=== PATIENT | female | born 1935 | race Caucasian/White ===

== ENCOUNTER 2019-03-21 01:30 | Emergency (ER) | payer MEDICARE ==
[2019-03-21 01:36] VITALS: BP 193/92; PULSE 72; RESP 20; TEMP 98
[2019-03-21] MEDS ORDERED: LIDOCAINE 2% INJ 20 MG/ML (20 ML MDV) SQ STA (01:47)
[2019-03-21] MEDS ORDERED: AZITHROMYCIN 500 MG TAB PO STA (02:54)
--- NOTE | 2019-03-21 02:54 | ED ---
Animal Bite HPI - General Chief Complaint: Animal Bite Stated Complaint: Cat scratch Time Seen by Provider: 03/21/19 01:38 Source: patient Mode of arrival: ambulatory Limitations: no limitations - History of Present Illness Initial Comments: 83-year-old female patient presents to the emergency department today for evaluation of a bleeding wound to the left pinky finger. Patient states that her cat scratched her approximately 3 hours ago and she has been unable to get the bleeding to stop. Patient states she is taking Eliquis twice a day. Patient states she held pressure, applied ice, and elevated it without relief. States that she did wash the wound. She denies any other injuries. Patient denies any headache, neck pain, back pain, chest pain, shortness of breath, dizziness, weakness, abdominal pain, nausea, vomiting, or difficulties with bowel movements or urination. - Related Data Home Medications Medication Instructions Recorded Confirmed Allopurinol [Zyloprim] 300 mg PO DAILY 07/04/17 07/04/17 Artificial Tears-Hypromellose 1 drops BOTH EYES DAILY PRN 07/04/17 07/04/17 [Artificial Tear Drops] Ferrous Sulfate [Iron (65 MG 325 mg PO DAILY 07/04/17 07/04/17 Elemental)] Multivit/Folic Acid/Vit K1 1 tab PO DAILY 07/04/17 07/04/17 [One-A-Day Women's 50 Plus Tab] Potassium Chloride [Klor-Con 20] 20 meq PO DAILY 07/04/17 07/04/17 amLODIPine [Norvasc] 5 mg PO DAILY 07/04/17 07/04/17 Previous Rx's Medication Instructions Recorded Apixaban [Eliquis] 5 mg PO BID tab 07/06/17 Nitroglycerin Sl Tabs [Nitrostat] 0.4 mg SUBLINGUAL Q5M PRN tab 07/06/17 Potassium Chloride ER [K-Dur 20] 20 meq PO DAILY tab.er.prt 07/06/17 Verapamil Sr [Isoptin Sr] 120 mg PO DAILY tablet.er 07/06/17 Azithromycin [Zithromax Z-pack] 0 mg PO DIRECTED #6 tab 03/21/19 Allergies Allergy/AdvReac Type Severity Reaction Status Date / Time No Known Allergies Allergy Verified 03/21/19 01:36 Review of Systems ROS Statement: Those systems with pertinent positive or pertinent negative responses have been documented in the HPI. ROS Other: All systems not noted in ROS Statement are negative. Past Medical History Past Medical History: Hypertension Additional Past Medical History / Comment(s): Hepatitis C History of Any Multi-Drug Resistant Organisms: None Reported Past Surgical History: Tonsillectomy Past Anesthesia/Blood Transfusion Reactions: No Reported Reaction Additional Past Anesthesia/Blood Transfusion Reaction / Comment(s): Blood transfusion 5-6 years ago (no reactions) Past Psychological History: No Psychological Hx Reported Smoking Status: Former smoker Past Alcohol Use History: None Reported Past Drug Use History: None Reported - Past Family History Father Family Medical History: Cancer Additional Family Medical History / Comment(s): prostate CA Mother Family Medical History: Diabetes Mellitus, Myocardial Infarction ([place]) Brother(s) Family Medical History: Cancer Additional Family Medical History / Comment(s): esophageal CA Sister(s) Family Medical History: Cancer Additional Family Medical History / Comment(s): ovarian CA General Exam Limitations: no limitations General appearance: alert, in no apparent distress, other (This is a well- developed, well-nourished elderly female patient in no acute distress. Vital signs upon presentation are temperature 98.0F, pulse 72, respirations 20, blood pressure 193/92, pulse ox 94% on room air.) Respiratory exam: Present: normal lung sounds bilaterally. Absent: respiratory distress, wheezes, rales, rhonchi, stridor Cardiovascular Exam: Present: regular rate, normal rhythm, normal heart sounds. Absent: systolic murmur, diastolic murmur, rubs, gallop, clicks Extremities exam: Present: full ROM, normal capillary refill, other (1 cm laceration noted to the pad of the left fifth finger.). Absent: normal inspection, tenderness, pedal edema, joint swelling, calf tenderness Neurological exam: Present: alert, oriented X3, CN II-XII intact Psychiatric exam: Present: normal affect, normal mood Skin exam: Present: warm, dry, intact, normal color. Absent: rash Course Vital Signs 03/21/19 01:33 Temperature 98.0 F Pulse Rate 72 Respiratory 20 Rate Blood Pressure 193/92 O2 Sat by Pulse 94 L Oximetry Procedures - Laceration Laceration #1 Indication: laceration Site: hand (Left fifth finger) Size (cm): 1 Description: linear Depth: simple, single layer Anesthetic Used: lidocaine 1% Anesthesia Technique: local infiltration Amount (mls): 1 Type of Sutures: nylon Size of Sutures: 5-0 Number of Sutures: 2 Technique: simple, interrupted Patient Tolerated Procedure: well, no complications Medical Decision Making - Medical Decision Making 83-year-old female patient presents to the emergency department today for evaluation of laceration to the left finger. Physical examination did reveal bleeding wound measuring approximately 1 cm in the pad of the left fifth finger. Laceration was repaired. Bleeding was stopped utilizing direct pressure. Patient tolerated procedures well. She was started on azithromycin for prevention of infection. She is instructed to follow-up with her primary care physician for recheck in 1-2 days. She is instructed to have sutures removed in 7 days. Return parameters discussed in detail. She verbalizes understanding and agrees with this plan. Disposition Clinical Impression: Cat scratch Disposition: HOME SELF-CARE Condition: Good Instructions (If sedation given, give patient instructions): Care For Your S titches (ED), Laceration (ED) Additional Instructions: Keep wound clean and dry. Cleanse twice daily with warm water and antibacterial soap. Complete antibiotic prescription in full. Follow-up with your primary care physician for recheck in 1-2 days. Return in 7 days to have the stitches removed. Return for any other new, worsening, or concerning symptoms. Prescriptions: Azithromycin [Zithromax Z-pack] 0 mg PO DIRECTED #6 tab Is patient prescribed a controlled substance at d/c from ED?: No Referrals: Patti Razo MD [Primary Care Provider] - 1-2 days Time of Disposition: 02:54
== END 2019-03-21 03:08 | disposition home or self-care (01) ==
LOC: EC 01:30
DX: S61.217A Laceration without foreign body of left little finger without damage to nail, initial encounter (principal); I10 Essential (primary) hypertension; Z79.899 Other long term (current) drug therapy; Z87.891 Personal history of nicotine dependence; W55.03XA Scratched by cat, initial encounter
CPT/HCPCS: 99283; 12001; J2001

== ENCOUNTER 2019-09-30 15:30 | Emergency (ER) | payer MEDICARE ==
[2019-09-30 15:37] VITALS: TEMP 97.7
--- NOTE | 2019-09-30 16:19 | ED ---
General Adult HPI - General Chief complaint: Eye Problems Stated complaint: vision problems Time Seen by Provider: 09/30/19 16:02 Source: patient, family, RN notes reviewed, old records reviewed Mode of arrival: wheelchair Limitations: no limitations - History of Present Illness Initial comments: 84-year-old female history of hypertension and DVT presenting for evaluation of decreased sensation in the left eye. Patient's symptoms began yesterday morning when she woke this pain greater than 24 hours since the onset of her symptoms. She denies pain. She denies headache. She denies focal numbness or weakness. No history of TIA or CVA. 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 She is currently on Eliquis, with history of DVT. Most recent DVT was diagnosed approximately 6 months ago. Denies chest pain or dyspnea, denies abdominal pain nausea vomiting. - Related Data Home Medications Medication Instructions Recorded Confirmed Ferrous Sulfate [Iron (65 MG 325 mg PO BID 07/04/17 09/30/19 Elemental)] amLODIPine [Norvasc] 5 mg PO DAILY 07/04/17 09/30/19 Atenolol 25 mg PO DAILY 09/30/19 09/30/19 Ergocalciferol [Vitamin D2] 50,000 unit PO LAKHANI 09/30/19 09/30/19 Nitroglycerin Sl Tabs [Nitrostat] 0.4 mg SUBLINGUAL Q5M PRN 09/30/19 09/30/19 Verapamil HCl [Verapamil ER] 240 mg PO DAILY 09/30/19 09/30/19 Previous Rx's Medication Instructions Recorded Apixaban [Eliquis] 5 mg PO BID tab 07/06/17 Potassium Chloride ER [K-Dur 20] 20 meq PO DAILY tab.er.prt 07/06/17 Allergies Allergy/AdvReac Type Severity Reaction Status Date / Time No Known Allergies Allergy Verified 09/30/19 16:27 Review of Systems ROS Statement: Those systems with pertinent positive or pertinent negative responses have been documented in the HPI. ROS Other: All systems not noted in ROS Statement are negative. Past Medical History Past Medical History: Hypertension Additional Past Medical History / Comment(s): Hepatitis C History of Any Multi-Drug Resistant Organisms: None Reported Past Surgical History: Section, Tonsillectomy Past Anesthesia/Blood Transfusion Reactions: No Reported Reaction Additional Past Anesthesia/Blood Transfusion Reaction / Comment(s): Blood transfusion 5-6 years ago (no reactions) Past Psychological History: No Psychological Hx Reported Smoking Status: Former smoker Past Alcohol Use History: None Reported Past Drug Use History: None Reported - Past Family History Father Family Medical History: Cancer Additional Family Medical History / Comment(s): prostate CA Mother Family Medical History: Diabetes Mellitus, Myocardial Infarction ([place]) Brother(s) Family Medical History: Cancer Additional Family Medical History / Comment(s): esophageal CA Sister(s) Family Medical History: Cancer Additional Family Medical History / Comment(s): ovarian CA General Exam Limitations: no limitations General appearance: alert, in no apparent distress Head exam: Present: atraumatic, normocephalic Eye exam: Present: PERRL, EOMI. Absent: periorbital swelling, periorbital tenderness Pupils: Present: normal accommodation ENT exam: Present: normal exam Neck exam: Present: normal inspection Respiratory exam: Present: normal lung sounds bilaterally. Absent: respiratory distress, wheezes Cardiovascular Exam: Present: regular rate, normal rhythm GI/Abdominal exam: Present: soft. Absent: distended, tenderness Extremities exam: Present: normal inspection, normal capillary refill Neurological exam: Present: alert, oriented X3, CN II-XII intact. Absent: motor sensory deficit Psychiatric exam: Present: normal affect, normal mood Skin exam: Present: warm, dry, intact. Absent: cyanosis, diaphoretic Course Vital Signs 09/30/19 09/30/19 09/30/19 15:35 15:37 16:37 Temperature 97.7 F Pulse Rate 87 78 Respiratory 16 20 18 Rate Blood Pressure 164/78 142/82 O2 Sat by Pulse 96 95 Oximetry 09/30/19 17:00 Temperature Pulse Rate 77 Respiratory 18 Rate Blood Pressure 148/80 O2 Sat by Pulse 95 Oximetry EKG Findings - EKG Comments: EKG Findings:: EKG: Normal sinus rhythm, rate of 76, DE interval 176, QRS durati on 84, QTC [address] segment elevation. Medical Decision Making - Medical Decision Making Visual acuity, 20/800 in the left eye, 20/100 in the right eye. Eye pressure: Left eye 14, right eye 15. 84-year-old female with painless vision loss. Evaluated in the emergency department, normal laboratory testing, normal head CT no intracranial hemorrhage or mass effect. I exam performed by myself was unable to visualize the retina. Ophthalmology was contacted who is able to evaluate the patient after she was dilated. Recommend close outpatient follow-up. they se a very dense cataract in the left eye. Patient evaluated by ophthalmology, Dr. Vang, has follow-up within 24 hours - Lab Data Result diagrams: 09/30/19 16:30 09/30/19 16:30 Lab Results 09/30/19 09/30/19 09/30/19 Range/Units 16:30 16:30 16:30 WBC 7.3 (3.8-10.6) k/uL RBC 4.70 (3.80-5.40) m/uL Hgb 14.2 (11.4-16.0) gm/dL Hct 44.9 (34.0-46.0) % MCV 95.6 (80.0-100.0) fL MCH 30.1 (25.0-35.0) pg MCHC 31.5 (31.0-37.0) g/dL RDW 13.7 (11.5-15.5) % Plt Count 182 (150-450) k/uL Neutrophils % 68 % Lymphocytes % 19 % Monocytes % 9 % Eosinophils % 2 % Basophils % 0 % Neutrophils # 4.9 (1.3-7.7) k/uL Lymphocytes # 1.4 (1.0-4.8) k/uL Monocytes # 0.7 (0-1.0) k/uL Eosinophils # 0.1 (0-0.7) k/uL Basophils # 0.0 (0-0.2) k/uL PT 9.7 (9.0-12.0) sec INR 0.9 (<1.2) APTT 26.1 (22.0-30.0) sec Sodium 141 (137-145) mmol/L Potassium 4.3 (3.5-5.1) mmol/L Chloride 105 (98-107) mmol/L Carbon Dioxide 24 (22-30) mmol/L Anion Gap 12 mmol/L BUN 21 H (7-17) mg/dL Creatinine 0.65 (0.52-1.04) mg/dL Est GFR (CKD-EPI)AfAm >90 (>60 ml/min/1.73 sqM) Est GFR (CKD-EPI)NonAf 82 (>60 ml/min/1.73 sqM) Glucose 100 H (74-99) mg/dL Calcium 9.2 (8.4-10.2) mg/dL Total Bilirubin 0.3 (0.2-1.3) mg/dL AST 43 H (14-36) U/L ALT 27 (4-34) U/L Alkaline Phosphatase 113 (38-126) U/L Total Protein 7.6 (6.3-8.2) g/dL Albumin 4.4 (3.5-5.0) g/dL Disposition Clinical Impression: Cataract, Vision loss of left eye Disposition: HOME SELF-CARE Condition: Fair Instructions (If sedation given, give patient instructions): Cataracts (ED) Is patient prescribed a controlled substance at d/c from ED?: No Referrals: Patti Razo MD [Primary Care Provider] - 1-2 days Brit Vang MD [STAFF PHYSICIAN] - 1-2 days Time of Disposition: 19:47
[2019-09-30 16:42] LABS: Basophils % (A) 0 %; Eosinophils # (A) 0.1 k/uL (0-0.7); Eosinophils % (A) 2 %; HCT 44.9 % (34.0-46.0); HGB 14.2 gm/dL (11.4-16.0); Lymphocytes # (A) 1.4 k/uL (1.0-4.8); Lymphocytes % (A) 19 %; MCH 30.1 pg (25.0-35.0); MCHC 31.5 g/dL (31.0-37.0); MCV 95.6 fL (80.0-100.0); Mean Platelet Volume 8.7; Monocytes # (A) 0.7 k/uL (0-1.0); Monocytes % (A) 9 %; Neutrophils # (A) 4.9 k/uL (1.3-7.7); Neutrophils % (A) 68 %; Platelet Count 182 k/uL (150-450); RDW 13.7 % (11.5-15.5); WBC 7.3 k/uL (3.8-10.6)
--- NOTE | 2019-09-30 16:51 | CT ---
EXAMINATION TYPE: CT brain wo con DATE OF EXAM: 09/30/2019 HISTORY: changes in vision CT DLP: 1094.4 mGycm. Automated Exposure Control for Dose Reduction was Utilized. TECHNIQUE: CT scan of the head is performed without contrast. COMPARISON: None. FINDINGS: There is no acute intracranial hemorrhage or midline shift identified. There is diffuse v entricular and sulcal prominence consistent with diffuse age-related cerebral atrophy. There is low- attenuation in the periventricular white matter consistent with chronic small vessel ischemic change. Vascular calcification distal internal carotid arteries bilaterally is present. Scleral calcificatio n bilateral globes. Paranasal sinuses are grossly clear. IMPRESSION: No acute intracranial hemorrhage or midline shift. There is mild to moderate diffuse ag e-related cerebral atrophy and chronic small vessel ischemic change noted.
[2019-09-30 16:56] LABS: ALT 27 U/L (4-34); AST 43 U/L (14-36); African American GFR (CKD) >90 (>60 ml/min/1.73 sqM); Albumin 4.4 g/dL (3.5-5.0); Alkaline Phosphatase 113 U/L (38-126); Anion Gap 12 mmol/L; Blood Urea Nitrogen 21 mg/dL (7-17); Calcium 9.2 mg/dL (8.4-10.2); Carbon Dioxide 24 mmol/L (22-30); Chloride 105 mmol/L (98-107); Glucose 100 mg/dL (74-99); Non-African American GFR(CKD) 82 (>60 ml/min/1.73 sqM); Potassium 4.3 mmol/L (3.5-5.1); Sodium 141 mmol/L (137-145); Total Bilirubin 0.3 mg/dL (0.2-1.3); Total Protein 7.6 g/dL (6.3-8.2)
[2019-09-30 17:08] LABS: INR 0.9 (<1.2); Partial Thromboplastin Time 26.1 sec (22.0-30.0); Prothrombin Time 9.7 sec (9.0-12.0)
[2019-09-30] MEDS ORDERED: TROPICAMIDE 1% OPHTH DROPS 2 ML BTL BOTH EYES SCH (17:15)
[2019-09-30] MEDS ORDERED: amLODIPine 5 MG TAB PO STA (17:17)
[2019-09-30 20:02] VITALS: BP 153/88; PULSE 79; RESP 20
--- NOTE | 2019-09-30 20:09 | CONS ---
CONSULTATION CHIEF COMPLAINT: The patient is 84 years old, complaining of decreased vision in both eyes. She states that this happened quickly in the last few days. The patient did not see an tilting head band sawyer or an group activities aide for the last 15 years. The patient denies any history of trauma, headaches, temporal pain or stroke. Eye examination: Vision: Right eye is 20/100, left eye is 20/400. Extraocular motility full. Pupils equal and reactive. Eye pressure were 18 mmHg both eyes. Angle could not be evaluated in the emergency room. Dilated examination showed the normal disk in the right eye. Normal retina in the right eye with macular degeneration and a 2+ nuclear sclerosis. Left eye shows 4+ nuclear sclerosis with a very hazy retinal view. Unable to evaluate anything in the retina. Could be vitreous hemorrhage. Could be severely dense cataract. I will re-evaluate tomorrow in the office through a retina specialist. She would need to B scan to evaluate behind the retina. We will arrange everything for tomorrow. We will call her son to arrange for the B-scan in the office and to follow up. Thank you for the consultation. ASSESSMENT: 1. Bilateral cataract, very dense in the left eye. 2. Possible vitreous hemorrhage, left eye, unable to evaluate the retina. MMODL / IJN: [id number] /
== END 2019-09-30 20:04 | disposition home or self-care (01) ==
LOC: EC 15:30
DX: H26.9 Unspecified cataract (principal); I10 Essential (primary) hypertension; B19.20 Unspecified viral hepatitis C without hepatic coma; Z79.01 Long term (current) use of anticoagulants; Z79.899 Other long term (current) drug therapy; Z86.718 Personal history of other venous thrombosis and embolism; Z87.891 Personal history of nicotine dependence
CPT/HCPCS: 36415; 70450; 80053; 85025; 85610; 85730; 93005; 99285

== ENCOUNTER 2020-02-10 10:21 | Observation (INO) | payer MEDICARE ==
[2020-02-10] MEDS ORDERED: SODIUM CHLORIDE 0.9% 500 ML 500 ML IV STA (10:30)
[2020-02-10 10:51] LABS: Basophils % (A) 0 %; Eosinophils # (A) 0.2 k/uL (0-0.7); Eosinophils % (A) 2 %; HCT 44.4 % (34.0-46.0); HGB 14.8 gm/dL (11.4-16.0); Lymphocytes # (A) 1.4 k/uL (1.0-4.8); Lymphocytes % (A) 18 %; MCH 31.3 pg (25.0-35.0); MCHC 33.2 g/dL (31.0-37.0); Mean Platelet Volume 9.1; Monocytes # (A) 0.6 k/uL (0-1.0); Monocytes % (A) 8 %; Neutrophils # (A) 5.4 k/uL (1.3-7.7); Neutrophils % (A) 70 %; Platelet Count 194 k/uL (150-450); RBC 4.72 m/uL (3.80-5.40); RDW 13.3 % (11.5-15.5); WBC 7.8 k/uL (3.8-10.6)
[2020-02-10 10:59] LABS: ALT 30 U/L (4-34); AST 52 U/L (14-36); African American GFR (CKD) >90 (>60 ml/min/1.73 sqM); Albumin 4.3 g/dL (3.5-5.0); Alkaline Phosphatase 98 U/L (38-126); Anion Gap 9 mmol/L; Blood Urea Nitrogen 16 mg/dL (7-17); Calcium 9.1 mg/dL (8.4-10.2); Carbon Dioxide 24 mmol/L (22-30); Chloride 106 mmol/L (98-107); Glucose 202 mg/dL (74-99); Non-African American GFR(CKD) 83 (>60 ml/min/1.73 sqM); Potassium 3.9 mmol/L (3.5-5.1); Sodium 139 mmol/L (137-145); Total Bilirubin 0.8 mg/dL (0.2-1.3); Total Protein 7.5 g/dL (6.3-8.2)
[2020-02-10 11:02] LABS: Prothrombin Time 10.4 sec (9.0-12.0)
--- NOTE | 2020-02-10 11:31 | ED ---
GI Bleed HPI - General Chief complaint: GI Bleed Stated complaint: bleeding Time Seen by Provider: 02/10/20 10:30 Source: patient, family Mode of arrival: wheelchair Limitations: no limitations - History of Present Illness Initial comments: 84-year-old female presented for chief complaint of bright red blood per rectum. Patient states that she had a lot of blood coming from the rectum earlier today she states that it is not necessarily was stool. Patient states that she did have additional episodes patient denies any severe abdominal pain since she has some mild lower abdominal cramping. Patient denies any fevers she has a upper respiratory symptoms or vomiting. Patient denies nausea. Patient denied lightheadedness or presyncope. Patient states that she is on eliquis. She states she is unsure why she thought she states she believes is due to blood pressure. On chart review reveals the patient does have history of atrial fibrillation. Patient denies additional episodes, patient appears nontoxic on arrival, no distress but initial HR elevated. - Related Data Home Medications Medication Instructions Recorded Confirmed Ferrous Sulfate [Iron (65 MG 325 mg PO BID 07/04/17 09/30/19 Elemental)] amLODIPine [Norvasc] 5 mg PO DAILY 07/04/17 09/30/19 Atenolol 25 mg PO DAILY 09/30/19 09/30/19 Ergocalciferol [Vitamin D2] 50,000 unit PO LAKHANI 09/30/19 09/30/19 Nitroglycerin Sl Tabs [Nitrostat] 0.4 mg SUBLINGUAL Q5M PRN 09/30/19 09/30/19 Verapamil HCl [Verapamil ER] 240 mg PO DAILY 09/30/19 09/30/19 Previous Rx's Medication Instructions Recorded Apixaban [Eliquis] 5 mg PO BID tab 07/06/17 Potassium Chloride ER [K-Dur 20] 20 meq PO DAILY tab.er.prt 07/06/17 Allergies Allergy/AdvReac Type Severity Reaction Status Date / Time No Known Allergies Allergy Verified 02/10/20 10:26 Review of Systems ROS Statement: Those systems with pertinent positive or pertinent negative responses have been documented in the HPI. ROS Other: All systems not noted in ROS Statement are negative. Past Medical History Past Medical History: Coronary Artery Disease (CAD), Hypertension Additional Past Medical History / Comment(s): Hepatitis C, anemia History of Any Multi-Drug Resistant Organisms: None Reported Past Surgical History: Section, Tonsillectomy Past Anesthesia/Blood Transfusion Reactions: No Reported Reaction Additional Past Anesthesia/Blood Transfusion Reaction / Comment(s): Blood transfusion 5-6 years ago (no reactions) Past Psychological History: No Psychological Hx Reported Smoking Status: Former smoker Past Alcohol Use History: None Reported Past Drug Use History: None Reported - Past Family History Father Family Medical History: Cancer Additional Family Medical History / Comment(s): prostate CA Mother Family Medical History: Diabetes Mellitus, Myocardial Infarction ([place]) Brother(s) Family Medical History: Cancer Additional Family Medical History / Comment(s): esophageal CA Sister(s) Family Medical History: Cancer Additional Family Medical History / Comment(s): ovarian CA General Exam - General Exam Comments Initial Comments: General: The patient is awake and alert, in no distres Eye: +3 mm pupils are equal, round and reactive to light, extra-ocular movements are intact. No nystagmus. There is normal conjunctiva bilaterally. No signs of icterus. Cardiovascular: There is a regular rate and rhythm. No murmur, rub or gallop is appreciated. Respiratory: Lungs are clear to auscultation, respirations are non-labored, breath sounds are equal. No wheezes, stridor, rales, or rhonchi. Gastrointestinal: Soft, non-distended, non-tender abdomen without masses or organomegaly noted. There is no rebound or guarding present. Rectal: there is some bright red blood/dark stool on exam. Patient has an external hemorrhoid that appears irritated, slightly red. Patient has mild tenderness to palpation of the hemorrhoid. Patient hemorrhoid is not bleeding. Musculoskeletal: Normal ROM, no tenderness. Strength 5/5. Sensation intact. R adial pulses equal bilaterally 2+. Neurological: A&O x 3. CN II-XII intact grossly, There are no obvious motor or sensory deficits. Coordination appears grossly intact. Speech is normal. Skin: Skin is warm and dry and no rashes or lesions are noted. Psychiatric: Cooperative, appropriate mood & affect, normal judgment. Limitations: no limitations Course Vital Signs 02/10/20 02/10/20 10:22 11:19 Temperature 98.2 F Pulse Rate 122 H 52 L Respiratory 20 Rate Blood Pressure 121/72 O2 Sat by Pulse 95 Oximetry Medical Decision Making - Medical Decision Making Abdomen soft nontender. Patient repeat HR i performed in room 52. Patient does not appear pale. Normal capillary color of lids. Patient Hgb stable BP stable. No active bleeding currently. Patient is on eliquis. given age, complaints and medicaion history will keep patient for observation. Repeat CBC ordered. Patient is agreeable to care plan and admission. / Beth spoke wtih Dr. Razo who is agreeable to admission and care plan. Ventricular rate 91 bpm, AK interval undiscernible as patient is in atrial fibrillation QRS 82 ms, QT/QTC 398/489. Patient has no ST elevation or depression. - Lab Data Result diagrams: 02/10/20 10:36 02/10/20 10:36 Lab Results 02/10/20 02/10/20 02/10/20 Range/Units 10:20 10:36 10:36 WBC 7.8 (3.8-10.6) k/uL RBC 4.72 (3.80-5.40) m/uL Hgb 14.8 (11.4-16.0) gm/dL Hct 44.4 (34.0-46.0) % MCV 94.0 D (80.0-100.0) fL MCH 31.3 (25.0-35.0) pg MCHC 33.2 (31.0-37.0) g/dL RDW 13.3 (11.5-15.5) % Plt Count 194 (150-450) k/uL Neutrophils % 70 % Lymphocytes % 18 % Monocytes % 8 % Eosinophils % 2 % Basophils % 0 % Neutrophils # 5.4 (1.3-7.7) k/uL Lymphocytes # 1.4 (1.0-4.8) k/uL Monocytes # 0.6 (0-1.0) k/uL Eosinophils # 0.2 (0-0.7) k/uL Basophils # 0.0 (0-0.2) k/uL PT 10.4 (9.0-12.0) sec INR 1.0 (<1.2) APTT 27.0 (22.0-30.0) sec Sodium (137-145) mmol/L Potassium (3.5-5.1) mmol/L Chloride (98-107) mmol/L Carbon Dioxide (22-30) mmol/L Anion Gap mmol/L BUN (7-17) mg/dL Creatinine (0.52-1.04) mg/dL Est GFR (CKD-EPI)AfAm (>60 ml/min/1.73 sqM) Est GFR (CKD-EPI)NonAf (>60 ml/min/1.73 sqM) Glucose (74-99) mg/dL Calcium (8.4-10.2) mg/dL Total Bilirubin (0.2-1.3) mg/dL AST (14-36) U/L ALT (4-34) U/L Alkaline Phosphatase (38-126) U/L Troponin I (0.000-0.034) ng/mL Total Protein (6.3-8.2) g/dL Albumin (3.5-5.0) g/dL Blood Type O Positive Blood Type Recheck O Pos Bld Type Recheck Status No Antibody Screen NEGATIVE Spec Expiration Date 02/13/2020 - 233502/10/20 02/10/20 Range/Units 10:36 10:36 WBC (3.8-10.6) k/uL RBC (3.80-5.40) m/uL Hgb (11.4-16.0) gm/dL Hct (34.0-46.0) % MCV (80.0-100.0) fL MCH (25.0-35.0) pg MCHC (31.0-37.0) g/dL RDW (11.5-15.5) % Plt Count (150-450) k/uL Neutrophils % % Lymphocytes % % Monocytes % % Eosinophils % % Basophils % % Neutrophils # (1.3-7.7) k/uL Lymphocytes # (1.0-4.8) k/uL Monocytes # (0-1.0) k/uL Eosinophils # (0-0.7) k/uL Basophils # (0-0.2) k/uL PT (9.0-12.0) sec INR (<1.2) APTT (22.0-30.0) sec Sodium 139 (137-145) mmol/L Potassium 3.9 (3.5-5.1) mmol/L Chloride 106 (98-107) mmol/L Carbon Dioxide 24 (22-30) mmol/L Anion Gap 9 mmol/L BUN 16 (7-17) mg/dL Creatinine 0.62 (0.52-1.04) mg/dL Est GFR (CKD-EPI)AfAm >90 (>60 ml/min/1.73 sqM) Est GFR (CKD-EPI)NonAf 83 (>60 ml/min/1.73 sqM) Glucose 202 H (74-99) mg/dL Calcium 9.1 (8.4-10.2) mg/dL Total Bilirubin 0.8 (0.2-1.3) mg/dL AST 52 H (14-36) U/L ALT 30 (4-34) U/L Alkaline Phosphatase 98 (38-126) U/L Troponin I <0.012 (0.000-0.034) ng/mL Total Protein 7.5 (6.3-8.2) g/dL Albumin 4.3 (3.5-5.0) g/dL Blood Type Blood Type Recheck Bld Type Recheck Status Antibody Screen Spec Expiration Date Disposition Clinical Impression: Blood per rectum, History of atrial fibrillation Disposition: ADMITTED IP TO THIS HOSP Condition: Stable Is patient prescribed a controlled substance at d/c from ED?: No Referrals: Patti Razo MD [Primary Care Provider] - 1-2 days Time of Disposition: 11:50 Decision to Admit Reason: Admit from EC Decision Date: 02/10/20 Decision Time: 11:50
[2020-02-10] MEDS ORDERED: NALOXONE 0.4 MG/ML 1 ML VIAL IV PRN (11:51)
--- NOTE | 2020-02-10 12:30 | P.HPIM ---
History of Present Illness H&P Date: 02/10/20 Chief Complaint: Rectal bleeding Dia Wood is an 84-year-old female who presented to [facility] emergency room with a chief complaint of rectal bleeding, patient stated that she went to the bathroom and had a bowel movement, she noticed blood with her stools, later on she noticed some more blood on her bed, and she decided to come to emergency room, she was evaluated by Dr. Kruger, hemoglobin was stable at 14.8, patient was started on IV Protonix and was admitted to medical floor gastroenterology consultation was requested. Patient has a known history of atrial fibrillation, she was maintained on Eliquis which was held in the emergency room. Patient had history of severe anemia in the past, about 8 years ago, she was found to have a hemoglobin of 6 she had red blood cells transfusion, she was admitted to the hospital at that time and underwent EGD and colonoscopy, no source of bleeding was found at that time. Today I saw Mrs. Wood and examined her in the emergency room, she is alert and oriented 3 in no apparent distress, she denies any pain or discomfort at this time, she is complaining of anxiety, she states that she has multiple family history of cancer, otherwise she denies any complaints there is no fever or chills no headache or dizziness no chest pain no shortness of breath no cough no nausea or vomiting no abdominal pain no diarrhea no burning with urination no frequency or urgency and no hematuria, no acute change in her vision speech or gait, no weakness or numbness in any of her extremities. Past Medical History Past Medical History: Coronary Artery Disease (CAD), Hypertension Additional Past Medical History / Comment(s): Hepatitis C, anemia History of Any Multi-Drug Resistant Organisms: None Reported Past Surgical History: Section, Tonsillectomy Past Anesthesia/Blood Transfusion Reactions: No Reported Reaction Additional Past Anesthesia/Blood Transfusion Reaction / Comment(s): Blood transfusion 5-6 years ago (no reactions) Past Psychological History: No Psychological Hx Reported Smoking Status: Former smoker Past Alcohol Use History: None Reported Past Drug Use History: None Reported - Past Family History Father Family Medical History: Cancer Additional Family Medical History / Comment(s): prostate CA Mother Family Medical History: Diabetes Mellitus, Myocardial Infarction ([place]) Brother(s) Family Medical History: Cancer Additional Family Medical History / Comment(s): esophageal CA Sister(s) Family Medical History: Cancer Additional Family Medical History / Comment(s): ovarian CA Medications and Allergies Home Medications Medication Instructions Recorded Confirmed Type Ferrous Sulfate [Iron (65 MG 325 mg PO BID 07/04/17 09/30/19 History Elemental)] amLODIPine [Norvasc] 5 mg PO DAILY 07/04/17 09/30/19 History Apixaban [Eliquis] 5 mg PO BID tab 07/06/17 09/30/19 Rx Potassium Chloride ER [K-Dur 20] 20 meq PO DAILY tab.er.prt 07/06/17 09/30/19 Rx Atenolol 25 mg PO DAILY 09/30/19 09/30/19 History Ergocalciferol [Vitamin D2] 50,000 unit PO LAKHANI 09/30/19 09/30/19 History Nitroglycerin Sl Tabs [Nitrostat] 0.4 mg SUBLINGUAL Q5M PRN 09/30/19 09/30/19 History Verapamil HCl [Verapamil ER] 240 mg PO DAILY 09/30/19 09/30/19 History Allergies Allergy/AdvReac Type Severity Reaction Status Date / Time No Known Allergies Allergy Verified 02/10/20 12:08 Physical Exam Vitals: Vital Signs Temp Pulse Resp BP Pulse Ox 02/10/20 11:19 52 L 02/10/20 10:22 98.2 F 122 H 20 121/72 95 Intake and Output 02/09/20 02/10/20 02/10/20 22:59 06:59 14:59 Other: Weight 68.039 kg In general patient is alert and oriented 3 in no apparent distress HEENT head normocephalic and atraumatic Neck is supple no JVD no goiter no lymphadenopathy Chest exam reveals a few scattered crackles bilaterally no wheezing Cardiac exam reveals irregular heart rate no gallops no murmurs Abdomen is soft nontender no organomegaly with normal bowel sounds Extremity exam reveals no edema no cyanosis or clubbing Neurological examination reveals no gross focal deficit Results CBC & Chem 7: 02/10/20 10:36 02/10/20 10:36 Labs: Abnormal Lab Results - Last 24 Hours (Table) 02/10/20 Range/Units 10:36 Glucose 202 H (74-99) mg/dL AST 52 H (14-36) U/L Assessment and Plan Plan: 1. Rectal bleeding, will monitor hemoglobin closely, gastroenterology consultation was requested, patient was started on IV Protonix 2. Atrial fibrillation, at this time will hold Eliquis, heart rate is well- controlled. 3. Underlying history of hypertension well-controlled on medications. 4. Underlying history of gout 5. Underlying history of vitamin D deficiency At this time patient will be admitted to medical floor Awaiting GI consultation Will follow closely
[2020-02-10] MEDS ORDERED: NITROGLYCERIN SL TABS 0.4 MG TAB SUBLINGUAL PRN (13:37)
[2020-02-10] MEDS ORDERED: ALPRAZolam 0.25 MG TAB PO PRN (13:44)
[2020-02-10] MEDS: PANTOPRAZOLE 40 MG/10 ML VIAL IVP SCH (14:05)
[2020-02-10] MEDS: SODIUM CHLORIDE 0.9% 1,000 ML IV SCH (14:09)
[2020-02-10 16:58] LABS: HCT 41.3 % (34.0-46.0); HGB 12.9 gm/dL (11.4-16.0); MCH 29.4 pg (25.0-35.0); MCHC 31.1 g/dL (31.0-37.0); MCV 94.4 fL (80.0-100.0); Mean Platelet Volume 8.7; Platelet Count 161 k/uL (150-450); RBC 4.37 m/uL (3.80-5.40); RDW 13.5 % (11.5-15.5); WBC 7.4 k/uL (3.8-10.6)
[2020-02-10 17:05] LABS: Magnesium 1.9 mg/dL (1.6-2.3); Potassium 3.9 mmol/L (3.5-5.1)
[2020-02-10] MEDS: FERROUS SULFATE 325 MG TAB PO SCH (22:14)
[2020-02-11] MEDS ORDERED: VERAPAMIL SR 240 MG TABLET.ER PO SCH (09:00)
[2020-02-11] MEDS: FERROUS SULFATE 325 MG TAB PO SCH ×2 (09:21→20:23)
[2020-02-11] MEDS: PANTOPRAZOLE 40 MG/10 ML VIAL IVP SCH (09:21)
[2020-02-11] MEDS: ALLOPURINOL 300 MG TAB PO SCH (09:21)
[2020-02-11] MEDS: POTASSIUM CHLORIDE ER 20 MEQ TAB.ER PO SCH (09:21)
[2020-02-11] MEDS: amLODIPine 5 MG TAB PO SCH (09:21)
[2020-02-11] MEDS: SODIUM CHLORIDE 0.9% 1,000 ML IV SCH (09:23)
[2020-02-11] MEDS ORDERED: BISACODYL 5 MG TABLET.DR PO STA (11:45)
[2020-02-11 12:25] LABS: HCT 43.2 % (34.0-46.0); HGB 14.1 gm/dL (11.4-16.0); MCH 30.8 pg (25.0-35.0); MCHC 32.5 g/dL (31.0-37.0); MCV 94.7 fL (80.0-100.0); Mean Platelet Volume 8.5; Platelet Count 204 k/uL (150-450); RBC 4.57 m/uL (3.80-5.40); RDW 13.4 % (11.5-15.5); WBC 9.6 k/uL (3.8-10.6)
--- NOTE | 2020-02-11 15:01 | CONS ---
CONSULTATION This is an 84-year-old lady with a history of chronic atrial fibrillation, who came into the hospital with a jason red blood per rectum and also while she was here being evaluated by GI and workup was in progress, she had a question of some ventricular ectopy and I was asked to see her in this regard. I tried my best to review all the rhythm strips, but there is no evidence to suggest any bradyarrhythmia of significance or and leave a wide QRS tachycardia. There was a lot of artifact and this could be a mistaken situation. Patient at the time of my evaluation is resting comfortably. Her jason red blood has also improved. She has no chest pain or shortness of breath. I am however going to recommend that we obtain echocardiogram to assess LV function. Discontinue the verapamil and place on metoprolol tartrate 50 mg b.i.d. Patient has chronic atrial fib rate is controlled. I will obtain echocardiogram. Switch her from verapamil to metoprolol. Continue telemetry. PAST MEDICAL HISTORY: 1. Chronic atrial fibrillation. 2. History of hypertension. 3. Hyperlipidemia. 4. No clear-cut evidence to suggest any CAD. There is a question of hepatitis C and also some tonsillectomy in the past. 5. The patient is not a smoker. MEDICATIONS: Medications at home include Eliquis 5 mg b.i.d., potassium 20 mg daily, verapamil 240 mg SR, nitroglycerin p.r.n., atenolol 25 mg daily, amlodipine 5 mg daily and vitamin supplements. PHYSICAL EXAMINATION: On examination, blood pressure is 140/80, pulse rate is about 80 per minute regular HEENT unremarkable. Fundus was not examined by me. Neck is supple. There is no JVD. There is no carotid bruit heart exam reveals S1, S2 with a short systolic murmur. Lungs reveal diminished air entry. Abdomen is soft, nontender. Lower extremities reveal diminished pulses. Central nervous system is normal EKG revealed atrial fib with moderate ventricular rate nonspecific ST changes. IMPRESSION: 1. Chronic atrial fibrillation. 2. GI bleed jason red blood per rectum. 3. No evidence to suggest any significant ventricular ectopy on echocardiogram correction 0 7 surgery and ventricular ectopy on her rhythm strip review. RECOMMENDATION: I am recommending obtain echocardiogram. Switch her from verapamil to beta moy. Increase activity and continue telemetry if she has any further ectopy. Will come back and re-evaluate her. We will also assess LV function by echo. Thank you very much for the consult/ MMODL / IJN: [id number] /
[2020-02-11] MEDS ORDERED: PEG 3350-NA SULF,BICARB,CL/KCL 4,000 ML BOTTLE PO ONE (17:00)
--- NOTE | 2020-02-11 17:24 | P.PN ---
Subjective Progress Note Date: 02/11/20 Dia Wood is an 84-year-old female who presented to [facility] emergency room with a chief complaint of rectal bleeding, patient stated that she went to the bathroom and had a bowel movement, she noticed blood with her stools, later on she noticed some more blood on her bed, and she d ecided to come to emergency room, she was evaluated by Dr. Kruger, hemoglobin was stable at 14.8, patient was started on IV Protonix and was admitted to medical floor gastroenterology consultation was requested. Patient has a known history of atrial fibrillation, she was maintained on Eliquis which was held in the emergency room. Patient had history of severe anemia in the past, about 8 years ago, she was found to have a hemoglobin of 6 she had red blood cells transfusion, she was admitted to the hospital at that time and underwent EGD and colonoscopy, no source of bleeding was found at that time. Today I saw Mrs. Wood and examined her in the emergency room, she is alert and oriented 3 in no apparent distress, she denies any pain or discomfort at this time, she is complaining of anxiety, she states that she has multiple family history of cancer, otherwise she denies any complaints there is no fever or chills no headache or dizziness no chest pain no shortness of breath no cough no nausea or vomiting no abdominal pain no diarrhea no burning with urination no frequency or urgency and no hematuria, no acute change in her vision speech or gait, no weakness or numbness in any of her extremities. On patient was seen and examined on the medical floor, there is no f ever or chills no headache or dizziness no chest pain no shortness of breath no cough no nausea or vomiting no abdominal pain no diarrhea no burning with urination no frequency or urgency and no hematuria, in by gastroenterology and plan is to proceed with colonoscopy tomorrow Objective - Vital Signs Vital signs: Vital Signs Temp 96.3 F L 02/11/20 08:00 Pulse 91 02/11/20 12:00 Resp 16 02/11/20 12:00 BP 118/67 02/11/20 12:00 Pulse Ox 95 02/11/20 12:00 Intake & Output 02/10/20 02/11/20 02/11/20 18:59 06:59 18:59 Intake Total 180 820 Balance 180 820 Weight 68.039 kg 65 kg Intake: Intake, IV Titration 180 Amount Sodium Chloride 0.9% 1, 180 000 ml @ 60 mls/hr IV . [id number] [facility] Rx#:[id number] Oral 820 Other: Voiding Method Toilet Toilet Toilet # Voids 1 2 # Bowel Movements 1 - Exam In general patient is alert and oriented 3 in no apparent distress HEENT head normocephalic and atraumatic Neck is supple no JVD no goiter no lymphadenopathy Chest exam reveals a few scattered crackles bilaterally no wheezing Cardiac exam reveals irregular heart rate no gallops no murmurs Abdomen is soft nontender no organomegaly with normal bowel sounds Extremity exam reveals no edema no cyanosis or clubbing Neurological examination reveals no gross focal deficit - Labs CBC & Chem 7: 02/11/20 11:58 02/10/20 16:42 Assessment and Plan Plan: 1. Rectal bleeding, will monitor hemoglobin closely, gastroenterology con sultation was requested, patient was started on IV Protonix 2. Atrial fibrillation, at this time will hold Eliquis, heart rate is well- controlled. 3. Underlying history of hypertension well-controlled on medications. 4. Underlying history of gout 5. Underlying history of vitamin D deficiency At this time patient will be admitted to medical floor Awaiting GI consultation Will follow closely
[2020-02-11] MEDS: METOPROLOL TARTRATE 50 MG TAB PO SCH (20:23)
[2020-02-12] MEDS: SODIUM CHLORIDE 0.9% 1,000 ML IV SCH (03:29)
[2020-02-12 04:25] VITALS: TEMP 98.2
--- NOTE | 2020-02-12 06:52 | P.CONS ---
History of Present Illness - Reason for Consult Consult date: 02/11/20 Blood per rectum Requesting physician: Patti Razo - Chief Complaint Blood per rectum - History of Present Illness A 4-year-old female with a medical history significant for hepatitis C, hypertension, coronary artery disease and atrial fibrillation on anticoagulation therapy with Eliquis who presented to the hospital with complaints of bright red blood per rectum. She reports having a bowel movement with straining and subsequently noted to have painless bright red blood per rectum. No similar complaints in the past. She reports a remote history of colonoscopy in the past. Patient's hemoglobin found to be stable at 14.8 on presentation and currently stable on repeat blood draw to 14.1. Other laboratory evaluation significant for WBC 9.6, platelet count 204,000, INR 1.0, alkaline phosphatase 98, total bilirubin 0.8, AST 52 and ALT 30. She does have a past history of anemia as stated had normal hemoglobin on presentation. No abdominal pain reported in association with her symptoms. She has had no further bleeding since presentation. Anticoagulation therapy is currently on hold. Review of Systems REVIEW OF SYSTEMS: CONSTITUTIONAL: Denies any fevers, chills, weight change or fatigue. CARDIOVASCULAR: Denies any chest pain, palpitations high or low blood pressures RESPIRATORY: Denies any shortness of breath, hemoptysis or cough. GENITOURINARY: No dysuria or hematuria. MUSCULOSKELETAL: No weakness reported. SKIN: Denies any new rashes or lesions, jaundice or pallor. PSYCHIATRIC: Denies any depression or anxiety. NEUROLOGY: Denies headache, denies any new focal deficits. EARS/NOSE/THROAT: No recent hearing change, congestion, nasal discharge or sore throat. EYES: No pain in eyes, discharge or change in vision. GASTROINTESTINAL: As per HPI. Past Medical History Past Medical History: Coronary Artery Disease (CAD), Hypertension Additional Past Medical History / Comment(s): Hepatitis C, anemia History of Any Multi-Drug Resistant Organisms: None Reported Past Surgical History: Section, Tonsillectomy Past Anesthesia/Blood Transfusion Reactions: No Reported Reaction Additional Past Anesthesia/Blood Transfusion Reaction / Comm: Blood transfusion 5-6 years ago (no reactions) Past Psychological History: No Psychological Hx Reported Smoking Status: Former smoker Past Alcohol Use History: None Reported Past Drug Use History: None Reported - Past Family History Father Family Medical History: Cancer Additional Family Medical History / Comment(s): prostate CA Mother Family Medical History: Diabetes Mellitus, Myocardial Infarction ([place]) Brother(s) Family Medical History: Cancer Additional Family Medical History / Comment(s): esophageal CA Sister(s) Family Medical History: Cancer Additional Family Medical History / Comment(s): ovarian CA Medications and Allergies Home Medications Medication Instructions Recorded Confirmed Type Ferrous Sulfate [Iron (65 MG 325 mg PO BID 07/04/17 02/10/20 History Elemental)] amLODIPine [Norvasc] 5 mg PO DAILY 07/04/17 02/10/20 History Apixaban [Eliquis] 5 mg PO BID tab 07/06/17 02/10/20 Rx Potassium Chloride ER [K-Dur 20] 20 meq PO DAILY tab.er.prt 07/06/17 02/10/20 Rx Atenolol 25 mg PO DAILY 09/30/19 02/10/20 History Ergocalciferol [Vitamin D2] 50,000 unit PO LAKHANI 09/30/19 02/10/20 History Nitroglycerin Sl Tabs [Nitrostat] 0.4 mg SUBLINGUAL Q5M PRN 09/30/19 02/10/20 History Verapamil HCl [Verapamil ER] 240 mg PO DAILY 09/30/19 02/10/20 History Allopurinol [Zyloprim] 300 mg PO DAILY 02/10/20 02/10/20 History Allergies Allergy/AdvReac Type Severity Reaction Status Date / Time No Known Allergies Allergy Verified 02/10/20 12:08 Physical Exam Vitals: Vital Signs Temp Pulse Resp BP Pulse Ox 02/11/20 12:00 91 16 118/67 95 02/11/20 08:00 96.3 F L 100 16 143/91 95 02/11/20 04:00 98.2 F 68 18 139/66 92 L 02/11/20 00:00 97.7 F 75 16 190/86 92 L 02/10/20 20:00 97.4 F L 63 18 150/75 96 02/10/20 16:11 97.8 F 59 L 16 134/65 95 Intake and Output 02/11/20 02/11/20 02/11/20 06:59 14:59 22:59 Intake Total 820 Balance 820 Intake: Oral 820 Other: Voiding Method Toilet Toilet # Voids 1 2 # Bowel Movements 1 Weight 65 kg On physical examination, patient appears comfortable in no apparent distress. HEAD: Normocephalic, atraumatic. EYES: No scleral icterus. No conjunctival injection. MOUTH: No lesions, tongue midline. NECK: Trachea midline, no gross abnormalities. CHEST: Decreased air entry in all lung omrrison. HEART: S1-S2 appreciated. ABDOMEN: Soft, obese, nontender to palpation. Bowel sounds are positive. No organomegaly. No guarding or rigidity. EXTREMITIES: No pedal edema. SKIN: No rashes, no jaundice. NEUROLOGIC: Alert and oriented. No focal deficits. Results CBC & Chem 7: 02/11/20 11:58 02/10/20 16:42 Assessment and Plan (1) Blood per rectum Narrative/Plan: 84-year-old female who presented to the hospital with complaints of painless bright red blood per rectum. Patient is on anticoagulation therapy with Eliquis at home which is currently on hold. Hemoglobin has remained stable at 14.1 from 14.8 on presentation. No further GI bleeding reported. No associated abdominal pain with the episode. Remote history of colonoscopy. Unclear etiology, may be related to hemorrhoidal bleeding, AVM, diverticular bleed, or other etiology. Current Visit: Yes Status: Acute Code(s): K62.5 - HEMORRHAGE OF ANUS AND RECTUM SNOMED Code(s): 22762414 Plan: Supportive care Clear liquid diet Nothing by mouth after midnight Continue to monitor hemoglobin and hematocrit and transfuse as needed Continue to monitor for signs or symptoms of GI bleeding No plaques ordered GoLYTELY bowel prep ordered Plan for colonoscopy tomorrow for further evaluation Thank you for allowing us to participate in the care of the patient we will continue to follow
[2020-02-12] MEDS: POTASSIUM CHLORIDE ER 20 MEQ TAB.ER PO SCH (08:29)
[2020-02-12] MEDS: PANTOPRAZOLE 40 MG/10 ML VIAL IVP SCH (08:29)
[2020-02-12] MEDS: amLODIPine 5 MG TAB PO SCH (08:29)
[2020-02-12] MEDS: METOPROLOL TARTRATE 50 MG TAB PO SCH (08:29)
[2020-02-12] MEDS: ALLOPURINOL 300 MG TAB PO SCH (08:29)
[2020-02-12] MEDS ORDERED: MAGNESIUM CITRATE 296 ML BOTTLE PO ONE (08:30)
[2020-02-12 08:39] VITALS: RESP 16
[2020-02-12 10:42] LABS: Basophils % (A) 0 %; Eosinophils # (A) 0.2 k/uL (0-0.7); Eosinophils % (A) 2 %; HCT 48.1 % (34.0-46.0); HGB 15.1 gm/dL (11.4-16.0); Lymphocytes # (A) 1.8 k/uL (1.0-4.8); Lymphocytes % (A) 17 %; MCH 29.4 pg (25.0-35.0); MCHC 31.3 g/dL (31.0-37.0); Mean Platelet Volume 8.4; Monocytes # (A) 0.9 k/uL (0-1.0); Monocytes % (A) 9 %; Neutrophils # (A) 7.5 k/uL (1.3-7.7); Neutrophils % (A) 70 %; Platelet Count 221 k/uL (150-450); RBC 5.12 m/uL (3.80-5.40); RDW 13.5 % (11.5-15.5); WBC 10.8 k/uL (3.8-10.6)
[2020-02-12 10:52] LABS: ALT 33 U/L (4-34); AST 54 U/L (14-36); African American GFR (CKD) >90 (>60 ml/min/1.73 sqM); Albumin 4.5 g/dL (3.5-5.0); Alkaline Phosphatase 95 U/L (38-126); Anion Gap 12 mmol/L; Blood Urea Nitrogen 10 mg/dL (7-17); Calcium 9.4 mg/dL (8.4-10.2); Carbon Dioxide 21 mmol/L (22-30); Chloride 107 mmol/L (98-107); Glucose 104 mg/dL (74-99); Non-African American GFR(CKD) 84 (>60 ml/min/1.73 sqM); Potassium 3.6 mmol/L (3.5-5.1); Sodium 140 mmol/L (137-145); Total Bilirubin 0.9 mg/dL (0.2-1.3); Total Protein 7.6 g/dL (6.3-8.2)
--- NOTE | 2020-02-12 12:17 | PN ---
PROGRESS NOTE Dia Wood is a lady with paroxysmal atrial fibrillation. I reviewed the rhythm strip. She is having episodes of atrial fibrillation and normal sinus rhythm. Her anticoagulation has been held and there was jason red blood per rectum. She is going for a colonoscopy today. Cardiac-sanchez stable. LV function previous echo was normal, well preserved, S1-S2 heard normally. Her rhythm is sinus. Heart sounds are regular. There is a short systolic murmur. Lungs revealed decent air entry. Abdomen is soft. Lower extremities reveal diminished pulses. Central nervous system, no focal deficits. Plan is to continue current medical regimen, increase Lopressor and hold anticoagulation until we have the colonoscopy information. MMODL / IJN: [id number] /
--- NOTE | 2020-02-12 12:23 | P.PN ---
Subjective Progress Note Date: 02/12/20 Dia Wood is an 84-year-old female who presented to [facility] emergency room with a chief complaint of rectal bleeding, patient stated that she went to the bathroom and had a bowel movement, she noticed blood with her stools, later on she noticed some more blood on her bed, and she d ecided to come to emergency room, she was evaluated by Dr. Kruger, hemoglobin was stable at 14.8, patient was started on IV Protonix and was admitted to medical floor gastroenterology consultation was requested. Patient has a known history of atrial fibrillation, she was maintained on Eliquis which was held in the emergency room. Patient had history of severe anemia in the past, about 8 years ago, she was found to have a hemoglobin of 6 she had red blood cells transfusion, she was admitted to the hospital at that time and underwent EGD and colonoscopy, no source of bleeding was found at that time. Today I saw Mrs. Wood and examined her in the emergency room, she is alert and oriented 3 in no apparent distress, she denies any pain or discomfort at this time, she is complaining of anxiety, she states that she has multiple family history of cancer, otherwise she denies any complaints there is no fever or chills no headache or dizziness no chest pain no shortness of breath no cough no nausea or vomiting no abdominal pain no diarrhea no burning with urination no frequency or urgency and no hematuria, no acute change in her vision speech or gait, no weakness or numbness in any of her extremities. On patient was seen and examined on the medical floor, there is no f ever or chills no headache or dizziness no chest pain no shortness of breath no cough no nausea or vomiting no abdominal pain no diarrhea no burning with urination no frequency or urgency and no hematuria, in by gastroenterology and plan is to proceed with colonoscopy tomorrow. On 02/12/2020 patient was seen and examined on the medical floor she is alert and oriented 3 in no apparent distress there is no fever or chills no headache or dizziness no chest pain no shortness of breath no cough no nausea or vomiting no abdominal pain no diarrhea no burning with urination no frequency or urgency no hematuria, is scheduled for colonoscopy today, progress will depend on colonoscopy results Objective - Vital Signs Vital signs: Vital Signs Temp 98.2 F 02/12/20 04:00 Pulse 106 H 02/12/20 08:00 Resp 16 02/12/20 11:46 BP 153/93 02/12/20 08:00 Pulse Ox 93 L 02/12/20 08:00 Intake & Output 02/11/20 02/12/20 02/12/20 18:59 06:59 18:59 Intake Total 2240 240 Balance 2240 240 Weight 64.6 kg Intake: Intake, IV Titration 480 240 Amount Sodium Chloride 0.9% 1, 480 240 000 ml @ 60 mls/hr IV . [id number] [facility] Rx#:[id number] Oral 1760 Other: Voiding Method Toilet Toilet Toilet # Voids 2 2 # Bowel Movements 1 - Exam In general patient is alert and oriented 3 in no apparent distress HEENT head normocephalic and atraumatic Neck is supple no JVD no goiter no lymphadenopathy Chest exam reveals a few scattered crackles bilaterally no wheezing Cardiac exam reveals irregular heart rate no gallops no murmurs Abdomen is soft nontender no organomegaly with normal bowel sounds Extremity exam reveals no edema no cyanosis or clubbing Neurological examination reveals no gross focal deficit - Labs CBC & Chem 7: 02/12/20 10:18 02/12/20 10:18 Labs: Abnormal Lab Results - Last 24 Hours (Table) 02/12/20 02/12/20 Range/Units 10:18 10:18 WBC 10.8 H (3.8-10.6) k/uL Hct 48.1 H (34.0-46.0) % Carbon Dioxide 21 L (22-30) mmol/L Glucose 104 H (74-99) mg/dL AST 54 H (14-36) U/L Assessment and Plan Plan: 1. Rectal bleeding, will monitor hemoglobin closely, gastroenterology consultation was requested, patient was started on IV Protonix 2. Atrial fibrillation, at this time will hold Eliquis, heart rate is well- controlled. 3. Underlying history of hypertension well-controlled on medications. 4. Underlying history of gout 5. Underlying history of vitamin D deficiency At this time patient will be admitted to medical floor Awaiting GI consultation Will follow closely
--- NOTE | 2020-02-12 13:34 | ECHOF ---
Referral Reason:lv function MEASUREMENTS -------- HEIGHT: 157.5 cm WEIGHT: 64.9 kg BP: IVSd: 1.3 cm (0.6 - 1.1) LVIDd: 3.6 cm (3.9 - 5.3) LVPWd: 1.1 cm (0.6 - 1.1) IVSs: 1.6 cm LVIDs: 2.7 cm LVPWs: 1.5 cm LA Diam: 5.2 cm (2.7 - 3.8) LAESV Index (A-L): 37.30 ml/m Ao Diam: 3.0 cm (2.0 - 3.7) AV Cusp: 1.6 cm (1.5 - 2.6) LA Diam: 4.2 cm (2.7 - 3.8) MV EXCURSION: 14.230 mm (> 18.000) MV EF SLOPE: 77 mm/s (70 - 150) EPSS: 1.5 cm MV E Andrew: 0.85 m/s MV DecT: 171 ms MV A Andrew: 0.05 m/s MV E/A Ratio: 17.22 RAP: 5.00 mmHg RVSP: 27.77 mmHg FINDINGS -------- Atrial fibrillation. This was a technically adequate study. The left ventricular size is normal. There is mild concentric left ventricular hypertrophy. Overa ll left ventricular systolic function is low-normal with, an EF between 50 - 55 %. The right ventricle is normal in size. LA is moderately dilated 34-39 ml/m2 The right atrial size is normal. There is mild aortic valve sclerosis. There is no evidence of aortic regurgitation. Moderate mitral annular calcification present. Mild mitral regurgitation is present. Mild tricuspid regurgitation present. Right ventricular systolic pressure is normal at < 35 mmHg. There is no pulmonic regurgitation present. The aortic root size is normal. There is no pericardial effusion. CONCLUSIONS -------- 1. There is mild concentric left ventricular hypertrophy. 2. Overall left ventricular systolic function is low-normal with, an EF between 50 - 55 %. 3. LA is moderately dilated 34-39 ml/m2 4. There is mild aortic valve sclerosis. 5. Moderate mitral annular calcification present. 6. Mild mitral regurgitation is present. 7. Mild tricuspid regurgitation present. 8. There is no pericardial effusion. MATCHING MACHINE OPERATOR: Rea Noriega RDCS
[2020-02-12] MEDS ORDERED: IV FLUID CONTINUATION 800 ML IV ONE (13:59)
[2020-02-12] MEDS ORDERED: PROPOFOL 10 MG/ML 20 ML VIAL IV ONE (14:02)
--- NOTE | 2020-02-12 14:29 | P.PCN ---
Date of Procedure: 02/12/20 Description of Procedure: BRIEF HISTORY: 84-year-old female with a medical history significant for hepatitis C, hypertension, coronary artery disease and atrial fibrillation on anticoagulation therapy with Eliquis who presented to the hospital with complaints of bright red blood per rectum. She reports having a bowel movement with straining and subsequently noted to have painless bright red blood per rectum. No similar complaints in the past. She reports a remote history of colonoscopy in the past. Patient's hemoglobin found to be stable at 14.8 on presentation and currently stable on repeat blood draw to 14.1 and 15.1 today. She does have a past history of anemia as stated had normal hemoglobin on presentation. No abdominal pain reported in association with her symptoms. She has had no further bleeding since presentation. Anticoagulation therapy is currently on hold. PROCEDURE PERFORMED: Colonoscopy aborted/incomplete. PREOPERATIVE DIAGNOSIS: Rectal hemorrhage, bright red blood per rectum. ESTIMATED BLOOD LOSS: Minimal. IV sedation per Anesthesia. PROCEDURE: After informed consent was obtained, the patient, was brought into the endoscopy unit. IV sedation was administered by Anesthesia under continuous monitoring. Digital rectal examination was normal. Initially the Olympus CF-190 flexible video colonoscope was then inserted in the rectum, gradually advanced into the sigmoid colon where a large amount of solid stool was seen completely proh ibiting visualization of the mucosa. Scattered sigmoid diverticula were noted. However due to poor prep the procedure had to be aborted. The scope was withdrawn into the rectum where retroflexion was significant for inflamed moderate-sized internal hemorrhoids. The patient tolerated the procedure well. IMPRESSION: Failed/aborted colonoscopy due to poor prep with large amount of solid stool in the visualized colon. Sigmoid diverticulosis. Inflamed moderate-sized internal hemorrhoids. RECOMMENDATIONS: Findings of this examination were discussed with the patient. Okay to resume diet. Okay to resume anticoagulation tomorrow. Hemoglobin has remained stable and patient can be discharged to follow up in the next 1-2 weeks to be scheduled for outpatient colonoscopy for complete evaluation, patient will likely need a 2 day prep at that time.
[2020-02-12] MEDS ORDERED: METOPROLOL TARTRATE 50 MG TAB PO SCH (16:00)
[2020-02-12 17:40] VITALS: BP 135/111; PULSE 125
--- NOTE | 2020-02-15 09:26 | P.DS ---
Providers Date of admission: 02/10/20 11:51 Expected date of discharge: 02/12/20 Attending physician: Patti Razo Consults: 02/10/20 13:46 Consult Physician Routine Consulting Provider: Filiberto Pop Consult Reason/Comments: Bradycardia, runs of 3 and 4, patient known to them. Do you want consulting provider notified?: Yes 02/12/20 13:59 Consult Physician Routine Consulting Provider: Martin Degroot Consult Reason/Comments: rectal bleeding Do you want consulting provider notified?: Already Contacted Primary care physician: [facility] Course: Diagnosis on discharge: 1. Rectal bleeding, will monitor hemoglobin closely, gastroenterology consultation was requested, patient was started on IV Protonix, patient was seen by gastroenterology and underwent colonoscopy, bowel prep was not ideal, and patient will need repeat colonoscopy in the near future as outpatient, no pathology was found. 2. Atrial fibrillation, at this time will hold Eliquis, heart rate is well- controlled. 3. Underlying history of hypertension well-controlled on medications. 4. Underlying history of gout 5. Underlying history of vitamin D deficiency Hospital course: Dia Wood is an 84-year-old female who presented to [facility] emergency room with a chief complaint of rectal bleeding, patient stated that she went to the bathroom and had a bowel movement, she noticed blood with her stools, later on she noticed some more blood on her bed, and she decided to come to emergency room, she was evaluated by Dr. Kruger, hemoglobin was stable at 14.8, patient was started on IV Protonix and was admitted to medical floor gastroenterology consultation was requested. Patient has a known history of atrial fibrillation, she was maintained on Eliquis which was held in the emergency room. Patient had history of severe anemia in the past, about 8 years ago, she was found to have a hemoglobin of 6 she had red blood cells transfusion, she was admitted to the hospital at that time and underwent EGD and colonoscopy, no source of bleeding was found at that time. Today I saw Mrs. Wood and examined her in the emergency room, she is alert and oriented 3 in no apparent distress, she denies any pain or discomfort at this time, she is complaining of anxiety, she states that she has multiple family history of cancer, otherwise she denies any complaints there is no fever or chills no headache or dizziness no chest pain no shortness of breath no cough no nausea or vomiting no abdominal pain no diarrhea no burning with urination no frequency or urgency and no hematuria, no acute change in her vision speech or gait, no weakness or numbness in any of her extremities. On patient was seen and examined on the medical floor, there is no fever or chills no headache or dizziness no chest pain no shortness of breath no cough no nausea or vomiting no abdominal pain no diarrhea no burning with urination no frequency or urgency and no hematuria, in by gastroenterology and plan is to proceed with colonoscopy tomorrow. On 02/12/2020 patient was seen and examined on the medical floor she is alert and oriented 3 in no apparent distress there is no fever or chills no headache or dizziness no chest pain no shortness of breath no cough no nausea or vomiting no abdominal pain no diarrhea no burning with urination no frequency or urgency no hematuria, is scheduled for colonoscopy today, progress will depend on colonoscopy results Patient Condition at Discharge: Stable Plan - Discharge Summary Discharge Rx Participant: No New Discharge Prescriptions: New Metoprolol Tartrate [Lopressor] 50 mg PO TID tab Continue amLODIPine [Norvasc] 5 mg PO DAILY Ferrous Sulfate [Iron (65 MG Elemental)] 325 mg PO BID Apixaban [Eliquis] 5 mg PO BID tab Potassium Chloride ER [K-Dur 20] 20 meq PO DAILY tab.er.prt Ergocalciferol [Vitamin D2 (DRISDOL)] 50,000 unit PO LAKHANI Nitroglycerin Sl Tabs [Nitrostat] 0.4 mg SUBLINGUAL Q5M PRN PRN Reason: Chest Pain Verapamil HCl [Verapamil ER] 240 mg PO DAILY Allopurinol [Zyloprim] 300 mg PO DAILY Discontinued Atenolol 25 mg PO DAILY Discharge Medication List Ferrous Sulfate [Iron (65 MG Elemental)] 325 mg PO BID 07/04/17 [History] amLODIPine [Norvasc] 5 mg PO DAILY 07/04/17 [History] Apixaban [Eliquis] 5 mg PO BID tab 07/06/17 [Rx] Potassium Chloride ER [K-Dur 20] 20 meq PO DAILY tab.er.prt 07/06/17 [Rx] Ergocalciferol [Vitamin D2 (DRISDOL)] 50,000 unit PO LAKHANI 09/30/19 [History] Nitroglycerin Sl Tabs [Nitrostat] 0.4 mg SUBLINGUAL Q5M PRN 09/30/19 [History] Verapamil HCl [Verapamil ER] 240 mg PO DAILY 09/30/19 [History] Allopurinol [Zyloprim] 300 mg PO DAILY 02/10/20 [History] Metoprolol Tartrate [Lopressor] 50 mg PO TID tab 02/12/20 [Rx] Follow up Appointment(s)/Referral(s): Patti Razo MD [Primary Care Provider] - 1-2 days Martin Degroot MD [STAFF PHYSICIAN] - 2 Weeks (1-2 weeks) Discharge Disposition: HOME SELF-CARE
[2020-02-17] MEDS ORDERED: ERGOCALCIFEROL 50,000 UNIT CAP PO SCH (09:00)
== END 2020-02-12 17:58 | disposition home or self-care (01) ==
LOC: EC 10:21 → 5NMEDONC 11:51 → 3SCARD 16:06
PROVIDERS: ADMIT Internal Medicine; ATTEND Internal Medicine
DX: K62.5 Hemorrhage of anus and rectum (principal); E78.5 Hyperlipidemia, unspecified; I10 Essential (primary) hypertension; I25.10 Atherosclerotic heart disease of native coronary artery without angina pectoris; I48.0 Paroxysmal atrial fibrillation; I48.20 Chronic atrial fibrillation, unspecified; K57.30 Diverticulosis of large intestine without perforation or abscess without bleeding; K64.8 Other hemorrhoids; Z79.01 Long term (current) use of anticoagulants; Z79.899 Other long term (current) drug therapy; Z80.0 Family history of malignant neoplasm of digestive organs; Z80.41 Family history of malignant neoplasm of ovary; Z82.49 Family history of ischemic heart disease and other diseases of the circulatory system; Z83.3 Family history of diabetes mellitus; Z87.891 Personal history of nicotine dependence; Z03.818 Encounter for observation for suspected exposure to other biological agents ruled out; E55.9 Vitamin D deficiency, unspecified; M10.9 Gout, unspecified; Z86.19 Personal history of other infectious and parasitic diseases
CPT/HCPCS: 96376 ×2; 96374; 99285; 36415; 93005; 93306; 97161; 97165; 86900; 86901; 80053 ×2; 83735; 84132; 84484; 85025 ×2; 85027 ×2; 85610; 85730; 86850; 45378; G0378 ×4; U0003; C9113 ×3

== ENCOUNTER 2020-10-01 15:30 | Inpatient (IN) | payer MEDICARE ==
[2020-10-01] MEDS ORDERED: SODIUM CHLORIDE 0.9% 500 ML 500 ML IV STA (16:19)
[2020-10-01] MEDS ORDERED: ONDANSETRON 4 MG/2 ML VIAL IVP STA (16:19)
[2020-10-01] MEDS ORDERED: MORPHINE SULFATE 2 MG/ML SYRINGE IVP STA (16:19)
--- NOTE | 2020-10-01 16:32 | ED ---
Abdominal Pain HPI - General Chief Complaint: Abdominal Pain Stated Complaint: abd pain Time Seen by Provider: 10/01/20 15:35 Source: patient Mode of arrival: ambulatory Limitations: no limitations - History of Present Illness Initial Comments: Patient is an 85 year old female past history of hepatitis C, hypertension and self-reported A. fib who presents to the emergency department with reported abdominal pain. Patient states for the past 2 days she has had dark colored urine with lower abdominal pain. Denies dysuria or hematuria. Reports increa sed frequency of voiding. Patient did have a bowel movement today which she states was normal in color and consistency. No black, tarry or sticky stools. Did not take any medications for her symptoms. Patient's son accompanies her. Noted that the patient has had changes in the coloration of her skin. They spoke with her primary care physician who recommended that she come into the emergency room for evaluation. She denies any chest pain or shortness of breath. No fevers or chills. Previous abdominal surgery includes . Patient is on a blood thinner. States she's been taking as directed. No other alleviating, precipitating or modifying factors - Related Data Home Medications Medication Instructions Recorded Confirmed Ferrous Sulfate [Iron (65 MG 325 mg PO BID 07/04/17 10/01/20 Elemental)] amLODIPine [Norvasc] 5 mg PO DAILY 07/04/17 10/01/20 Nitroglycerin Sl Tabs [Nitrostat] 0.4 mg SUBLINGUAL Q5M PRN 09/30/19 10/01/20 Verapamil HCl [Verapamil ER] 240 mg PO DAILY 09/30/19 10/01/20 Allopurinol [Zyloprim] 300 mg PO DAILY 02/10/20 10/01/20 atenoloL [Atenolol] 25 mg PO DAILY 10/01/20 10/01/20 Previous Rx's Medication Instructions Recorded Apixaban [Eliquis] 5 mg PO BID tab 07/06/17 Potassium Chloride ER [K-Dur 20] 20 meq PO DAILY tab.er.prt 07/06/17 Metoprolol Tartrate [Lopressor] 50 mg PO TID tab 02/12/20 Allergies Allergy/AdvReac Type Severity Reaction Status Date / Time No Known Allergies Allergy Verified 10/01/20 16:43 Review of Systems ROS Statement: Those systems with pertinent positive or pertinent negative responses have been documented in the HPI. ROS Other: All systems not noted in ROS Statement are negative. Past Medical History Past Medical History: Coronary Artery Disease (CAD), Hypertension Additional Past Medical History / Comment(s): Hepatitis C, anemia History of Any Multi-Drug Resistant Organisms: None Reported Past Surgical History: Section, Tonsillectomy Past Anesthesia/Blood Transfusion Reactions: No Reported Reaction Additional Past Anesthesia/Blood Transfusion Reaction / Comment(s): Blood transfusion 5-6 years ago (no reactions) Past Psychological History: No Psychological Hx Reported Smoking Status: Former smoker Past Alcohol Use History: None Reported Past Drug Use History: None Reported - Past Family History Father Family Medical History: Cancer Additional Family Medical History / Comment(s): prostate CA Mother Family Medical History: Diabetes Mellitus, Myocardial Infarction ([place]) Brother(s) Family Medical History: Cancer Additional Family Medical History / Comment(s): esophageal CA Sister(s) Family Medical History: Cancer Additional Family Medical History / Comment(s): ovarian CA General Exam Limitations: no limitations General appearance: alert, in no apparent distress Head exam: Present: atraumatic, normocephalic, normal inspection Eye exam: Present: normal appearance, PERRL, EOMI. Absent: scleral icterus, conjunctival injection, periorbital swelling ENT exam: Present: normal exam, mucous membranes moist Neck exam: Present: normal inspection. Absent: tenderness, meningismus, lymphadenopathy Respiratory exam: Present: normal lung sounds bilaterally. Absent: respiratory distress, wheezes, rales, rhonchi, stridor Cardiovascular Exam: Present: tachycardia, irregular rhythm, normal heart so unds. Absent: systolic murmur, diastolic murmur, rubs, gallop, clicks GI/Abdominal exam: Present: soft, normal bowel sounds. Absent: distended, tenderness (generalized), guarding, rebound, rigid Extremities exam: Present: normal inspection, full ROM, normal capillary refill. Absent: tenderness, pedal edema, joint swelling, calf tenderness Back exam: Present: normal inspection Neurological exam: Present: alert, oriented X3, CN II-XII intact Psychiatric exam: Present: normal affect, normal mood Skin exam: Present: warm, dry, intact, normal color. Absent: rash Course Vital Signs 10/01/20 10/01/20 10/01/20 15:36 17:00 18:00 Temperature 98.4 F Pulse Rate 105 H 111 H 116 H Respiratory 19 22 22 Rate Blood Pressure 143/83 167/68 158/83 O2 Sat by Pulse 95 94 L 95 Oximetry 10/01/20 19:00 Temperature 98.6 F Pulse Rate 113 H Respiratory 22 Rate Blood Pressure 165/86 O2 Sat by Pulse 95 Oximetry Medical Decision Making - Medical Decision Making Upon arrival patient is placed into room 1. A thorough history and physical exam is performed. IV is established and patient was given 4 mg of morphine for pain control and 4 mg of Zofran for nausea. Laboratory studies are conducted. Do demonstrate elevated bilirubin of 7.7. Transaminitis with an AST of 106 and a ALT of 61. Alk phos of 227. CT of the patient's abdomen and pelvis demonstrates cholelithiasis. Dilated common bile duct. These results are discussed the patient. Did recommend admission for which the patient did agree to. Spoke with Dr. Razo who agreed to admit the patient. He requested I put Dr. Oro on consult. I did order a gallbladder ultrasound which demonstrates mildly dilated gallbladder with gallstone. Large common bile duct probably related to chronic bladder dysfunction. Patient is placed on a clear liquid diet. She I will also be counseled. Patient remained in stable condition awaiting a bed on the floor - Lab Data Result diagrams: 10/05/20 07:03 10/05/20 07:03 Lab Results 10/01/20 10/01/20 10/01/20 Range/Units 16:39 16:39 16:39 WBC 9.6 (3.8-10.6) k/uL RBC 4.41 (3.80-5.40) m/uL Hgb 13.6 (11.4-16.0) gm/dL Hct 42.2 (34.0-46.0) % MCV 95.8 (80.0-100.0) fL MCH 30.8 (25.0-35.0) pg MCHC 32.1 (31.0-37.0) g/dL RDW 14.6 (11.5-15.5) % Plt Count 211 (150-450) k/uL MPV 9.1 Neutrophils % 83 % Lymphocytes % 6 % Monocytes % 10 % Eosinophils % 0 % Basophils % 0 % Neutrophils # 8.0 H (1.3-7.7) k/uL Lymphocytes # 0.6 L (1.0-4.8) k/uL Monocytes # 0.9 (0-1.0) k/uL Eosinophils # 0.0 (0-0.7) k/uL Basophils # 0.0 (0-0.2) k/uL PT 10.7 (9.0-12.0) sec INR 1.0 (<1.2) APTT 29.6 (22.0-30.0) sec Sodium 134 L (137-145) mmol/L Potassium 4.2 (3.5-5.1) mmol/L Chloride 97 L (98-107) mmol/L Carbon Dioxide 23 (22-30) mmol/L Anion Gap 14 mmol/L BUN 28 H (7-17) mg/dL Creatinine 0.83 (0.52-1.04) mg/dL Est GFR (CKD-EPI)AfAm 75 (>60 ml/min/1.73 sqM) Est GFR (CKD-EPI)NonAf 65 (>60 ml/min/1.73 sqM) Glucose 152 H (74-99) mg/dL Plasma Lactic Acid Lamonte (0.7-2.0) mmol/L Calcium 9.3 (8.4-10.2) mg/dL Total Bilirubin 7.7 H (0.2-1.3) mg/dL Conjugated Bilirubin 4.4 H (0.0-0.3) mg/dL Unconjugated Bilirubin 1.3 H (0.0-1.1) mg/dL Delta Bilirubin 2.0 H (0.0-0.2) mg/dL AST 106 H (14-36) U/L ALT 61 H (4-34) U/L Alkaline Phosphatase 227 H (38-126) U/L Lactate Dehydrogenase 520 (313-618) U/L Creatine Kinase 35 (30-135) U/L Total Protein 7.5 (6.3-8.2) g/dL Albumin 4.1 (3.5-5.0) g/dL Lipase 267 (23-300) U/L 10/01/20 Range/Units 16:39 WBC (3.8-10.6) k/uL RBC (3.80-5.40) m/uL Hgb (11.4-16.0) gm/dL Hct (34.0-46.0) % MCV (80.0-100.0) fL MCH (25.0-35.0) pg MCHC (31.0-37.0) g/dL RDW (11.5-15.5) % Plt Count (150-450) k/uL MPV Neutrophils % % Lymphocytes % % Monocytes % % Eosinophils % % Basophils % % Neutrophils # (1.3-7.7) k/uL Lymphocytes # (1.0-4.8) k/uL Monocytes # (0-1.0) k/uL Eosinophils # (0-0.7) k/uL Basophils # (0-0.2) k/uL PT (9.0-12.0) sec INR (<1.2) APTT (22.0-30.0) sec Sodium (137-145) mmol/L Potassium (3.5-5.1) mmol/L Chloride (98-107) mmol/L Carbon Dioxide (22-30) mmol/L Anion Gap mmol/L BUN (7-17) mg/dL Creatinine (0.52-1.04) mg/dL Est GFR (CKD-EPI)AfAm (>60 ml/min/1.73 sqM) Est GFR (CKD-EPI)NonAf (>60 ml/min/1.73 sqM) Glucose (74-99) mg/dL Plasma Lactic Acid Lamonte 0.9 (0.7-2.0) mmol/L Calcium (8.4-10.2) mg/dL Total Bilirubin (0.2-1.3) mg/dL Conjugated Bilirubin (0.0-0.3) mg/dL Unconjugated Bilirubin (0.0-1.1) mg/dL Delta Bilirubin (0.0-0.2) mg/dL AST (14-36) U/L ALT (4-34) U/L Alkaline Phosphatase (38-126) U/L Lactate Dehydrogenase (313-618) U/L Creatine Kinase (30-135) U/L Total Protein (6.3-8.2) g/dL Albumin (3.5-5.0) g/dL Lipase (23-300) U/L - EKG Data EKG Comments: EKG demonstrates A. fib with a rapid ventricular response of 114. QRS 82. QTC of 47. No acute ST segment elevations or depressions Disposition Clinical Impression: Atrial fibrillation with rapid ventricular response, Abdominal pain, Jaundice, Elevated bilirubin, Cholelithiasis, Choledocholithiasis Disposition: ADMITTED IP TO THIS HOSP Condition: Serious Is patient prescribed a controlled substance at d/c from ED?: No Decision to Admit Reason: Admit from EC Decision Date: 10/01/20 Decision Time: 18:42
[2020-10-01 16:54] LABS: Basophils % (A) 0 %; Eosinophils % (A) 0 %; HCT 42.2 % (34.0-46.0); HGB 13.6 gm/dL (11.4-16.0); Lymphocytes # (A) 0.6 k/uL (1.0-4.8); Lymphocytes % (A) 6 %; MCH 30.8 pg (25.0-35.0); MCHC 32.1 g/dL (31.0-37.0); MCV 95.8 fL (80.0-100.0); Mean Platelet Volume 9.1; Monocytes # (A) 0.9 k/uL (0-1.0); Monocytes % (A) 10 %; Neutrophils % (A) 83 %; Platelet Count 211 k/uL (150-450); RBC 4.41 m/uL (3.80-5.40); RDW 14.6 % (11.5-15.5); WBC 9.6 k/uL (3.8-10.6)
[2020-10-01 17:03] LABS: Albumin 4.1 g/dL (3.5-5.0); Bilirubin, Conjugated 4.4 mg/dL (0.0-0.3); Bilirubin,Unconjugated 1.3 mg/dL (0.0-1.1); Calcium 9.3 mg/dL (8.4-10.2); Partial Thromboplastin Time 29.6 sec (22.0-30.0); Potassium 4.2 mmol/L (3.5-5.1); Prothrombin Time 10.7 sec (9.0-12.0); Total Bilirubin 7.7 mg/dL (0.2-1.3); Total Protein 7.5 g/dL (6.3-8.2)
--- NOTE | 2020-10-01 18:20 | CT ---
EXAMINATION TYPE: CT abdomen pelvis w con DATE OF EXAM: 10/01/2020 COMPARISON: None HISTORY: Abdominal pain, painful urination CT DLP: 739.5 mGycm Automated exposure control for dose reduction was used. CONTRAST: Performed with IV Contrast, patient injected with 100 mL of Isovue 300. Images obtained from the diaphragm to the floor the pelvis with IV contrast. There is no evidence of pleural effusion. There is large hiatal hernia and intrathoracic stomach. Spl een is intact. There is no pancreatic mass. Lung bases are clear of consolidation. There is no perica rdial effusion. Liver shows no focal defect. There is dilated common bile duct. Common bile duct measures 12 mm. Gall bladder is large and measures 4.2 cm with calcified gallstone. There is no focal liver defect. Heart is slightly enlarged. There is no adrenal mass. Kidneys show satisfactory contrast opacification. There is no hydronephrosi s. Delayed images show normal renal excretion. There is no retroperitoneal adenopathy. Ureters are no t dilated. Bladder distends smoothly. There is no inguinal hernia. There are numerous diverticula in the sigmoid colon. There is no diverticulitis. Lumbar vertebra have normal alignment. Posterior elements are intact. Bony pelvis is intact. Hip join ts are intact. Disc spaces are normal for age. Abdominal aorta is atheromatous. Appendix is not defin itely seen. There is no sign of thickened appendix. IMPRESSION: Atherosclerotic vascular disease. Large hiatal hernia. Cholelithiasis. Dilated common bile duct suggestive of chronic gallbladder dysfunction. No dilation s een of the intrahepatic bile ducts.
[2020-10-01] MEDS ORDERED: NALOXONE 0.4 MG/ML 1 ML VIAL IV PRN (18:42)
[2020-10-01] MEDS ORDERED: MORPHINE SULFATE 4 MG/ML SYRINGE IV PRN (18:42)
--- NOTE | 2020-10-01 19:24 | US ---
EXAMINATION TYPE: US gallbladder DATE OF EXAM: 10/01/2020 COMPARISON: CT, US CLINICAL HISTORY: elevated liver enzymes, dilated cbd. Elevated liver enzymes, dilated CBD. Abdominal pain x 2 days. Hx gallstone. EXAM MEASUREMENTS: Liver Length: 19.8 cm Gallbladder Wall: 0.29 cm CBD: 1.06 cm Right Kidney: 9.2 x 5.2 x 4.0 cm Limited due to gas. Pancreas: Limited visibility Liver: Appears enlarged. Appears to have an increased echogenicity. Hypoechoic, indistinct area seen adjacent to the gallbladder measuring 3.7 x 1.6 x 2.0 cm. Gallbladder: Appears distended measuring 10.7 cm in length and 4.5 cm in width. Internal echoes seen throughout the gallbladder. Hyperechoic focus seen with posterior shadowing within the gallbladder m easuring 1.3 x 2.0 x 2.3 cm. Evidence for sonographic Baker's sign: Patient feels tenderness in RUQ. CBD: Appears dilated. Right Kidney: No hydronephrosis or masses seen IMPRESSION: Mildly dilated gallbladder with gallstone. Large common bile duct probably related to chronic gallbla dder dysfunction. Mild fatty infiltration of the liver.
[2020-10-01 19:28] LABS: Appearance,Urine Clear (Clear); Bilirubin,Urine 2+ (Negative); Blood,Urine Negative (Negative); Color,Urine Dark Yellow; Glucose,Urine (UA) Negative (Negative); Ketones,Urine Negative (Negative); Leukocyte Esterase,Urine Trace (Negative); Mucus,Urine Rare /hpf; Nitrite,Urine Negative (Negative); Protein,Urine Trace (Negative); RBC,Urine 1 /hpf (0-5); Squamous Epithelial Cell,Urine <1 /hpf (0-4); WBC,Urine 3 /hpf (0-5)
[2020-10-01 19:30] LABS: Specific Gravity,Urine >1.050 (1.001-1.035)
[2020-10-01] MEDS: SODIUM CHLORIDE 0.9% 1,000 ML IV SCH (19:37)
[2020-10-01] MEDS ORDERED: NITROGLYCERIN SL TABS 0.4 MG TAB SUBLINGUAL PRN (19:50)
[2020-10-01] MEDS: FERROUS SULFATE 325 MG TAB PO SCH (20:13)
[2020-10-01] MEDS ORDERED: APIXABAN 5 MG TAB PO SCH (21:00)
[2020-10-01] MEDS ORDERED: METOPROLOL TARTRATE 50 MG TAB PO SCH (22:00)
[2020-10-02] MEDS: VERAPAMIL SR 240 MG TABLET.ER PO SCH (07:59)
[2020-10-02] MEDS: atenoloL 25 MG TAB PO SCH (07:59)
[2020-10-02] MEDS: FERROUS SULFATE 325 MG TAB PO SCH ×2 (08:00→20:07)
[2020-10-02] MEDS: SODIUM CHLORIDE 0.9% 1,000 ML IV SCH ×2 (08:00→20:07)
[2020-10-02] MEDS: allopurinoL 300 MG TAB PO SCH (08:00)
[2020-10-02] MEDS: amLODIPine 5 MG TAB PO SCH (08:00)
[2020-10-02] MEDS: POTASSIUM CHLORIDE ER 20 MEQ TAB.ER PO SCH (08:00)
[2020-10-02 11:03] LABS: Basophils # (A) 0.01 X 10*3/uL (0.00-0.10); Basophils % (A) 0.1 %; Eosinophils # (A) 0.01 X 10*3/uL (0.04-0.35); Eosinophils % (A) 0.1 %; HCT 38.1 % (37.2-46.3); HGB 12.1 g/dL (12.0-15.0); Lymphocytes # (A) 0.41 X 10*3/uL (0.90-5.00); Lymphocytes % (A) 4.7 %; MCH 31.5 pg (27.0-32.0); MCHC 31.8 g/dL (32.0-37.0); MCV 99.2 fL (80.0-97.0); Mean Platelet Volume 12.4 fL (9.5-12.2); Monocytes # (A) 1.11 X 10*3/uL (0.20-1.00); Monocytes % (A) 12.8 %; Neutrophils # (A) 7.07 X 10*3/uL (1.80-7.70); Platelet Count 190 X 10*3/uL (140-440); RBC 3.84 X 10*6/uL (4.10-5.20); RDW 13.9 % (11.5-14.5); WBC 8.64 X 10*3/uL (4.50-10.00)
[2020-10-02 12:22] LABS: African American GFR (CKD) 91.6 (60.0-200.0); Albumin 3.4 g/dL (3.80-4.90); Albumin/Globulin Ratio 1.55 (1.60-3.17); Anion Gap 8.8 mmol/L (4.00-12.00); BUN/Creat Ratio 31.43 Ratio (12.00-20.00); Calcium 8.6 mg/dL (8.7-10.3); Carbon Dioxide 24.2 mmol/L (21.6-31.8); Globulin 2.2 g/dL (1.6-3.3); Potassium 4.1 mmol/L (3.5-5.5); Total Bilirubin 7.6 mg/dL (0.3-1.2); Total Protein 5.6 g/dL (6.2-8.2)
--- NOTE | 2020-10-02 13:31 | P.GSCN ---
History of Present Illness Consult date: 10/02/20 History of present illness: CHIEF COMPLAINT: Abdominal pain HISTORY OF PRESENT ILLNESS: This is a 85-year-old female with a known history of hepatitis C, hypertension, atrial fibrillation anticoagulated with Eliquis. Her last dose of the Eliquis was yesterday morning. She presents to the emergency room with complaints of diffuse abdominal pain. She does report that the pain started yesterday. She is noted that her urine is darker in color as well. She denies any change in her stools. She does have pain after eating. Patient is jaundiced with elevated bilirubin and elevated LFTs. She had computed tomography scan of the abdomen and pelvis that shows cholelithiasis. Dilated common bile duct suggestive of chronic gallbladder dysfunction. No dilation see n of the intrahepatic bile ducts. Abdominal ultrasound shows mildly dilated gallbladder with gallstone. Large common bile duct probably related to chronic gallbladder dysfunction. Mild fatty infiltration of the liver. Patient denies any fever, chills or sweats. Denies any change in bowel habits or stool color. PAST MEDICAL HISTORY: See list. PAST SURGICAL HISTORY: See list. MEDICATIONS: See list. ALLERGIES: See list. SOCIAL HISTORY: No illicit drug use. REVIEW OF SYSTEMS: CONSTITUTIONAL: Denies fever or chills. HEENT: Denies blurred vision, vision changes, or eye pain. Denies hemoptysis CARDIOVASCULAR: Denies chest pain or pressure. RESPIRATORY: No shortness of breath. GASTROINTESTINAL: See HPI for pertinent findings HEMATOLOGIC: Denies bleeding disorders. GENITOURINARY: Denies any blood in urine or increased urinary frequency. SKIN: Denies pruitis. Denies rash. PHYSICAL EXAM: VITAL SIGNS: Reviewed GENERAL: Jaundiced. Well-developed in no acute distress. HEENT: sclera icterus present. Extraocular movements grossly intact. Moist buccal mucosa. Head is atraumatic, normocephalic. No nasal drainage. ABDOMEN: Soft. Nondistended. Epigastric and right upper quadrant tenderness with palpation NEUROLOGIC: Alert and oriented. Cranial nerves II through XII grossly intact. LABORATORY DATA: WBC 8.64 hemoglobin 12.1 platelets 190 sodium 137 potassium 4.1 BUN 22 creatinine 0.7 Lactic 0.9 total bilirubin 7.7 AST 106 ALT 61 alk phos 227 Lipase 267 UA negative Covid not detected IMAGING: Abdominal ultrasound shows mildly dilated gallbladder with gallstone. Large common bile duct probably related to chronic gallbladder dysfunction. Mild fatty infiltration of the liver. computed tomography scan of the abdomen and pelvis that shows cholelithiasis. Dilated common bile duct suggestive of chronic gallbladder dysfunction. No dilation seen of the intrahepatic bile ducts. ASSESSMENT: 1. Right upper quadrant and epigastric abdominal pain. Abdominal ultrasound shows a mildly dilated gallbladder with gallstone and large common bile duct probably related to chronic gallbladder dysfunction 2. Mildly elevated LFTs 3. Hyperbilirubinemia PLAN: -Patient will be tentatively scheduled for laparoscopic cholecystectomy tomorrow, 10/03/[address] Hess -Keep patient nothing by mouth after midnight -Agree with GI consult -Follow-up on LFTs and bilirubin level in a.m. -Continue to hold Eliquis Thank you for this consultation Physician [facility] note has been reviewed by physician. Signing provider agrees with the documented findings, assessment, and plan of care. Past Medical History Past Medical History: Coronary Artery Disease (CAD), Hypertension Additional Past Medical History / Comment(s): Hepatitis C, anemia History of Any Multi-Drug Resistant Organisms: None Reported Past Surgical History: Section, Tonsillectomy Past Anesthesia/Blood Transfusion Reactions: No Reported Reaction Additional Past Anesthesia/Blood Transfusion Reaction / Comm: Blood transfusion 5-6 years ago (no reactions) Past Psychological History: No Psychological Hx Reported Smoking Status: Former smoker Past Alcohol Use History: None Reported Past Drug Use History: None Reported - Past Family History Father Family Medical History: Cancer Additional Family Medical History / Comment(s): prostate CA Mother Family Medical History: Diabetes Mellitus, Myocardial Infarction ([place]) Brother(s) Family Medical History: Cancer Additional Family Medical History / Comment(s): esophageal CA Sister(s) Family Medical History: Cancer Additional Family Medical History / Comment(s): ovarian CA Medications and Allergies Home Medications Medication Instructions Recorded Confirmed Type Ferrous Sulfate [Iron (65 MG 325 mg PO BID 07/04/17 10/01/20 History Elemental)] amLODIPine [Norvasc] 5 mg PO DAILY 07/04/17 10/01/20 History Apixaban [Eliquis] 5 mg PO BID tab 07/06/17 10/01/20 Rx Potassium Chloride ER [K-Dur 20] 20 meq PO DAILY tab.er.prt 07/06/17 10/01/20 Rx Nitroglycerin Sl Tabs [Nitrostat] 0.4 mg SUBLINGUAL Q5M PRN 09/30/19 10/01/20 History Verapamil HCl [Verapamil ER] 240 mg PO DAILY 09/30/19 10/01/20 History Allopurinol [Zyloprim] 300 mg PO DAILY 02/10/20 10/01/20 History Metoprolol Tartrate [Lopressor] 50 mg PO TID tab 02/12/20 10/01/20 Rx atenoloL [Atenolol] 25 mg PO DAILY 10/01/20 10/01/20 History Allergies Allergy/AdvReac Type Severity Reaction Status Date / Time No Known Allergies Allergy Verified 10/01/20 16:43 Surgical - Exam Vital Signs Temp Pulse Resp BP Pulse Ox 98.4 F 105 H 19 143/83 95 10/01/20 15:36 10/01/20 15:36 10/01/20 15:36 10/01/20 15:36 10/01/20 15:36 Results - Labs 10/02/20 06:42 10/02/20 06:42 Abnormal Lab Results - Last 24 Hours (Table) 10/01/20 10/01/20 10/01/20 Range/Units 16:39 16:39 19:18 RBC (4.10-5.20) X 10*6/uL MCV (80.0-97.0) fL MCHC (32.0-37.0) g/dL MPV (9.5-12.2) fL Neutrophils # 8.0 H (1.3-7.7) k/uL Lymphocytes # 0.6 L (1.0-4.8) k/uL Monocytes # (0.20-1.00) X 10*3/uL Eosinophils # (0.04-0.35) X 10*3/uL Sodium 134 L (137-145) mmol/L Chloride 97 L (98-107) mmol/L BUN 28 H (7-17) mg/dL BUN/Creatinine Ratio (12.00-20.00) Ratio Glucose 152 H (74-99) mg/dL Calcium (8.7-10.3) mg/dL Total Bilirubin 7.7 H (0.2-1.3) mg/dL Conjugated Bilirubin 4.4 H (0.0-0.3) mg/dL Unconjugated Bilirubin 1.3 H (0.0-1.1) mg/dL Delta Bilirubin 2.0 H (0.0-0.2) mg/dL AST 106 H (14-36) U/L ALT 61 H (4-34) U/L Alkaline Phosphatase 227 H (38-126) U/L Total Protein (6.2-8.2) g/dL Albumin (3.80-4.90) g/dL Albumin/Globulin Ratio (1.60-3.17) g/dL Ur Specific [place] >1.050 H (1.001-1.035) Urine Protein Trace H (Negative) Urine Bilirubin 2+ H (Negative) Ur Leukocyte Esterase Trace H (Negative) Urine Mucus Rare H (None) /hpf 10/02/20 10/02/20 Range/Units 06:42 06:42 RBC 3.84 L (4.10-5.20) X 10*6/uL MCV 99.2 H (80.0-97.0) fL MCHC 31.8 L (32.0-37.0) g/dL MPV 12.4 H (9.5-12.2) fL Neutrophils # (1.3-7.7) k/uL Lymphocytes # 0.41 L (1.0-4.8) k/uL Monocytes # 1.11 H (0.20-1.00) X 10*3/uL Eosinophils # 0.01 L (0.04-0.35) X 10*3/uL Sodium (137-145) mmol/L Chloride (98-107) mmol/L BUN (7-17) mg/dL BUN/Creatinine Ratio 31.43 H (12.00-20.00) Ratio Glucose 111 H (74-99) mg/dL Calcium 8.6 L (8.7-10.3) mg/dL Total Bilirubin 7.6 H (0.2-1.3) mg/dL Conjugated Bilirubin (0.0-0.3) mg/dL Unconjugated Bilirubin (0.0-1.1) mg/dL Delta Bilirubin (0.0-0.2) mg/dL AST 83 H (14-36) U/L ALT 49 H (4-34) U/L Alkaline Phosphatase 199 H (38-126) U/L Total Protein 5.6 L (6.2-8.2) g/dL Albumin 3.40 L (3.80-4.90) g/dL Albumin/Globulin Ratio 1.55 L (1.60-3.17) g/dL Ur Specific [place] (1.001-1.035) Urine Protein (Negative) Urine Bilirubin (Negative) Ur Leukocyte Esterase (Negative) Urine Mucus (None) /hpf Diabetes panel 10/01/20 10/02/20 Range/Units 16:39 06:42 Sodium 134 L 137 (137-145) mmol/L Potassium 4.2 4.1 (3.5-5.1) mmol/L Chloride 97 L 104 (98-107) mmol/L Carbon Dioxide 23 24.2 (22-30) mmol/L BUN 28 H 22.0 (7-17) mg/dL Creatinine 0.83 0.7 (0.52-1.04) mg/dL Glucose 152 H 111 H (74-99) mg/dL Calcium 9.3 8.6 L (8.4-10.2) mg/dL AST 106 H 83 H (14-36) U/L ALT 61 H 49 H (4-34) U/L Alkaline Phosphatase 227 H 199 H (38-126) U/L Total Protein 7.5 5.6 L (6.3-8.2) g/dL Albumin 4.1 3.40 L (3.5-5.0) g/dL Calcium panel 10/01/20 10/02/20 Range/Units 16:39 06:42 Calcium 9.3 8.6 L (8.4-10.2) mg/dL Albumin 4.1 3.40 L (3.5-5.0) g/dL Pituitary panel 10/01/20 10/02/20 Range/Units 16:39 06:42 Sodium 134 L 137 (137-145) mmol/L Potassium 4.2 4.1 (3.5-5.1) mmol/L Chloride 97 L 104 (98-107) mmol/L Carbon Dioxide 23 24.2 (22-30) mmol/L BUN 28 H 22.0 (7-17) mg/dL Creatinine 0.83 0.7 (0.52-1.04) mg/dL Glucose 152 H 111 H (74-99) mg/dL Calcium 9.3 8.6 L (8.4-10.2) mg/dL Adrenal panel 10/01/20 10/02/20 Range/Units 16:39 06:42 Sodium 134 L 137 (137-145) mmol/L Potassium 4.2 4.1 (3.5-5.1) mmol/L Chloride 97 L 104 (98-107) mmol/L Carbon Dioxide 23 24.2 (22-30) mmol/L BUN 28 H 22.0 (7-17) mg/dL Creatinine 0.83 0.7 (0.52-1.04) mg/dL Glucose 152 H 111 H (74-99) mg/dL Calcium 9.3 8.6 L (8.4-10.2) mg/dL Total Bilirubin 7.7 H 7.6 H (0.2-1.3) mg/dL AST 106 H 83 H (14-36) U/L ALT 61 H 49 H (4-34) U/L Alkaline Phosphatase 227 H 199 H (38-126) U/L Total Protein 7.5 5.6 L (6.3-8.2) g/dL Albumin 4.1 3.40 L (3.5-5.0) g/dL
--- NOTE | 2020-10-02 17:23 | CONS ---
CONSULTATION DATE OF SERVICE: 10/02/2020 REQUESTING PHYSICIAN: Dr. Razo. REASON FOR CONSULTATION: Elevated LFTs and jaundice. HISTORY OF PRESENT ILLNESS: The patient is an 85-year-old pleasant white female with history of chronic hepatitis C infection, hypertension, atrial fibrillation, on Eliquis, whose last dose was last night. Came to the emergency room complaining of diffuse abdominal pain associated with some nausea but no emesis. She came to the emergency room and she had labs done that showed elevated LFTs with bilirubin of 7.8. AST and ALT are mildly elevated at 60 and 105 respectively. She subsequently did have a CT of the abdomen and pelvis done that showed evidence of cholelithiasis and dilated common bile duct measuring 1.3 cm in diameter, as well as mild fatty infiltration of the liver. We are hence consulted for possible ERCP. The patient is feeling better today. She still has some tenderness. She still has some abdominal discomfort. PAST MEDICAL HISTORY: Significant for chronic hepatitis C infection that was not treated in the past, history of coronary artery disease, hypertension, hyperlipidemia. PAST SURGICAL HISTORY: , tonsillectomy. MEDICATIONS: Medications at home include iron sulfate, Norvasc, Eliquis, K-Dur, Nitrostat, Verapamil, Zyloprim, Lopressor, atenolol. SOCIAL HISTORY: Former smoker. No alcohol use. FAMILY HISTORY: Father with prostate cancer. Mother had coronary artery disease and diabetes mellitus. Brother had esophageal cancer. ALLERGIES: None. REVIEW OF SYSTEMS: CARDIOPULMONARY: She denies any chest pain, shortness of breath. : No dysuria or hematuria. MUSCULOSKELETAL: Unremarkable. SKIN: Unremarkable. ENDOCRINE: Unremarkable. PSYCHIATRIC: Unremarkable. NEUROLOGY: Unremarkable. ENT/VISION: Unremarkable. CONSTITUTIONAL: No recent weight loss. No fever, chills, night sweats. HEMATOLOGY: Unremarkable. PHYSICAL EXAMINATION: She appears comfortable. VITAL SIGNS: Stable. Blood pressure 133/86, pulse rate 82 per minute and afebrile. HEENT: Examination unremarkable. Conjunctivae are pink. Sclerae anicteric. Oral cavity, no lesions. NECK: No JVD or lymph node enlargement. CHEST: Clear to auscultation. HEART: Regular rate and rhythm. ABDOMEN: Soft. There was mild diffuse tenderness throughout the abdomen, more in the epigastric and right upper quadrant area. EXTREMITIES: No pedal edema. SKIN: No rashes. NEUROLOGIC: Alert and oriented x3. No focal deficits. LABS: WBC 9.6, hemoglobin 13, platelets normal. Basic metabolic panel is within normal limits. BUN 28, creatinine 0.8. T bilirubin 7.7, AST 106, ALT 61, alkaline phosphatase 227. Today T bilirubin is 7.6, lipase is 267 and coronavirus PCR is negative. CT of the abdomen and pelvis showed evidence of gallstones and dilated common bile duct measuring 1.3 cm in diameter and enlarged gallbladder. IMPRESSION: 1. The patient presented to the hospital with acute onset of abdominal pain associated with some nausea but no emesis and noted to have jaundice with mild elevation of serum transaminases. She did have a CT of the abdomen that showed gallstones as well as dilated common bile duct. Possibility of common bile duct stone needs to be considered. 2. History of chronic hepatitis C infection, not treated in the past. 3. History of hypertension. 4. Atrial fibrillation on Eliquis, last dose was last night. RECOMMENDATIONS: 1. Hold Eliquis. 2. Clear liquid diet. 3. Repeat labs in the morning. 4. We will proceed with an ERCP tomorrow. I discussed with the patient risks, benefits and complications and she is agreeable to it. Thank you for this consultation. MMODL / IJN: [id number] /
--- NOTE | 2020-10-02 18:26 | P.HPIM ---
History of Present Illness H&P Date: 10/02/20 Dia Wood, is an 85-year-old female who presented to [facility] emergency room with a chief complaint of abdominal pain patient states that her pain started 2 days prior to admission patient also noted changes in the color of her urine in the color of her skin she had some nausea but no vomiting she had normal bowel movements. Patient was evaluated in the emergency room vital examination on presentation revealed a temperature of 98.4 pulse 105 respiration 19 and blood pressure 143/83 pulse ox 95% on room air her white blood count was 9.6 hemoglobin 13.6 platelet count 211 BUN was 28 creatinine 0.83 total bilirubin 7.7 AST 106 a LT 61 alkaline phosphatase 227 lipase was 267 , computed tomography scan of the abdomen and pelvis was done in the emergency room and revealed evidence of cholelithiasis and dilated common bile duct, liver ultrasound was done and revealed evidence of mildly dilated gallbladder with gallstone, large common bile duct and mild fatty infiltration of the liver. patient was admitted to medical floor gastroenterology consultation and surgical consultation were requested. Her past medical history is significant for history of hypertension, history of anemia, history of gout, hepatitis C, history of hyperlipidemia, history of paroxysmal atrial fibrillation, history of vitamin D deficiency. On review of systems there is no fever or chills no headache or dizziness no chest pain no shortness of breath no cough no palpitation she has some nausea but no vomiting she has abdominal pain mostly in the right upper quadrant no diarrhea no blood in the stools no burning with urination no frequency or urgency and no hematuria Past Medical History Past Medical History: Coronary Artery Disease (CAD), Hypertension Additional Past Medical History / Comment(s): Hepatitis C, anemia History of Any Multi-Drug Resistant Organisms: None Reported Past Surgical History: Section, Tonsillectomy Past Anesthesia/Blood Transfusion Reactions: No Reported Reaction Additional Past Anesthesia/Blood Transfusion Reaction / Comment(s): Blood transfusion 5-6 years ago (no reactions) Past Psychological History: No Psychological Hx Reported Smoking Status: Former smoker Past Alcohol Use History: None Reported Past Drug Use History: None Reported - Past Family History Father Family Medical History: Cancer Additional Family Medical History / Comment(s): prostate CA Mother Family Medical History: Diabetes Mellitus, Myocardial Infarction ([place]) Brother(s) Family Medical History: Cancer Additional Family Medical History / Comment(s): esophageal CA Sister(s) Family Medical History: Cancer Additional Family Medical History / Comment(s): ovarian CA Medications and Allergies Home Medications Medication Instructions Recorded Confirmed Type Ferrous Sulfate [Iron (65 MG 325 mg PO BID 07/04/17 10/01/20 History Elemental)] amLODIPine [Norvasc] 5 mg PO DAILY 07/04/17 10/01/20 History Apixaban [Eliquis] 5 mg PO BID tab 07/06/17 10/01/20 Rx Potassium Chloride ER [K-Dur 20] 20 meq PO DAILY tab.er.prt 07/06/17 10/01/20 Rx Nitroglycerin Sl Tabs [Nitrostat] 0.4 mg SUBLINGUAL Q5M PRN 09/30/19 10/01/20 History Verapamil HCl [Verapamil ER] 240 mg PO DAILY 09/30/19 10/01/20 History Allopurinol [Zyloprim] 300 mg PO DAILY 02/10/20 10/01/20 History Metoprolol Tartrate [Lopressor] 50 mg PO TID tab 02/12/20 10/01/20 Rx atenoloL [Atenolol] 25 mg PO DAILY 10/01/20 10/01/20 History Allergies Allergy/AdvReac Type Severity Reaction Status Date / Time No Known Allergies Allergy Verified 10/01/20 16:43 Physical Exam Vitals: Vital Signs Temp Pulse Pulse Resp BP BP Pulse Ox 10/02/20 02:50 98.6 F 85 17 136/73 92 L 10/01/20 19:55 98.2 F 64 16 145/79 98 10/01/20 19:00 98.6 F 113 H 22 165/86 95 10/01/20 18:00 116 H 22 158/83 95 10/01/20 17:00 111 H 22 167/68 94 L 10/01/20 15:36 98.4 F 105 H 19 143/83 95 Intake and Output 10/01/20 10/02/20 10/02/20 22:59 06:59 14:59 Other: Voiding Method Toilet # Voids 1 Weight 65.771 kg In general patient is alert and oriented 3 in no apparent distress HEENT head normocephalic and atraumatic patient has clear jaundice Neck is supple no JVD no goiter no lymphadenopathy no carotid bruit Chest exam is clear to auscultation no crackles no wheezing Cardiac exam reveals irregular heart beat S1 and S2 no gallops no murmurs Abdomen is soft with tenderness in the epigastric and right upper quadrant area no organomegaly no palpable masses was normal bowel sounds Extremity exam reveals no edema no cyanosis or clubbing Neurological examination reveals no gross focal deficit Results CBC & Chem 7: 10/02/20 06:42 10/02/20 06:42 Labs: Abnormal Lab Results - Last 24 Hours (Table) 10/01/20 10/01/20 10/01/20 Range/Units 16:39 16:39 19:18 Neutrophils # 8.0 H (1.3-7.7) k/uL Lymphocytes # 0.6 L (1.0-4.8) k/uL Sodium 134 L (137-145) mmol/L Chloride 97 L (98-107) mmol/L BUN 28 H (7-17) mg/dL Glucose 152 H (74-99) mg/dL Total Bilirubin 7.7 H (0.2-1.3) mg/dL Conjugated Bilirubin 4.4 H (0.0-0.3) mg/dL Unconjugated Bilirubin 1.3 H (0.0-1.1) mg/dL Delta Bilirubin 2.0 H (0.0-0.2) mg/dL AST 106 H (14-36) U/L ALT 61 H (4-34) U/L Alkaline Phosphatase 227 H (38-126) U/L Ur Specific [place] >1.050 H (1.001-1.035) Urine Protein Trace H (Negative) Urine Bilirubin 2+ H (Negative) Ur Leukocyte Esterase Trace H (Negative) Urine Mucus Rare H (None) /hpf Thrombosis Risk Factor Assmnt - Choose All That Apply Each Risk Factor Represents 3 Points: Age 75 years or older Thrombosis Risk Factor Assessment Total Risk Factor Score: 3 Thrombosis Risk Factor Assessment Level: Moderate Risk Assessment and Plan Plan: Acute cholelithiasis Jaundice with dilated common bile duct rule out choledocholithiasis Evidence of dehydration with pre renal azotemia Underlying history of hypertension Underlying history of hyperlipidemia Underlying history of gout Underlying history of paroxysmal atrial fibrillation Underlying history of anemia At this time patient is admitted to medical floor she was started on IV fluid she is kept nothing by mouth gastroenterology consultation and surgical consultation requested Will recheck labs and follow in a.m. Home medications reviewed and reordered Will hold Eliquis at this time in anticipation of ERCP and surgery
[2020-10-03 05:51] LABS: Basophils % (A) 0 %; Eosinophils # (A) 0.1 k/uL (0-0.7); Eosinophils % (A) 1 %; HCT 38.2 % (34.0-46.0); HGB 11.9 gm/dL (11.4-16.0); Hypochromasia Slight; Lymphocytes # (A) 0.5 k/uL (1.0-4.8); Lymphocytes % (A) 8 %; MCH 31.4 pg (25.0-35.0); MCHC 31.2 g/dL (31.0-37.0); MCV 100.7 fL (80.0-100.0); Macrocytosis Slight; Mean Platelet Volume 8.6; Monocytes # (A) 0.6 k/uL (0-1.0); Monocytes % (A) 10 %; Neutrophils # (A) 4.9 k/uL (1.3-7.7); Neutrophils % (A) 80 %; Platelet Count 193 k/uL (150-450); RBC 3.79 m/uL (3.80-5.40); RDW 14.2 % (11.5-15.5); WBC 6.1 k/uL (3.8-10.6)
[2020-10-03 06:00] LABS: ALT 49 U/L (4-34); AST 88 U/L (14-36); African American GFR (CKD) >90 (>60 ml/min/1.73 sqM); Albumin 2.9 g/dL (3.5-5.0); Alkaline Phosphatase 179 U/L (38-126); Anion Gap 8 mmol/L; Blood Urea Nitrogen 20 mg/dL (7-17); Calcium 8.4 mg/dL (8.4-10.2); Carbon Dioxide 24 mmol/L (22-30); Chloride 106 mmol/L (98-107); Globulin 2.9 g/dL; Glucose 86 mg/dL (74-99); Non-African American GFR(CKD) 82 (>60 ml/min/1.73 sqM); Potassium 4.6 mmol/L (3.5-5.1); Sodium 138 mmol/L (137-145); Total Bilirubin 8.1 mg/dL (0.2-1.3); Total Protein 5.8 g/dL (6.3-8.2)
[2020-10-03] MEDS: allopurinoL 300 MG TAB PO SCH (07:38)
[2020-10-03] MEDS: FERROUS SULFATE 325 MG TAB PO SCH (07:39)
[2020-10-03] MEDS: atenoloL 25 MG TAB PO SCH ×2 (10:14→20:34)
--- NOTE | 2020-10-03 10:18 | P.PN ---
Subjective Progress Note Date: 10/03/20 Dia Wood, is an 85-year-old female who presented to [facility] emergency room with a chief complaint of abdominal pain patient states that her pain started 2 days prior to admission patient also noted changes in the color of her urine in the color of her skin she had some nausea but no vomiting she had normal bowel movements. Patient was evaluated in the emergency room vital examination on presentation revealed a temperature of 98.4 pulse 105 respiration 19 and blood pressure 143/83 pulse ox 95% on room air her white blood count was 9.6 hemoglobin 13.6 platelet count 211 BUN was 28 creatinine 0.83 total bilirubin 7.7 AST 106 a LT 61 alkaline phosphatase 227 lipase was 267 , computed tomography scan of the abdomen and pelvis was done in the emergency room and revealed evidence of cholelithiasis and dilated common bile duct, liver ultrasound was done and revealed evidence of mildly dilated gallbladder with gallstone, large common bile duct and mild fatty infiltration of the liver. patient was admitted to medical floor gastroenterology consultation and surgical consultation were requested. Her past medical history is significant for history of hypertension, history of anemia, history of gout, hepatitis C, history of hyperlipidemia, history of paroxysmal atrial fibrillation, history of vitamin D deficiency. On review of systems there is no fever or chills no headache or dizziness no chest pain no shortness of breath no cough no palpitation she has some nausea but no vomiting she has abdominal pain mostly in the right upper quadrant no diarrhea no blood in the stools no burning with urination no frequency or urgency and no hematuria On 10/03/2020 patient's alert and oriented 3 resting comfortably in bed. Discussed case with surgical PA. Plans for ERCP today with possible lap osiris tomorrow. AST 88, ALT 49 in AP 179. Surgical and GI services are following. Patient reports improvement with symptoms. Patient remains on Levaquin. Patient denies chest pain or shortness breath. Patient denies nausea vomiting or diarrhea at this time. Patient denies any urinary burning or frequency Objective - Vital Signs Vital signs: Vital Signs Temp 98.4 F 10/03/20 07:42 Pulse 71 10/03/20 07:42 Resp 16 10/03/20 07:42 BP 127/69 10/03/20 07:42 Pulse Ox 93 L 10/03/20 07:42 Intake & Output 10/02/20 10/03/20 10/03/20 18:59 06:59 18:59 Intake Total 0 Balance 0 Intake: Oral 0 Other: Voiding Method Toilet Toilet # Voids 1 1 - Exam In general patient is alert and oriented 3 in no apparent distress HEENT head normocephalic and atraumatic patient has clear jaundice Neck is supple no JVD no goiter no lymphadenopathy no carotid bruit Chest exam is clear to auscultation no crackles no wheezing Cardiac exam reveals irregular heart beat S1 and S2 no gallops no murmurs Abdomen is soft with tenderness in the epigastric and right upper quadrant area no organomegaly no palpable masses was normal bowel sounds Extremity exam reveals no edema no cyanosis or clubbing Neurological examination reveals no gross focal deficit - Labs CBC & Chem 7: 10/03/20 05:28 10/03/20 05:28 Labs: Abnormal Lab Results - Last 24 Hours (Table) 10/02/20 10/02/20 10/03/20 Range/Units 06:42 06:42 05:28 RBC 3.84 L 3.79 L (4.10-5.20) X 10*6/uL MCV 99.2 H 100.7 H (80.0-97.0) fL MCHC 31.8 L (32.0-37.0) g/dL MPV 12.4 H (9.5-12.2) fL Lymphocytes # 0.41 L 0.5 L (0.90-5.00) X 10*3/uL Monocytes # 1.11 H (0.20-1.00) X 10*3/uL Eosinophils # 0.01 L (0.04-0.35) X 10*3/uL BUN (7-17) mg/dL BUN/Creatinine Ratio 31.43 H (12.00-20.00) Ratio Glucose 111 H (70-110) mg/dL Calcium 8.6 L (8.7-10.3) mg/dL Total Bilirubin 7.6 H (0.3-1.2) mg/dL AST 83 H (13-35) U/L ALT 49 H (8-44) U/L Alkaline Phosphatase 199 H (41-126) U/L Total Protein 5.6 L (6.2-8.2) g/dL Albumin 3.40 L (3.80-4.90) g/dL Albumin/Globulin Ratio 1.55 L (1.60-3.17) g/dL 10/03/20 Range/Units 05:28 RBC (4.10-5.20) X 10*6/uL MCV (80.0-97.0) fL MCHC (32.0-37.0) g/dL MPV (9.5-12.2) fL Lymphocytes # (0.90-5.00) X 10*3/uL Monocytes # (0.20-1.00) X 10*3/uL Eosinophils # (0.04-0.35) X 10*3/uL BUN 20 H (7-17) mg/dL BUN/Creatinine Ratio (12.00-20.00) Ratio Glucose (70-110) mg/dL Calcium (8.7-10.3) mg/dL Total Bilirubin 8.1 H (0.3-1.2) mg/dL AST 88 H (13-35) U/L ALT 49 H (8-44) U/L Alkaline Phosphatase 179 H (41-126) U/L Total Protein 5.8 L (6.2-8.2) g/dL Albumin 2.9 L (3.80-4.90) g/dL Albumin/Globulin Ratio (1.60-3.17) g/dL Assessment and Plan Plan: Acute cholelithiasis Jaundice with dilated common bile duct rule out choledocholithiasis Evidence of dehydration with pre renal azotemia Underlying history of hypertension Underlying history of hyperlipidemia Underlying history of gout Underlying history of paroxysmal atrial fibrillation Underlying history of anemia Plans for ERCP today 10/03/2020 Possible lap osiris tomorrow 10/04/2020
[2020-10-03] MEDS: SODIUM CHLORIDE 0.9% 1,000 ML IV SCH ×2 (11:21→22:32)
[2020-10-03] MEDS ORDERED: INDOMETHACIN 50MG SUPPOSITORY RECTAL ONE (12:00)
[2020-10-03] MEDS ORDERED: LEVOFLOXACIN 500MG-D5W PMX 500 MG in DEXTROSE/WATER 1 100ML.BAG IVPB SCH (12:00)
[2020-10-03] MEDS ORDERED: LACTATED RINGERS 1,000 ML IV ONE (13:47)
[2020-10-03] MEDS: ONDANSETRON 4 MG/2 ML VIAL IVP PRN (13:53)
[2020-10-03] MEDS ORDERED: fentaNYL (PF) 50 MCG/ML 2 ML AMP ONE (15:02)
[2020-10-03] MEDS ORDERED: PHENYLEPHRINE-0.9% NACL SYG 1,000 MCG/10 ML SYRINGE ONE (15:02)
[2020-10-03] MEDS ORDERED: PROPOFOL 10 MG/ML 20 ML VIAL IV ONE ×2 (15:02)
[2020-10-03] MEDS ORDERED: LIDOCAINE 1% INJ 10MG/ML (20 ML MDV) ONE (15:02)
[2020-10-03] MEDS ORDERED: IOPAMIDOL-300 50ML BTL INJ ONE (15:33)
--- NOTE | 2020-10-03 15:51 | P.PN ---
Subjective Progress Note Date: 10/03/20 CHIEF COMPLAINT: Abdominal pain HISTORY OF PRESENT ILLNESS: Patient is still complaining of right upper quadrant epigastric abdominal pain. She does report the pain is controlled. She is still jaundiced her total bilirubin is up at 8.1. She is scheduled for ERCP today. Laparoscopic cholecystectomy was canceled for today in order to proceed with ERCP. Patient is afebrile. WBC 6.1 Hgb 11.9 total bilirubin is 8.1 AST is 88 ALT 49 alk phos 179 PHYSICAL EXAM: VITAL SIGNS: Reviewed. GENERAL: Well-developed in no acute distress. HEENT: No sclera icterus. Extraocular movements grossly intact. Moist buccal mucosa. Head is atraumatic, normocephalic. ABDOMEN: Soft. Nondistended. Nontender. NEUROLOGIC: Alert and oriented. Cranial nerves II through XII grossly intact. ASSESSMENT: 1. Right upper quadrant and epigastric abdominal pain. Abdominal ultrasound shows a mildly dilated gallbladder with gallstone and large common bile duct probably related to chronic gallbladder dysfunction 2. Mildly elevated LFTs 3. Hyperbilirubinemia PLAN: -Follow up on ERCP results -Continue to hold Eliquis -anticipate laparoscopic cholecystectomy on 10/05/[address] Hess [employer] note has been reviewed by physician. Signing provider agrees with the documented findings, assessment, and plan of care. Objective - Vital Signs Vital signs: Vital Signs Temp 98.4 F 10/03/20 07:42 Pulse 71 10/03/20 08:00 Resp 16 10/03/20 08:00 BP 127/69 10/03/20 07:42 Pulse Ox 93 L 10/03/20 07:42 Intake & Output 10/02/20 10/03/20 10/03/20 18:59 06:59 18:59 Intake Total 0 Balance 0 Intake: Oral 0 Other: Voiding Method Toilet Toilet Toilet # Voids 1 1 1 - Labs CBC & Chem 7: 10/03/20 05:28 10/03/20 05:28 Labs: Abnormal Lab Results - Last 24 Hours (Table) 10/03/20 10/03/20 Range/Units 05:28 05:28 RBC 3.79 L (3.80-5.40) m/uL MCV 100.7 H (80.0-100.0) fL Lymphocytes # 0.5 L (1.0-4.8) k/uL BUN 20 H (7-17) mg/dL Total Bilirubin 8.1 H (0.2-1.3) mg/dL AST 88 H (14-36) U/L ALT 49 H (4-34) U/L Alkaline Phosphatase 179 H (38-126) U/L Total Protein 5.8 L (6.3-8.2) g/dL Albumin 2.9 L (3.5-5.0) g/dL
[2020-10-03] MEDS: amLODIPine 5 MG TAB PO SCH (15:53)
[2020-10-03] MEDS: POTASSIUM CHLORIDE ER 20 MEQ TAB.ER PO SCH (15:53)
[2020-10-03] MEDS: LACTATED RINGERS 1,000 ML IV SCH (15:53)
[2020-10-03] MEDS: VERAPAMIL SR 240 MG TABLET.ER PO SCH (15:53)
--- NOTE | 2020-10-03 16:17 | P.PCN ---
Date of Procedure: 10/03/20 Description of Procedure: Brief history: Patient is a 85-year-old female with a medical history significant for chronic hepatitis C, hypertension, atrial fibrillation on Eliquis therapy who presented to the hospital due to complaints of abdominal pain and nausea with no emesis. Patient found to have significantly elevated liver enzymes prominently in a cholestatic pattern with total bilirubin of 7.8 and mildly elevated AST and ALT of 16 105 respectively. Previously in 07/2020 liver enzymes have been normal. She had computed tomography scan of the abdomen which showed evidence of cholelithiasis and a dilated common bile duct at 1.3 cm in diameter as well as mild fatty infiltration of the liver. ERCP was ordered for further evaluation. Procedure performed: ERCP failed/aborted with biopsies Preoperative diagnoses: Elevated total bilirubin, elevated liver enzymes, cholelithiasis, suspected choledocholithiasis, dilated common bile duct IV sedation per anesthesia Estimated blood loss: Minimal. Procedure: After informed consent was obtained from the patient and after the risks benefits and complications including bleeding perforation and pancreatitis explained in detail the patient was brought into the endoscopy unit. The patient was placed in prone position and IV conscious sedation was administered by anesthesia under continuous monitoring. The Olympus side-viewing duodenoscope was then inserted into the mouth and esophagus intubated without any difficulty. The scope was gradually advanced into the stomach and duodenum. The major papilla was identified with some technical difficulty as the ampulla was noted to be within a fold in the duodenum. Ampulla also appeared prominent. Multiple attempts were made to try and cannulate the papilla however these were unsuccessful. Biopsies of the prominent ampulla were taken. In addition the patient was noted to have a hiatal hernia and some prominent folds in the stomach which were also biopsied. The patient tolerated the procedure well. Impression: Failed/aborted ERCP Biopsies of a prominent ampulla and folds in the stomach Hiatal hernia Moderate Gastritis Recommendations: The findings of this examination were discussed with the patient. Okay for liquid diet for now with patient nothing by mouth after midnight for possible cholecystectomy with possible liver biopsies depending on the appearance of the liver. Continue to trend liver enzymes, await pathology from biopsies, and pending clinical course and laboratory evaluation patient may require evaluation by the advanced endoscopy service at a tertiary center either as a transfer or after discharge.
--- NOTE | 2020-10-03 16:30 | FL ---
Fluoroscopy HISTORY: Elevated liver enzymes 9 seconds fluoroscopy time supplied to the referring clinician. 1 intraoperative C-arm images docume nt the procedure. See dictated report from gastroenterology.
[2020-10-04 07:59] LABS: ALT 42 U/L (4-34); AST 75 U/L (14-36); African American GFR (CKD) >90 (>60 ml/min/1.73 sqM); Albumin 2.7 g/dL (3.5-5.0); Albumin/Globulin Ratio 0.9; Alkaline Phosphatase 164 U/L (38-126); Anion Gap 7 mmol/L; Blood Urea Nitrogen 20 mg/dL (7-17); Calcium 8.4 mg/dL (8.4-10.2); Carbon Dioxide 26 mmol/L (22-30); Chloride 105 mmol/L (98-107); Globulin 2.9 g/dL; Glucose 80 mg/dL (74-99); Non-African American GFR(CKD) 85 (>60 ml/min/1.73 sqM); Potassium 4.3 mmol/L (3.5-5.1); Sodium 138 mmol/L (137-145); Total Bilirubin 8.1 mg/dL (0.2-1.3); Total Protein 5.6 g/dL (6.3-8.2)
[2020-10-04] MEDS: POTASSIUM CHLORIDE ER 20 MEQ TAB.ER PO SCH (10:19)
[2020-10-04] MEDS: atenoloL 25 MG TAB PO SCH ×2 (10:19→22:13)
[2020-10-04] MEDS: VERAPAMIL SR 240 MG TABLET.ER PO SCH (10:20)
[2020-10-04] MEDS: allopurinoL 300 MG TAB PO SCH (10:20)
--- NOTE | 2020-10-04 11:24 | P.PN ---
Progress Note - Text Progress Note Date: 10/04/20 The patient is resting comfortably in bed. She has quadrant quadrant pain. She was unsuccessful with ERCP yesterday. On exam vital signs are stable. Abdomen soft. There is mild right upper quadrant tenderness. The patient was scheduled for laparoscopic cholecystectomy in the a.m.
[2020-10-04 12:11] LABS: Basophils # (A) 0.02 X 10*3/uL (0.00-0.10); Basophils % (A) 0.3 %; Eosinophils # (A) 0.09 X 10*3/uL (0.04-0.35); Eosinophils % (A) 1.2 %; HCT 36.5 % (37.2-46.3); HGB 11.4 g/dL (12.0-15.0); Lymphocytes % (A) 8.3 %; MCH 31.1 pg (27.0-32.0); MCHC 31.2 g/dL (32.0-37.0); MCV 99.5 fL (80.0-97.0); Mean Platelet Volume 12.6 fL (9.5-12.2); Monocytes # (A) 0.97 X 10*3/uL (0.20-1.00); Monocytes % (A) 13.4 %; Neutrophils # (A) 5.55 X 10*3/uL (1.80-7.70); Neutrophils % (A) 76.4 %; Platelet Count 217 X 10*3/uL (140-440); RBC 3.67 X 10*6/uL (4.10-5.20); RDW 13.8 % (11.5-14.5); WBC 7.26 X 10*3/uL (4.50-10.00)
--- NOTE | 2020-10-04 13:43 | P.PN ---
Subjective Progress Note Date: 10/04/20 Dia Wood, is an 85-year-old female who presented to [facility] emergency room with a chief complaint of abdominal pain patient states that her pain started 2 days prior to admission patient also noted changes in the color of her urine in the color of her skin she had some nausea but no vomiting she had normal bowel movements. Patient was evaluated in the emergency room vital examination on presentation revealed a temperature of 98.4 pulse 105 respiration 19 and blood pressure 143/83 pulse ox 95% on room air her white blood count was 9.6 hemoglobin 13.6 platelet count 211 BUN was 28 creatinine 0.83 total bilirubin 7.7 AST 106 a LT 61 alkaline phosphatase 227 lipase was 267 , computed tomography scan of the abdomen and pelvis was done in the emergency room and revealed evidence of cholelithiasis and dilated common bile duct, liver ultrasound was done and revealed evidence of mildly dilated gallbladder with gallstone, large common bile duct and mild fatty infiltration of the liver. patient was admitted to medical floor gastroenterology consultation and surgical consultation were requested. Her past medical history is significant for history of hypertension, history of anemia, history of gout, hepatitis C, history of hyperlipidemia, history of paroxysmal atrial fibrillation, history of vitamin D deficiency. On review of systems there is no fever or chills no headache or dizziness no chest pain no shortness of breath no cough no palpitation she has some nausea but no vomiting she has abdominal pain mostly in the right upper quadrant no diarrhea no blood in the stools no burning with urination no frequency or urgency and no hematuria On 10/03/2020 patient's alert and oriented 3 resting comfortably in bed. Discussed case with surgical PA. Plans for ERCP today with possible lap osiris tomorrow. AST 88, ALT 49 in AP 179. Surgical and GI services are following. Patient reports improvement with symptoms. Patient remains on Levaquin. Patient denies chest pain or shortness breath. Patient denies nausea vomiting or diarrhea at this time. Patient denies any urinary burning or frequency On 10/04/2020 patient was seen and examined on the medical floor she is alert and oriented 3 in no apparent distress last night she had episodes of tachycardia medication were adjusted Norvasc was discontinued and atenolol was increased to 25 mg twice daily. Patient is complaining of right upper quadrant abdominal pain otherwise she denies any complaints there is no fever or chills no headache or dizziness no chest pain no shortness of breath no cough no nausea or vomiting no diarrhea no blood in the stools no burning with urination no frequency or urgency and no hematuria. Input from gastroenterology and surgery was review patient is scheduled for cholecystectomy in a.m. tomorrow. Objective - Vital Signs Vital signs: Vital Signs Temp 97.5 F L 10/04/20 02:00 Pulse 105 H 10/04/20 02:00 Resp 18 10/04/20 02:00 BP 138/88 10/04/20 02:00 Pulse Ox 96 10/04/20 02:00 Intake & Output 10/03/20 10/03/20 10/04/20 06:59 18:59 06:59 Intake Total 0 800 Balance 0 800 Intake: IV 800 Oral 0 Other: Voiding Method Toilet Toilet Toilet # Voids 1 1 3 - Exam In general patient is alert and oriented 3 in no apparent distress HEENT head normocephalic and atraumatic patient has clear jaundice Neck is supple no JVD no goiter no lymphadenopathy no carotid bruit Chest exam is clear to auscultation no crackles no wheezing Cardiac exam reveals irregular heart beat S1 and S2 no gallops no murmurs Abdomen is soft with tenderness in the epigastric and right upper quadrant area no organomegaly no palpable masses was normal bowel sounds Extremity exam reveals no edema no cyanosis or clubbing Neurological examination reveals no gross focal deficit - Labs CBC & Chem 7: 10/04/20 06:44 10/04/20 06:44 Labs: Abnormal Lab Results - Last 24 Hours (Table) 10/03/20 Range/Units 20:55 TSH 0.138 L (0.465-4.680) mIU/L Assessment and Plan Plan: Acute cholelithiasis Jaundice with dilated common bile duct rule out choledocholithiasis Evidence of dehydration with pre renal azotemia Underlying history of hypertension Underlying history of hyperlipidemia Underlying history of gout Underlying history of paroxysmal atrial fibrillation Underlying history of anemia Plans for ERCP today 10/03/2020 Possible lap osiris tomorrow 10/04/2020
[2020-10-04] MEDS: LACTATED RINGERS 1,000 ML IV SCH (16:50)
[2020-10-04] MEDS: SODIUM CHLORIDE 0.9% 1,000 ML IV SCH (16:50)
[2020-10-05] MEDS: SODIUM CHLORIDE 0.9% 1,000 ML IV SCH ×2 (06:13→19:28)
[2020-10-05] MEDS: atenoloL 25 MG TAB PO SCH ×2 (07:05→20:34)
[2020-10-05] MEDS: VERAPAMIL SR 240 MG TABLET.ER PO SCH (08:00)
[2020-10-05] MEDS ORDERED: GLYCOPYRROLATE 0.2 MG/ML 2 ML VIAL ONE (09:30)
[2020-10-05] MEDS ORDERED: LIDOCAINE 1% INJ 10MG/ML (20 ML MDV) ONE (09:30)
[2020-10-05] MEDS ORDERED: ROCURONIUM 10 MG/ML (5 ML VIAL) IV ONE (09:30)
[2020-10-05] MEDS ORDERED: fentaNYL (PF) 50 MCG/ML 2 ML AMP ONE (09:30)
[2020-10-05] MEDS ORDERED: SUCCINYLCHOLINE CHLORIDE 100 MG/5 ML SYR IV ONE (09:30)
[2020-10-05] MEDS ORDERED: NEOSTIGMINE 1 MG/ML 10 ML VIAL ONE (09:30)
[2020-10-05] MEDS ORDERED: PROPOFOL 10 MG/ML 20 ML VIAL IV ONE (09:30)
[2020-10-05] MEDS ORDERED: IV FLUID CONTINUATION 1,000 ML IV ONE (09:33)
[2020-10-05] MEDS ORDERED: BUPIVACAIN-EPI 0.5%-1:200,000 30 ML VIAL SQ ONE ×2 (09:49→09:52)
[2020-10-05] MEDS ORDERED: LACTATED RINGERS 1,000 ML IV ONE ×3 (09:54→11:47)
--- NOTE | 2020-10-05 10:53 | P.OP ---
Date of Procedure: 10/05/20 Preoperative Diagnosis: Cholecystitis Postoperative Diagnosis: Cholecystitis Procedure(s) Performed: Laparoscopic cholecystectomy Anesthesia: MARIBETH Surgeon: Daniel Hess Estimated Blood Loss (ml): 50 Pathology: other (gallbladder) Condition: stable Disposition: PACU Description of Procedure: The patient was placed on the operating table. The patient received a general endotracheal tube anesthesia. The patients abdomen was prepped and draped in the usual sterile fashion. Through an infraumbilical stab incision, the fascia of the anterior abdominal wall was grasped with a pair of Kochers and then the Veress needle was placed in the peritoneal cavity. Position of the Veress needle was confirmed with positive drop test. The abdomen was then insufflated. After adequate insufflation, the 10 mm trocar was placed in the peritoneal cavity. Following this the laparoscope was placed in the peritoneal cavity. The patient was placed in the head-up, right side up position and then a 5 mm trocar was placed in the right lateral and right subcostal position under direct visualization. A 8 mm trocar was placed in the epigastric position. The gallbladder was grasped in the fundus and infundibulum. Traction on the gallbladder was placed in the lateral and the cephalad positions. The triangle of Calot was visualized.. The cystic duct was bluntly dissected until the union of the cystic duct and common bile duct was seen. A critical view of safety was achieved. The cystic duct was then divided and sealed with the Harmonic scissors. A PDS Endoloop was then placed throughout the cystic duct stump. The cystic artery divided and sealed with the Harmonic scissors. The gallbladder was then removed from the liver bed using Harmonic scissors. The gallbladder was then extracted through the epigastric port site. Operative field was checked for any bleeding spots and Harmonic scissors was used to coagulate the liver bed. The abdomen was irrigated. The trocars were removed. The skin was closed using interrupted 3-0 Vicryl suture. Dermabond dressing were applied. The patient tolerated the procedure well.
--- NOTE | 2020-10-05 10:55 | P.PN ---
Subjective Progress Note Date: 10/04/20 Principal diagnosis: Elevated liver enzymes The patient is seen lying in bed today with no acute complaints. She is tolerating a diet. Abdominal pain is improved. Objective - Vital Signs Vital signs: Vital Signs Temp 97.3 F L 10/04/20 08:00 Pulse 99 10/04/20 08:00 Resp 18 10/04/20 08:00 BP 116/77 10/04/20 08:00 Pulse Ox 94 L 10/04/20 08:00 Intake & Output 10/03/20 10/04/20 10/04/20 18:59 06:59 18:59 Intake Total 800 Balance 800 Intake: IV 800 Other: Voiding Method Toilet Toilet # Voids 1 3 - Exam On physical examination, patient appears comfortable in no apparent distress. HEAD: Normocephalic, atraumatic. EYES: Scleral icterus. No conjunctival injection. MOUTH: No lesions, tongue midline. NECK: Trachea midline, no gross abnormalities. ABDOMEN: Soft, thin and mildly tender to palpation. Bowel sounds are positive. No organomegaly. No guarding or rigidity. EXTREMITIES: No pedal edema. SKIN: No rashes, jaundice. NEUROLOGIC: Alert and oriented to person and place. - Labs CBC & Chem 7: 10/04/20 06:44 10/04/20 06:44 Labs: Abnormal Lab Results - Last 24 Hours (Table) 10/03/20 10/04/20 Range/Units 20:55 06:44 BUN 20 H (7-17) mg/dL Total Bilirubin 8.1 H (0.2-1.3) mg/dL AST 75 H (14-36) U/L ALT 42 H (4-34) U/L Alkaline Phosphatase 164 H (38-126) U/L Total Protein 5.6 L (6.3-8.2) g/dL Albumin 2.7 L (3.5-5.0) g/dL TSH 0.138 L (0.465-4.680) mIU/L Assessment and Plan (1) Elevated bilirubin Narrative/Plan: 85-year-old female with multiple medical comorbidities including a history of chronic hepatitis C who presented with abdominal pain and jaundice. Liver enzymes elevated both a cholestatic and hepatocellular pattern with bilirubin staying in the 70 range. Unclear if symptoms or secondary to underlying c holelithiasis and possible cholecystitis with suspicion for possible choledocholithiasis given dilated CBD and elevated bilirubin on presentation. ERCP was attempted and unsuccessful as the papilla was unable to be cannulated, there were findings of gastritis with some nodularity in the stomach which was biopsied as well as a prominent ampulla which was also biopsied. Patient is scheduled for cholecystectomy with the surgical service with possible liver biopsy depending on findings during the procedure. Current Visit: Yes Status: Acute Code(s): R17 - UNSPECIFIED JAUNDICE SNOMED Code(s): 86859797 (2) Abdominal pain Current Visit: Yes Status: Acute Code(s): R10.9 - UNSPECIFIED ABDOMINAL PAIN SNOMED Code(s): 81147275 (3) Cholelithiasis Current Visit: Yes Status: Acute Code(s): K80.20 - CALCULUS OF GALLBLADDER W/O CHOLECYSTITIS W/O OBSTRUCTION SNOMED Code(s): 678916080 (4) Jaundice Current Visit: Yes Status: Acute Code(s): R17 - UNSPECIFIED JAUNDICE SNOMED Code(s): 40051923 Plan: Supportive care Patient initiated on regular diet by surgical service and nothing by mouth after midnight Surgical service following Plan is for cholecystectomy tomorrow with possible liver biopsy ERCP unsuccessful, if no evidence of cirrhosis due to explain elevation of liver enzymes or improvement of liver enzymes patient will need referral to tertiary center for ERCP with advanced endoscopy service Continue antibiotic therapy Await pathology from biopsies from ERCP Thank you for allowing us to dissipate in the care of the patient we will continue to follow
[2020-10-05] MEDS ORDERED: ONDANSETRON 4 MG/2 ML VIAL IVP ONE (11:35)
[2020-10-05 11:46] LABS: Basophils # (A) 0.01 X 10*3/uL (0.00-0.10); Basophils % (A) 0.1 %; Eosinophils # (A) 0.08 X 10*3/uL (0.04-0.35); HCT 31.8 % (37.2-46.3); HGB 9.8 g/dL (12.0-15.0); Lymphocytes # (A) 0.85 X 10*3/uL (0.90-5.00); Lymphocytes % (A) 11.1 %; MCH 31.1 pg (27.0-32.0); MCHC 30.8 g/dL (32.0-37.0); Mean Platelet Volume 12.3 fL (9.5-12.2); Monocytes # (A) 0.98 X 10*3/uL (0.20-1.00); Monocytes % (A) 12.8 %; Neutrophils # (A) 5.66 X 10*3/uL (1.80-7.70); Neutrophils % (A) 74.3 %; Platelet Count 224 X 10*3/uL (140-440); RBC 3.15 X 10*6/uL (4.10-5.20); RDW 14.3 % (11.5-14.5); WBC 7.63 X 10*3/uL (4.50-10.00)
[2020-10-05 12:40] LABS: African American GFR (CKD) 91.6 (60.0-200.0); Albumin 2.9 g/dL (3.80-4.90); Albumin/Globulin Ratio 1.38 (1.60-3.17); Anion Gap 5.2 mmol/L (4.00-12.00); BUN/Creat Ratio 54.29 Ratio (12.00-20.00); Calcium 8.2 mg/dL (8.7-10.3); Carbon Dioxide 24.8 mmol/L (21.6-31.8); Globulin 2.1 g/dL (1.6-3.3); Potassium 4.2 mmol/L (3.5-5.5)
--- NOTE | 2020-10-05 13:59 | P.PN ---
Subjective Progress Note Date: 10/05/20 Principal diagnosis: Elevated liver enzymes The patient is seen lying in bed today with no acute complaints. She is status post laparoscopic cholecystectomy. Objective - Vital Signs Vital signs: Vital Signs Temp 97.9 F 10/05/20 02:00 Pulse 69 10/05/20 02:00 Resp 17 10/05/20 02:00 BP 99/62 10/05/20 02:00 Pulse Ox 94 L 10/05/20 02:00 Intake & Output 10/04/20 10/05/20 10/05/20 18:59 06:59 18:59 Intake Total 900 Output Total 50 Balance 850 Intake: IV 900 Output: Estimated Blood Loss 50 Other: Voiding Method Toilet # Voids 4 2 - Exam On physical examination, patient appears comfortable in no apparent distress. HEAD: Normocephalic, atraumatic. EYES: Scleral icterus. No conjunctival injection. MOUTH: No lesions, tongue midline. NECK: Trachea midline, no gross abnormalities. ABDOMEN: Soft, thin and mildly tender to palpation appropriately after cholecystectomy. Bowel sounds are positive. No organomegaly. No guarding or rigidity. EXTREMITIES: No pedal edema. SKIN: No rashes, jaundice. NEUROLOGIC: Alert and oriented to person and place. - Labs CBC & Chem 7: 10/05/20 07:03 10/05/20 07:03 Labs: Abnormal Lab Results - Last 24 Hours (Table) 10/04/20 Range/Units 06:44 RBC 3.67 L (4.10-5.20) X 10*6/uL Hgb 11.4 L (12.0-15.0) g/dL Hct 36.5 L (37.2-46.3) % MCV 99.5 H (80.0-97.0) fL MCHC 31.2 L (32.0-37.0) g/dL MPV 12.6 H (9.5-12.2) fL Lymphocytes # 0.60 L (0.90-5.00) X 10*3/uL Microbiology - Last 24 Hours (Table) 10/03/20 20:55 Blood Culture - Preliminary Blood No Growth after 24 hours Assessment and Plan (1) Elevated bilirubin Narrative/Plan: 85-year-old female with multiple medical comorbidities including a history of chronic hepatitis C who presented with abdominal pain and jaundice. Liver enzymes elevated both a cholestatic and hepatocellular pattern with bilirubin staying in the 70 range. Unclear if symptoms or secondary to underlying cholelithiasis and possible cholecystitis with suspicion for possible choledocholithiasis given dilated CBD and elevated bilirubin on presentation. ERCP was attempted and unsuccessful as the papilla was unable to be cannulated, there were findings of gastritis with some nodularity in the stomach which was biopsied as well as a prominent ampulla which was also biopsied. Patient is scheduled for cholecystectomy with the surgical service with possible liver biopsy depending on findings during the procedure. Current Visit: Yes Status: Acute Code(s): R17 - UNSPECIFIED JAUNDICE SNOMED Code(s): 04042667 (2) Abdominal pain Current Visit: Yes Status: Acute Code(s): R10.9 - UNSPECIFIED ABDOMINAL PAIN SNOMED Code(s): 12184980 (3) Cholelithiasis Current Visit: Yes Status: Acute Code(s): K80.20 - CALCULUS OF GALLBLADDER W/O CHOLECYSTITIS W/O OBSTRUCTION SNOMED Code(s): 382482805 (4) Jaundice Current Visit: Yes Status: Acute Code(s): R17 - UNSPECIFIED JAUNDICE SNOMED Code(s): 77228056 Plan: Supportive care Diet as per surgical recommendations Surgical service following ERCP unsuccessful, if no evidence of cirrhosis due to explain elevation of liver enzymes or improvement of liver enzymes patient will need referral to tertiary center for ERCP with advanced endoscopy service Continue antibiotic therapy Await pathology from biopsies from ERCP Thank you for allowing us to dissipate in the care of the patient we will continue to follow
--- NOTE | 2020-10-05 15:24 | P.PN ---
Subjective Progress Note Date: 10/05/20 Dia Wood, is an 85-year-old female who presented to [facility] emergency room with a chief complaint of abdominal pain patient states that her pain started 2 days prior to admission patient also noted changes in the color of her urine in the color of her skin she had some nausea but no vomiting she had normal bowel movements. Patient was evaluated in the emergency room vital examination on presentation revealed a temperature of 98.4 pulse 105 respiration 19 and blood pressure 143/83 pulse ox 95% on room air her white blood count was 9.6 hemoglobin 13.6 platelet count 211 BUN was 28 creatinine 0.83 total bilirubin 7.7 AST 106 a LT 61 alkaline phosphatase 227 lipase was 267 , computed tomography scan of the abdomen and pelvis was done in the emergency room and revealed evidence of cholelithiasis and dilated common bile duct, liver ultrasound was done and revealed evidence of mildly dilated gallbladder with gallstone, large common bile duct and mild fatty infiltration of the liver. patient was admitted to medical floor gastroenterology consultation and surgical consultation were requested. Her past medical history is significant for history of hypertension, history of anemia, history of gout, hepatitis C, history of hyperlipidemia, history of paroxysmal atrial fibrillation, history of vitamin D deficiency. On review of systems there is no fever or chills no headache or dizziness no chest pain no shortness of breath no cough no palpitation she has some nausea but no vomiting she has abdominal pain mostly in the right upper quadrant no diarrhea no blood in the stools no burning with urination no frequency or urgency and no hematuria On 10/03/2020 patient's alert and oriented 3 resting comfortably in bed. Discussed case with surgical PA. Plans for ERCP today with possible lap osiris tomorrow. AST 88, ALT 49 in AP 179. Surgical and GI services are following. Patient reports improvement with symptoms. Patient remains on Levaquin. Patient denies chest pain or shortness breath. Patient denies nausea vomiting or diarrhea at this time. Patient denies any urinary burning or frequency On 10/04/2020 patient was seen and examined on the medical floor she is alert and oriented 3 in no apparent distress last night she had episodes of tachycardia medication were adjusted Norvasc was discontinued and atenolol was increased to 25 mg twice daily. Patient is complaining of right upper quadrant abdominal pain otherwise she denies any complaints there is no fever or chills no headache or dizziness no chest pain no shortness of breath no cough no nausea or vomiting no diarrhea no blood in the stools no burning with urination no frequency or urgency and no hematuria. Input from gastroenterology and surgery was review patient is scheduled for cholecystectomy in a.m. tomorrow. On 10/05/2020 patient was seen and examined on the medical floor she is alert and oriented 3 in no distress she just returned from surgery, there is no fever or chills no headache or dizziness no chest pain no shortness of breath no cough no nausea or vomiting no abdominal pain no diarrhea no blood in the stools no burning with urination no frequency or urgency no hematuria Objective - Vital Signs Vital signs: Vital Signs Temp 97.9 F 10/05/20 02:00 Pulse 69 10/05/20 11:52 Resp 15 10/05/20 13:21 BP 110/54 10/05/20 11:52 Pulse Ox 93 L 10/05/20 11:52 Intake & Output 10/04/20 10/05/20 10/05/20 18:59 06:59 18:59 Intake Total 1225 Output Total 150 Balance 1075 Weight 65.771 kg Intake: IV 1225 Output: Drainage 100 Right Abdomen 100 Estimated Blood Loss 50 Other: Voiding Method Toilet # Voids 4 2 - Exam In general patient is alert and oriented 3 in no apparent distress HEENT head normocephalic and atraumatic patient has clear jaundice Neck is supple no JVD no goiter no lymphadenopathy no carotid bruit Chest exam is clear to auscultation no crackles no wheezing Cardiac exam reveals irregular heart beat S1 and S2 no gallops no murmurs Abdomen is soft with tenderness in the epigastric and right upper quadrant area no organomegaly no palpable masses was normal bowel sounds Extremity exam reveals no edema no cyanosis or clubbing Neurological examination reveals no gross focal deficit - Labs CBC & Chem 7: 10/05/20 07:03 10/05/20 07:03 Labs: Abnormal Lab Results - Last 24 Hours (Table) 10/05/20 10/05/20 Range/Units 07:03 07:03 RBC 3.15 L (4.10-5.20) X 10*6/uL Hgb 9.8 L (12.0-15.0) g/dL Hct 31.8 L (37.2-46.3) % MCV 101.0 H (80.0-97.0) fL MCHC 30.8 L (32.0-37.0) g/dL MPV 12.3 H (9.5-12.2) fL Immature Gran # 0.05 H (0.00-0.04) X 10*3/uL Lymphocytes # 0.85 L (0.90-5.00) X 10*3/uL BUN 38.0 H (9.0-27.0) mg/dL BUN/Creatinine Ratio 54.29 H (12.00-20.00) Ratio Calcium 8.2 L (8.7-10.3) mg/dL Total Bilirubin 5.0 H (0.3-1.2) mg/dL AST 59 H (13-35) U/L Alkaline Phosphatase 168 H (41-126) U/L Total Protein 5.0 L (6.2-8.2) g/dL Albumin 2.90 L (3.80-4.90) g/dL Albumin/Globulin Ratio 1.38 L (1.60-3.17) g/dL Microbiology - Last 24 Hours (Table) 10/03/20 20:55 Blood Culture - Preliminary Blood No Growth after 24 hours Assessment and Plan Plan: Acute cholelithiasis, status post laparoscopic cholecystectomy today Jaundice with dilated common bile duct rule out choledocholithiasis Evidence of dehydration with pre renal azotemia Underlying history of hypertension Underlying history of hyperlipidemia Underlying history of gout Underlying history of paroxysmal atrial fibrillation Underlying history of anemia Plans for ERCP today 10/03/2020 Possible lap osiris tomorrow 10/04/2020
[2020-10-05] MEDS: allopurinoL 300 MG TAB PO SCH (15:58)
[2020-10-05] MEDS: LACTATED RINGERS 1,000 ML IV SCH (15:58)
[2020-10-05] MEDS: POTASSIUM CHLORIDE ER 20 MEQ TAB.ER PO SCH (15:58)
[2020-10-05] MEDS: ONDANSETRON 4 MG/2 ML VIAL IVP PRN (17:30)
[2020-10-06] MEDS: SODIUM CHLORIDE 0.9% 1,000 ML IV SCH ×2 (06:13→22:22)
[2020-10-06] MEDS: atenoloL 25 MG TAB PO SCH ×2 (09:11→22:22)
[2020-10-06] MEDS: ENOXAPARIN 40 MG/0.4 ML SYRINGE SQ SCH (09:11)
[2020-10-06] MEDS: POTASSIUM CHLORIDE ER 20 MEQ TAB.ER PO SCH (09:11)
[2020-10-06] MEDS: VERAPAMIL SR 240 MG TABLET.ER PO SCH (09:11)
[2020-10-06] MEDS: allopurinoL 300 MG TAB PO SCH (09:11)
[2020-10-06 09:50] LABS: African American GFR (CKD) 96.3 (60.0-200.0); Albumin 2.6 g/dL (3.80-4.90); Albumin/Globulin Ratio 1.44 (1.60-3.17); Anion Gap 2.8 mmol/L (4.00-12.00); Calcium 7.7 mg/dL (8.7-10.3); Carbon Dioxide 26.2 mmol/L (21.6-31.8); Globulin 1.8 g/dL (1.6-3.3); Non-African American GFR(CKD) 83.1 (60.0-200.0); Potassium 4.7 mmol/L (3.5-5.5); Total Bilirubin 3.5 mg/dL (0.3-1.2); Total Protein 4.4 g/dL (6.2-8.2)
--- NOTE | 2020-10-06 10:11 | P.PN ---
Subjective Progress Note Date: 10/06/20 Principal diagnosis: Elevated LFTs The patient is seen and examined lying in bed. She is status post laparoscopic cholecystectomy yesterday. She states she has some surgical pain otherwise she is doing well. She had a regular diet this morning. No nausea or vomiting. LFTs trending down, Total bilirubin 3.5, alkaline phosphatase 132, AST 60, ALT 32. Objective - Vital Signs Vital signs: Vital Signs Temp 97.7 F 10/06/20 08:00 Pulse 123 H 10/06/20 08:00 Resp 20 10/06/20 08:00 BP 125/81 10/06/20 08:00 Pulse Ox 97 10/06/20 08:00 Intake & Output 10/05/20 10/06/20 10/06/20 18:59 06:59 18:59 Intake Total 1585 Output Total 720 320 Balance 865 -320 Weight 65.771 kg Intake: IV 1225 Oral 360 Output: Drainage 170 320 Right Abdomen 170 320 Urine 500 Estimated Blood Loss 50 Other: Voiding Method Toilet # Voids 2 # Bowel Movements 0 - Exam General appearance: The patient is alert, oriented, appears in no acute distress. HET: Head is normocephalic and atraumatic. Conjunctiva pink. Sclera anicteric. Neck: Supple without lymphadenopathy. Abdomen: Soft, obese, incisions clean dry and intact with a HERMAN drain with sanguinous fluid, surgical tenderness, nondistended with bowel sounds. No guarding or rigidity. Extremities: Normal skin color and turgor. No pedal edema Skin: No rashes, no jaundice Neurological: No focal deficits. Alert and oriented 3. - Labs CBC & Chem 7: 10/05/20 07:03 10/06/20 05:43 Labs: Abnormal Lab Results - Last 24 Hours (Table) 10/05/20 10/05/20 Range/Units 07:03 07:03 RBC 3.15 L (4.10-5.20) X 10*6/uL Hgb 9.8 L (12.0-15.0) g/dL Hct 31.8 L (37.2-46.3) % MCV 101.0 H (80.0-97.0) fL MCHC 30.8 L (32.0-37.0) g/dL MPV 12.3 H (9.5-12.2) fL Immature Gran # 0.05 H (0.00-0.04) X 10*3/uL Lymphocytes # 0.85 L (0.90-5.00) X 10*3/uL BUN 38.0 H (9.0-27.0) mg/dL BUN/Creatinine Ratio 54.29 H (12.00-20.00) Ratio Calcium 8.2 L (8.7-10.3) mg/dL Total Bilirubin 5.0 H (0.3-1.2) mg/dL AST 59 H (13-35) U/L Alkaline Phosphatase 168 H (41-126) U/L Total Protein 5.0 L (6.2-8.2) g/dL Albumin 2.90 L (3.80-4.90) g/dL Albumin/Globulin Ratio 1.38 L (1.60-3.17) g/dL Microbiology - Last 24 Hours (Table) 10/03/20 20:55 Blood Culture - Preliminary Blood No Growth after 48 hours Assessment and Plan (1) Elevated bilirubin Narrative/Plan: 85-year-old female with multiple medical comorbidities including a history of chronic hepatitis C who presented with abdominal pain and jaundice. Liver enzymes elevated both a cholestatic and hepatocellular pattern with bilirubin staying in the 70 range. Unclear if symptoms or secondary to underlying osiris lithiasis and possible cholecystitis with suspicion for possible choledocholithiasis given dilated CBD and elevated bilirubin on presentation. ERCP was attempted and unsuccessful as the papilla was unable to be cannulated, there were findings of gastritis with some nodularity in the stomach which was biopsied as well as a prominent ampulla which was also biopsied. Patient is scheduled for cholecystectomy with the surgical service with possible liver biopsy depending on findings during the procedure. Current Visit: Yes Status: Acute Code(s): R17 - UNSPECIFIED JAUNDICE SNOMED Code(s): 19923534 (2) Abdominal pain Current Visit: Yes Status: Acute Code(s): R10.9 - UNSPECIFIED ABDOMINAL PAIN SNOMED Code(s): 71742085 (3) Cholelithiasis Current Visit: Yes Status: Acute Code(s): K80.20 - CALCULUS OF GALLBLADDER W/O CHOLECYSTITIS W/O OBSTRUCTION SNOMED Code(s): 539745214 (4) Jaundice Current Visit: Yes Status: Acute Code(s): R17 - UNSPECIFIED JAUNDICE SNOMED Code(s): 04967614 Plan: Supportive care Diet as per surgical recommendations Surgical service following ERCP unsuccessful, if no evidence of cirrhosis due to explain elevation of liver enzymes or improvement of liver enzymes patient will need referral to tertiary center for ERCP with advanced endoscopy service Continue antibiotic therapy Await pathology from biopsies from ERCP Daily CMP Thank you for allowing us to participate in the care of the patient we will continue to follow Dr. Degroot I agree with the dictator's note, documented as a scribe by Annie Johnson.
--- NOTE | 2020-10-06 13:09 | P.PN ---
Subjective Progress Note Date: 10/06/20 CHIEF COMPLAINT: Abdominal pain HISTORY OF PRESENT ILLNESS: Patient is status post laparoscopic cholecystectomy for acute cholecystitis. She is postop day #1. She does report pain but it is controlled. She denies any nausea or vomiting. She is on a regular diet but has decreased appetite. Afebrile. Total bili down to 3.5 AST 60 ALT 32 alk phos 132 PHYSICAL EXAM: VITAL SIGNS: Reviewed. GENERAL: Well-developed in no acute distress. HEENT: No sclera icterus. Extraocular movements grossly intact. Moist buccal mucosa. Head is atraumatic, normocephalic. ABDOMEN: Soft. Nondistended. Incision sites clean dry and and intact. HERMAN drain serosanguineous fluid NEUROLOGIC: Alert and oriented. Cranial nerves II through XII grossly intact. ASSESSMENT: 1. Cholecystitis with gangrenous gallbladder status post laparoscopic cholecystectomy PLAN: -Continue to hold Eliquis -Continue antibiotics -Continue regular diet -Add Ultram as needed for pain -Add incentive spirometer -Encourage patient to ambulate -Repeat CMP in a.m. [employer] note has been reviewed by physician. Signing provider agrees with the documented findings, assessment, and plan of care. Objective - Vital Signs Vital signs: Vital Signs Temp 97.7 F 10/06/20 08:00 Pulse 123 H 10/06/20 08:00 Resp 20 10/06/20 08:00 BP 125/81 10/06/20 08:00 Pulse Ox 97 10/06/20 08:00 Intake & Output 10/05/20 10/06/20 10/06/20 18:59 06:59 18:59 Intake Total 1585 Output Total 720 320 160 Balance 865 -320 -160 Weight 65.771 kg Intake: IV 1225 Oral 360 Output: Drainage 170 320 160 Right Abdomen 170 320 160 Urine 500 Estimated Blood Loss 50 Other: Voiding Method Toilet Toilet # Voids 2 # Bowel Movements 0 - Labs CBC & Chem 7: 10/05/20 07:03 10/06/20 05:43 Labs: Abnormal Lab Results - Last 24 Hours (Table) 10/06/20 Range/Units 05:43 Chloride 111 H (96-109) mmol/L Anion Gap 2.80 L (4.00-12.00) mmol/L BUN 33.0 H (9.0-27.0) mg/dL BUN/Creatinine Ratio 55.00 H (12.00-20.00) Ratio Calcium 7.7 L (8.7-10.3) mg/dL Total Bilirubin 3.5 H (0.3-1.2) mg/dL AST 60 H (13-35) U/L Alkaline Phosphatase 132 H (41-126) U/L Total Protein 4.4 L (6.2-8.2) g/dL Albumin 2.60 L (3.80-4.90) g/dL Albumin/Globulin Ratio 1.44 L (1.60-3.17) g/dL Microbiology - Last 24 Hours (Table) 10/03/20 20:55 Blood Culture - Preliminary Blood No Growth after 48 hours
[2020-10-06] MEDS: traMADol 50 MG TAB PO PRN (18:04)
[2020-10-06] MEDS: LACTATED RINGERS 1,000 ML IV SCH (18:05)
--- NOTE | 2020-10-06 19:25 | P.PN ---
Subjective Progress Note Date: 10/06/20 Dia Wood, is an 85-year-old female who presented to [facility] emergency room with a chief complaint of abdominal pain patient states that her pain started 2 days prior to admission patient also noted changes in the color of her urine in the color of her skin she had some nausea but no vomiting she had normal bowel movements. Patient was evaluated in the emergency room vital examination on presentation revealed a temperature of 98.4 pulse 105 respiration 19 and blood pressure 143/83 pulse ox 95% on room air her white blood count was 9.6 hemoglobin 13.6 platelet count 211 BUN was 28 creatinine 0.83 total bilirubin 7.7 AST 106 a LT 61 alkaline phosphatase 227 lipase was 267 , computed tomography scan of the abdomen and pelvis was done in the emergency room and revealed evidence of cholelithiasis and dilated common bile duct, liver ultrasound was done and revealed evidence of mildly dilated gallbladder with gallstone, large common bile duct and mild fatty infiltration of the liver. patient was admitted to medical floor gastroenterology consultation and surgical consultation were requested. Her past medical history is significant for history of hypertension, history of anemia, history of gout, hepatitis C, history of hyperlipidemia, history of paroxysmal atrial fibrillation, history of vitamin D deficiency. On review of systems there is no fever or chills no headache or dizziness no chest pain no shortness of breath no cough no palpitation she has some nausea but no vomiting she has abdominal pain mostly in the right upper quadrant no diarrhea no blood in the stools no burning with urination no frequency or urgency and no hematuria On 10/03/2020 patient's alert and oriented 3 resting comfortably in bed. Discussed case with surgical PA. Plans for ERCP today with possible lap osiris tomorrow. AST 88, ALT 49 in AP 179. Surgical and GI services are following. Patient reports improvement with symptoms. Patient remains on Levaquin. Patient denies chest pain or shortness breath. Patient denies nausea vomiting or diarrhea at this time. Patient denies any urinary burning or frequency On 10/04/2020 patient was seen and examined on the medical floor she is alert and oriented 3 in no apparent distress last night she had episodes of tachycardia medication were adjusted Norvasc was discontinued and atenolol was increased to 25 mg twice daily. Patient is complaining of right upper quadrant abdominal pain otherwise she denies any complaints there is no fever or chills no headache or dizziness no chest pain no shortness of breath no cough no nausea or vomiting no diarrhea no blood in the stools no burning with urination no frequency or urgency and no hematuria. Input from gastroenterology and surgery was review patient is scheduled for cholecystectomy in a.m. tomorrow. On 10/05/2020 patient was seen and examined on the medical floor she is alert and oriented 3 in no distress she just returned from surgery, there is no fever or chills no headache or dizziness no chest pain no shortness of breath no cough no nausea or vomiting no abdominal pain no diarrhea no blood in the stools no burning with urination no frequency or urgency no hematuria On 10/06/2020 patient was seen and examined on the medical floor she is alert and oriented 3 in no distress there is no fever or chills no headache or dizziness no chest pain no shortness of breath no cough she still has some tenderness in the abdomen especially in the right upper quadrant there is no nausea or vomiting no diarrhea no blood in the stools and no urinary symptoms Objective - Vital Signs Vital signs: Vital Signs Temp 97.7 F 10/06/20 08:00 Pulse 123 H 10/06/20 08:00 Resp 20 10/06/20 08:00 BP 125/81 10/06/20 08:00 Pulse Ox 97 10/06/20 08:00 Intake & Output 10/05/20 10/06/20 10/06/20 18:59 06:59 18:59 Intake Total 1585 Output Total 720 320 160 Balance 865 -320 -160 Weight 65.771 kg Intake: IV 1225 Oral 360 Output: Drainage 170 320 160 Right Abdomen 170 320 160 Urine 500 Estimated Blood Loss 50 Other: Voiding Method Toilet Toilet # Voids 2 # Bowel Movements 0 - Exam In general patient is alert and oriented 3 in no apparent distress HEENT head normocephalic and atraumatic patient has clear jaundice Neck is supple no JVD no goiter no lymphadenopathy no carotid bruit Chest exam is clear to auscultation no crackles no wheezing Cardiac exam reveals irregular heart beat S1 and S2 no gallops no murmurs Abdomen is soft with tenderness in the epigastric and right upper quadrant area no organomegaly no palpable masses was normal bowel sounds Extremity exam reveals no edema no cyanosis or clubbing Neurological examination reveals no gross focal deficit - Labs CBC & Chem 7: 10/05/20 07:03 10/06/20 05:43 Labs: Abnormal Lab Results - Last 24 Hours (Table) 10/05/20 10/06/20 Range/Units 07:03 05:43 Chloride 111 H (96-109) mmol/L Anion Gap 2.80 L (4.00-12.00) mmol/L BUN 38.0 H 33.0 H (9.0-27.0) mg/dL BUN/Creatinine Ratio 54.29 H 55.00 H (12.00-20.00) Ratio Calcium 8.2 L 7.7 L (8.7-10.3) mg/dL Total Bilirubin 5.0 H 3.5 H (0.3-1.2) mg/dL AST 59 H 60 H (13-35) U/L Alkaline Phosphatase 168 H 132 H (41-126) U/L Total Protein 5.0 L 4.4 L (6.2-8.2) g/dL Albumin 2.90 L 2.60 L (3.80-4.90) g/dL Albumin/Globulin Ratio 1.38 L 1.44 L (1.60-3.17) g/dL Microbiology - Last 24 Hours (Table) 10/03/20 20:55 Blood Culture - Preliminary Blood No Growth after 48 hours Assessment and Plan Plan: Acute cholelithiasis, status post laparoscopic cholecystectomy yesterday Jaundice with dilated common bile duct rule out choledocholithiasis Evidence of dehydration with pre renal azotemia Underlying history of hypertension Underlying history of hyperlipidemia Underlying history of gout Underlying history of paroxysmal atrial fibrillation Underlying history of anemia Patient is improving will monitor labs closely to assess if patient still needs ERCP
[2020-10-07] MEDS: ENOXAPARIN 40 MG/0.4 ML SYRINGE SQ SCH (08:47)
[2020-10-07] MEDS: SODIUM CHLORIDE 0.9% 1,000 ML IV SCH (08:48)
[2020-10-07] MEDS: VERAPAMIL SR 240 MG TABLET.ER PO SCH (08:48)
[2020-10-07] MEDS: allopurinoL 300 MG TAB PO SCH (08:48)
[2020-10-07] MEDS: atenoloL 25 MG TAB PO SCH ×2 (08:48→20:13)
[2020-10-07] MEDS: POTASSIUM CHLORIDE ER 20 MEQ TAB.ER PO SCH (08:48)
[2020-10-07] MEDS: traMADol 50 MG TAB PO PRN (08:49)
[2020-10-07 09:39] LABS: African American GFR (CKD) 77.9 (60.0-200.0); Albumin 2.6 g/dL (3.80-4.90); Albumin/Globulin Ratio 1.37 (1.60-3.17); Anion Gap 1.9 mmol/L (4.00-12.00); BUN/Creat Ratio 58.75 Ratio (12.00-20.00); Calcium 7.8 mg/dL (8.7-10.3); Carbon Dioxide 26.1 mmol/L (21.6-31.8); Globulin 1.9 g/dL (1.6-3.3); Non-African American GFR(CKD) 67.2 (60.0-200.0); Potassium 4.7 mmol/L (3.5-5.5); Total Bilirubin 2.8 mg/dL (0.3-1.2); Total Protein 4.5 g/dL (6.2-8.2)
--- NOTE | 2020-10-07 11:04 | P.PN ---
Subjective Progress Note Date: 10/07/20 Principal diagnosis: Elevated LFTs Patient is seen and examined sitting up in her bed. She is postop day #2 for laparoscopic cholecystectomy. She states she is having some dizziness this morning. She is tolerating her diet. Denies any nausea or vomiting. She states she has some surgical pain, however epigastric pain is better. She denies any bowel movement, but states she is passing flatus. Liver enzymes continued to trend down. Today bilirubin is 2.8, alkaline phosphatase 114, AST 82, ALT 39. Objective - Vital Signs Vital signs: Vital Signs Temp 97.6 F 10/07/20 07:29 Pulse 114 H 10/07/20 07:29 Resp 16 10/07/20 07:29 BP 109/65 10/07/20 07:29 Pulse Ox 94 L 10/07/20 07:29 Intake & Output 10/06/20 10/07/20 10/07/20 18:59 06:59 18:59 Intake Total 236 1200 Output Total 305 60 Balance -69 1140 Intake: Intake, IV Titration 900 Amount Sodium Chloride 0.9% 1, 900 000 ml @ 75 mls/hr IV . [id number] [facility] Rx#:[id number] Oral 236 300 Output: Drainage 305 60 Right Abdomen 305 60 Other: Voiding Method Toilet Bedpan # Voids 2 1 - Exam General appearance: The patient is alert, oriented, appears in no acute distress. HET: Head is normocephalic and atraumatic. Conjunctiva pink. Sclera anicteric. Neck: Supple without lymphadenopathy. Abdomen: Soft, obese, incisions clean dry and intact with a HERMAN drain with serosanguineous fluid, surgical tenderness, nondistended with bowel sounds. No guarding or rigidity. Extremities: Normal skin color and turgor. No pedal edema Skin: No rashes, no jaundice Neurological: No focal deficits. Alert and oriented 3. - Labs CBC & Chem 7: 10/05/20 07:03 10/07/20 05:37 Labs: Abnormal Lab Results - Last 24 Hours (Table) 10/07/20 Range/Units 05:37 Anion Gap 1.90 L (4.00-12.00) mmol/L BUN 47.0 H (9.0-27.0) mg/dL BUN/Creatinine Ratio 58.75 H (12.00-20.00) Ratio Calcium 7.8 L (8.7-10.3) mg/dL Total Bilirubin 2.8 H (0.3-1.2) mg/dL AST 82 H (13-35) U/L Total Protein 4.5 L (6.2-8.2) g/dL Albumin 2.60 L (3.80-4.90) g/dL Albumin/Globulin Ratio 1.37 L (1.60-3.17) g/dL Microbiology - Last 24 Hours (Table) 10/03/20 20:55 Blood Culture - Preliminary Blood No Growth after 72 hours Assessment and Plan (1) Elevated bilirubin Narrative/Plan: 85-year-old female with multiple medical comorbidities including a history of chronic hepatitis C who presented with abdominal pain and jaundice. Liver enzymes elevated both a cholestatic and hepatocellular pattern with bilirubin staying in the 70 range. Unclear if symptoms or secondary to underlying cholelithiasis and possible cholecystitis with suspicion for possible choledocholithiasis given dilated CBD and elevated bilirubin on presentation. ERCP was attempted and unsuccessful as the papilla was unable to be cannulated, there were findings of gastritis with some nodularity in the stomach which was biopsied as well as a prominent ampulla which was also biopsied. Patient is scheduled for cholecystectomy with the surgical service with possible liver biopsy depending on findings during the procedure. Current Visit: Yes Status: Acute Code(s): R17 - UNSPECIFIED JAUNDICE SNOMED Code(s): 39587124 (2) Abdominal pain Current Visit: Yes Status: Acute Code(s): R10.9 - UNSPECIFIED ABDOMINAL PAIN SNOMED Code(s): 63434761 (3) Cholelithiasis Current Visit: Yes Status: Acute Code(s): K80.20 - CALCULUS OF GALLBLADDER W/O CHOLECYSTITIS W/O OBSTRUCTION SNOMED Code(s): 059259332 (4) Jaundice Narrative/Plan: Improving Current Visit: Yes Status: Acute Code(s): R17 - UNSPECIFIED JAUNDICE SNOMED Code(s): 84606264 Plan: Supportive care Diet as per surgical recommendations Surgical service following ERCP unsuccessful, if no evidence of cirrhosis due to explain elevation of liver enzymes or improvement of liver enzymes patient will need referral to tertiary center for ERCP with advanced endoscopy service Continue antibiotic therapy Await pathology from biopsies from ERCP Daily CMP, repeat CBC Protonix 40 mg BID Thank you for allowing us to participate in the care of the patient we will continue to follow Dr. Degroot I agree with the dictator's note, documented as a scribe by Annie Johnson.
--- NOTE | 2020-10-07 13:24 | P.PN ---
Subjective Progress Note Date: 10/07/20 CHIEF COMPLAINT: Abdominal pain HISTORY OF PRESENT ILLNESS: Patient is status post laparoscopic cholecystectomy for acute cholecystitis. She is postop day #2. She reports improvement in her abdominal pain. She denies any nausea or vomiting. She is on a regular diet. She is passing gas but denies any bowel movement. She is complaining of overall dizziness and weakness. She is scheduled to work with PT today. HERMAN drain sanguinous fluid. Afebrile. Patient's blood work is improving. Total bili is down to 2.8 AST 82 ALT 39 and alk phos 114 PHYSICAL EXAM: VITAL SIGNS: Reviewed. GENERAL: Well-developed in no acute distress. HEENT: No sclera icterus. Extraocular movements grossly intact. Moist buccal mucosa. Head is atraumatic, normocephalic. ABDOMEN: Soft. Nondistended. Incision sites clean dry and and intact. HERMAN drain serosanguineous fluid NEUROLOGIC: Alert and oriented. Cranial nerves II through XII grossly intact. ASSESSMENT: 1. Cholecystitis with gangrenous gallbladder status post laparoscopic cholecystectomy PLAN: -Okay to resume Eliquis -Continue antibiotics -Continue regular diet -Continue pain medication as needed -Encouraged incentive spirometer -Encourage patient to ambulate -Patient can be discharged from surgical standpoint when cleared by medicine service. Physician Stone Rougher note has been reviewed by physician. Signing provider agrees with the documented findings, assessment, and plan of care. Objective - Vital Signs Vital signs: Vital Signs Temp 97.6 F 10/07/20 07:29 Pulse 114 H 10/07/20 07:29 Resp 16 10/07/20 07:29 BP 109/65 10/07/20 07:29 Pulse Ox 94 L 10/07/20 07:29 Intake & Output 10/06/20 10/07/20 10/07/20 18:59 06:59 18:59 Intake Total 236 1200 Output Total 305 60 30 Balance -69 1140 -30 Intake: Intake, IV Titration 900 Amount Sodium Chloride 0.9% 1, 900 000 ml @ 75 mls/hr IV . [id number] [facility] Rx#:[id number] Oral 236 300 Output: Drainage 305 60 30 Right Abdomen 305 60 30 Other: Voiding Method Toilet Bedpan Toilet # Voids 2 1 - Labs CBC & Chem 7: 10/05/20 07:03 10/07/20 05:37 Labs: Abnormal Lab Results - Last 24 Hours (Table) 10/07/20 Range/Units 05:37 Anion Gap 1.90 L (4.00-12.00) mmol/L BUN 47.0 H (9.0-27.0) mg/dL BUN/Creatinine Ratio 58.75 H (12.00-20.00) Ratio Calcium 7.8 L (8.7-10.3) mg/dL Total Bilirubin 2.8 H (0.3-1.2) mg/dL AST 82 H (13-35) U/L Total Protein 4.5 L (6.2-8.2) g/dL Albumin 2.60 L (3.80-4.90) g/dL Albumin/Globulin Ratio 1.37 L (1.60-3.17) g/dL Microbiology - Last 24 Hours (Table) 10/03/20 20:55 Blood Culture - Preliminary Blood No Growth after 72 hours
[2020-10-07] MEDS: ONDANSETRON 4 MG/2 ML VIAL IVP PRN (14:36)
[2020-10-07] MEDS: LACTATED RINGERS 1,000 ML IV SCH (14:58)
[2020-10-07] MEDS ORDERED: SODIUM CHLORIDE 0.9% 1,000 ML IV SCH (15:00)
[2020-10-07 15:26] LABS: African American GFR (CKD) >90 (>60 ml/min/1.73 sqM); Anion Gap 5 mmol/L; Blood Urea Nitrogen 45 mg/dL (7-17); Calcium 7.9 mg/dL (8.4-10.2); Carbon Dioxide 19 mmol/L (22-30); Chloride 110 mmol/L (98-107); Glucose 141 mg/dL (74-99); Non-African American GFR(CKD) 79 (>60 ml/min/1.73 sqM); Potassium 4.8 mmol/L (3.5-5.1); Sodium 134 mmol/L (137-145)
[2020-10-07 15:36] LABS: Basophils # (A) 0.1 k/uL (0-0.2); Basophils % (A) 0 %; Eosinophils # (A) 0.1 k/uL (0-0.7); Eosinophils % (A) 1 %; HCT 25.1 % (34.0-46.0); Hypochromasia Marked; Lymphocytes # (A) 1.2 k/uL (1.0-4.8); Lymphocytes % (A) 9 %; MCHC 30.6 g/dL (31.0-37.0); MCV 104.5 fL (80.0-100.0); Macrocytosis Moderate; Mean Platelet Volume 9.3; Monocytes # (A) 1.3 k/uL (0-1.0); Monocytes % (A) 10 %; Neutrophils # (A) 9.9 k/uL (1.3-7.7); Neutrophils % (A) 78 %; Platelet Count 265 k/uL (150-450); RBC 2.41 m/uL (3.80-5.40); RDW 15.4 % (11.5-15.5); WBC 12.7 k/uL (3.8-10.6)
[2020-10-07 15:38] LABS: HGB 7.7 gm/dL (11.4-16.0)
[2020-10-07 17:28] LABS: Glucose,Whole Blood 132 mg/dL (75-99)
[2020-10-07] MEDS ORDERED: LACTATED RINGERS 1,000 ML IV ONE (18:00)
[2020-10-07 18:51] LABS: Glucose,Whole Blood 139 mg/dL (75-99)
[2020-10-07] MEDS ORDERED: SODIUM CHLORIDE 0.9% 500 ML 500 ML IV ONE (19:23)
[2020-10-07 19:34] LABS: ABG Base Excess -9.4 mmol/L; ABG HCO3 18 mmol/L (21-25); ABG Oxygen Saturation 90.2 % (94-97); ABG PCO2 41 mmHg (35-45); ABG PH 7.25 (7.35-7.45); ABG PO2 64 mmHg (83-108); ABG TCO2 19 mmol/L (19-24); Allen Test Performed? Yes
--- NOTE | 2020-10-07 19:36 | P.PN ---
Subjective Progress Note Date: 10/07/20 Dia Wood, is an 85-year-old female who presented to [facility] emergency room with a chief complaint of abdominal pain patient states that her pain started 2 days prior to admission patient also noted changes in the color of her urine in the color of her skin she had some nausea but no vomiting she had normal bowel movements. Patient was evaluated in the emergency room vital examination on presentation revealed a temperature of 98.4 pulse 105 respiration 19 and blood pressure 143/83 pulse ox 95% on room air her white blood count was 9.6 hemoglobin 13.6 platelet count 211 BUN was 28 creatinine 0.83 total bilirubin 7.7 AST 106 a LT 61 alkaline phosphatase 227 lipase was 267 , computed tomography scan of the abdomen and pelvis was done in the emergency room and revealed evidence of cholelithiasis and dilated common bile duct, liver ultrasound was done and revealed evidence of mildly dilated gallbladder with gallstone, large common bile duct and mild fatty infiltration of the liver. patient was admitted to medical floor gastroenterology consultation and surgical consultation were requested. Her past medical history is significant for history of hypertension, history of anemia, history of gout, hepatitis C, history of hyperlipidemia, history of paroxysmal atrial fibrillation, history of vitamin D deficiency. On review of systems there is no fever or chills no headache or dizziness no chest pain no shortness of breath no cough no palpitation she has some nausea but no vomiting she has abdominal pain mostly in the right upper quadrant no diarrhea no blood in the stools no burning with urination no frequency or urgency and no hematuria On 10/03/2020 patient's alert and oriented 3 resting comfortably in bed. Discussed case with surgical PA. Plans for ERCP today with possible lap osiris tomorrow. AST 88, ALT 49 in AP 179. Surgical and GI services are following. Patient reports improvement with symptoms. Patient remains on Levaquin. Patient denies chest pain or shortness breath. Patient denies nausea vomiting or diarrhea at this time. Patient denies any urinary burning or frequency On 10/04/2020 patient was seen and examined on the medical floor she is alert and oriented 3 in no apparent distress last night she had episodes of tachycardia medication were adjusted Norvasc was discontinued and atenolol was increased to 25 mg twice daily. Patient is complaining of right upper quadrant abdominal pain otherwise she denies any complaints there is no fever or chills no headache or dizziness no chest pain no shortness of breath no cough no nausea or vomiting no diarrhea no blood in the stools no burning with urination no frequency or urgency and no hematuria. Input from gastroenterology and surgery was review patient is scheduled for cholecystectomy in a.m. tomorrow. On 10/05/2020 patient was seen and examined on the medical floor she is alert and oriented 3 in no distress she just returned from surgery, there is no fever or chills no headache or dizziness no chest pain no shortness of breath no cough no nausea or vomiting no abdominal pain no diarrhea no blood in the stools no burning with urination no frequency or urgency no hematuria On 10/06/2020 patient was seen and examined on the medical floor she is alert and oriented 3 in no distress there is no fever or chills no headache or dizziness no chest pain no shortness of breath no cough she still has some tenderness in the abdomen especially in the right upper quadrant there is no nausea or vomiting no diarrhea no blood in the stools and no urinary symptoms. On 10/07/2020 patient was seen and examined on the medical floor this morning she was doing well she was alert and oriented 3 in no apparent distress, her vital exams were stable however this afternoon patient condition worsened her blood pressure was lower her hemoglobin today dropped to 7.7 she was given IV fluids and 1 unit of red blood cell transfusion was ordered due to hypotension patient was transferred to intensive care unit liver enzymes are improving total bilirubin today is down to 2.8 Objective - Vital Signs Vital signs: Vital Signs Temp 97.5 F L 10/07/20 18:50 Pulse 60 10/07/20 19:00 Resp 23 10/07/20 19:00 BP 82/59 10/07/20 19:00 Pulse Ox 89 L 10/07/20 19:00 Intake & Output 10/07/20 10/07/20 10/08/20 06:59 18:59 06:59 Intake Total 1200 575 Output Total 60 180 Balance 1140 -180 575 Intake: Intake, IV Titration 900 575 Amount Sodium Chloride 0.9% 1, 900 75 000 ml @ 75 mls/hr IV . [id number] [facility] Rx#:[id number] Sodium Chloride 0.9% 500 500 ml 500 ml @ 999 mls/hr IV .Q31M [facility] Rx#:[id number] Oral 300 Output: Drainage 60 180 Right Abdomen 60 180 Other: Voiding Method Bedpan Toilet # Voids 1 # Emeses 1 - Exam In general patient is alert and oriented 3 in no apparent distress HEENT head normocephalic and atraumatic patient has clear jaundice Neck is supple no JVD no goiter no lymphadenopathy no carotid bruit Chest exam is clear to auscultation no crackles no wheezing Cardiac exam reveals irregular heart beat S1 and S2 no gallops no murmurs Abdomen is soft with tenderness in the epigastric and right upper quadrant area no organomegaly no palpable masses was normal bowel sounds Extremity exam reveals no edema no cyanosis or clubbing Neurological examination reveals no gross focal deficit - Labs CBC & Chem 7: 10/07/20 14:53 10/07/20 14:53 Labs: Abnormal Lab Results - Last 24 Hours (Table) 10/07/20 10/07/20 10/07/20 Range/Units 05:37 14:53 14:53 WBC 12.7 H (3.8-10.6) k/uL RBC 2.41 L (3.80-5.40) m/uL Hgb 7.7 L D (11.4-16.0) gm/dL Hct 25.1 L (34.0-46.0) % MCV 104.5 H (80.0-100.0) fL MCHC 30.6 L (31.0-37.0) g/dL Neutrophils # 9.9 H (1.3-7.7) k/uL Monocytes # 1.3 H (0-1.0) k/uL Sodium 134 L (137-145) mmol/L Chloride 110 H (98-107) mmol/L Carbon Dioxide 19 L (22-30) mmol/L Anion Gap 1.90 L (4.00-12.00) mmol/L BUN 47.0 H 45 H (9.0-27.0) mg/dL BUN/Creatinine Ratio 58.75 H (12.00-20.00) Ratio Glucose 141 H (74-99) mg/dL POC Glucose (mg/dL) (75-99) mg/dL Calcium 7.8 L 7.9 L (8.7-10.3) mg/dL Total Bilirubin 2.8 H (0.3-1.2) mg/dL AST 82 H (13-35) U/L Total Protein 4.5 L (6.2-8.2) g/dL Albumin 2.60 L (3.80-4.90) g/dL Albumin/Globulin Ratio 1.37 L (1.60-3.17) g/dL 10/07/20 10/07/20 Range/Units 17:26 18:49 WBC (3.8-10.6) k/uL RBC (3.80-5.40) m/uL Hgb (11.4-16.0) gm/dL Hct (34.0-46.0) % MCV (80.0-100.0) fL MCHC (31.0-37.0) g/dL Neutrophils # (1.3-7.7) k/uL Monocytes # (0-1.0) k/uL Sodium (137-145) mmol/L Chloride (98-107) mmol/L Carbon Dioxide (22-30) mmol/L Anion Gap (4.00-12.00) mmol/L BUN (9.0-27.0) mg/dL BUN/Creatinine Ratio (12.00-20.00) Ratio Glucose (74-99) mg/dL POC Glucose (mg/dL) 132 H 139 H (75-99) mg/dL Calcium (8.7-10.3) mg/dL Total Bilirubin (0.3-1.2) mg/dL AST (13-35) U/L Total Protein (6.2-8.2) g/dL Albumin (3.80-4.90) g/dL Albumin/Globulin Ratio (1.60-3.17) g/dL Microbiology - Last 24 Hours (Table) 10/03/20 20:55 Blood Culture - Preliminary Blood No Growth after 72 hours Assessment and Plan Plan: Acute cholelithiasis, status post laparoscopic cholecystectomy yesterday Jaundice with dilated common bile duct rule out choledocholithiasis Evidence of dehydration with pre renal azotemia Underlying history of hypertension Underlying history of hyperlipidemia Underlying history of gout Underlying history of paroxysmal atrial fibrillation Underlying history of anemia Patient is improving will monitor labs closely to assess if patient still needs ERCP
[2020-10-07] MEDS ORDERED: SODIUM BICARB 8.4% 50 ML SYR (1 MEQ/ML) IV STA (20:15)
[2020-10-07] MEDS: PANTOPRAZOLE 40 MG/10 ML VIAL IVP SCH (20:41)
[2020-10-08] MEDS ORDERED: FUROSEMIDE 10 MG/ML 4 ML VIAL IV STA (00:04)
[2020-10-08 01:38] LABS: Anisocytosis Slight; Basophils % (A) 0 %; Eosinophils # (A) 0.1 k/uL (0-0.7); Eosinophils % (A) 1 %; HCT 30.9 % (34.0-46.0); Hypochromasia Marked; Lymphocytes # (A) 0.8 k/uL (1.0-4.8); Lymphocytes % (A) 5 %; MCH 32.3 pg (25.0-35.0); MCHC 30.9 g/dL (31.0-37.0); MCV 104.4 fL (80.0-100.0); Macrocytosis Moderate; Mean Platelet Volume 8.8; Monocytes % (A) 6 %; Neutrophils # (A) 14.6 k/uL (1.3-7.7); Neutrophils % (A) 87 %; Platelet Count 256 k/uL (150-450); RBC 2.96 m/uL (3.80-5.40); RDW 16.4 % (11.5-15.5); WBC 16.8 k/uL (3.8-10.6)
[2020-10-08 01:45] LABS: HGB 9.6 gm/dL (11.4-16.0)
[2020-10-08 02:24] LABS: Calcium 7.9 mg/dL (8.4-10.2); Potassium 5.3 mmol/L (3.5-5.1)
[2020-10-08] MEDS: SODIUM CHLORIDE 0.9% 1,000 ML IV SCH ×2 (03:07→11:30)
[2020-10-08 04:01] LABS: Anisocytosis Slight; Basophils % (A) 0 %; Eosinophils # (A) 0.1 k/uL (0-0.7); Eosinophils % (A) 1 %; HCT 28.9 % (34.0-46.0); HGB 8.9 gm/dL (11.4-16.0); Hypochromasia Marked; Lymphocytes # (A) 0.9 k/uL (1.0-4.8); Lymphocytes % (A) 6 %; MCH 31.6 pg (25.0-35.0); MCHC 30.7 g/dL (31.0-37.0); MCV 102.8 fL (80.0-100.0); Macrocytosis Moderate; Mean Platelet Volume 8.8; Monocytes # (A) 0.9 k/uL (0-1.0); Monocytes % (A) 6 %; Neutrophils % (A) 86 %; Platelet Count 252 k/uL (150-450); RBC 2.81 m/uL (3.80-5.40); RDW 16.4 % (11.5-15.5); WBC 15.2 k/uL (3.8-10.6)
[2020-10-08] MEDS: PANTOPRAZOLE 40 MG/10 ML VIAL IVP SCH ×2 (08:33→20:04)
[2020-10-08 08:57] LABS: Total Bilirubin 3.3 mg/dL (0.2-1.3)
--- NOTE | 2020-10-08 09:13 | P.PN ---
Subjective Progress Note Date: 10/08/20 Principal diagnosis: Elevated LFTs Patient is seen and examined lying in bed in the ICU. She was transferred from the floor yesterday for hypotension, coffee-ground emesis, and a drop in her hemoglobin. She is status post 1 unit of PRBC with a hemoglobin today of 8.9. She's had no further emesis since yesterday evening. She does complain of difficulty walking due to back pain. She did state she had a bowel movement yesterday. Eyes any abdominal pain. HERMAN drain still intact and draining approximately 60 mL's of serosanguineous fluid. Objective - Vital Signs Vital signs: Vital Signs Temp 98.4 F 10/08/20 07:30 Pulse 93 10/08/20 09:00 Resp 19 10/08/20 09:00 BP 108/62 10/08/20 09:00 Pulse Ox 91 L 10/08/20 09:00 Intake & Output 10/07/20 10/08/20 10/08/20 18:59 06:59 18:59 Intake Total 1635 225 Output Total 180 975 200 Balance -180 660 25 Weight 74.6 kg Intake: IV 750 225 Sodium Chloride 0.9% 1, 750 225 000 ml @ 75 mls/hr IV . [id number] [facility] Rx#:[id number] Intake, IV Titration 575 Amount Sodium Chloride 0.9% 1, 75 000 ml @ 75 mls/hr IV . [id number] [facility] Rx#:[id number] Sodium Chloride 0.9% 500 500 ml 500 ml @ 999 mls/hr IV .Q31M [facility] Rx#:[id number] Blood Product 310 Rc As-1 Unit 310 [id number] Output: Drainage 180 100 Right Abdomen 180 100 Urine 875 200 Other: Voiding Method Toilet Indwelling Catheter # Emeses 1 - Exam General appearance: The patient is alert, oriented, appears in no acute distress. HET: Head is normocephalic and atraumatic. Conjunctiva pink. Sclera anicteric. Neck: Supple without lymphadenopathy. Abdomen: Soft, obese, incisions clean dry and intact with a HERMAN drain with serosanguineous fluid, surgical tenderness, nondistended with bowel sounds. No guarding or rigidity. Extremities: Normal skin color and turgor. No pedal edema Skin: No rashes, no jaundice. Right flank with ecchymosis that wraps around to her lower back. Neurological: No focal deficits. Alert and oriented 3. - Labs CBC & Chem 7: 10/08/20 03:40 10/08/20 01:19 Labs: Abnormal Lab Results - Last 24 Hours (Table) 10/07/20 10/07/20 10/07/20 Range/Units 05:37 14:53 14:53 WBC 12.7 H (3.8-10.6) k/uL RBC 2.41 L (3.80-5.40) m/uL Hgb 7.7 L D (11.4-16.0) gm/dL Hct 25.1 L (34.0-46.0) % MCV 104.5 H (80.0-100.0) fL MCHC 30.6 L (31.0-37.0) g/dL RDW (11.5-15.5) % Neutrophils # 9.9 H (1.3-7.7) k/uL Lymphocytes # (1.0-4.8) k/uL Monocytes # 1.3 H (0-1.0) k/uL ABG pH (7.35-7.45) ABG pO2 (83-108) mmHg ABG HCO3 (21-25) mmol/L ABG O2 Saturation (94-97) % Sodium 134 L (137-145) mmol/L Potassium (3.5-5.1) mmol/L Chloride 110 H (98-107) mmol/L Carbon Dioxide 19 L (22-30) mmol/L Anion Gap 1.90 L (4.00-12.00) mmol/L BUN 47.0 H 45 H (9.0-27.0) mg/dL BUN/Creatinine Ratio 58.75 H (12.00-20.00) Ratio Glucose 141 H (74-99) mg/dL POC Glucose (mg/dL) (75-99) mg/dL Calcium 7.8 L 7.9 L (8.7-10.3) mg/dL Total Bilirubin 2.8 H (0.3-1.2) mg/dL AST 82 H (13-35) U/L ALT (4-34) U/L Total Protein 4.5 L (6.2-8.2) g/dL Albumin 2.60 L (3.80-4.90) g/dL Albumin/Globulin Ratio 1.37 L (1.60-3.17) g/dL Crossmatch 10/07/20 10/07/20 10/07/20 Range/Units 17:26 18:49 18:54 WBC (3.8-10.6) k/uL RBC (3.80-5.40) m/uL Hgb (11.4-16.0) gm/dL Hct (34.0-46.0) % MCV (80.0-100.0) fL MCHC (31.0-37.0) g/dL RDW (11.5-15.5) % Neutrophils # (1.3-7.7) k/uL Lymphocytes # (1.0-4.8) k/uL Monocytes # (0-1.0) k/uL ABG pH (7.35-7.45) ABG pO2 (83-108) mmHg ABG HCO3 (21-25) mmol/L ABG O2 Saturation (94-97) % Sodium (137-145) mmol/L Potassium (3.5-5.1) mmol/L Chloride (98-107) mmol/L Carbon Dioxide (22-30) mmol/L Anion Gap (4.00-12.00) mmol/L BUN (9.0-27.0) mg/dL BUN/Creatinine Ratio (12.00-20.00) Ratio Glucose (74-99) mg/dL POC Glucose (mg/dL) 132 H 139 H (75-99) mg/dL Calcium (8.7-10.3) mg/dL Total Bilirubin (0.3-1.2) mg/dL AST (13-35) U/L ALT (4-34) U/L Total Protein (6.2-8.2) g/dL Albumin (3.80-4.90) g/dL Albumin/Globulin Ratio (1.60-3.17) g/dL Crossmatch See Detail 10/07/20 10/08/20 10/08/20 Range/Units 19:26 01:19 01:19 WBC 16.8 H (3.8-10.6) k/uL RBC 2.96 L (3.80-5.40) m/uL Hgb 9.6 L D (11.4-16.0) gm/dL Hct 30.9 L (34.0-46.0) % MCV 104.4 H (80.0-100.0) fL MCHC 30.9 L (31.0-37.0) g/dL RDW 16.4 H (11.5-15.5) % Neutrophils # 14.6 H (1.3-7.7) k/uL Lymphocytes # 0.8 L (1.0-4.8) k/uL Monocytes # (0-1.0) k/uL ABG pH 7.25 L (7.35-7.45) ABG pO2 64 L (83-108) mmHg ABG HCO3 18 L (21-25) mmol/L ABG O2 Saturation 90.2 L (94-97) % Sodium 136 L (137-145) mmol/L Potassium 5.3 H (3.5-5.1) mmol/L Chloride 110 H (98-107) mmol/L Carbon Dioxide 16 L (22-30) mmol/L Anion Gap (4.00-12.00) mmol/L BUN 51 H (9.0-27.0) mg/dL BUN/Creatinine Ratio (12.00-20.00) Ratio Glucose 150 H (74-99) mg/dL POC Glucose (mg/dL) (75-99) mg/dL Calcium 7.9 L (8.7-10.3) mg/dL Total Bilirubin (0.3-1.2) mg/dL AST (13-35) U/L ALT (4-34) U/L Total Protein (6.2-8.2) g/dL Albumin (3.80-4.90) g/dL Albumin/Globulin Ratio (1.60-3.17) g/dL Crossmatch 10/08/20 10/08/20 Range/Units 01:19 03:40 WBC 15.2 H (3.8-10.6) k/uL RBC 2.81 L (3.80-5.40) m/uL Hgb 8.9 L (11.4-16.0) gm/dL Hct 28.9 L (34.0-46.0) % MCV 102.8 H (80.0-100.0) fL MCHC 30.7 L (31.0-37.0) g/dL RDW 16.4 H (11.5-15.5) % Neutrophils # 13.0 H (1.3-7.7) k/uL Lymphocytes # 0.9 L (1.0-4.8) k/uL Monocytes # (0-1.0) k/uL ABG pH (7.35-7.45) ABG pO2 (83-108) mmHg ABG HCO3 (21-25) mmol/L ABG O2 Saturation (94-97) % Sodium (137-145) mmol/L Potassium (3.5-5.1) mmol/L Chloride (98-107) mmol/L Carbon Dioxide (22-30) mmol/L Anion Gap (4.00-12.00) mmol/L BUN (9.0-27.0) mg/dL BUN/Creatinine Ratio (12.00-20.00) Ratio Glucose (74-99) mg/dL POC Glucose (mg/dL) (75-99) mg/dL Calcium (8.7-10.3) mg/dL Total Bilirubin 3.3 H (0.3-1.2) mg/dL AST 266 H (13-35) U/L ALT 89 H (4-34) U/L Total Protein (6.2-8.2) g/dL Albumin (3.80-4.90) g/dL Albumin/Globulin Ratio (1.60-3.17) g/dL Crossmatch Microbiology - Last 24 Hours (Table) 10/03/20 20:55 Blood Culture - Preliminary Blood No Growth after 96 hours Assessment and Plan (1) Elevated bilirubin Narrative/Plan: 85-year-old female with multiple medical comorbidities including a history of chronic hepatitis C who presented with abdominal pain and jaundice. Liver enzymes elevated both a cholestatic and hepatocellular pattern with bilirubin staying in the 70 range. Unclear if symptoms or secondary to underlying cholelithiasis and possible cholecystitis with suspicion for possible choledocholithiasis given dilated CBD and elevated bilirubin on presentation. ERCP was attempted and unsuccessful as the papilla was unable to be cannulated, there were findings of gastritis with some nodularity in the stomach which was biopsied as well as a prominent ampulla which was also biopsied. Patient is scheduled for cholecystectomy with the surgical service with possible liver biopsy depending on findings during the procedure. Current Visit: Yes Status: Acute Code(s): R17 - UNSPECIFIED JAUNDICE SNOMED Code(s): 46459781 (2) Abdominal pain Current Visit: Yes Status: Acute Code(s): R10.9 - UNSPECIFIED ABDOMINAL PAIN SNOMED Code(s): 19396172 (3) Cholelithiasis Current Visit: Yes Status: Acute Code(s): K80.20 - CALCULUS OF GALLBLADDER W/O CHOLECYSTITIS W/O OBSTRUCTION SNOMED Code(s): 048119731 (4) Jaundice Narrative/Plan: Improving Current Visit: Yes Status: Acute Code(s): R17 - UNSPECIFIED JAUNDICE SNOMED Code(s): 13476635 (5) Coffee ground emesis Narrative/Plan: had 2 episodes of coffee-ground emesis yesterday. No further today. She did have a drop in her hemoglobin to 7.7, and received 1 unit of PRBC tra nsfusion. She denies any abdominal pain. She did have a small bowel movement yesterday. Discuss with surgical physician legal administrative assistant regarding possible need for upper endoscopy. Await their recommendations. Continue to monitor for signs of GI bleed. Current Visit: Yes Status: Acute Code(s): K92.0 - HEMATEMESIS SNOMED Code(s): 25021641 Plan: Supportive care Protonix 40 mg twice a day Diet per surgical recommendations Daily CBC, CMP Transfuse for hemoglobin less than 7 Continue to evaluate wait for further signs of GI bleed Patient discussed with surgical services, they will proceed with EGD Thank you for this consultation, we will sign off at this time Dr. Degroot I agree with the dictator's note, documented as a scribe by Annie Johnson.
[2020-10-08] MEDS: allopurinoL 300 MG TAB PO SCH (09:37)
[2020-10-08] MEDS: VERAPAMIL SR 240 MG TABLET.ER PO SCH (09:37)
[2020-10-08] MEDS: atenoloL 25 MG TAB PO SCH ×2 (09:37→22:14)
[2020-10-08] MEDS: POTASSIUM CHLORIDE ER 20 MEQ TAB.ER PO SCH (09:37)
[2020-10-08 10:54] VITALS: BMI 29.1
[2020-10-08] MEDS ORDERED: atenoloL 25 MG TAB PO STA (10:59)
[2020-10-08] MEDS ORDERED: VERAPAMIL SR 240 MG TABLET.ER PO STA (10:59)
--- NOTE | 2020-10-08 12:43 | P.CRDCN ---
History of Present Illness Consult date: 10/08/20 Consult reason: known to you History of present illness: This 85-year-old female with history of hypertension, hypercholesterolemia, anemia, and gout and also evidence of atrial fibrillation, who presented to the hospital with complaints of abdominal pain and jaundice. Patient was found to have evidence of cholelithiasis and obstructive jaundice. Patient underwent cholecystectomy. Apparently yesterday patient had coffee-ground emesis and her hemoglobin has dropped. Patient has received one unit of blood transfusion last night. We're asked to see the patient for management of atrial fibrillation. Patient is currently in atrial fibrillation with controlled ventricular response. Patient is on verapamil and also beta moy. Her echocardiogram last January showed normal LV function. Currently, patient is resting comfortably and doesn't appear to be in acute distress. She does appear pale. Her hemoglobin was about 13 g on admission. We'll plan to continue current medical therapy. We will hold off on anticoagulation until cleared by GI. Endoscopy study is scheduled for tomorrow. Review of Systems As per the chart Past Medical History Past Medical History: Coronary Artery Disease (CAD), Hypertension Additional Past Medical History / Comment(s): Hepatitis C, anemia, atrial fibrillation History of Any Multi-Drug Resistant Organisms: None Reported Past Surgical History: Section, Tonsillectomy Past Anesthesia/Blood Transfusion Reactions: No Reported Reaction Additional Past Anesthesia/Blood Transfusion Reaction / Comment(s): Blood transfusion 5-6 years ago (no reactions) Past Psychological History: No Psychological Hx Reported Smoking Status: Former smoker Past Alcohol Use History: None Reported Past Drug Use History: None Reported - Past Family History Father Family Medical History: Cancer Additional Family Medical History / Comment(s): prostate CA Mother Family Medical History: Diabetes Mellitus, Myocardial Infarction ([place]) Brother(s) Family Medical History: Cancer Additional Family Medical History / Comment(s): esophageal CA Sister(s) Family Medical History: Cancer Additional Family Medical History / Comment(s): ovarian CA Medications and Allergies Home Medications Medication Instructions Recorded Confirmed Type Ferrous Sulfate [Iron (65 MG 325 mg PO BID 07/04/17 10/01/20 History Elemental)] amLODIPine [Norvasc] 5 mg PO DAILY 07/04/17 10/01/20 History Apixaban [Eliquis] 5 mg PO BID tab 07/06/17 10/01/20 Rx Potassium Chloride ER [K-Dur 20] 20 meq PO DAILY tab.er.prt 07/06/17 10/01/20 Rx Nitroglycerin Sl Tabs [Nitrostat] 0.4 mg SUBLINGUAL Q5M PRN 09/30/19 10/01/20 History Verapamil HCl [Verapamil ER] 240 mg PO DAILY 09/30/19 10/01/20 History Allopurinol [Zyloprim] 300 mg PO DAILY 02/10/20 10/01/20 History Metoprolol Tartrate [Lopressor] 50 mg PO TID tab 02/12/20 10/01/20 Rx atenoloL [Atenolol] 25 mg PO DAILY 10/01/20 10/01/20 History Allergies Allergy/AdvReac Type Severity Reaction Status Date / Time No Known Allergies Allergy Verified 10/01/20 16:43 Physical Exam Vitals: Vital Signs Temp Pulse Pulse Resp BP BP BP 10/08/20 12:00 97.7 F 116 H 13 113/70 10/08/20 11:30 111 H 21 97/66 10/08/20 11:00 105 H 15 97/66 10/08/20 10:30 108 H 20 111/83 10/08/20 10:00 98 13 118/68 10/08/20 09:30 96 20 111/68 10/08/20 09:00 93 19 108/62 10/08/20 08:30 87 20 110/71 10/08/20 08:00 96 14 106/71 10/08/20 07:30 98.4 F 100 17 90/69 10/08/20 07:00 91 18 104/66 10/08/20 06:30 98 16 100/59 10/08/20 06:00 90 16 116/66 10/08/20 05:30 88 18 107/64 10/08/20 05:00 99 15 94/70 10/08/20 04:30 92 18 105/86 10/08/20 04:00 98.4 F 80 16 115/86 10/08/20 03:30 90 16 110/77 10/08/20 03:00 70 13 108/61 10/08/20 02:30 82 19 109/57 10/08/20 02:00 62 18 114/61 10/08/20 01:30 65 16 116/59 10/08/20 01:00 73 18 114/58 10/08/20 00:30 60 21 102/57 10/08/20 00:00 97.9 F 58 L 15 92/53 10/07/20 23:30 58 L 15 104/71 10/07/20 23:00 58 L 19 97/46 10/07/20 22:31 97.7 F 58 L 16 101/62 10/07/20 22:30 58 L 14 96/68 10/07/20 22:00 52 L 19 87/46 10/07/20 21:30 52 L 20 83/43 10/07/20 21:03 97.5 F L 58 L 18 88/45 10/07/20 21:00 58 L 18 84/48 10/07/20 20:33 58 L 16 81/45 10/07/20 20:30 55 L 18 96/63 10/07/20 20:23 97.6 F 63 16 96/63 10/07/20 20:00 97.7 F 58 L 25 H 92/39 10/07/20 19:30 58 L 23 85/51 10/07/20 19:00 60 23 82/59 10/07/20 18:50 97.5 F L 60 20 84/48 10/07/20 18:08 62 18 82/48 10/07/20 17:52 50 L 18 84/48 10/07/20 17:47 58 L 82/52 10/07/20 17:42 79/42 10/07/20 17:37 97.4 F L 63 20 84/32 10/07/20 16:50 61 18 92/55 10/07/20 15:55 65 18 95/50 10/07/20 15:51 60 20 84/55 10/07/20 15:21 81 18 90/53 10/07/20 15:07 62 18 93/59 10/07/20 15:00 63 20 87/57 10/07/20 14:46 64 18 88/56 10/07/20 14:37 68 20 85/56 10/07/20 14:30 71 18 97/63 10/07/20 14:00 97.5 F L 71 16 82/51 Pulse Ox 10/08/20 12:00 95 10/08/20 11:30 94 L 10/08/20 11:00 98 10/08/20 10:30 96 10/08/20 10:00 96 10/08/20 09:30 96 10/08/20 09:00 93 L 10/08/20 08:30 10/08/20 08:00 98 10/08/20 07:30 99 10/08/20 07:00 96 10/08/20 06:30 98 10/08/20 06:00 97 10/08/20 05:30 98 10/08/20 05:00 99 10/08/20 04:30 96 10/08/20 04:00 94 L 10/08/20 03:30 99 10/08/20 03:00 98 10/08/20 02:30 97 10/08/20 02:00 96 10/08/20 01:30 97 10/08/20 01:00 95 10/08/20 00:30 93 L 10/08/20 00:00 95 10/07/20 23:30 96 10/07/20 23:00 95 10/07/20 22:31 96 10/07/20 22:30 94 L 10/07/20 22:00 94 L 10/07/20 21:30 92 L 10/07/20 21:03 92 L 10/07/20 21:00 90 L 10/07/20 20:33 92 L 10/07/20 20:30 89 L 10/07/20 20:23 90 L 10/07/20 20:00 90 L 10/07/20 19:30 10/07/20 19:00 89 L 10/07/20 18:50 10/07/20 18:08 94 L 10/07/20 17:52 93 L 10/07/20 17:47 10/07/20 17:42 10/07/20 17:37 91 L 10/07/20 16:50 92 L 10/07/20 15:55 90 L 10/07/20 15:51 90 L 10/07/20 15:21 90 L 10/07/20 15:07 92 L 10/07/20 15:00 92 L 10/07/20 14:46 92 L 10/07/20 14:37 92 L 10/07/20 14:30 92 L 10/07/20 14:00 90 L Intake and Output 10/07/20 10/08/20 10/08/20 22:59 06:59 14:59 Intake Total 1035 600 450 Output Total 95 880 380 Balance 940 -280 70 Intake: IV 150 600 450 Sodium Chloride 0.9% 1, 150 600 450 000 ml @ 75 mls/hr IV . [id number] [facility] Rx#:[id number] Intake, IV Titration 575 Amount Sodium Chloride 0.9% 1, 75 000 ml @ 75 mls/hr IV . [id number] [facility] Rx#:[id number] Sodium Chloride 0.9% 500 500 ml 500 ml @ 999 mls/hr IV .Q31M [facility] Rx#:[id number] Blood Product 310 Rc As-1 Unit 310 [id number] Output: Drainage 100 20 Right Abdomen 100 20 Urine 95 780 360 Other: Voiding Method Indwelling Catheter Indwelling Catheter Indwelling Catheter Weight 74.6 kg 74.6 kg GENERAL EXAM: Patient is alert and oriented and doesn't appear to be in any acute distress HEENT: Normocephalic. Normal reaction of pupils, equal size, normal range of extraocular motion. No erythema or exudates in the throat. NECK: No masses, no nuchal rigidity. CHEST: No chest wall deformity. LUNGS: Equal air entry with no crackles or wheeze. HEART: S1 and S2 normal . Irregular heart sounds ABDOMEN: Postsurgical SKIN: No rashes CENTRAL NERVOUS SYSTEM: No focal deficits. EXTREMITIES: No cyanosis, clubbing or edema. Results 10/08/20 03:40 10/08/20 01:19 Cardiac Enzymes 10/08/20 Range/Units 01:19 AST 266 H (14-36) U/L CBC 10/07/20 10/08/20 10/08/20 Range/Units 14:53 01:19 03:40 WBC 12.7 H 16.8 H 15.2 H (3.8-10.6) k/uL RBC 2.41 L 2.96 L 2.81 L (3.80-5.40) m/uL Hgb 7.7 L D 9.6 L D 8.9 L (11.4-16.0) gm/dL Hct 25.1 L 30.9 L 28.9 L (34.0-46.0) % Plt Count 265 256 252 (150-450) k/uL Comprehensive Metabolic Panel 10/07/20 10/08/20 10/08/20 Range/Units 14:53 01:19 01:19 Sodium 134 L 136 L (137-145) mmol/L Potassium 4.8 5.3 H (3.5-5.1) mmol/L Chloride 110 H 110 H (98-107) mmol/L Carbon Dioxide 19 L 16 L (22-30) mmol/L BUN 45 H 51 H (7-17) mg/dL Creatinine 0.70 0.83 (0.52-1.04) mg/dL Glucose 141 H 150 H (74-99) mg/dL Calcium 7.9 L 7.9 L (8.4-10.2) mg/dL AST 266 H (14-36) U/L ALT 89 H (4-34) U/L Alkaline Phosphatase 99 (38-126) U/L Current Medications Generic Name Dose Route Start Last Admin Trade Name Freq PRN Reason Stop Dose Admin Allopurinol 300 mg 10/02/20 09:00 10/08/20 09:37 Allopurinol 300 Mg Tab PO Not Given DAILY JOANNE Atenolol 25 mg 10/03/20 21:00 10/08/20 09:37 Atenolol 25 Mg Tab PO Not Given BID JOANNE Sodium Chloride 1,000 mls @ 75 mls/hr 10/01/20 18:45 10/08/20 11:30 Saline 0.9% IV 75 mls/hr .[id number] JOANNE Administration Ceftriaxone Sodium 1 gm/ 50 mls @ 100 mls/hr 10/03/20 20:30 10/08/20 08:32 Sodium Chloride IVPB 100 mls/hr Q24HR JOANNE Administration Morphine Sulfate 4 mg 10/01/20 18:42 10/06/20 09:17 Morphine Sulfate 4 Mg/Ml Syringe IV 4 mg Q4HR PRN Administration Severe Pain Naloxone HCl 0.2 mg 10/01/20 18:42 Naloxone 0.4 Mg/Ml 1 Ml Vial IV Q2M PRN Opioid Reversal Nitroglycerin 0.4 mg 10/01/20 19:50 Nitroglycerin Sl Tabs 0.4 Mg Tab SUBLINGUAL Q5M PRN Chest Pain Ondansetron HCl 4 mg 10/01/20 18:42 10/07/20 14:36 Ondansetron 4 Mg/2 Ml Vial IVP 4 mg Q8HR PRN Administration Nausea And Vomiting Pantoprazole Sodium 40 mg 10/07/20 21:00 10/08/20 08:33 Pantoprazole 40 Mg/10 Ml Vial IVP 40 mg BID JOANNE Administration Potassium Chloride 20 meq 10/02/20 09:00 10/08/20 09:37 Potassium Chloride Er 20 Meq Tab.Er PO Not Given DAILY JOANNE Tramadol HCl 50 mg 10/06/20 13:07 10/07/20 08:49 Tramadol 50 Mg Tab PO 50 mg QID PRN Administration Pain Verapamil HCl 240 mg 10/02/20 09:00 10/08/20 09:37 Verapamil Sr 240 Mg Tablet.Er PO Not Given DAILY JOANNE Intake and Output 10/07/20 10/08/20 10/08/20 22:59 06:59 14:59 Intake Total 1035 600 450 Output Total 95 880 380 Balance 940 -280 70 Intake: IV 150 600 450 Sodium Chloride 0.9% 1, 150 600 450 000 ml @ 75 mls/hr IV . [id number] [facility] Rx#:[id number] Intake, IV Titration 575 Amount Sodium Chloride 0.9% 1, 75 000 ml @ 75 mls/hr IV . [id number] [facility] Rx#:[id number] Sodium Chloride 0.9% 500 500 ml 500 ml @ 999 mls/hr IV .Q31M [facility] Rx#:[id number] Blood Product 310 Rc As-1 Unit 310 [id number] Output: Drainage 100 20 Right Abdomen 100 20 Urine 95 780 360 Other: Voiding Method Indwelling Catheter Indwelling Catheter Indwelling Catheter Weight 74.6 kg 74.6 kg Patient Weight 10/09/20 06:59 Weight 74.6 kg 10/08/20 03:40 10/08/20 01:19 EKG Interpretations (text) Available EKG showed atrial fibrillation with moderately rapid and corresponds Assessment and Plan (1) GI bleeding Current Visit: Yes Status: Acute Code(s): K92.2 - GASTROINTESTINAL HEMORRHAGE, UNSPECIFIED SNOMED Code(s): 36920093 (2) Atrial fibrillation with rapid ventricular response Current Visit: Yes Status: Acute Code(s): I48.91 - UNSPECIFIED ATRIAL FIBRILLATION SNOMED Code(s): 354194134285356 (3) Choledocholithiasis Current Visit: Yes Status: Acute Code(s): K80.50 - CALCULUS OF BILE DUCT W/O CHOLANGITIS OR CHOLECYST W/O OBST SNOMED Code(s): 338235939 (4) Coffee ground emesis Current Visit: Yes Status: Acute Code(s): K92.0 - HEMATEMESIS SNOMED Code(s): 27953196 (5) Jaundice Current Visit: Yes Status: Acute Code(s): R17 - UNSPECIFIED JAUNDICE SNOMED Code(s): 37300543 (6) Acute anemia Current Visit: Yes Status: Acute Code(s): D64.9 - ANEMIA, UNSPECIFIED SNOMED Code(s): 845350425 Plan: Patient is a [place] fibrillation with rate is controlled with current medical therapy. We will continue the same. Patient had an echocardiogram in January of last year which showed normal LV function. Patient is not having any symptoms of angina or shortness of breath. Anticoagulation is being held because of GI bleeding. This will resume after cleared by the GI department. We'll continue to follow
--- NOTE | 2020-10-08 13:10 | P.PN ---
Subjective Progress Note Date: 10/08/20 CHIEF COMPLAINT: Abdominal pain HISTORY OF PRESENT ILLNESS: Patient is status post laparoscopic cholecystectomy for acute cholecystitis. She is postop day #3. Yesterday patient had 2 episodes of coffee-ground episode and became hypotensive. She required transfer to the ICU. She has received 1 unit of blood and also IV fluid boluses. Hemoglobin was down to 7.7 and is now 8.9. She's had no further episodes of emesis. She does have some blood draining from around her HERMAN site. Patient had 100 sanguinous fluid output through HERMAN drain. Patient denies any abdominal pain. Afebrile WBC 15.2 hemoglobin 8.9 platelets 252 Sodium 136 potassium 5.3 creatinine 0.83 total bilirubin 3.3 AST 266 ALT 89 PHYSICAL EXAM: VITAL SIGNS: Reviewed. GENERAL: Well-developed in no acute distress. HEENT: No sclera icterus. Extraocular movements grossly intact. Moist buccal mucosa. Head is atraumatic, normocephalic. ABDOMEN: Soft. Nondistended. Incision sites clean dry and and intact. HERMAN drain sanguineous fluid. Patient does have some bruising noted along her right flank. NEUROLOGIC: Alert and oriented. Cranial nerves II through XII grossly intact. ASSESSMENT: 1. Cholecystitis status post laparoscopic cholecystectomy 2. Symptomatic anemia requiring 1 unit of blood 3. Coffee-ground emesis. Patient's ERCP had shown gastritis PLAN: -Patient is scheduled for EGD tomorrow with Dr. Hess -Continue Protonix -Continue to monitor for any further signs of GI bleeding -Keep Eliquis on hold -Lovenox discontinued yesterday due to coffee-ground emesis -Continue antibiotics -Start clear liquid diet -Okay to take oral cardiac medications -Continue pain medication as needed -Encouraged incentive spirometer -Encourage patient to ambulate Physician Configuration Management Specialist note has been reviewed by physician. Signing provider agrees with the documented findings, assessment, and plan of care. Objective - Vital Signs Vital signs: Vital Signs Temp 97.7 F 10/08/20 12:00 Pulse 116 H 10/08/20 12:00 Resp 13 10/08/20 12:00 BP 113/70 10/08/20 12:00 Pulse Ox 95 10/08/20 12:00 Intake & Output 10/07/20 10/08/20 10/08/20 18:59 06:59 18:59 Intake Total 1635 450 Output Total 180 975 380 Balance -180 660 70 Weight 74.6 kg 74.6 kg Intake: IV 750 450 Sodium Chloride 0.9% 1, 750 450 000 ml @ 75 mls/hr IV . [id number] [facility] Rx#:[id number] Intake, IV Titration 575 Amount Sodium Chloride 0.9% 1, 75 000 ml @ 75 mls/hr IV . [id number] [facility] Rx#:[id number] Sodium Chloride 0.9% 500 500 ml 500 ml @ 999 mls/hr IV .Q31M [facility] Rx#:[id number] Blood Product 310 Rc As-1 Unit 310 [id number] Output: Drainage 180 100 20 Right Abdomen 180 100 20 Urine 875 360 Other: Voiding Method Toilet Indwelling Catheter Indwelling Catheter # Emeses 1 - Labs CBC & Chem 7: 10/08/20 03:40 10/08/20 01:19 Labs: Abnormal Lab Results - Last 24 Hours (Table) 10/07/20 10/07/20 10/07/20 Range/Units 14:53 14:53 17:26 WBC 12.7 H (3.8-10.6) k/uL RBC 2.41 L (3.80-5.40) m/uL Hgb 7.7 L D (11.4-16.0) gm/dL Hct 25.1 L (34.0-46.0) % MCV 104.5 H (80.0-100.0) fL MCHC 30.6 L (31.0-37.0) g/dL RDW (11.5-15.5) % Neutrophils # 9.9 H (1.3-7.7) k/uL Lymphocytes # (1.0-4.8) k/uL Monocytes # 1.3 H (0-1.0) k/uL ABG pH (7.35-7.45) ABG pO2 (83-108) mmHg ABG HCO3 (21-25) mmol/L ABG O2 Saturation (94-97) % Sodium 134 L (137-145) mmol/L Potassium (3.5-5.1) mmol/L Chloride 110 H (98-107) mmol/L Carbon Dioxide 19 L (22-30) mmol/L BUN 45 H (7-17) mg/dL Glucose 141 H (74-99) mg/dL POC Glucose (mg/dL) 132 H (75-99) mg/dL Calcium 7.9 L (8.4-10.2) mg/dL Total Bilirubin (0.2-1.3) mg/dL AST (14-36) U/L ALT (4-34) U/L Crossmatch 10/07/20 10/07/20 10/07/20 Range/Units 18:49 18:54 19:26 WBC (3.8-10.6) k/uL RBC (3.80-5.40) m/uL Hgb (11.4-16.0) gm/dL Hct (34.0-46.0) % MCV (80.0-100.0) fL MCHC (31.0-37.0) g/dL RDW (11.5-15.5) % Neutrophils # (1.3-7.7) k/uL Lymphocytes # (1.0-4.8) k/uL Monocytes # (0-1.0) k/uL ABG pH 7.25 L (7.35-7.45) ABG pO2 64 L (83-108) mmHg ABG HCO3 18 L (21-25) mmol/L ABG O2 Saturation 90.2 L (94-97) % Sodium (137-145) mmol/L Potassium (3.5-5.1) mmol/L Chloride (98-107) mmol/L Carbon Dioxide (22-30) mmol/L BUN (7-17) mg/dL Glucose (74-99) mg/dL POC Glucose (mg/dL) 139 H (75-99) mg/dL Calcium (8.4-10.2) mg/dL Total Bilirubin (0.2-1.3) mg/dL AST (14-36) U/L ALT (4-34) U/L Crossmatch See Detail 10/08/20 10/08/20 10/08/20 Range/Units 01:19 01:19 01:19 WBC 16.8 H (3.8-10.6) k/uL RBC 2.96 L (3.80-5.40) m/uL Hgb 9.6 L D (11.4-16.0) gm/dL Hct 30.9 L (34.0-46.0) % MCV 104.4 H (80.0-100.0) fL MCHC 30.9 L (31.0-37.0) g/dL RDW 16.4 H (11.5-15.5) % Neutrophils # 14.6 H (1.3-7.7) k/uL Lymphocytes # 0.8 L (1.0-4.8) k/uL Monocytes # (0-1.0) k/uL ABG pH (7.35-7.45) ABG pO2 (83-108) mmHg ABG HCO3 (21-25) mmol/L ABG O2 Saturation (94-97) % Sodium 136 L (137-145) mmol/L Potassium 5.3 H (3.5-5.1) mmol/L Chloride 110 H (98-107) mmol/L Carbon Dioxide 16 L (22-30) mmol/L BUN 51 H (7-17) mg/dL Glucose 150 H (74-99) mg/dL POC Glucose (mg/dL) (75-99) mg/dL Calcium 7.9 L (8.4-10.2) mg/dL Total Bilirubin 3.3 H (0.2-1.3) mg/dL AST 266 H (14-36) U/L ALT 89 H (4-34) U/L Crossmatch 10/08/20 Range/Units 03:40 WBC 15.2 H (3.8-10.6) k/uL RBC 2.81 L (3.80-5.40) m/uL Hgb 8.9 L (11.4-16.0) gm/dL Hct 28.9 L (34.0-46.0) % MCV 102.8 H (80.0-100.0) fL MCHC 30.7 L (31.0-37.0) g/dL RDW 16.4 H (11.5-15.5) % Neutrophils # 13.0 H (1.3-7.7) k/uL Lymphocytes # 0.9 L (1.0-4.8) k/uL Monocytes # (0-1.0) k/uL ABG pH (7.35-7.45) ABG pO2 (83-108) mmHg ABG HCO3 (21-25) mmol/L ABG O2 Saturation (94-97) % Sodium (137-145) mmol/L Potassium (3.5-5.1) mmol/L Chloride (98-107) mmol/L Carbon Dioxide (22-30) mmol/L BUN (7-17) mg/dL Glucose (74-99) mg/dL POC Glucose (mg/dL) (75-99) mg/dL Calcium (8.4-10.2) mg/dL Total Bilirubin (0.2-1.3) mg/dL AST (14-36) U/L ALT (4-34) U/L Crossmatch Microbiology - Last 24 Hours (Table) 10/03/20 20:55 Blood Culture - Preliminary Blood No Growth after 96 hours
--- NOTE | 2020-10-08 14:59 | P.PN ---
Subjective Progress Note Date: 10/08/20 Dia Wood, is an 85-year-old female who presented to [facility] emergency room with a chief complaint of abdominal pain patient states that her pain started 2 days prior to admission patient also noted changes in the color of her urine in the color of her skin she had some nausea but no vomiting she had normal bowel movements. Patient was evaluated in the emergency room vital examination on presentation revealed a temperature of 98.4 pulse 105 respiration 19 and blood pressure 143/83 pulse ox 95% on room air her white blood count was 9.6 hemoglobin 13.6 platelet count 211 BUN was 28 creatinine 0.83 total bilirubin 7.7 AST 106 a LT 61 alkaline phosphatase 227 lipase was 267 , computed tomography scan of the abdomen and pelvis was done in the emergency room and revealed evidence of cholelithiasis and dilated common bile duct, liver ultrasound was done and revealed evidence of mildly dilated gallbladder with gallstone, large common bile duct and mild fatty infiltration of the liver. patient was admitted to medical floor gastroenterology consultation and surgical consultation were requested. Her past medical history is significant for history of hypertension, history of anemia, history of gout, hepatitis C, history of hyperlipidemia, history of paroxysmal atrial fibrillation, history of vitamin D deficiency. On review of systems there is no fever or chills no headache or dizziness no chest pain no shortness of breath no cough no palpitation she has some nausea but no vomiting she has abdominal pain mostly in the right upper quadrant no diarrhea no blood in the stools no burning with urination no frequency or urgency and no hematuria On 10/03/2020 patient's alert and oriented 3 resting comfortably in bed. Discussed case with surgical PA. Plans for ERCP today with possible lap osiris tomorrow. AST 88, ALT 49 in AP 179. Surgical and GI services are following. Patient reports improvement with symptoms. Patient remains on Levaquin. Patient denies chest pain or shortness breath. Patient denies nausea vomiting or diarrhea at this time. Patient denies any urinary burning or frequency On 10/04/2020 patient was seen and examined on the medical floor she is alert and oriented 3 in no apparent distress last night she had episodes of tachycardia medication were adjusted Norvasc was discontinued and atenolol was increased to 25 mg twice daily. Patient is complaining of right upper quadrant abdominal pain otherwise she denies any complaints there is no fever or chills no headache or dizziness no chest pain no shortness of breath no cough no nausea or vomiting no diarrhea no blood in the stools no burning with urination no frequency or urgency and no hematuria. Input from gastroenterology and surgery was review patient is scheduled for cholecystectomy in a.m. tomorrow. On 10/05/2020 patient was seen and examined on the medical floor she is alert and oriented 3 in no distress she just returned from surgery, there is no fever or chills no headache or dizziness no chest pain no shortness of breath no cough no nausea or vomiting no abdominal pain no diarrhea no blood in the stools no burning with urination no frequency or urgency no hematuria On 10/06/2020 patient was seen and examined on the medical floor she is alert and oriented 3 in no distress there is no fever or chills no headache or dizziness no chest pain no shortness of breath no cough she still has some tenderness in the abdomen especially in the right upper quadrant there is no nausea or vomiting no diarrhea no blood in the stools and no urinary symptoms. On 10/07/2020 patient was seen and examined on the medical floor this morning she was doing well she was alert and oriented 3 in no apparent distress, her vital exams were stable however this afternoon patient condition worsened her blood pressure was lower her hemoglobin today dropped to 7.7 she was given IV fluids and 1 unit of red blood cell transfusion was ordered due to hypotension patient was transferred to intensive care unit liver enzymes are improving total bilirubin today is down to 2.8 on 10/08/2020 patient currently resting in the intensive care unit. Patient is alert and oriented 3. plans to undergo EGD tomorrow. Total bili 3.3 AST aLT 89 alkaline phosphatase 99. Surgical, GI, cardiology and critical care services are following.blood pressure has improved. patient currently resting comfortably in bed reports improvement with pain. patient denies chest pain or shortness breath. Patient denies nausea vomiting or diarrhea. Patient denies any urinary burning or frequency Objective - Vital Signs Vital signs: Vital Signs Temp 97.7 F 10/08/20 12:00 Pulse 76 10/08/20 13:00 Resp 14 10/08/20 13:00 BP 95/59 10/08/20 13:00 Pulse Ox 95 10/08/20 13:00 Intake & Output 10/07/20 10/08/20 10/08/20 18:59 06:59 18:59 Intake Total 1635 525 Output Total 180 975 410 Balance -180 660 115 Weight 74.6 kg 74.6 kg Intake: IV 750 525 Sodium Chloride 0.9% 1, 750 525 000 ml @ 75 mls/hr IV . [id number] [facility] Rx#:[id number] Intake, IV Titration 575 Amount Sodium Chloride 0.9% 1, 75 000 ml @ 75 mls/hr IV . [id number] [facility] Rx#:[id number] Sodium Chloride 0.9% 500 500 ml 500 ml @ 999 mls/hr IV .Q31M [facility] Rx#:[id number] Blood Product 310 Rc As-1 Unit 310 [id number] Output: Drainage 180 100 20 Right Abdomen 180 100 20 Urine 875 390 Other: Voiding Method Toilet Indwelling Catheter Indwelling Catheter # Emeses 1 - Exam In general patient is alert and oriented 3 in no apparent distress HEENT head normocephalic and atraumatic patient has clear jaundice Neck is supple no JVD no goiter no lymphadenopathy no carotid bruit Chest exam is clear to auscultation no crackles no wheezing Cardiac exam reveals irregular heart beat S1 and S2 no gallops no murmurs Abdomen is soft with tenderness in the epigastric and right upper quadrant area no organomegaly no palpable masses was normal bowel sounds Extremity exam reveals no edema no cyanosis or clubbing Neurological examination reveals no gross focal deficit - Labs CBC & Chem 7: 10/08/20 03:40 10/08/20 01:19 Labs: Abnormal Lab Results - Last 24 Hours (Table) 10/07/20 10/07/20 10/07/20 Range/Units 14:53 14:53 17:26 WBC 12.7 H (3.8-10.6) k/uL RBC 2.41 L (3.80-5.40) m/uL Hgb 7.7 L D (11.4-16.0) gm/dL Hct 25.1 L (34.0-46.0) % MCV 104.5 H (80.0-100.0) fL MCHC 30.6 L (31.0-37.0) g/dL RDW (11.5-15.5) % Neutrophils # 9.9 H (1.3-7.7) k/uL Lymphocytes # (1.0-4.8) k/uL Monocytes # 1.3 H (0-1.0) k/uL ABG pH (7.35-7.45) ABG pO2 (83-108) mmHg ABG HCO3 (21-25) mmol/L ABG O2 Saturation (94-97) % Sodium 134 L (137-145) mmol/L Potassium (3.5-5.1) mmol/L Chloride 110 H (98-107) mmol/L Carbon Dioxide 19 L (22-30) mmol/L BUN 45 H (7-17) mg/dL Glucose 141 H (74-99) mg/dL POC Glucose (mg/dL) 132 H (75-99) mg/dL Calcium 7.9 L (8.4-10.2) mg/dL Total Bilirubin (0.2-1.3) mg/dL AST (14-36) U/L ALT (4-34) U/L Crossmatch 10/07/20 10/07/20 10/07/20 Range/Units 18:49 18:54 19:26 WBC (3.8-10.6) k/uL RBC (3.80-5.40) m/uL Hgb (11.4-16.0) gm/dL Hct (34.0-46.0) % MCV (80.0-100.0) fL MCHC (31.0-37.0) g/dL RDW (11.5-15.5) % Neutrophils # (1.3-7.7) k/uL Lymphocytes # (1.0-4.8) k/uL Monocytes # (0-1.0) k/uL ABG pH 7.25 L (7.35-7.45) ABG pO2 64 L (83-108) mmHg ABG HCO3 18 L (21-25) mmol/L ABG O2 Saturation 90.2 L (94-97) % Sodium (137-145) mmol/L Potassium (3.5-5.1) mmol/L Chloride (98-107) mmol/L Carbon Dioxide (22-30) mmol/L BUN (7-17) mg/dL Glucose (74-99) mg/dL POC Glucose (mg/dL) 139 H (75-99) mg/dL Calcium (8.4-10.2) mg/dL Total Bilirubin (0.2-1.3) mg/dL AST (14-36) U/L ALT (4-34) U/L Crossmatch See Detail 10/08/20 10/08/20 10/08/20 Range/Units 01:19 01:19 01:19 WBC 16.8 H (3.8-10.6) k/uL RBC 2.96 L (3.80-5.40) m/uL Hgb 9.6 L D (11.4-16.0) gm/dL Hct 30.9 L (34.0-46.0) % MCV 104.4 H (80.0-100.0) fL MCHC 30.9 L (31.0-37.0) g/dL RDW 16.4 H (11.5-15.5) % Neutrophils # 14.6 H (1.3-7.7) k/uL Lymphocytes # 0.8 L (1.0-4.8) k/uL Monocytes # (0-1.0) k/uL ABG pH (7.35-7.45) ABG pO2 (83-108) mmHg ABG HCO3 (21-25) mmol/L ABG O2 Saturation (94-97) % Sodium 136 L (137-145) mmol/L Potassium 5.3 H (3.5-5.1) mmol/L Chloride 110 H (98-107) mmol/L Carbon Dioxide 16 L (22-30) mmol/L BUN 51 H (7-17) mg/dL Glucose 150 H (74-99) mg/dL POC Glucose (mg/dL) (75-99) mg/dL Calcium 7.9 L (8.4-10.2) mg/dL Total Bilirubin 3.3 H (0.2-1.3) mg/dL AST 266 H (14-36) U/L ALT 89 H (4-34) U/L Crossmatch 10/08/20 Range/Units 03:40 WBC 15.2 H (3.8-10.6) k/uL RBC 2.81 L (3.80-5.40) m/uL Hgb 8.9 L (11.4-16.0) gm/dL Hct 28.9 L (34.0-46.0) % MCV 102.8 H (80.0-100.0) fL MCHC 30.7 L (31.0-37.0) g/dL RDW 16.4 H (11.5-15.5) % Neutrophils # 13.0 H (1.3-7.7) k/uL Lymphocytes # 0.9 L (1.0-4.8) k/uL Monocytes # (0-1.0) k/uL ABG pH (7.35-7.45) ABG pO2 (83-108) mmHg ABG HCO3 (21-25) mmol/L ABG O2 Saturation (94-97) % Sodium (137-145) mmol/L Potassium (3.5-5.1) mmol/L Chloride (98-107) mmol/L Carbon Dioxide (22-30) mmol/L BUN (7-17) mg/dL Glucose (74-99) mg/dL POC Glucose (mg/dL) (75-99) mg/dL Calcium (8.4-10.2) mg/dL Total Bilirubin (0.2-1.3) mg/dL AST (14-36) U/L ALT (4-34) U/L Crossmatch Microbiology - Last 24 Hours (Table) 10/03/20 20:55 Blood Culture - Preliminary Blood No Growth after 96 hours Assessment and Plan Plan: Acute cholelithiasis, status post laparoscopic cholecystectomy Jaundice with dilated common bile duct rule out choledocholithiasis Evidence of dehydration with pre renal azotemia Underlying history of hypertension Underlying history of hyperlipidemia Underlying history of gout Underlying history of paroxysmal atrial fibrillation. cardiology services are following. Roland currently on hold Underlying history of anemia Patient is improving will monitor labs closely to assess if patient still needs ERCP patient remains in the intensive care unit Plans for EGD on 10/09/2020 patient remains on Rocephin IV antibiotics Surgical, GI, cardiology and critical care services are following Repeat labs ordered for a.m.
--- NOTE | 2020-10-08 15:05 | P.CNPUL ---
History of Present Illness Consult date: 10/08/20 Requesting physician: Patti Razo Reason for consult: other (Upper GI bleeding) Chief complaint: Abdominal pain and jaundice History of present illness: This is an 85-year-old female with history of multiple medical problems including hepatitis C, coronary artery disease, chronic atrial fibrillation, normally on eliquis, hypertension, hypercholesterolemia, patient presented to the hospital initially on 10/01/2020, and she was mostly complaining of abdominal pain, and jaundice. Patient has been noticing darker urine. She was also having intermittent postprandial abdominal pain. Her ultrasound of the abdomen showed dilated gallbladder with gallstone there was also evidence of large comm on bile duct, felt to be related to chronic gallbladder dysfunction. Patient was noted to have mildly elevated liver function tests, and hyperbilirubinemia. Patient was seen by gastroenterology, and she underwent ERCP, however this was unsuccessful, and it was aborted, biopsies were taken from prominent ampulla and falls in the stomach. On 10/05, patient underwent laparoscopic cholecystectomy by Dr. Hess. Her postoperative course has been uneventful. However on 10/07, patient developed coffee-ground emesis and a drop in her hemoglobin requiring at least 1 unit of packed RBCs given. Patient was hypotensive, transferred to the ICU, given fluids and given a unit of blood. Patient responded well to blood transfusion, in the meantime she was placed on Protonix, and today she seems to be doing much better compared to yesterday. Her anticoagulation medicine/eliquis remains on hold. The patient is scheduled to have EGD by surgery tomorrow, in the meantime she is on Protonix. Patient is also on antibiotics. Considering the patient's episode of upper GI bleeding and hypotension, patient was transferred to the ICU yesterday, and I discussed her condition with Dr. Hess prior to transfer. Today's hemoglobin is 8.9. WBC count is 15.2. Electrolytes are normal except for slightly elevated potassium of 5.3, and she has a bicarb of 16. Liver enzymes remain elevated with AST of 266 ALT of 89 and total bilirubin is 3.3. Coming down nicely from 7.7 on admission. Review of Systems Constitutional: Negative HEENT: Negative Pulmonary: Minimal shortness of breath, no cough no wheezing no fever no chills no hemoptysis and no chest pain. Cardiac: Shortness of breath. History of palpitations. GI: As noted in HPI. Genitourinary: Negative. [place] skeletal: Negative. Skin: Negative except for jaundice on presentation. Psychiatric: Negative. Neurologic: Negative. Endocrine: Negative. Hematologic: Negative. Except for her upper GI bleeding episode/coffee-ground emesis yesterday. Past Medical History Past Medical History: Coronary Artery Disease (CAD), Hypertension Additional Past Medical History / Comment(s): Hepatitis C, anemia, atrial fibrillation History of Any Multi-Drug Resistant Organisms: None Reported Past Surgical History: Section, Tonsillectomy Past Anesthesia/Blood Transfusion Reactions: No Reported Reaction Additional Past Anesthesia/Blood Transfusion Reaction / Comment(s): Blood transfusion 5-6 years ago (no reactions) Past Psychological History: No Psychological Hx Reported Smoking Status: Former smoker Past Alcohol Use History: None Reported Past Drug Use History: None Reported - Past Family History Father Family Medical History: Cancer Additional Family Medical History / Comment(s): prostate CA Mother Family Medical History: Diabetes Mellitus, Myocardial Infarction ([place]) Brother(s) Family Medical History: Cancer Additional Family Medical History / Comment(s): esophageal CA Sister(s) Family Medical History: Cancer Additional Family Medical History / Comment(s): ovarian CA Medications and Allergies Home Medications Medication Instructions Recorded Confirmed Type Ferrous Sulfate [Iron (65 MG 325 mg PO BID 07/04/17 10/01/20 History Elemental)] amLODIPine [Norvasc] 5 mg PO DAILY 07/04/17 10/01/20 History Apixaban [Eliquis] 5 mg PO BID tab 07/06/17 10/01/20 Rx Potassium Chloride ER [K-Dur 20] 20 meq PO DAILY tab.er.prt 07/06/17 10/01/20 Rx Nitroglycerin Sl Tabs [Nitrostat] 0.4 mg SUBLINGUAL Q5M PRN 09/30/19 10/01/20 History Verapamil HCl [Verapamil ER] 240 mg PO DAILY 09/30/19 10/01/20 History Allopurinol [Zyloprim] 300 mg PO DAILY 02/10/20 10/01/20 History Metoprolol Tartrate [Lopressor] 50 mg PO TID tab 02/12/20 10/01/20 Rx atenoloL [Atenolol] 25 mg PO DAILY 10/01/20 10/01/20 History Allergies Allergy/AdvReac Type Severity Reaction Status Date / Time No Known Allergies Allergy Verified 10/01/20 16:43 Physical Exam Vitals: Vital Signs Temp Pulse Pulse Resp BP BP BP 10/08/20 13:00 76 14 95/59 10/08/20 12:30 112 H 12 104/84 10/08/20 12:00 97.7 F 116 H 13 113/70 10/08/20 11:30 111 H 21 97/66 10/08/20 11:00 105 H 15 97/66 10/08/20 10:30 108 H 20 111/83 10/08/20 10:00 98 13 118/68 10/08/20 09:30 96 20 111/68 10/08/20 09:00 93 19 108/62 10/08/20 08:30 87 20 110/71 10/08/20 08:00 96 14 106/71 10/08/20 07:30 98.4 F 100 17 90/69 10/08/20 07:00 91 18 104/66 10/08/20 06:30 98 16 100/59 10/08/20 06:00 90 16 116/66 10/08/20 05:30 88 18 107/64 10/08/20 05:00 99 15 94/70 10/08/20 04:30 92 18 105/86 10/08/20 04:00 98.4 F 80 16 115/86 10/08/20 03:30 90 16 110/77 10/08/20 03:00 70 13 108/61 10/08/20 02:30 82 19 109/57 10/08/20 02:00 62 18 114/61 10/08/20 01:30 65 16 116/59 10/08/20 01:00 73 18 114/58 10/08/20 00:30 60 21 102/57 10/08/20 00:00 97.9 F 58 L 15 92/53 10/07/20 23:30 58 L 15 104/71 10/07/20 23:00 58 L 19 97/46 10/07/20 22:31 97.7 F 58 L 16 101/62 10/07/20 22:30 58 L 14 96/68 10/07/20 22:00 52 L 19 87/46 10/07/20 21:30 52 L 20 83/43 10/07/20 21:03 97.5 F L 58 L 18 88/45 10/07/20 21:00 58 L 18 84/48 10/07/20 20:33 58 L 16 81/45 10/07/20 20:30 55 L 18 96/63 10/07/20 20:23 97.6 F 63 16 96/63 10/07/20 20:00 97.7 F 58 L 25 H 92/39 10/07/20 19:30 58 L 23 85/51 10/07/20 19:00 60 23 82/59 10/07/20 18:50 97.5 F L 60 20 84/48 10/07/20 18:08 62 18 82/48 10/07/20 17:52 50 L 18 84/48 10/07/20 17:47 58 L 82/52 10/07/20 17:42 79/42 10/07/20 17:37 97.4 F L 63 20 84/32 10/07/20 16:50 61 18 92/55 10/07/20 15:55 65 18 95/50 10/07/20 15:51 60 20 84/55 10/07/20 15:21 81 18 90/53 10/07/20 15:07 62 18 93/59 10/07/20 15:00 63 20 87/57 10/07/20 14:46 64 18 88/56 Pulse Ox 10/08/20 13:00 95 10/08/20 12:30 95 10/08/20 12:00 95 10/08/20 11:30 94 L 10/08/20 11:00 98 10/08/20 10:30 96 10/08/20 10:00 96 10/08/20 09:30 96 10/08/20 09:00 93 L 10/08/20 08:30 10/08/20 08:00 98 10/08/20 07:30 99 10/08/20 07:00 96 10/08/20 06:30 98 10/08/20 06:00 97 10/08/20 05:30 98 10/08/20 05:00 99 10/08/20 04:30 96 10/08/20 04:00 94 L 10/08/20 03:30 99 10/08/20 03:00 98 10/08/20 02:30 97 10/08/20 02:00 96 10/08/20 01:30 97 10/08/20 01:00 95 10/08/20 00:30 93 L 10/08/20 00:00 95 10/07/20 23:30 96 10/07/20 23:00 95 10/07/20 22:31 96 10/07/20 22:30 94 L 10/07/20 22:00 94 L 10/07/20 21:30 92 L 10/07/20 21:03 92 L 10/07/20 21:00 90 L 10/07/20 20:33 92 L 10/07/20 20:30 89 L 10/07/20 20:23 90 L 10/07/20 20:00 90 L 10/07/20 19:30 10/07/20 19:00 89 L 10/07/20 18:50 10/07/20 18:08 94 L 10/07/20 17:52 93 L 10/07/20 17:47 10/07/20 17:42 10/07/20 17:37 91 L 10/07/20 16:50 92 L 10/07/20 15:55 90 L 10/07/20 15:51 90 L 10/07/20 15:21 90 L 10/07/20 15:07 92 L 10/07/20 15:00 92 L 10/07/20 14:46 92 L Intake and Output 10/07/20 10/08/20 10/08/20 22:59 06:59 14:59 Intake Total 1035 600 525 Output Total 95 880 410 Balance 940 -280 115 Intake: IV 150 600 525 Sodium Chloride 0.9% 1, 150 600 525 000 ml @ 75 mls/hr IV . [id number] [facility] Rx#:[id number] Intake, IV Titration 575 Amount Sodium Chloride 0.9% 1, 75 000 ml @ 75 mls/hr IV . [id number] [facility] Rx#:[id number] Sodium Chloride 0.9% 500 500 ml 500 ml @ 999 mls/hr IV .Q31M ONE Rx#:[id number] Blood Product 310 Rc As-1 Unit 310 [id number] Output: Drainage 100 20 Right Abdomen 100 20 Urine 95 780 390 Other: Voiding Method Indwelling Catheter Indwelling Catheter Indwelling Catheter Weight 74.6 kg 74.6 kg Physical Exam: Revealed a 85-year-old female, in no distress, on 5 L nasal cannula HEENT:[Neck is supple.] [No neck masses.] [No thyromegaly.] [No JVD.] Icteric sclerae. Chest: [Diminished breath sounds and minimal crackles at the bases. Rhonchi no wheezes. Symmetrical chest expansion. Cardiac Exam: Irregular irregular rhythm. [Normal S1 and S2, no S3 gallop, no murmur.] Abdomen: [Soft, nontender, no megaly, no rebound, no guarding, normal bowel sounds.] HERMAN drain noted with serosanguineous output, Extremities: [No clubbing, no edema, no cyanosis. good pulses bilaterally.] Neurological Exam: [No focal neurologic deficit.] Alert and oriented 3. Psychiatric: Normal mood, affect and normal mental status examination. Skin: No rashes, slightly jaundiced. Results - Laboratory Findings CBC and BMP: 10/08/20 03:40 10/08/20 01:19 ABG ABG pH 7.25 (7.35-7.45) L 10/07/20 19:26 ABG pCO2 41 mmHg (35-45) 10/07/20 19:26 ABG pO2 64 mmHg (83-108) L 10/07/20 19:26 ABG O2 Saturation 90.2 % (94-97) L 10/07/20 19:26 PT/INR, D-dimer PT 10.7 sec (9.0-12.0) 10/01/20 16:39 INR 1.0 (<1.2) 10/01/20 16:39 Abnormal lab findings: Abnormal Labs 10/01/20 10/01/20 10/01/20 16:39 16:39 19:18 WBC RBC Hgb Hct MCV MCHC RDW MPV Immature Gran # Neutrophils # 8.0 H Lymphocytes # 0.6 L Monocytes # Eosinophils # ABG pH ABG pO2 ABG HCO3 ABG O2 Saturation Sodium 134 L Potassium Chloride 97 L Carbon Dioxide Anion Gap BUN 28 H BUN/Creatinine Ratio Glucose 152 H POC Glucose (mg/dL) Calcium Total Bilirubin 7.7 H Conjugated Bilirubin 4.4 H Unconjugated Bilirubin 1.3 H Delta Bilirubin 2.0 H AST 106 H ALT 61 H Alkaline Phosphatase 227 H Total Protein Albumin Albumin/Globulin Ratio TSH Ur Specific [place] >1.050 H Urine Protein Trace H Urine Bilirubin 2+ H Ur Leukocyte Esterase Trace H Urine Mucus Rare H Crossmatch 10/02/20 10/02/20 10/03/20 06:42 06:42 05:28 WBC RBC 3.84 L 3.79 L Hgb Hct MCV 99.2 H 100.7 H MCHC 31.8 L RDW MPV 12.4 H Immature Gran # Neutrophils # Lymphocytes # 0.41 L 0.5 L Monocytes # 1.11 H Eosinophils # 0.01 L ABG pH ABG pO2 ABG HCO3 ABG O2 Saturation Sodium Potassium Chloride Carbon Dioxide Anion Gap BUN BUN/Creatinine Ratio 31.43 H Glucose 111 H POC Glucose (mg/dL) Calcium 8.6 L Total Bilirubin 7.6 H Conjugated Bilirubin Unconjugated Bilirubin Delta Bilirubin AST 83 H ALT 49 H Alkaline Phosphatase 199 H Total Protein 5.6 L Albumin 3.40 L Albumin/Globulin Ratio 1.55 L TSH Ur Specific [place] Urine Protein Urine Bilirubin Ur Leukocyte Esterase Urine Mucus Crossmatch 10/03/20 10/03/20 10/04/20 05:28 20:55 06:44 WBC RBC 3.67 L Hgb 11.4 L Hct 36.5 L MCV 99.5 H MCHC 31.2 L RDW MPV 12.6 H Immature Gran # Neutrophils # Lymphocytes # 0.60 L Monocytes # Eosinophils # ABG pH ABG pO2 ABG HCO3 ABG O2 Saturation Sodium Potassium Chloride Carbon Dioxide Anion Gap BUN 20 H BUN/Creatinine Ratio Glucose POC Glucose (mg/dL) Calcium Total Bilirubin 8.1 H Conjugated Bilirubin Unconjugated Bilirubin Delta Bilirubin AST 88 H ALT 49 H Alkaline Phosphatase 179 H Total Protein 5.8 L Albumin 2.9 L Albumin/Globulin Ratio TSH 0.138 L Ur Specific [place] Urine Protein Urine Bilirubin Ur Leukocyte Esterase Urine Mucus Crossmatch 10/04/20 10/05/20 10/05/20 06:44 07:03 07:03 WBC RBC 3.15 L Hgb 9.8 L Hct 31.8 L MCV 101.0 H MCHC 30.8 L RDW MPV 12.3 H Immature Gran # 0.05 H Neutrophils # Lymphocytes # 0.85 L Monocytes # Eosinophils # ABG pH ABG pO2 ABG HCO3 ABG O2 Saturation Sodium Potassium Chloride Carbon Dioxide Anion Gap BUN 20 H 38.0 H BUN/Creatinine Ratio 54.29 H Glucose POC Glucose (mg/dL) Calcium 8.2 L Total Bilirubin 8.1 H 5.0 H Conjugated Bilirubin Unconjugated Bilirubin Delta Bilirubin AST 75 H 59 H ALT 42 H Alkaline Phosphatase 164 H 168 H Total Protein 5.6 L 5.0 L Albumin 2.7 L 2.90 L Albumin/Globulin Ratio 1.38 L TSH Ur Specific [place] Urine Protein Urine Bilirubin Ur Leukocyte Esterase Urine Mucus Crossmatch 10/06/20 10/07/20 10/07/20 05:43 05:37 14:53 WBC 12.7 H RBC 2.41 L Hgb 7.7 L D Hct 25.1 L MCV 104.5 H MCHC 30.6 L RDW MPV Immature Gran # Neutrophils # 9.9 H Lymphocytes # Monocytes # 1.3 H Eosinophils # ABG pH ABG pO2 ABG HCO3 ABG O2 Saturation Sodium Potassium Chloride 111 H Carbon Dioxide Anion Gap 2.80 L 1.90 L BUN 33.0 H 47.0 H BUN/Creatinine Ratio 55.00 H 58.75 H Glucose POC Glucose (mg/dL) Calcium 7.7 L 7.8 L Total Bilirubin 3.5 H 2.8 H Conjugated Bilirubin Unconjugated Bilirubin Delta Bilirubin AST 60 H 82 H ALT Alkaline Phosphatase 132 H Total Protein 4.4 L 4.5 L Albumin 2.60 L 2.60 L Albumin/Globulin Ratio 1.44 L 1.37 L TSH Ur Specific [place] Urine Protein Urine Bilirubin Ur Leukocyte Esterase Urine Mucus Crossmatch 10/07/20 10/07/20 10/07/20 14:53 17:26 18:49 WBC RBC Hgb Hct MCV MCHC RDW MPV Immature Gran # Neutrophils # Lymphocytes # Monocytes # Eosinophils # ABG pH ABG pO2 ABG HCO3 ABG O2 Saturation Sodium 134 L Potassium Chloride 110 H Carbon Dioxide 19 L Anion Gap BUN 45 H BUN/Creatinine Ratio Glucose 141 H POC Glucose (mg/dL) 132 H 139 H Calcium 7.9 L Total Bilirubin Conjugated Bilirubin Unconjugated Bilirubin Delta Bilirubin AST ALT Alkaline Phosphatase Total Protein Albumin Albumin/Globulin Ratio TSH Ur Specific [place] Urine Protein Urine Bilirubin Ur Leukocyte Esterase Urine Mucus Crossmatch 10/07/20 10/07/20 10/08/20 18:54 19:26 01:19 WBC 16.8 H RBC 2.96 L Hgb 9.6 L D Hct 30.9 L MCV 104.4 H MCHC 30.9 L RDW 16.4 H MPV Immature Gran # Neutrophils # 14.6 H Lymphocytes # 0.8 L Monocytes # Eosinophils # ABG pH 7.25 L ABG pO2 64 L ABG HCO3 18 L ABG O2 Saturation 90.2 L Sodium Potassium Chloride Carbon Dioxide Anion Gap BUN BUN/Creatinine Ratio Glucose POC Glucose (mg/dL) Calcium Total Bilirubin Conjugated Bilirubin Unconjugated Bilirubin Delta Bilirubin AST ALT Alkaline Phosphatase Total Protein Albumin Albumin/Globulin Ratio TSH Ur Specific [place] Urine Protein Urine Bilirubin Ur Leukocyte Esterase Urine Mucus Crossmatch See Detail 10/08/20 10/08/20 10/08/20 01:19 01:19 03:40 WBC 15.2 H RBC 2.81 L Hgb 8.9 L Hct 28.9 L MCV 102.8 H MCHC 30.7 L RDW 16.4 H MPV Immature Gran # Neutrophils # 13.0 H Lymphocytes # 0.9 L Monocytes # Eosinophils # ABG pH ABG pO2 ABG HCO3 ABG O2 Saturation Sodium 136 L Potassium 5.3 H Chloride 110 H Carbon Dioxide 16 L Anion Gap BUN 51 H BUN/Creatinine Ratio Glucose 150 H POC Glucose (mg/dL) Calcium 7.9 L Total Bilirubin 3.3 H Conjugated Bilirubin Unconjugated Bilirubin Delta Bilirubin AST 266 H ALT 89 H Alkaline Phosphatase Total Protein Albumin Albumin/Globulin Ratio TSH Ur Specific [place] Urine Protein Urine Bilirubin Ur Leukocyte Esterase Urine Mucus Crossmatch - Diagnostic Findings Additional studies: CT of abdomen and pelvis showed cholelithiasis, and dilated common bile duct, no direct patient seen of the intrahepatic bile ducts Assessment and Plan Assessment: Impression: Acute upper GI bleeding/coffee-ground emesis differential diagnoses includes erosive gastritis, gastric ulcer, patient required 1 unit of packed RBCs since transfer to ICU. EGD is pending. Acute cholecystitis status post failed ERCP and status post laparoscopic cholecystectomy. Acute blood loss anemia requiring 1 unit of packed RBCs. Chronic atrial fibrillation, however considering GI bleeding, no anticoagulation therapy for now until cleared by GI and cardiology Choledocholithiasis. Obstructive jaundice. Shortness of breath and acute hypoxic respiratory failure most likely secondary to acute blood loss anemia, hypovolemic hypotension, chest x-ray is pending at the time of this dictation. Patient may have developed acute diastolic congestive heart failure since she received fluids and blood followed by diuretics this morning and her pulmonary status improved significantly post diuresis. Again chest x-ray is pending. Recommendation: Titrate FiO2 down, maintain O2 saturation above 90%. Patient was on 15 L yes terday, and now she is on 5 L nasal Continue present supportive care measures Continue to monitor serial hemoglobin and hematocrit. Continue to hold anticoagulation therapy. Ordered a chest x-ray to be done this morning. Continue antibiotics for her acute cholecystitis. Continue Protonix. Consider stressing the patient out of the ICU to a monitor bed on selective today. We'll continue to follow while in ICU Time with Patient: Greater than 30
--- NOTE | 2020-10-08 15:30 | XR ---
EXAMINATION TYPE: XR chest 1V portable DATE OF EXAM: 10/08/2020 CLINICAL HISTORY: Difficulty shortness of breath and CHF. TECHNIQUE: Single AP portable upright view of the chest is obtained. COMPARISON: Chest x-ray from July 04, 2017 FINDINGS: There is new cardiomegaly and atherosclerotic thoracic aorta. Retrocardiac opacity consist ent with moderate size hiatal hernia redemonstrated. New moderate-sized left pleural effusion small t o tiny right pleural effusion. Associated bibasilar opacities. New mild central vascular congestion. IMPRESSION: Suspect CHF exacerbation is cardiomegaly with new mild central vascular congestion and sm all to moderate left greater than right pleural effusions. Associated bibasilar compressive atelectas is suspected. Follow-up advised due to asymmetry of effusions.
--- NOTE | 2020-10-08 20:04 | ECHOF ---
Referral Reason:LV function MEASUREMENTS -------- HEIGHT: 160.0 cm WEIGHT: 74.4 kg BP: RVIDd: 2.3 cm (< 3.3) IVSd: 1.3 cm (0.6 - 1.1) LVIDd: 3.7 cm (3.9 - 5.3) LVPWd: 1.0 cm (0.6 - 1.1) IVSs: 1.6 cm LVIDs: 2.3 cm LVPWs: 1.7 cm LAESV Index (A-L): 44.58 ml/m Ao Diam: 2.7 cm (2.0 - 3.7) AV Cusp: 1.7 cm (1.5 - 2.6) LA Diam: 3.9 cm (2.7 - 3.8) RAP: 15.00 mmHg RVSP: 48.75 mmHg FINDINGS -------- Atrial fibrillation. This was a technically adequate study. The left ventricular size is normal. There is mild concentric left ventricular hypertrophy. Overa ll left ventricular systolic function is normal with, an EF between 55 - 60 %. Left ventricular zohaib limg pressure cannot be estimated due to Atrial fibrillation. The right ventricle is normal in size. LA is severely dilated >40 ml/m2 The right atrial size is normal. There is moderate aortic valve sclerosis. Moderate mitral annular calcification present. [id number] mitral regurgitation is present. The tricuspid valve appears structurally normal. Moderate tricuspid regurgitation present. There is mild to moderate pulmonary hypertension. The right ventricular systolic pressure, as measured by Doppler, is 48.75mmHg. Trace/mild (physiologic) pulmonic regurgitation. The aortic root size is normal. The inferior vena cava is mildly dilated. There is no pericardial effusion. CONCLUSIONS -------- 1. There is mild concentric left ventricular hypertrophy. 2. Overall left ventricular systolic function is normal with, an EF between 55 - 60 %. 3. LA is severely dilated >40 ml/m2 4. There is moderate aortic valve sclerosis. 5. Moderate mitral annular calcification present. 6. Eoal-[id number]-nukbwlxa mitral regurgitation is present. 7. Moderate tricuspid regurgitation present. 8. There is mild to moderate pulmonary hypertension. 9. Trace/mild (physiologic) pulmonic regurgitation. 10. The inferior vena cava is mildly dilated. 11. There is no pericardial effusion. PARENT TRAINER: Maya Stark RDCS
[2020-10-09 04:35] LABS: Anisocytosis Slight; Basophils % (A) 0 %; Eosinophils # (A) 0.2 k/uL (0-0.7); Eosinophils % (A) 1 %; HCT 25.7 % (34.0-46.0); HGB 8.4 gm/dL (11.4-16.0); Hypochromasia Slight; Lymphocytes # (A) 1.2 k/uL (1.0-4.8); Lymphocytes % (A) 10 %; MCH 32.4 pg (25.0-35.0); MCHC 32.6 g/dL (31.0-37.0); MCV 99.6 fL (80.0-100.0); Macrocytosis Slight; Mean Platelet Volume 8.5; Monocytes % (A) 8 %; Neutrophils # (A) 9.3 k/uL (1.3-7.7); Neutrophils % (A) 78 %; Platelet Count 288 k/uL (150-450); RBC 2.58 m/uL (3.80-5.40); RDW 17.2 % (11.5-15.5); WBC 11.9 k/uL (3.8-10.6)
[2020-10-09 04:43] LABS: ALT 64 U/L (4-34); AST 130 U/L (14-36); African American GFR (CKD) >90 (>60 ml/min/1.73 sqM); Albumin 2.4 g/dL (3.5-5.0); Alkaline Phosphatase 101 U/L (38-126); Anion Gap 5 mmol/L; Blood Urea Nitrogen 46 mg/dL (7-17); Carbon Dioxide 22 mmol/L (22-30); Chloride 109 mmol/L (98-107); Glucose 97 mg/dL (74-99); Non-African American GFR(CKD) 82 (>60 ml/min/1.73 sqM); Sodium 136 mmol/L (137-145); Total Bilirubin 2.3 mg/dL (0.2-1.3); Total Protein 4.9 g/dL (6.3-8.2)
[2020-10-09] MEDS: PANTOPRAZOLE 40 MG/10 ML VIAL IVP SCH ×2 (08:06→22:02)
[2020-10-09] MEDS: atenoloL 25 MG TAB PO SCH ×2 (08:07→22:14)
[2020-10-09] MEDS: allopurinoL 300 MG TAB PO SCH (08:07)
[2020-10-09] MEDS ORDERED: FUROSEMIDE 10 MG/ML 4 ML VIAL IV STA (09:09)
--- NOTE | 2020-10-09 09:19 | US ---
EXAMINATION TYPE: US chest DATE OF EXAM: 10/09/2020 COMPARISON: 10/08/2020 Clinical history: 85-year-old female Markings for thoracentesis by pulmonary staff. TECHNIQUE: Targeted ultrasound of the posterior lower bilateral hemithoraces FINDINGS: EXAM MEASUREMENTS: Right Pleural Effusion pocket size: 2 cm Right skin surface to fluid distance: 2.1 cm Left Pleural Effusion pocket size: 5.5 cm Left skin surface to fluid distance: 1.8 cm Lung tissue visualized at 2.7 cm. . Left side marked for possible thoracentesis outside the dept. Pulmonologists are able to review the images in the patient?s EMR. IMPRESSIONS: Small effusion seen on the right and [id number] effusion seen on the left. The left side is ma rked for possible paracentesis.
[2020-10-09] MEDS: SODIUM CHLORIDE 0.9% 1,000 ML IV SCH (10:16)
[2020-10-09] MEDS ORDERED: PROPOFOL 10 MG/ML 20 ML VIAL IV ONE (12:12)
[2020-10-09] MEDS ORDERED: IV FLUID CONTINUATION 1,000 ML IV ONE (12:13)
--- NOTE | 2020-10-09 12:26 | P.OP ---
Date of Procedure: 10/09/20 Preoperative Diagnosis: GI bleed Postoperative Diagnosis: Antral gastritis Hiatal hernia Mild esophagitis No evidence of upper GI bleed Procedure(s) Performed: EGD Anesthesia: MAC Surgeon: Daniel Hess Pathology: other (Antrum, esophagus) Condition: stable Disposition: PACU Description of Procedure: Patient's placed on the endoscopy table in the lateral position. She received IV sedation. The gastroscope placed oropharynx passed in the esophagus and stomach. Scope was placed through the pylorus. The first and second portion of the duodenum appeared normal. As no evidence of GI bleed. Scope was then brought back and the antrum this is minimally inflamed. Biopsies performed. There is no blood and stomach. The scope was unretroflexed and remainder of the stomach appeared normal. The GE junction was at 35 cm. Patient had a moderate size hiatal hernia. Her distal esophagus minimal inflamed. Biopsies performed. The proximal esophagus appeared normal. Scope was withdrawn for patient.
--- NOTE | 2020-10-09 12:32 | P.PN ---
Subjective Progress Note Date: 10/09/20 Principal diagnosis: Elevated LFTs Patient is seen and examined lying in bed in the ICU. She is without any acute changes through the night. She states she is just tired. She is scheduled for an upper endoscopy with surgical services today. She states she has not had any further vomiting, no further signs of GI bleed. Her hemoglobin was stable at 8.4. Objective - Vital Signs Vital signs: Vital Signs Temp 98.8 F 10/09/20 08:00 Pulse 102 H 10/09/20 08:30 Resp 16 10/09/20 08:30 BP 106/62 10/09/20 08:30 Pulse Ox 95 10/09/20 08:30 Intake & Output 10/08/20 10/09/20 10/09/20 18:59 06:59 18:59 Intake Total 780 110 10 Output Total 605 580 55 Balance 175 -470 -45 Weight 74.6 kg 75.2 kg Intake: IV 780 110 10 Sodium Chloride 0.9% 1, 780 110 10 000 ml @ 20 mls/hr IV . Q24H [facility] Rx#:[id number] Output: Drainage 100 80 Right Abdomen 100 80 Urine 505 500 55 Other: Voiding Method Indwelling Catheter Indwelling Catheter Indwelling Catheter - Exam General appearance: The patient is alert, oriented, appears in no acute distress. HET: Head is normocephalic and atraumatic. Conjunctiva pink. Sclera anicteric. Neck: Supple without lymphadenopathy. Abdomen: Soft, obese, incisions clean dry and intact with a HERMAN drain with serosanguineous fluid, surgical tenderness, nondistended with bowel sounds. No guarding or rigidity. Extremities: Normal skin color and turgor. No pedal edema Skin: No rashes, no jaundice. Right flank with ecchymosis that wraps around to her lower back. Neurological: No focal deficits. Alert and oriented 3. - Labs CBC & Chem 7: 10/09/20 03:34 10/09/20 03:34 Labs: Abnormal Lab Results - Last 24 Hours (Table) 10/09/20 10/09/20 Range/Units 03:34 03:34 WBC 11.9 H (3.8-10.6) k/uL RBC 2.58 L (3.80-5.40) m/uL Hgb 8.4 L (11.4-16.0) gm/dL Hct 25.7 L (34.0-46.0) % RDW 17.2 H (11.5-15.5) % Neutrophils # 9.3 H (1.3-7.7) k/uL Sodium 136 L (137-145) mmol/L Chloride 109 H (98-107) mmol/L BUN 46 H (7-17) mg/dL Calcium 8.0 L (8.4-10.2) mg/dL Total Bilirubin 2.3 H (0.2-1.3) mg/dL AST 130 H (14-36) U/L ALT 64 H (4-34) U/L Total Protein 4.9 L (6.3-8.2) g/dL Albumin 2.4 L (3.5-5.0) g/dL Microbiology - Last 24 Hours (Table) 10/03/20 20:55 Blood Culture - Preliminary Blood No Growth after 120 hours Assessment and Plan (1) Elevated bilirubin Narrative/Plan: 85-year-old female with multiple medical comorbidities including a history of chronic hepatitis C who presented with abdominal pain and jaundice. Liver enzymes elevated both a cholestatic and hepatocellular pattern with bilirubin staying in the 70 range. Unclear if symptoms or secondary to underlying cholelithiasis and possible cholecystitis with suspicion for possible choledocholithiasis given dilated CBD and elevated bilirubin on presentation. ERCP was attempted and unsuccessful as the papilla was unable to be cannulated, there were findings of gastritis with some nodularity in the stomach which was biopsied as well as a prominent ampulla which was also biopsied. Patient is scheduled for cholecystectomy with the surgical service with possible liver biopsy depending on findings during the procedure. Liver enzymes and bilirubin continue to trend down. Current Visit: Yes Status: Acute Code(s): R17 - UNSPECIFIED JAUNDICE SNOMED Code(s): 99359088 (2) Abdominal pain Current Visit: Yes Status: Acute Code(s): R10.9 - UNSPECIFIED ABDOMINAL PAIN SNOMED Code(s): 61538179 (3) Cholelithiasis Current Visit: Yes Status: Acute Code(s): K80.20 - CALCULUS OF GALLBLADDER W/O CHOLECYSTITIS W/O OBSTRUCTION SNOMED Code(s): 053831498 (4) Jaundice Narrative/Plan: Improving Current Visit: Yes Status: Acute Code(s): R17 - UNSPECIFIED JAUNDICE SNOMED Code(s): 70810281 (5) Coffee ground emesis Narrative/Plan: Patient had 2 episodes of coffee-ground emesis yesterday. No further today. She did have a drop in her hemoglobin to 7.7, and received 1 unit of PRBC transfusion. She denies any abdominal pain. She did have a small bowel movement yesterday. Discuss with surgical physician mail handler assistant regarding possible need for upper endoscopy. Await their recommendations. Continue to monitor for signs of GI bleed. Surgical services is following patient and plan for EGD Current Visit: Yes Status: Acute Code(s): K92.0 - HEMATEMESIS SNOMED Code(s): 76854456 Plan: Supportive care Protonix 40 mg twice a day Diet per surgical recommendations Daily CBC, CMP Transfuse for hemoglobin less than 7 Continue to evaluate wait for further signs of GI bleed Patient discussed with surgical services, they will proceed with EGD Discussed with patient importance of follow-up with gastroenterology Thank you for this consultation, we will sign off at this time Dr. Degroot I agree with the dictator's note, documented as a scribe by Annie Johnson.
--- NOTE | 2020-10-09 13:31 | P.PN ---
Subjective Progress Note Date: 10/09/20 Dia Wood, is an 85-year-old female who presented to [facility] emergency room with a chief complaint of abdominal pain patient states that her pain started 2 days prior to admission patient also noted changes in the color of her urine in the color of her skin she had some nausea but no vomiting she had normal bowel movements. Patient was evaluated in the emergency room vital examination on presentation revealed a temperature of 98.4 pulse 105 respiration 19 and blood pressure 143/83 pulse ox 95% on room air her white blood count was 9.6 hemoglobin 13.6 platelet count 211 BUN was 28 creatinine 0.83 total bilirubin 7.7 AST 106 a LT 61 alkaline phosphatase 227 lipase was 267 , computed tomography scan of the abdomen and pelvis was done in the emergency room and revealed evidence of cholelithiasis and dilated common bile duct, liver ultrasound was done and revealed evidence of mildly dilated gallbladder with gallstone, large common bile duct and mild fatty infiltration of the liver. patient was admitted to medical floor gastroenterology consultation and surgical consultation were requested. Her past medical history is significant for history of hypertension, history of anemia, history of gout, hepatitis C, history of hyperlipidemia, history of paroxysmal atrial fibrillation, history of vitamin D deficiency. On review of systems there is no fever or chills no headache or dizziness no chest pain no shortness of breath no cough no palpitation she has some nausea but no vomiting she has abdominal pain mostly in the right upper quadrant no diarrhea no blood in the stools no burning with urination no frequency or urgency and no hematuria On 10/03/2020 patient's alert and oriented 3 resting comfortably in bed. Discussed case with surgical PA. Plans for ERCP today with possible lap osiris tomorrow. AST 88, ALT 49 in AP 179. Surgical and GI services are following. Patient reports improvement with symptoms. Patient remains on Levaquin. Patient denies chest pain or shortness breath. Patient denies nausea vomiting or diarrhea at this time. Patient denies any urinary burning or frequency On 10/04/2020 patient was seen and examined on the medical floor she is alert and oriented 3 in no apparent distress last night she had episodes of tachycardia medication were adjusted Norvasc was discontinued and atenolol was increased to 25 mg twice daily. Patient is complaining of right upper quadrant abdominal pain otherwise she denies any complaints there is no fever or chills no headache or dizziness no chest pain no shortness of breath no cough no nausea or vomiting no diarrhea no blood in the stools no burning with urination no frequency or urgency and no hematuria. Input from gastroenterology and surgery was review patient is scheduled for cholecystectomy in a.m. tomorrow. On 10/05/2020 patient was seen and examined on the medical floor she is alert and oriented 3 in no distress she just returned from surgery, there is no fever or chills no headache or dizziness no chest pain no shortness of breath no cough no nausea or vomiting no abdominal pain no diarrhea no blood in the stools no burning with urination no frequency or urgency no hematuria On 10/06/2020 patient was seen and examined on the medical floor she is alert and oriented 3 in no distress there is no fever or chills no headache or dizziness no chest pain no shortness of breath no cough she still has some tenderness in the abdomen especially in the right upper quadrant there is no nausea or vomiting no diarrhea no blood in the stools and no urinary symptoms. On 10/07/2020 patient was seen and examined on the medical floor this morning she was doing well she was alert and oriented 3 in no apparent distress, her vital exams were stable however this afternoon patient condition worsened her blood pressure was lower her hemoglobin today dropped to 7.7 she was given IV fluids and 1 unit of red blood cell transfusion was ordered due to hypotension patient was transferred to intensive care unit liver enzymes are improving total bilirubin today is down to 2.8 on 10/08/2020 patient currently resting in the intensive care unit. Patient is alert and oriented 3. plans to undergo EGD tomorrow. Total bili 3.3 AST aLT 89 alkaline phosphatase 99. Surgical, GI, cardiology and critical care services are following.blood pressure has improved. patient currently resting comfortably in bed reports improvement with pain. patient denies chest pain or shortness breath. Patient denies nausea vomiting or diarrhea. Patient denies any urinary burning or frequency On 10/09/2020 patient was seen and examined in the ICU she is alert and oriented 3 in no apparent distress she underwent an EGD this morning by Dr. Hess, which revealed evidence of antral gastritis, hiatal hernia, mild esophagitis, and no evidence of gastrointestinal bleeding, patient is clinically stable she is alert and oriented 3 she is still complaining of pain in the epigastric and right upper quadrant area otherwise she denies any complaints there is no fever or chills no headache or dizziness no chest pain no shortness of breath no cough no nausea or vomiting no diarrhea no blood in the stools no burning with urination no frequency or urgency and no hematuria . Bilirubin, AST ALT and alkaline phosphatase are declining today Objective - Vital Signs Vital signs: Vital Signs Temp 98.8 F 10/09/20 08:00 Pulse 105 H 10/09/20 10:00 Resp 18 10/09/20 10:00 BP 117/66 10/09/20 10:00 Pulse Ox 98 10/09/20 10:00 Intake & Output 10/08/20 10/09/20 10/09/20 18:59 06:59 18:59 Intake Total 780 110 140 Output Total 605 580 205 Balance 175 -470 -65 Weight 74.6 kg 75.2 kg Intake: IV 780 110 90 Sodium Chloride 0.9% 1, 780 110 40 000 ml @ 20 mls/hr IV . Q24H [facility] Rx#:[id number] Intake, IV Titration 50 Amount cefTRIAXone 1 gm In 50 Sodium Chloride 0.9% 50 ml @ 100 mls/hr IVPB Q24HR [facility] Rx#:[id number] Output: Drainage 100 80 Right Abdomen 100 80 Urine 505 500 205 Other: Voiding Method Indwelling Catheter Indwelling Catheter Indwelling Catheter - Exam In general patient is alert and oriented 3 in no apparent distress HEENT head normocephalic and atraumatic patient has clear jaundice Neck is supple no JVD no goiter no lymphadenopathy no carotid bruit Chest exam is clear to auscultation no crackles no wheezing Cardiac exam reveals irregular heart beat S1 and S2 no gallops no murmurs Abdomen is soft with tenderness in the epigastric and right upper quadrant area no organomegaly no palpable masses was normal bowel sounds Extremity exam reveals no edema no cyanosis or clubbing Neurological examination reveals no gross focal deficit - Labs CBC & Chem 7: 10/09/20 03:34 10/09/20 03:34 Labs: Abnormal Lab Results - Last 24 Hours (Table) 10/09/20 10/09/20 Range/Units 03:34 03:34 WBC 11.9 H (3.8-10.6) k/uL RBC 2.58 L (3.80-5.40) m/uL Hgb 8.4 L (11.4-16.0) gm/dL Hct 25.7 L (34.0-46.0) % RDW 17.2 H (11.5-15.5) % Neutrophils # 9.3 H (1.3-7.7) k/uL Sodium 136 L (137-145) mmol/L Chloride 109 H (98-107) mmol/L BUN 46 H (7-17) mg/dL Calcium 8.0 L (8.4-10.2) mg/dL Total Bilirubin 2.3 H (0.2-1.3) mg/dL AST 130 H (14-36) U/L ALT 64 H (4-34) U/L Total Protein 4.9 L (6.3-8.2) g/dL Albumin 2.4 L (3.5-5.0) g/dL Microbiology - Last 24 Hours (Table) 10/03/20 20:55 Blood Culture - Preliminary Blood No Growth after 120 hours Assessment and Plan Plan: Acute cholelithiasis, status post laparoscopic cholecystectomy Jaundice with dilated common bile duct rule out choledocholithiasis Evidence of dehydration with pre renal azotemia Underlying history of hypertension Underlying history of hyperlipidemia Underlying history of gout Underlying history of paroxysmal atrial fibrillation. cardiology services are following. Eliquiesha currently on hold Underlying history of anemia Patient is improving will monitor labs closely to assess if patient still needs ERCP patient remains in the intensive care unit Plans for EGD on 10/09/2020 patient remains on Rocephin IV antibiotics Surgical, GI, cardiology and critical care services are following Repeat labs ordered for a.m.
--- NOTE | 2020-10-09 13:32 | P.PN ---
Subjective Progress Note Date: 10/09/20 This 85-year-old female was admitted with cholecystitis and underwent cholecystectomy. Patient had coffee-ground emesis. Her anticoagulation is held. Patient received one unit of blood transfusion. Her hemoglobin today is 8.4. Seemed to be relatively stable. Patient is going to have endoscopy study today. Patient needs to go back on anticoagulation, when cleared by GI/surgery. Denies any chest pain. Having some cough and expectoration. Doesn't appear to be in acute respiratory distress Objective - Vital Signs Vital signs: Vital Signs Temp 98.8 F 10/09/20 08:00 Pulse 105 H 10/09/20 10:00 Resp 18 10/09/20 10:00 BP 117/66 10/09/20 10:00 Pulse Ox 98 10/09/20 10:00 Intake & Output 10/08/20 10/09/20 10/09/20 18:59 06:59 18:59 Intake Total 780 110 140 Output Total 605 580 205 Balance 175 -470 -65 Weight 74.6 kg 75.2 kg Intake: IV 780 110 90 Sodium Chloride 0.9% 1, 780 110 40 000 ml @ 20 mls/hr IV . Q24H [facility] Rx#:[id number] Intake, IV Titration 50 Amount cefTRIAXone 1 gm In 50 Sodium Chloride 0.9% 50 ml @ 100 mls/hr IVPB Q24HR [facility] Rx#:[id number] Output: Drainage 100 80 Right Abdomen 100 80 Urine 505 500 205 Other: Voiding Method Indwelling Catheter Indwelling Catheter Indwelling Catheter - Exam GENERAL EXAM: Patient is alert and oriented and doesn't appear to be in any acute distress HEENT: Normocephalic. Normal reaction of pupils, equal size, normal range of extraocular motion. No erythema or exudates in the throat. NECK: No masses, no nuchal rigidity. CHEST: No chest wall deformity. LUNGS: Equal air entry with no crackles or wheeze. HEART: S1 and S2 normal. Irregular heart sounds ABDOMEN: No hepatosplenomegaly, normal bowel sounds, no guarding or rigidity. SKIN: No rashes CENTRAL NERVOUS SYSTEM: No focal deficits. EXTREMITIES: No cyanosis, clubbing or edema. - Labs CBC & Chem 7: 10/09/20 03:34 10/09/20 03:34 Labs: Abnormal Lab Results - Last 24 Hours (Table) 10/09/20 10/09/20 Range/Units 03:34 03:34 WBC 11.9 H (3.8-10.6) k/uL RBC 2.58 L (3.80-5.40) m/uL Hgb 8.4 L (11.4-16.0) gm/dL Hct 25.7 L (34.0-46.0) % RDW 17.2 H (11.5-15.5) % Neutrophils # 9.3 H (1.3-7.7) k/uL Sodium 136 L (137-145) mmol/L Chloride 109 H (98-107) mmol/L BUN 46 H (7-17) mg/dL Calcium 8.0 L (8.4-10.2) mg/dL Total Bilirubin 2.3 H (0.2-1.3) mg/dL AST 130 H (14-36) U/L ALT 64 H (4-34) U/L Total Protein 4.9 L (6.3-8.2) g/dL Albumin 2.4 L (3.5-5.0) g/dL Microbiology - Last 24 Hours (Table) 10/03/20 20:55 Blood Culture - Preliminary Blood No Growth after 120 hours Assessment and Plan (1) GI bleeding Current Visit: Yes Status: Acute Code(s): K92.2 - GASTROINTESTINAL HEMORRHAGE, UNSPECIFIED SNOMED Code(s): 11422777 (2) Atrial fibrillation with rapid ventricular response Current Visit: Yes Status: Acute Code(s): I48.91 - UNSPECIFIED ATRIAL FIBRILLATION SNOMED Code(s): 371450888370846 (3) Choledocholithiasis Current Visit: Yes Status: Acute Code(s): K80.50 - CALCULUS OF BILE DUCT W/O CHOLANGITIS OR CHOLECYST W/O OBST SNOMED Code(s): 021732405 (4) Coffee ground emesis Current Visit: Yes Status: Acute Code(s): K92.0 - HEMATEMESIS SNOMED Code(s): 13960622 (5) Jaundice Current Visit: Yes Status: Acute Code(s): R17 - UNSPECIFIED JAUNDICE SNOMED Code(s): 95369071 (6) Acute anemia Current Visit: Yes Status: Acute Code(s): D64.9 - ANEMIA, UNSPECIFIED SNOMED Code(s): 296981556 Plan: Continue with current management. Heart rate is fairly well controlled. We'll wait for the results of the endoscopy. If cleared, patient can go on anti- coagulation therapy
--- NOTE | 2020-10-09 14:35 | P.PN ---
Subjective Progress Note Date: 10/09/20 Principal diagnosis: Acute upper GI bleeding and acute cholecystitis. This is an 85-year-old female with history of multiple medical problems including hepatitis C, coronary artery disease, chronic atrial fibrillation, normally on eliquis, hypertension, hypercholesterolemia, patient presented to the hospital initially on 10/01/2020, and she was mostly complaining of abdominal pain, and jaundice. Patient has been noticing darker urine. She was also having intermittent postprandial abdominal pain. Her ultrasound of the abdomen showed dilated gallbladder with gallstone there was also evidence of large common bile duct, felt to be related to chronic gallbladder dysfunction. Patient was noted to have mildly elevated liver function tests, and hyperbilirubinemia. Patient was seen by gastroenterology, and she underwent ERCP, however this was unsuccessful, and it was aborted, biopsies were taken from prominent ampulla and falls in the stomach. On 10/05, patient underwent laparoscopic cholecystectomy by Dr. Hess. Her postoperative course has been uneventful. However on 10/07, patient developed coffee-ground emesis and a drop in her hemoglobin requiring at least 1 unit of packed RBCs given. Patient was hypotensive, transferred to the ICU, given fluids and given a unit of blood. Patient responded well to blood transfusion, in the meantime she was placed on Protonix, and today she seems to be doing much better compared to yesterday. Her anticoagulation medicine/eliquis remains on hold. The patient is scheduled to have EGD by surgery tomorrow, in the meantime she is on Protonix. Patient is also on antibiotics. Considering the patient's episode of upper GI bleeding and hypotension, patient was transferred to the ICU yesterday, and I discussed her condition with Dr. Hess prior to transfer. Today's hemoglobin is 8.9. WBC count is 15.2. Electrolytes are normal except for slightly elevated potassium of 5.3, and she has a bicarb of 16. Liver enzymes remain elevated with AST of 266 ALT of 89 and total bilirubin is 3.3. Coming down nicely from 7.7 on admission. Patient was reevaluated today on 10/09/2020, patient is still in the ICU today, feeling much better, not in any distress, she is on 3 L nasal cannula. Chest x- ray continues to show mild congestive heart failure with small left pleural effusion, hence I recommended more Lasix to be given today. IV fluid is at KVO. Patient underwent EGD today, and she was found to have mild gastritis and esophagitis, no evidence of active GI bleeding. Patient is hemodynamically stable. And she denies any abdominal pain at present, denies any shortness of breath. Again chest x-ray is concerning but I believe the patient clearly has some component of pulmonary edema, and bilateral pleural effusions, she will improve with diuretics will not require thoracentesis. WBC count is 11.9 hemog lobin is 8.4. Electrolytes are normal renal profile is normal. And liver enzymes are improving steadily. Objective - Vital Signs Vital signs: Vital Signs Temp 98.8 F 10/09/20 08:00 Pulse 105 H 10/09/20 10:00 Resp 18 10/09/20 10:00 BP 117/66 10/09/20 10:00 Pulse Ox 98 10/09/20 10:00 Intake & Output 10/08/20 10/09/20 10/09/20 18:59 06:59 18:59 Intake Total 780 110 140 Output Total 605 580 205 Balance 175 -470 -65 Weight 74.6 kg 75.2 kg Intake: IV 780 110 90 Sodium Chloride 0.9% 1, 780 110 40 000 ml @ 20 mls/hr IV . Q24H [facility] Rx#:[id number] Intake, IV Titration 50 Amount cefTRIAXone 1 gm In 50 Sodium Chloride 0.9% 50 ml @ 100 mls/hr IVPB Q24HR [facility] Rx#:[id number] Output: Drainage 100 80 Right Abdomen 100 80 Urine 505 500 205 Other: Voiding Method Indwelling Catheter Indwelling Catheter Indwelling Catheter - Exam Physical Exam: Revealed a 85-year-old female, in no distress, on 3 L nasal cannula HEENT:[Neck is supple.] [No neck masses.] [No thyromegaly.] [No JVD.] Icteric sclerae. Chest: [Diminished breath sounds and minimal crackles at the bases. Rhonchi no wheezes. Symmetrical chest expansion. Cardiac Exam: Irregular irregular rhythm. [Normal S1 and S2, no S3 gallop, no murmur.] Abdomen: [Soft, nontender, no megaly, no rebound, no guarding, normal bowel sounds.] HERMAN drain noted with serosanguineous output, Extremities: [No clubbing, no edema, no cyanosis. good pulses bilaterally.] Neurological Exam: [No focal neurologic deficit.] Alert and oriented 3. Psychiatric: Normal mood, affect and normal mental status examination. Skin: No rashes, slightly jaundiced. - Labs CBC & Chem 7: 10/09/20 03:34 10/09/20 03:34 Labs: Abnormal Lab Results - Last 24 Hours (Table) 10/09/20 10/09/20 Range/Units 03:34 03:34 WBC 11.9 H (3.8-10.6) k/uL RBC 2.58 L (3.80-5.40) m/uL Hgb 8.4 L (11.4-16.0) gm/dL Hct 25.7 L (34.0-46.0) % RDW 17.2 H (11.5-15.5) % Neutrophils # 9.3 H (1.3-7.7) k/uL Sodium 136 L (137-145) mmol/L Chloride 109 H (98-107) mmol/L BUN 46 H (7-17) mg/dL Calcium 8.0 L (8.4-10.2) mg/dL Total Bilirubin 2.3 H (0.2-1.3) mg/dL AST 130 H (14-36) U/L ALT 64 H (4-34) U/L Total Protein 4.9 L (6.3-8.2) g/dL Albumin 2.4 L (3.5-5.0) g/dL Microbiology - Last 24 Hours (Table) 10/03/20 20:55 Blood Culture - Preliminary Blood No Growth after 120 hours Assessment and Plan Assessment: Impression: Acute upper GI bleeding/coffee-ground emesis differential diagnoses includes erosive gastritis, gastric ulcer, patient required 1 unit of packed RBCs since transfer to ICU. EGD report was noted. Acute cholecystitis status post failed ERCP and status post laparoscopic cholecystectomy. Acute blood loss anemia requiring 1 unit of packed RBCs. Chronic atrial fibrillation, however considering GI bleeding, no anticoagulation therapy for now until cleared by GI and cardiology Choledocholithiasis. Obstructive jaundice. Shortness of breath and acute hypoxic respiratory failure most likely secondary to acute blood loss anemia, hypovolemic hypotension, chest x-ray is pending at the time of this dictation. Patient may have developed acute diastolic congestive heart failure since she received fluids and blood followed by diuretics this morning and her pulmonary status improved significantly post diuresis. Again chest x-ray is pending. Recommendation: More Lasix was ordered today. Ultrasound of the chest and chest x-ray were reviewed. Continue present supportive care measures Continue to monitor serial hemoglobin and hematocrit. Continue to hold anticoagulation therapy. Transfer patient to a monitor bed on selective or possibly a medical surgical with remote telemetry. Continue antibiotics for her acute cholecystitis. Continue Protonix. We'll follow Time with Patient: Less than 30
[2020-10-09] MEDS: VERAPAMIL SR 240 MG TABLET.ER PO SCH (18:57)
[2020-10-09] MEDS: traMADol 50 MG TAB PO PRN (22:02)
[2020-10-10] MEDS: SODIUM CHLORIDE 0.9% 1,000 ML IV SCH (00:37)
[2020-10-10 07:25] LABS: ALT 48 U/L (4-34); AST 75 U/L (14-36); African American GFR (CKD) >90 (>60 ml/min/1.73 sqM); Albumin 2.3 g/dL (3.5-5.0); Alkaline Phosphatase 97 U/L (38-126); Anion Gap 6 mmol/L; Blood Urea Nitrogen 31 mg/dL (7-17); Carbon Dioxide 26 mmol/L (22-30); Chloride 107 mmol/L (98-107); Glucose 93 mg/dL (74-99); Non-African American GFR(CKD) 88 (>60 ml/min/1.73 sqM); Potassium 3.9 mmol/L (3.5-5.1); Sodium 139 mmol/L (137-145); Total Bilirubin 1.9 mg/dL (0.2-1.3); Total Protein 4.8 g/dL (6.3-8.2)
[2020-10-10 07:39] LABS: Anisocytosis Slight; Basophils % (A) 0 %; Eosinophils # (A) 0.1 k/uL (0-0.7); Eosinophils % (A) 1 %; HCT 28.3 % (34.0-46.0); HGB 8.8 gm/dL (11.4-16.0); Hypochromasia Slight; Lymphocytes % (A) 10 %; MCH 31.3 pg (25.0-35.0); MCHC 31.1 g/dL (31.0-37.0); MCV 100.4 fL (80.0-100.0); Macrocytosis Slight; Mean Platelet Volume 8.2; Monocytes # (A) 0.9 k/uL (0-1.0); Monocytes % (A) 9 %; Neutrophils # (A) 7.8 k/uL (1.3-7.7); Neutrophils % (A) 79 %; Platelet Count 283 k/uL (150-450); RBC 2.82 m/uL (3.80-5.40); RDW 17.6 % (11.5-15.5); WBC 9.9 k/uL (3.8-10.6)
[2020-10-10] MEDS: PANTOPRAZOLE 40 MG/10 ML VIAL IVP SCH ×2 (09:27→20:23)
[2020-10-10] MEDS: atenoloL 25 MG TAB PO SCH ×2 (09:27→20:24)
[2020-10-10] MEDS: allopurinoL 300 MG TAB PO SCH (09:27)
[2020-10-10] MEDS: VERAPAMIL SR 240 MG TABLET.ER PO SCH (09:27)
[2020-10-10] MEDS: POTASSIUM CHLORIDE ER 10 MEQ TAB.ER.PRT PO SCH (09:50)
[2020-10-10] MEDS: FUROSEMIDE 20 MG TAB PO SCH (09:50)
--- NOTE | 2020-10-10 12:52 | P.PN ---
Subjective Progress Note Date: 10/10/20 CHIEF COMPLAINT: Abdominal pain HISTORY OF PRESENT ILLNESS: Patient seen and examined with Dr. Hess. Patient is status post laparoscopic cholecystectomy for acute cholecystitis. She is postop day #5. Patient was transferred out of the ICU yesterday. She's had no further episodes of coffee ground emesis. She is status post EGD which had shown antral gastritis, mild hiatal hernia and mild esophagitis and no evidence of upper GI bleed. Biopsies were taken. 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 Consult has been placed for oncology. Patient reports that her pain is controlled. She denies any nausea or vomiting. She is tolerating diet. LFTs and total bilirubin are trending downwards. WBC 9.9 hemoglobin 8.3 PHYSICAL EXAM: VITAL SIGNS: Reviewed. GENERAL: Well-developed in no acute distress. HEENT: No sclera icterus. Extraocular movements grossly intact. Moist buccal mucosa. Head is atraumatic, normocephalic. ABDOMEN: Soft. Nondistended. Incision sites clean dry and and intact. HERMAN drain sanguineous fluid. NEUROLOGIC: Alert and oriented. Cranial nerves II through XII grossly intact. ASSESSMENT: 1. Cholecystitis status post laparoscopic cholecystectomy 2. Symptomatic anemia requiring 1 unit of blood 3. Coffee-ground emesis possibly due to gastritis. Now resolved PLAN: -Patient Eliquis can be restarted -Consult oncology regarding pathology results adenocarcinoma of the gallbladder -Continue Protonix -Continue antibiotics -Continue regular diet -Continue pain medication as needed -Encouraged incentive spirometer -Encourage patient to ambulate Physician Aviation Operations Specialist note has been reviewed by physician. Signing provider agrees with the documented findings, assessment, and plan of care. Objective - Vital Signs Vital signs: Vital Signs Temp 97.6 F 10/10/20 08:20 Pulse 96 10/10/20 08:20 Resp 18 10/10/20 08:20 BP 101/66 10/10/20 08:20 Pulse Ox 94 L 10/10/20 08:20 Intake & Output 10/09/20 10/10/20 10/10/20 18:59 06:59 18:59 Intake Total 580 40 Output Total 2175 220 100 Balance -1595 -180 -100 Weight 70 kg Intake: IV 170 40 Sodium Chloride 0.9% 1, 120 40 000 ml @ 20 mls/hr IV . Q24H JOANNE Rx#:[id number] Intake, IV Titration 50 Amount cefTRIAXone 1 gm In 50 Sodium Chloride 0.9% 50 ml @ 100 mls/hr IVPB Q24HR JOANNE Rx#:[id number] Oral 360 Output: Drainage 120 0 100 Right Abdomen 120 0 100 Urine 2055 220 Other: Voiding Method Indwelling Catheter Bedpan # Voids 1 - Labs CBC & Chem 7: 10/10/20 06:17 10/10/20 06:17 Labs: Abnormal Lab Results - Last 24 Hours (Table) 10/10/20 10/10/20 Range/Units 06:17 06:17 RBC 2.82 L (3.80-5.40) m/uL Hgb 8.8 L (11.4-16.0) gm/dL Hct 28.3 L (34.0-46.0) % MCV 100.4 H (80.0-100.0) fL RDW 17.6 H (11.5-15.5) % Neutrophils # 7.8 H (1.3-7.7) k/uL BUN 31 H (7-17) mg/dL Calcium 8.0 L (8.4-10.2) mg/dL Total Bilirubin 1.9 H (0.2-1.3) mg/dL AST 75 H (14-36) U/L ALT 48 H (4-34) U/L Total Protein 4.8 L (6.3-8.2) g/dL Albumin 2.3 L (3.5-5.0) g/dL Microbiology - Last 24 Hours (Table) 10/03/20 20:55 Blood Culture - Final Blood No Growth after 144 hours
--- NOTE | 2020-10-10 12:58 | P.PN ---
Subjective This is a pleasant 85-year-old female who was admitted with cholecystitis and underwent cholecystectomy, postoperative day #5. She had some coffee-ground emesis thereafter prompting an EGD yesterday that was negative for upper GI bleeding. She has had no further evidence of coffee-ground emesis since that time. Blood pressure 101/66 heart rate 96 afebrile maintaining oxygen saturation on nasal cannula. Laboratory data reviewed, WBC 9.9, hemoglobin 8.8, plt 283, sodium 139, potassium 3.9, creatinine 0.52. Currently maintained on atenolol 25 mg twice a day, Lasix 20 mg daily and verapamil 240 mg daily. GENERAL: Well-appearing, well-nourished and in no acute distress. NECK: Supple without JVD or thyromegaly. LUNGS: Breath sounds clear to auscultation bilaterally. Respiration equal and unlabored. No wheezes, rales or rhonchi. HEART: Irregular rate and rhythm without murmurs, rubs or gallops. S1 and S2 heard. EXTREMITIES: Normal range of motion, no edema. No clubbing or cyanosis. Peripheral pulses intact. ASSESSMENT GI bleeding Acute cholelithiasis s/p cholecystectomy POD#5 Chronic persistent atrial fibrillation, eliquis currently on hold Hypertension Anemia PLAN Recommend resuming eliquis when appropriate per surgery. Nurse Practitioner note has been reviewed, I agree with a documented findings and plan of care. Patient was seen and examined. Objective - Vital Signs Vital signs: Vital Signs Temp 97.6 F 10/10/20 08:20 Pulse 96 10/10/20 08:20 Resp 18 10/10/20 08:20 BP 101/66 10/10/20 08:20 Pulse Ox 94 L 10/10/20 08:20 Intake & Output 10/09/20 10/10/20 10/10/20 18:59 06:59 18:59 Intake Total 580 40 Output Total 2175 220 100 Balance -1595 -180 -100 Weight 70 kg Intake: IV 170 40 Sodium Chloride 0.9% 1, 120 40 000 ml @ 20 mls/hr IV . Q24H JOANNE Rx#:[id number] Intake, IV Titration 50 Amount cefTRIAXone 1 gm In 50 Sodium Chloride 0.9% 50 ml @ 100 mls/hr IVPB Q24HR JOANNE Rx#:[id number] Oral 360 Output: Drainage 120 0 100 Right Abdomen 120 0 100 Urine 2055 220 Other: Voiding Method Indwelling Catheter Bedpan # Voids 1 - Labs CBC & Chem 7: 10/10/20 06:17 10/10/20 06:17 Labs: Abnormal Lab Results - Last 24 Hours (Table) 10/10/20 10/10/20 Range/Units 06:17 06:17 RBC 2.82 L (3.80-5.40) m/uL Hgb 8.8 L (11.4-16.0) gm/dL Hct 28.3 L (34.0-46.0) % MCV 100.4 H (80.0-100.0) fL RDW 17.6 H (11.5-15.5) % Neutrophils # 7.8 H (1.3-7.7) k/uL BUN 31 H (7-17) mg/dL Calcium 8.0 L (8.4-10.2) mg/dL Total Bilirubin 1.9 H (0.2-1.3) mg/dL AST 75 H (14-36) U/L ALT 48 H (4-34) U/L Total Protein 4.8 L (6.3-8.2) g/dL Albumin 2.3 L (3.5-5.0) g/dL Microbiology - Last 24 Hours (Table) 10/03/20 20:55 Blood Culture - Final Blood No Growth after 144 hours
--- NOTE | 2020-10-10 13:06 | XR ---
EXAMINATION TYPE: XR chest 1V portable DATE OF EXAM: 10/10/2020 CLINICAL HISTORY: Difficulty breathing an left pleural effusion progress study. TECHNIQUE: Single AP portable upright view of the chest is obtained. COMPARISON: Chest x-ray from 2 days earlier. Chest ultrasound one day earlier. FINDINGS: There is persistent cardiomegaly and atherosclerotic thoracic aorta. Retrocardiac opacity consistent with moderate size hiatal hernia is redemonstrated. Persistent moderate-sized left pleural effusion and small to tiny right pleural effusion. Associated bibasilar opacities. Upper lungs remai n clear without pneumothorax. Osseous structures remain intact. IMPRESSION: Persistent cardiomegaly with small to moderate left greater than right pleural effusions. Associated bibasilar compressive atelectasis redemonstrated. No significant change from most recent x-ray.
--- NOTE | 2020-10-10 13:32 | P.PN ---
Subjective Progress Note Date: 10/10/20 Principal diagnosis: Acute upper GI bleeding and acute cholecystitis This is an 85-year-old female with history of multiple medical problems including hepatitis C, coronary artery disease, chronic atrial fibrillation, normally on eliquis, hypertension, hypercholesterolemia, patient presented to the hospital initially on 10/01/2020, and she was mostly complaining of abdominal pain, and jaundice. Patient has been noticing darker urine. She was also having intermittent postprandial abdominal pain. Her ultrasound of the abdomen showed dilated gallbladder with gallstone there was also evidence of large common bile duct, felt to be related to chronic gallbladder dysfunction. Patient was noted to have mildly elevated liver function tests, and hyperbilirubinemia. Patient was seen by gastroenterology, and she underwent ERCP, however this was unsuccessful, and it was aborted, biopsies were taken from prominent ampulla and falls in the stomach. On 10/05, patient underwent l aparoscopic cholecystectomy by Dr. Hess. Her postoperative course has been uneventful. However on 10/07, patient developed coffee-ground emesis and a drop in her hemoglobin requiring at least 1 unit of packed RBCs given. Patient was hypotensive, transferred to the ICU, given fluids and given a unit of blood. Patient responded well to blood transfusion, in the meantime she was placed on Protonix, and today she seems to be doing much better compared to yesterday. Her anticoagulation medicine/eliquis remains on hold. The patient is scheduled to have EGD by surgery tomorrow, in the meantime she is on Protonix. Patient is also on antibiotics. Considering the patient's episode of upper GI bleeding and hypotension, patient was transferred to the ICU yesterday, and I discussed her condition with Dr. Hess prior to transfer. Today's hemoglobin is 8.9. WBC count is 15.2. Electrolytes are normal except for slightly elevated potassium of 5.3, and she has a bicarb of 16. Liver enzymes remain elevated with AST of 266 ALT of 89 and total bilirubin is 3.3. Coming down nicely from 7.7 on admission. Patient was reevaluated today on 10/09/2020, patient is still in the ICU today, feeling much better, not in any distress, she is on 3 L nasal cannula. Chest x- ray continues to show mild congestive heart failure with small left pleural effusion, hence I recommended more Lasix to be given today. IV fluid is at KVO. Patient underwent EGD today, and she was found to have mild gastritis and esophagitis, no evidence of active GI bleeding. Patient is hemodynamically stable. And she denies any abdominal pain at present, denies any shortness of breath. Again chest x-ray is concerning but I believe the patient clearly has some component of pulmonary edema, and bilateral pleural effusions, she will improve with diuretics will not require thoracentesis. WBC count is 11.9 hemogl obin is 8.4. Electrolytes are normal renal profile is normal. And liver enzymes are improving steadily. On 10/10/2020 patient seen in follow-up. No acute bleeding overnight, she is breathing comfortably, she is sitting up in the chair, she remains on Lasix, she is in -1.7 L net fluid balance over the last 24 hours, her pulse ox on 1 L of oxygen is 94%, vital signs are stable, no hypotension, no complaints of shortness of breath or chest pain. Today's chest x-ray shows persistent cardiomegaly with small to moderate left greater than right pleural effusions, with no significant change. We'll continue diuretics. No lower extremity edema, this morning's labs have been reviewed, white blood cell count is 9.9, hemoglobin is 8.8, BUN is 21, creatinine 0.52, electrolytes are within normal l imits. Objective - Vital Signs Vital signs: Vital Signs Temp 97.6 F 10/10/20 08:20 Pulse 65 10/10/20 12:00 Resp 17 10/10/20 12:00 BP 86/53 10/10/20 12:00 Pulse Ox 91 L 10/10/20 12:00 Intake & Output 10/09/20 10/10/20 10/10/20 18:59 06:59 18:59 Intake Total 580 40 120 Output Total 2175 220 200 Balance -1595 -180 -80 Weight 70 kg Intake: IV 170 40 Sodium Chloride 0.9% 1, 120 40 000 ml @ 20 mls/hr IV . Q24H JOANNE Rx#:[id number] Intake, IV Titration 50 Amount cefTRIAXone 1 gm In 50 Sodium Chloride 0.9% 50 ml @ 100 mls/hr IVPB Q24HR JOANNE Rx#:[id number] Oral 360 120 Output: Drainage 120 0 200 Right Abdomen 120 0 200 Urine 2055 220 Other: Voiding Method Indwelling Catheter Bedpan # Voids 1 1 - Exam GENERAL EXAM: Alert, very pleasant 85-year-old white female, on 1 L of oxygen, with a pulse ox of 94% comfortable in no apparent distress. HEAD: Normocephalic/atraumatic. EYES: Normal reaction of pupils, equal size. Conjunctiva pink, sclera white. NOSE: Clear with pink turbinates. THROAT: No erythema or exudates. NECK: No masses, no JVD, no thyroid enlargement, no adenopathy. CHEST: No chest wall deformity. Symmetrical expansion. LUNGS: Equal air entry with no crackles, wheeze, rhonchi or dullness. CVS: Regular rate and rhythm, normal S1 and S2, no gallops, no murmurs, no rubs ABDOMEN: Soft, nontender. No hepatosplenomegaly, normal bowel sounds, no guarding or rigidity. EXTREMITIES: No clubbing, no edema, no cyanosis, 2+ pulses and upper and lower extremities. MUSCULOSKELETAL: Muscle strength and tone normal. SPINE: No scoliosis or deformity SKIN: No rashes CENTRAL NERVOUS SYSTEM: Alert and oriented -3. No focal deficits, tone is normal in all 4 extremities. PSYCHIATRIC: Alert and oriented -3. Appropriate affect. Intact judgment and insight. - Labs CBC & Chem 7: 10/10/20 06:17 10/10/20 06:17 Labs: Abnormal Lab Results - Last 24 Hours (Table) 10/10/20 10/10/20 Range/Units 06:17 06:17 RBC 2.82 L (3.80-5.40) m/uL Hgb 8.8 L (11.4-16.0) gm/dL Hct 28.3 L (34.0-46.0) % MCV 100.4 H (80.0-100.0) fL RDW 17.6 H (11.5-15.5) % Neutrophils # 7.8 H (1.3-7.7) k/uL BUN 31 H (7-17) mg/dL Calcium 8.0 L (8.4-10.2) mg/dL Total Bilirubin 1.9 H (0.2-1.3) mg/dL AST 75 H (14-36) U/L ALT 48 H (4-34) U/L Total Protein 4.8 L (6.3-8.2) g/dL Albumin 2.3 L (3.5-5.0) g/dL Microbiology - Last 24 Hours (Table) 10/03/20 20:55 Blood Culture - Final Blood No Growth after 144 hours Assessment and Plan Plan: Assessment: #1. Acute upper GI bleeding with coffee ground emesis requiring transfusion with 1 unit of PRBC, EGD showed mild esophagitis but no evidence of upper GI bleeding #2. Acute cholecystitis status post failed ERCP status post laparoscopic cholecystectomy #3. Acute blood loss anemia status post 1 unit of packed red blood cells #4. Chronic A. fib #5. Choledocholithiasis #6. Obstructive jaundice #7. Acute hypoxic respiratory failure related to acute blood loss anemia, hyp ovolemic hypotension, and bilateral left greater than right pleural effusions Plan: Continue diuretics, his chest x-ray has been reviewed and showed stable findings with bilateral pleural effusions, patient is in negative fluid balance, no worsening dyspnea, wean FiO2. I performed a history & physical examination of the patient and discussed their management with my nurse practitioner, Saranya Leavitt. I reviewed the nurse practitioner's note and agree with the documented findings and plan of care. Lung sounds are positive for diminished breath sounds. The findings and the impression was discussed with the patient. I attest to the documentation by the nurse practitioner. Time with Patient: Less than 30
--- NOTE | 2020-10-10 14:38 | P.PN ---
Subjective Progress Note Date: 10/10/20 Dia Wood, is an 85-year-old female who presented to [facility] emergency room with a chief complaint of abdominal pain patient states that her pain started 2 days prior to admission patient also noted changes in the color of her urine in the color of her skin she had some nausea but no vomiting she had normal bowel movements. Patient was evaluated in the emergency room vital examination on presentation revealed a temperature of 98.4 pulse 105 respiration 19 and blood pressure 143/83 pulse ox 95% on room air her white blood count was 9.6 hemoglobin 13.6 platelet count 211 BUN was 28 creatinine 0.83 total bilirubin 7.7 AST 106 a LT 61 alkaline phosphatase 227 lipase was 267 , computed tomography scan of the abdomen and pelvis was done in the emergency room and revealed evidence of cholelithiasis and dilated common bile duct, liver ultrasound was done and revealed evidence of mildly dilated gallbladder with gallstone, large common bile duct and mild fatty infiltration of the liver. patient was admitted to medical floor gastroenterology consultation and surgical consultation were requested. Her past medical history is significant for history of hypertension, history of anemia, history of gout, hepatitis C, history of hyperlipidemia, history of paroxysmal atrial fibrillation, history of vitamin D deficiency. On review of systems there is no fever or chills no headache or dizziness no chest pain no shortness of breath no cough no palpitation she has some nausea but no vomiting she has abdominal pain mostly in the right upper quadrant no diarrhea no blood in the stools no burning with urination no frequency or urgency and no hematuria On 10/03/2020 patient's alert and oriented 3 resting comfortably in bed. Discussed case with surgical PA. Plans for ERCP today with possible lap osiris tomorrow. AST 88, ALT 49 in AP 179. Surgical and GI services are following. Patient reports improvement with symptoms. Patient remains on Levaquin. Patient denies chest pain or shortness breath. Patient denies nausea vomiting or diarrhea at this time. Patient denies any urinary burning or frequency On 10/04/2020 patient was seen and examined on the medical floor she is alert and oriented 3 in no apparent distress last night she had episodes of tachycardia medication were adjusted Norvasc was discontinued and atenolol was increased to 25 mg twice daily. Patient is complaining of right upper quadrant abdominal pain otherwise she denies any complaints there is no fever or chills no headache or dizziness no chest pain no shortness of breath no cough no nausea or vomiting no diarrhea no blood in the stools no burning with urination no frequency or urgency and no hematuria. Input from gastroenterology and surgery was review patient is scheduled for cholecystectomy in a.m. tomorrow. On 10/05/2020 patient was seen and examined on the medical floor she is alert and oriented 3 in no distress she just returned from surgery, there is no fever or chills no headache or dizziness no chest pain no shortness of breath no cough no nausea or vomiting no abdominal pain no diarrhea no blood in the stools no burning with urination no frequency or urgency no hematuria On 10/06/2020 patient was seen and examined on the medical floor she is alert and oriented 3 in no distress there is no fever or chills no headache or dizziness no chest pain no shortness of breath no cough she still has some tenderness in the abdomen especially in the right upper quadrant there is no nausea or vomiting no diarrhea no blood in the stools and no urinary symptoms. On 10/07/2020 patient was seen and examined on the medical floor this morning she was doing well she was alert and oriented 3 in no apparent distress, her vital exams were stable however this afternoon patient condition worsened her blood pressure was lower her hemoglobin today dropped to 7.7 she was given IV fluids and 1 unit of red blood cell transfusion was ordered due to hypotension patient was transferred to intensive care unit liver enzymes are improving total bilirubin today is down to 2.8 on 10/08/2020 patient currently resting in the intensive care unit. Patient is alert and oriented 3. plans to undergo EGD tomorrow. Total bili 3.3 AST aLT 89 alkaline phosphatase 99. Surgical, GI, cardiology and critical care services are following.blood pressure has improved. patient currently resting comfortably in bed reports improvement with pain. patient denies chest pain or shortness breath. Patient denies nausea vomiting or diarrhea. Patient denies any urinary burning or frequency On 10/09/2020 patient was seen and examined in the ICU she is alert and oriented 3 in no apparent distress she underwent an EGD this morning by Dr. Hess, which revealed evidence of antral gastritis, hiatal hernia, mild esophagitis, and no evidence of gastrointestinal bleeding, patient is clinically stable she is alert and oriented 3 she is still complaining of pain in the epigastric and right upper quadrant area otherwise she denies any complaints there is no fever or chills no headache or dizziness no chest pain no shortness of breath no cough no nausea or vomiting no diarrhea no blood in the stools no burning with urination no frequency or urgency and no hematuria . Bilirubin, AST ALT and alkaline phosphatase are declining today. On 10/10/2020 patient was seen and examined in the ICU she is alert and oriented 3 in no apparent distress she underwent an EGD this morning by Dr. Hess, which revealed evidence of antral gastritis, hiatal hernia, mild esophagitis, and no evidence of gastrointestinal bleeding, patient is clinically stable she is alert and oriented 3 she is still complaining of pain in the epigastric and right upper quadrant area otherwise she denies any complaints there is no fever or chills no headache or dizziness no chest pain no shortness of breath no cough no nausea or vomiting no diarrhea no blood in the stools no burning with urination no frequency or urgency and no hematuria . Bilirubin, AST ALT and alkaline phosphatase are declining today. Pathology report in the computer is still pending however, oral report from Dr. Hess, patient is positive for cancer, consultation for Dr. Mahmood is requested Objective - Vital Signs Vital signs: Vital Signs Temp 97.6 F 10/10/20 08:20 Pulse 96 10/10/20 08:20 Resp 18 10/10/20 08:20 BP 101/66 10/10/20 08:20 Pulse Ox 94 L 10/10/20 08:20 Intake & Output 10/09/20 10/10/20 10/10/20 18:59 06:59 18:59 Intake Total 580 40 Output Total 2175 220 100 Balance -1595 -180 -100 Weight 70 kg Intake: IV 170 40 Sodium Chloride 0.9% 1, 120 40 000 ml @ 20 mls/hr IV . Q24H JOANNE Rx#:[id number] Intake, IV Titration 50 Amount cefTRIAXone 1 gm In 50 Sodium Chloride 0.9% 50 ml @ 100 mls/hr IVPB Q24HR JOANNE Rx#:[id number] Oral 360 Output: Drainage 120 0 100 Right Abdomen 120 0 100 Urine 2055 220 Other: Voiding Method Indwelling Catheter Bedpan # Voids 1 - Exam In general patient is alert and oriented 3 in no apparent distress HEENT head normocephalic and atraumatic patient has clear jaundice Neck is supple no JVD no goiter no lymphadenopathy no carotid bruit Chest exam is clear to auscultation no crackles no wheezing Cardiac exam reveals irregular heart beat S1 and S2 no gallops no murmurs Abdomen is soft with tenderness in the epigastric and right upper quadrant area no organomegaly no palpable masses was normal bowel sounds Extremity exam reveals no edema no cyanosis or clubbing Neurological examination reveals no gross focal deficit - Labs CBC & Chem 7: 10/10/20 06:17 10/10/20 06:17 Labs: Abnormal Lab Results - Last 24 Hours (Table) 10/10/20 10/10/20 Range/Units 06:17 06:17 RBC 2.82 L (3.80-5.40) m/uL Hgb 8.8 L (11.4-16.0) gm/dL Hct 28.3 L (34.0-46.0) % MCV 100.4 H (80.0-100.0) fL RDW 17.6 H (11.5-15.5) % Neutrophils # 7.8 H (1.3-7.7) k/uL BUN 31 H (7-17) mg/dL Calcium 8.0 L (8.4-10.2) mg/dL Total Bilirubin 1.9 H (0.2-1.3) mg/dL AST 75 H (14-36) U/L ALT 48 H (4-34) U/L Total Protein 4.8 L (6.3-8.2) g/dL Albumin 2.3 L (3.5-5.0) g/dL Microbiology - Last 24 Hours (Table) 10/03/20 20:55 Blood Culture - Final Blood No Growth after 144 hours Assessment and Plan Plan: Acute cholelithiasis, status post laparoscopic cholecystectomy Jaundice with dilated common bile duct rule out choledocholithiasis Evidence of dehydration with pre renal azotemia Underlying history of hypertension Underlying history of hyperlipidemia Underlying history of gout Underlying history of paroxysmal atrial fibrillation. cardiology services are following. Roland currently on hold Underlying history of anemia Patient is improving will monitor labs closely to assess if patient still needs ERCP Gait disturbance patient requires wheelchair to complete ADL which is unable to be done with a walker or a cane because of weakness and unsteady gait patient is able to propel himself and has a caregiver at home that will be able to assist. Patient transferred to telemetry floor patient remains on Rocephin IV antibiotics Surgical, GI, cardiology and critical care services are following Repeat labs ordered for a.m.
[2020-10-10] MEDS ORDERED: RX INFO: IV CONTRAST WAS GIVEN 1 EACH MISC MISCELLANE PRN (15:18)
--- NOTE | 2020-10-10 17:47 | CT ---
EXAMINATION TYPE: CT chest w con DATE OF EXAM: 10/10/2020 COMPARISON: None HISTORY: Staging. CT DLP: 236.7 mGycm Automated exposure control for dose reduction was used. CONTRAST: Performed with IV Contrast, patient injected with 100 mL of Isovue 300. Images obtained from the thoracic inlet to the diaphragm with IV contrast. There are moderate bilateral pleural effusions. There is some atelectasis at both lung bases. This is more on the left side. There is no mediastinal adenopathy. Thoracic aorta is atheromatous. There are no hilar masses. Heart size is fairly normal. There is no pericardial effusion. There is large hiata l hernia. The thoracic spine is intact there is no compression fracture. Sternum is intact. The ribs appear int act. IMPRESSION: There are new bilateral pleural effusions and basilar pulmonary infiltrates and atelectasis compared to recent exam. No discrete pulmonary mass. Stable large hiatal hernia.
[2020-10-10] MEDS: APIXABAN 5 MG TAB PO SCH (20:24)
--- NOTE | 2020-10-10 20:44 | P.CONS ---
History of Present Illness - Reason for Consult Consult date: 10/10/20 New Diagnosis Cancer of Gallbladder Requesting physician: Patti Razo - Chief Complaint Abdominal Pain - History of Present Illness Mrs. Wood is an 85-year-old female with multiple medical problems including hepatitis C, coronary artery disease, chronic atrial fibrillation, normally on eliquis, hypertension,and hypercholesterolemia. She initially presented to the hospital initially on 10/01/2020, with complaints of abdominal pain, and jaundice. On admission was found to have increased LFTs and hyperbilirubinemia. Abdominal ultrasound revealed dilated gallbladder with evidence of large CBD. GI evaluated and attempted performed ERCP, this was unsuccessful. She underwent a laparoscopic cholecystectomy on 10/05/[address] Hess. Her stay was further complicated with hematemesis on 10/07, she was transferred to ICU, received PRBC transfusion, the following day EGD was performed revealing gastritis, no active GI bleeding. Her Anticoagulation remained on hold. 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 Therefore, we have been consulted to further evaluate Review of Systems All systems: negative Constitutional: Reports as per HPI Past Medical History Past Medical History: Coronary Artery Disease (CAD), Hypertension Additional Past Medical History / Comment(s): Hepatitis C, anemia, atrial fibrillation History of Any Multi-Drug Resistant Organisms: None Reported Past Surgical History: Section, Tonsillectomy Past Anesthesia/Blood Transfusion Reactions: No Reported Reaction Additional Past Anesthesia/Blood Transfusion Reaction / Comm: Blood transfusion 5-6 years ago (no reactions) Past Psychological History: No Psychological Hx Reported Smoking Status: Former smoker Past Alcohol Use History: None Reported Past Drug Use History: None Reported - Past Family History Father Family Medical History: Cancer Additional Family Medical History / Comment(s): prostate CA Mother Family Medical History: Diabetes Mellitus, Myocardial Infarction ([place]) Brother(s) Family Medical History: Cancer Additional Family Medical History / Comment(s): esophageal CA Sister(s) Family Medical History: Cancer Additional Family Medical History / Comment(s): ovarian CA Medications and Allergies Home Medications Medication Instructions Recorded Confirmed Type Ferrous Sulfate [Iron (65 MG 325 mg PO BID 07/04/17 10/01/20 History Elemental)] amLODIPine [Norvasc] 5 mg PO DAILY 07/04/17 10/01/20 History Apixaban [Eliquis] 5 mg PO BID tab 07/06/17 10/01/20 Rx Potassium Chloride ER [K-Dur 20] 20 meq PO DAILY tab.er.prt 07/06/17 10/01/20 Rx Nitroglycerin Sl Tabs [Nitrostat] 0.4 mg SUBLINGUAL Q5M PRN 09/30/19 10/01/20 History Verapamil HCl [Verapamil ER] 240 mg PO DAILY 09/30/19 10/01/20 History Allopurinol [Zyloprim] 300 mg PO DAILY 02/10/20 10/01/20 History Metoprolol Tartrate [Lopressor] 50 mg PO TID tab 02/12/20 10/01/20 Rx atenoloL [Atenolol] 25 mg PO DAILY 10/01/20 10/01/20 History Allergies Allergy/AdvReac Type Severity Reaction Status Date / Time No Known Allergies Allergy Verified 10/01/20 16:43 Physical Exam Vitals: Vital Signs Temp Pulse Pulse Resp BP BP Pulse Ox 10/10/20 12:00 65 17 86/53 91 L 10/10/20 08:20 97.6 F 96 18 101/66 94 L 10/10/20 04:00 98.2 F 110 H 18 99/66 96 10/09/20 22:30 97.9 F 111 H 18 121/69 92 L 10/09/20 22:00 115/83 10/09/20 21:00 104 H 19 103/62 97 10/09/20 20:00 98.1 F 108 H 22 113/91 95 10/09/20 19:43 94 18 10/09/20 19:00 95 24 117/77 97 10/09/20 18:00 112 H 18 82/60 98 10/09/20 17:00 101 H 22 102/74 98 10/09/20 16:04 95 10/09/20 16:00 98.2 F 111 H 20 115/79 98 Intake and Output 10/10/20 10/10/20 10/10/20 06:59 14:59 22:59 Intake Total 120 Output Total 200 Balance -80 Intake: Oral 120 Output: Drainage 200 Right Abdomen 200 Other: Voiding Method Bedpan # Voids 1 1 Weight 70 kg Gen: Lethargic and sleepy, on medical floor Head: NCAT NEck Supple Heart: Irr/reg Abdomen: No BS yet, tender evidence of recent intervention Lungs: DIminished bibasilar LE: Trce BLE edema Results CBC & Chem 7: 10/10/20 06:17 10/10/20 06:17 Labs: Abnormal Lab Results - Last 24 Hours (Table) 10/10/20 10/10/20 Range/Units 06:17 06:17 RBC 2.82 L (3.80-5.40) m/uL Hgb 8.8 L (11.4-16.0) gm/dL Hct 28.3 L (34.0-46.0) % MCV 100.4 H (80.0-100.0) fL RDW 17.6 H (11.5-15.5) % Neutrophils # 7.8 H (1.3-7.7) k/uL BUN 31 H (7-17) mg/dL Calcium 8.0 L (8.4-10.2) mg/dL Total Bilirubin 1.9 H (0.2-1.3) mg/dL AST 75 H (14-36) U/L ALT 48 H (4-34) U/L Total Protein 4.8 L (6.3-8.2) g/dL Albumin 2.3 L (3.5-5.0) g/dL Microbiology - Last 24 Hours (Table) 10/03/20 20:55 Blood Culture - Final Blood No Growth after [address] scan - abdomen: report reviewed CT scan - pelvis: report reviewed Assessment and Plan (1) Choledocholithiasis Current Visit: Yes Status: Acute Code(s): K80.50 - CALCULUS OF BILE DUCT W/O CHOLANGITIS OR CHOLECYST W/O OBST SNOMED Code(s): 853496086 (2) Elevated bilirubin Current Visit: Yes Status: Acute Code(s): R17 - UNSPECIFIED JAUNDICE SNOMED Code(s): 73159714 (3) Jaundice Current Visit: Yes Status: Acute Code(s): R17 - UNSPECIFIED JAUNDICE SNOMED Code(s): 18211215 (4) History of atrial fibrillation Current Visit: No Status: Acute Code(s): Z86.79 - PERSONAL HISTORY OF OTHER DISEASES OF THE CIRCULATORY SYSTEM SNOMED Code(s): 944669932 Plan: Adenocarcinoma was identified on pathology from gallbladder, once patient recovers from recent hospitalization plan to be evaluated by tertiary hospital for further diagnostic work-up EUS. - Check Ca 19-9 - FUrther recs after patient recovers from surgery and further diagnostics are performed COntinue supportive care per other specialties and primary team Physician attest: I have completed the full history and physical and agree with above dictation, dictated as a scribe
[2020-10-11] MEDS: SODIUM CHLORIDE 0.9% 1,000 ML IV SCH ×2 (00:28→23:39)
[2020-10-11 03:48] LABS: Ferritin 162.1 ng/mL (10.0-291.0)
[2020-10-11 04:48] LABS: % Iron Saturation 8.33 (12.00-45.00); Folate, Serum 11.8 ng/mL
[2020-10-11] MEDS: FUROSEMIDE 20 MG TAB PO SCH (08:19)
[2020-10-11] MEDS: atenoloL 25 MG TAB PO SCH (08:19)
[2020-10-11] MEDS: PANTOPRAZOLE 40 MG/10 ML VIAL IVP SCH ×2 (08:19→20:36)
[2020-10-11] MEDS: APIXABAN 5 MG TAB PO SCH ×2 (08:19→20:36)
[2020-10-11] MEDS: VERAPAMIL SR 240 MG TABLET.ER PO SCH (08:19)
[2020-10-11] MEDS: allopurinoL 300 MG TAB PO SCH (08:19)
[2020-10-11 09:18] LABS: Anisocytosis Slight; HGB 8.3 gm/dL (11.4-16.0); Hypochromasia Moderate; MCH 32.6 pg (25.0-35.0); MCHC 32.1 g/dL (31.0-37.0); MCV 101.5 fL (80.0-100.0); Macrocytosis Moderate; Mean Platelet Volume 9.6; Platelet Count 259 k/uL (150-450); RBC 2.56 m/uL (3.80-5.40); RDW 17.5 % (11.5-15.5); WBC 9.7 k/uL (3.8-10.6)
[2020-10-11 09:22] LABS: ALT 43 U/L (4-34); AST 65 U/L (14-36); African American GFR (CKD) >90 (>60 ml/min/1.73 sqM); Albumin 2.3 g/dL (3.5-5.0); Alkaline Phosphatase 101 U/L (38-126); Anion Gap 6 mmol/L; Blood Urea Nitrogen 30 mg/dL (7-17); Calcium 7.9 mg/dL (8.4-10.2); Carbon Dioxide 26 mmol/L (22-30); Chloride 106 mmol/L (98-107); Glucose 92 mg/dL (74-99); Non-African American GFR(CKD) 82 (>60 ml/min/1.73 sqM); Potassium 3.9 mmol/L (3.5-5.1); Sodium 138 mmol/L (137-145); Total Bilirubin 1.6 mg/dL (0.2-1.3); Total Protein 4.8 g/dL (6.3-8.2)
--- NOTE | 2020-10-11 10:58 | P.PN ---
Progress Note - Text Progress Note Date: 10/11/20 Patient is complaining of constipation. On exam her vital signs are stable. Her abdomen soft. Incision sites are clean and intact. Status post laparoscopic ostectomy for gallbladder cancer. Patient will receive supportive care. She'll be evaluated a tertiary care center once her medical co ndition is improved.
[2020-10-11] MEDS: POTASSIUM CHLORIDE ER 10 MEQ TAB.ER.PRT PO SCH (11:16)
--- NOTE | 2020-10-11 11:19 | P.PN ---
Subjective Progress Note Date: 10/11/20 Dia Wood, is an 85-year-old female who presented to [facility] emergency room with a chief complaint of abdominal pain patient states that her pain started 2 days prior to admission patient also noted changes in the color of her urine in the color of her skin she had some nausea but no vomiting she had normal bowel movements. Patient was evaluated in the emergency room vital examination on presentation revealed a temperature of 98.4 pulse 105 respiration 19 and blood pressure 143/83 pulse ox 95% on room air her white blood count was 9.6 hemoglobin 13.6 platelet count 211 BUN was 28 creatinine 0.83 total bilirubin 7.7 AST 106 a LT 61 alkaline phosphatase 227 lipase was 267 , computed tomography scan of the abdomen and pelvis was done in the emergency room and revealed evidence of cholelithiasis and dilated common bile duct, liver ultrasound was done and revealed evidence of mildly dilated gallbladder with gallstone, large common bile duct and mild fatty infiltration of the liver. patient was admitted to medical floor gastroenterology consultation and surgical consultation were requested. Her past medical history is significant for history of hypertension, history of anemia, history of gout, hepatitis C, history of hyperlipidemia, history of paroxysmal atrial fibrillation, history of vitamin D deficiency. On review of systems there is no fever or chills no headache or dizziness no chest pain no shortness of breath no cough no palpitation she has some nausea but no vomiting she has abdominal pain mostly in the right upper quadrant no diarrhea no blood in the stools no burning with urination no frequency or urgency and no hematuria On 10/03/2020 patient's alert and oriented 3 resting comfortably in bed. Discussed case with surgical PA. Plans for ERCP today with possible lap osiris tomorrow. AST 88, ALT 49 in AP 179. Surgical and GI services are following. Patient reports improvement with symptoms. Patient remains on Levaquin. Patient denies chest pain or shortness breath. Patient denies nausea vomiting or diarrhea at this time. Patient denies any urinary burning or frequency On 10/04/2020 patient was seen and examined on the medical floor she is alert and oriented 3 in no apparent distress last night she had episodes of tachycardia medication were adjusted Norvasc was discontinued and atenolol was increased to 25 mg twice daily. Patient is complaining of right upper quadrant abdominal pain otherwise she denies any complaints there is no fever or chills no headache or dizziness no chest pain no shortness of breath no cough no nausea or vomiting no diarrhea no blood in the stools no burning with urination no frequency or urgency and no hematuria. Input from gastroenterology and surgery was review patient is scheduled for cholecystectomy in a.m. tomorrow. On 10/05/2020 patient was seen and examined on the medical floor she is alert and oriented 3 in no distress she just returned from surgery, there is no fever or chills no headache or dizziness no chest pain no shortness of breath no cough no nausea or vomiting no abdominal pain no diarrhea no blood in the stools no burning with urination no frequency or urgency no hematuria On 10/06/2020 patient was seen and examined on the medical floor she is alert and oriented 3 in no distress there is no fever or chills no headache or dizziness no chest pain no shortness of breath no cough she still has some tenderness in the abdomen especially in the right upper quadrant there is no nausea or vomiting no diarrhea no blood in the stools and no urinary symptoms. On 10/07/2020 patient was seen and examined on the medical floor this morning she was doing well she was alert and oriented 3 in no apparent distress, her vital exams were stable however this afternoon patient condition worsened her blood pressure was lower her hemoglobin today dropped to 7.7 she was given IV fluids and 1 unit of red blood cell transfusion was ordered due to hypotension patient was transferred to intensive care unit liver enzymes are improving total bilirubin today is down to 2.8 on 10/08/2020 patient currently resting in the intensive care unit. Patient is alert and oriented 3. plans to undergo EGD tomorrow. Total bili 3.3 AST aLT 89 alkaline phosphatase 99. Surgical, GI, cardiology and critical care services are following.blood pressure has improved. patient currently resting comfortably in bed reports improvement with pain. patient denies chest pain or shortness breath. Patient denies nausea vomiting or diarrhea. Patient denies any urinary burning or frequency On 10/09/2020 patient was seen and examined in the ICU she is alert and oriented 3 in no apparent distress she underwent an EGD this morning by Dr. Hess, which revealed evidence of antral gastritis, hiatal hernia, mild esophagitis, and no evidence of gastrointestinal bleeding, patient is clinically stable she is alert and oriented 3 she is still complaining of pain in the epigastric and right upper quadrant area otherwise she denies any complaints there is no fever or chills no headache or dizziness no chest pain no shortness of breath no cough no nausea or vomiting no diarrhea no blood in the stools no burning with urination no frequency or urgency and no hematuria . Bilirubin, AST ALT and alkaline phosphatase are declining today. On 10/10/2020 patient was seen and examined in the ICU she is alert and oriented 3 in no apparent distress she underwent an EGD this morning by Dr. Hess, which revealed evidence of antral gastritis, hiatal hernia, mild esophagitis, and no evidence of gastrointestinal bleeding, patient is clinically stable she is alert and oriented 3 she is still complaining of pain in the epigastric and right upper quadrant area otherwise she denies any complaints there is no fever or chills no headache or dizziness no chest pain no shortness of breath no cough no nausea or vomiting no diarrhea no blood in the stools no burning with urination no frequency or urgency and no hematuria . Bilirubin, AST ALT and alkaline phosphatase are declining today. Pathology report in the computer is still pending however, oral report from Dr. Hess, patient is positive for cancer, consultation for Dr. Mahmood is requested. on 10/11/2020 patient was seen and examined on the medical floor she is alert and oriented 3 in no distress she is complaining of constipation and tenderness in the right upper quadrant otherwise she denies any complaints, there is no fever or chills no headache or dizziness no chest pain no shortness of breath no cough no nausea or vomiting no abdominal pain no diarrhea no blood in the stools no burning with urination no frequency or urgency and no hematuria. patient is aware of cancer diagnosis. Objective - Vital Signs Vital signs: Vital Signs Temp 97.7 F 10/11/20 04:00 Pulse 100 10/11/20 04:00 Resp 18 10/11/20 04:00 BP 103/67 10/11/20 04:00 Pulse Ox 98 10/11/20 04:00 Intake & Output 10/10/20 10/10/20 10/11/20 06:59 18:59 06:59 Intake Total 40 220 475 Output Total 220 950 40 Balance -180 -260 435 Weight 70 kg 69.6 kg Intake: IV 40 Sodium Chloride 0.9% 1, 40 000 ml @ 20 mls/hr IV . Q24H [facility] Rx#:[id number] Oral 220 475 Output: Drainage 0 600 40 Right Abdomen 0 600 40 Urine 220 350 Other: Voiding Method Bedpan Bedpan # Voids 1 2 1 - Exam In general patient is alert and oriented 3 in no apparent distress HEENT head normocephalic and atraumatic patient has clear jaundice Neck is supple no JVD no goiter no lymphadenopathy no carotid bruit Chest exam is clear to auscultation no crackles no wheezing Cardiac exam reveals irregular heart beat S1 and S2 no gallops no murmurs Abdomen is soft with tenderness in the epigastric and right upper quadrant area no organomegaly no palpable masses was normal bowel sounds Extremity exam reveals no edema no cyanosis or clubbing Neurological examination reveals no gross focal deficit - Labs CBC & Chem 7: 10/11/20 06:26 10/11/20 06:26 Labs: Abnormal Lab Results - Last 24 Hours (Table) 10/10/20 10/10/20 10/10/20 Range/Units 06:17 06:17 06:17 RBC 2.82 L (3.80-5.40) m/uL Hgb 8.8 L (11.4-16.0) gm/dL Hct 28.3 L (34.0-46.0) % MCV 100.4 H (80.0-100.0) fL RDW 17.6 H (11.5-15.5) % Neutrophils # 7.8 H (1.3-7.7) k/uL BUN 31 H (7-17) mg/dL Calcium 8.0 L (8.4-10.2) mg/dL Iron 23 L (50-170) ug/dL % Saturation 8.33 L (12.00-45.00) Total Bilirubin 1.9 H (0.2-1.3) mg/dL AST 75 H (14-36) U/L ALT 48 H (4-34) U/L Total Protein 4.8 L (6.3-8.2) g/dL Albumin 2.3 L (3.5-5.0) g/dL Assessment and Plan Plan: Acute cholelithiasis, status post laparoscopic cholecystectomy Jaundice with dilated common bile duct rule out choledocholithiasis Evidence of dehydration with pre renal azotemia Underlying history of hypertension Underlying history of hyperlipidemia Underlying history of gout Underlying history of paroxysmal atrial fibrillation. cardiology services are following. Roland currently on hold Underlying history of anemia Patient is improving will monitor labs closely to assess if patient still needs ERCP Gait disturbance patient requires wheelchair to complete ADL which is unable to be done with a walker or a cane because of weakness and unsteady gait patient is able to propel himself and has a caregiver at home that will be able to assist. Patient transferred to telemetry floor patient remains on Rocephin IV antibiotics Surgical, GI, cardiology and critical care services are following Repeat labs ordered for a.m.
[2020-10-11] MEDS ORDERED: NA PHOS,M-B/NA PHOS,DI-BA 133 ML ENEMA RECTAL ONE (12:00)
--- NOTE | 2020-10-11 12:22 | P.PN ---
Subjective Progress Note Date: 10/11/20 This is a pleasant 85-year-old female who was admitted with cholecystitis and underwent cholecystectomy, postoperative day #5. She had some coffee-ground emesis thereafter prompting an EGD yesterday that was negative for upper GI bleeding. She has had no further evidence of coffee-ground emesis since that time. Blood pressure 101/66 heart rate 96 afebrile maintaining oxygen saturation on nasal cannula. Laboratory data reviewed, WBC 9.9, hemoglobin 8.8, plt 283, sodium 139, potassium 3.9, creatinine 0.52. Currently maintained on atenolol 25 mg twice a day, Lasix 20 mg daily and verapamil 240 mg daily. 10/11: Patient is status post laparoscopic cholecystectomy for gallbladder cancer. Patient is complaining of constipation. She also states she feels tired out. Blood pressure is on the lower side 90/54 heart rate running anywhere between 60 and 100. She's been afebrile. blade groover atrial fibrillation with controlled rate. Pulse ox 92% on 3 L nasal cannula. He was loaded is 8.3. BUN 30 creatinine 0.64. GENERAL: Well-appearing, well-nourished and in no acute distress. NECK: Supple without JVD or thyromegaly. LUNGS: Breath sounds clear to auscultation bilaterally. Respiration equal and unlabored. No wheezes, rales or rhonchi. HEART: Irregular rate and rhythm without murmurs, rubs or gallops. S1 and S2 heard. EXTREMITIES: Normal range of motion, no edema. No clubbing or cyanosis. Peripheral pulses intact. ASSESSMENT GI bleeding Acute cholelithiasis s/p cholecystectomy on October 09 Pathology positive for gallbladder cancer Chronic persistent atrial fibrillation and a coagulated with eliquis Hypertension Anemia PLAN Eliquis has been resumed Decrease atenolol to 12.5 mg due to hypotension. Continue verapamil at 240 daily for rate control Further recommendations as patient progresses. Nurse Practitioner note has been reviewed, I agree with a documented findings and plan of care. Patient was seen and examined. Objective - Vital Signs Vital signs: Vital Signs Temp 98.0 F 10/11/20 11:14 Pulse 67 10/11/20 11:14 Resp 16 10/11/20 11:14 BP 90/54 10/11/20 11:14 Pulse Ox 92 L 10/11/20 11:14 Intake & Output 10/10/20 10/11/20 10/11/20 18:59 06:59 18:59 Intake Total 220 475 Output Total 950 40 70 Balance -730 435 -70 Weight 69.6 kg Intake: Oral 220 475 Output: Drainage 600 40 70 Right Abdomen 600 40 70 Urine 350 Other: Voiding Method Bedpan Bedpan # Voids 2 1 - Labs CBC & Chem 7: 10/11/20 06:26 10/11/20 06:26 Labs: Abnormal Lab Results - Last 24 Hours (Table) 10/10/20 10/11/20 10/11/20 Range/Units 06:17 06:26 06:26 RBC 2.56 L (3.80-5.40) m/uL Hgb 8.3 L (11.4-16.0) gm/dL Hct 26.0 L (34.0-46.0) % MCV 101.5 H (80.0-100.0) fL RDW 17.5 H (11.5-15.5) % BUN 30 H (7-17) mg/dL Calcium 7.9 L (8.4-10.2) mg/dL Iron 23 L (50-170) ug/dL % Saturation 8.33 L (12.00-45.00) Total Bilirubin 1.6 H (0.2-1.3) mg/dL AST 65 H (14-36) U/L ALT 43 H (4-34) U/L Total Protein 4.8 L (6.3-8.2) g/dL Albumin 2.3 L (3.5-5.0) g/dL
[2020-10-11] MEDS: LACTULOSE 20 GM/30 ML CUP PO SCH ×4 (15:34→23:39)
[2020-10-12] MEDS: LACTULOSE 20 GM/30 ML CUP PO SCH (03:30)
[2020-10-12 05:59] LABS: ALT 41 U/L (4-34); AST 59 U/L (14-36); African American GFR (CKD) >90 (>60 ml/min/1.73 sqM); Albumin 2.4 g/dL (3.5-5.0); Alkaline Phosphatase 87 U/L (38-126); Anion Gap 7 mmol/L; Blood Urea Nitrogen 29 mg/dL (7-17); Carbon Dioxide 25 mmol/L (22-30); Chloride 107 mmol/L (98-107); Glucose 115 mg/dL (74-99); Non-African American GFR(CKD) 83 (>60 ml/min/1.73 sqM); Potassium 3.9 mmol/L (3.5-5.1); Sodium 139 mmol/L (137-145); Total Bilirubin 1.6 mg/dL (0.2-1.3)
[2020-10-12 06:10] LABS: Anisocytosis Slight; Basophils % (A) 0 %; Eosinophils # (A) 0.1 k/uL (0-0.7); Eosinophils % (A) 1 %; HCT 26.8 % (34.0-46.0); HGB 8.3 gm/dL (11.4-16.0); Hypochromasia Moderate; Lymphocytes # (A) 0.9 k/uL (1.0-4.8); Lymphocytes % (A) 7 %; MCH 31.1 pg (25.0-35.0); MCHC 30.9 g/dL (31.0-37.0); MCV 100.7 fL (80.0-100.0); Macrocytosis Moderate; Mean Platelet Volume 8.3; Monocytes # (A) 0.9 k/uL (0-1.0); Monocytes % (A) 7 %; Neutrophils # (A) 11.3 k/uL (1.3-7.7); Neutrophils % (A) 84 %; Platelet Count 260 k/uL (150-450); RBC 2.66 m/uL (3.80-5.40); RDW 17.7 % (11.5-15.5); WBC 13.4 k/uL (3.8-10.6)
[2020-10-12] MEDS: PANTOPRAZOLE 40 MG/10 ML VIAL IVP SCH ×2 (08:00→20:34)
[2020-10-12] MEDS: POTASSIUM CHLORIDE ER 10 MEQ TAB.ER.PRT PO SCH (08:01)
[2020-10-12] MEDS: allopurinoL 300 MG TAB PO SCH (08:01)
[2020-10-12] MEDS: FUROSEMIDE 20 MG TAB PO SCH (08:01)
[2020-10-12] MEDS: APIXABAN 5 MG TAB PO SCH (08:01)
[2020-10-12] MEDS: VERAPAMIL SR 240 MG TABLET.ER PO SCH (08:02)
--- NOTE | 2020-10-12 10:52 | P.PN ---
Subjective Progress Note Date: 10/12/20 Dia Wood, is an 85-year-old female who presented to [facility] emergency room with a chief complaint of abdominal pain patient states that her pain started 2 days prior to admission patient also noted changes in the color of her urine in the color of her skin she had some nausea but no vomiting she had normal bowel movements. Patient was evaluated in the emergency room vital examination on presentation revealed a temperature of 98.4 pulse 105 respiration 19 and blood pressure 143/83 pulse ox 95% on room air her white blood count was 9.6 hemoglobin 13.6 platelet count 211 BUN was 28 creatinine 0.83 total bilirubin 7.7 AST 106 a LT 61 alkaline phosphatase 227 lipase was 267 , computed tomography scan of the abdomen and pelvis was done in the emergency room and revealed evidence of cholelithiasis and dilated common bile duct, liver ultrasound was done and revealed evidence of mildly dilated gallbladder with gallstone, large common bile duct and mild fatty infiltration of the liver. patient was admitted to medical floor gastroenterology consultation and surgical consultation were requested. Her past medical history is significant for history of hypertension, history of anemia, history of gout, hepatitis C, history of hyperlipidemia, history of paroxysmal atrial fibrillation, history of vitamin D deficiency. On review of systems there is no fever or chills no headache or dizziness no chest pain no shortness of breath no cough no palpitation she has some nausea but no vomiting she has abdominal pain mostly in the right upper quadrant no diarrhea no blood in the stools no burning with urination no frequency or urgency and no hematuria On 10/03/2020 patient's alert and oriented 3 resting comfortably in bed. Discussed case with surgical PA. Plans for ERCP today with possible lap osiris tomorrow. AST 88, ALT 49 in AP 179. Surgical and GI services are following. Patient reports improvement with symptoms. Patient remains on Levaquin. Patient denies chest pain or shortness breath. Patient denies nausea vomiting or diarrhea at this time. Patient denies any urinary burning or frequency On 10/04/2020 patient was seen and examined on the medical floor she is alert and oriented 3 in no apparent distress last night she had episodes of tachycardia medication were adjusted Norvasc was discontinued and atenolol was increased to 25 mg twice daily. Patient is complaining of right upper quadrant abdominal pain otherwise she denies any complaints there is no fever or chills no headache or dizziness no chest pain no shortness of breath no cough no nausea or vomiting no diarrhea no blood in the stools no burning with urination no frequency or urgency and no hematuria. Input from gastroenterology and surgery was review patient is scheduled for cholecystectomy in a.m. tomorrow. On 10/05/2020 patient was seen and examined on the medical floor she is alert and oriented 3 in no distress she just returned from surgery, there is no fever or chills no headache or dizziness no chest pain no shortness of breath no cough no nausea or vomiting no abdominal pain no diarrhea no blood in the stools no burning with urination no frequency or urgency no hematuria On 10/06/2020 patient was seen and examined on the medical floor she is alert and oriented 3 in no distress there is no fever or chills no headache or dizziness no chest pain no shortness of breath no cough she still has some tenderness in the abdomen especially in the right upper quadrant there is no nausea or vomiting no diarrhea no blood in the stools and no urinary symptoms. On 10/07/2020 patient was seen and examined on the medical floor this morning she was doing well she was alert and oriented 3 in no apparent distress, her vital exams were stable however this afternoon patient condition worsened her blood pressure was lower her hemoglobin today dropped to 7.7 she was given IV fluids and 1 unit of red blood cell transfusion was ordered due to hypotension patient was transferred to intensive care unit liver enzymes are improving total bilirubin today is down to 2.8 on 10/08/2020 patient currently resting in the intensive care unit. Patient is alert and oriented 3. plans to undergo EGD tomorrow. Total bili 3.3 AST aLT 89 alkaline phosphatase 99. Surgical, GI, cardiology and critical care services are following.blood pressure has improved. patient currently resting comfortably in bed reports improvement with pain. patient denies chest pain or shortness breath. Patient denies nausea vomiting or diarrhea. Patient denies any urinary burning or frequency On 10/09/2020 patient was seen and examined in the ICU she is alert and oriented 3 in no apparent distress she underwent an EGD this morning by Dr. Hess, which revealed evidence of antral gastritis, hiatal hernia, mild esophagitis, and no evidence of gastrointestinal bleeding, patient is clinically stable she is alert and oriented 3 she is still complaining of pain in the epigastric and right upper quadrant area otherwise she denies any complaints there is no fever or chills no headache or dizziness no chest pain no shortness of breath no cough no nausea or vomiting no diarrhea no blood in the stools no burning with urination no frequency or urgency and no hematuria . Bilirubin, AST ALT and alkaline phosphatase are declining today. On 10/10/2020 patient was seen and examined in the ICU she is alert and oriented 3 in no apparent distress she underwent an EGD this morning by Dr. Hess, which revealed evidence of antral gastritis, hiatal hernia, mild esophagitis, and no evidence of gastrointestinal bleeding, patient is clinically stable she is alert and oriented 3 she is still complaining of pain in the epigastric and right upper quadrant area otherwise she denies any complaints there is no fever or chills no headache or dizziness no chest pain no shortness of breath no cough no nausea or vomiting no diarrhea no blood in the stools no burning with urination no frequency or urgency and no hematuria . Bilirubin, AST ALT and alkaline phosphatase are declining today. Pathology report in the computer is still pending however, oral report from Dr. Hess, patient is positive for cancer, consultation for Dr. Mahmood is requested. on 10/11/2020 patient was seen and examined on the medical floor she is alert and oriented 3 in no distress she is complaining of constipation and tenderness in the right upper quadrant otherwise she denies any complaints, there is no fever or chills no headache or dizziness no chest pain no shortness of breath no cough no nausea or vomiting no abdominal pain no diarrhea no blood in the stools no burning with urination no frequency or urgency and no hematuria. patient is aware of cancer diagnosis. On 10/12/2020 patient's alert and oriented 3 resting in bed. Patient does appear more short of breath. Pulmonary services reconsulted. Heart rate also elevated patient has known chronic persistent atrial fibrillation discussed with cardiology team medications to be adjusted due to recent hypotension. At this time patient denies any acute complaints. Patient denies chest pain. Patient denies nausea vomiting or diarrhea. Patient denies any urinary burning or frequency Objective - Vital Signs Vital signs: Vital Signs Temp 97.3 F L 10/12/20 07:46 Pulse 111 H 10/12/20 07:46 Resp 20 10/12/20 07:46 BP 110/73 10/12/20 07:46 Pulse Ox 89 L 10/12/20 07:56 Intake & Output 10/11/20 10/12/20 10/12/20 17:59 06:59 18:59 Output Total 10 Balance -10 Weight Output: Drainage 10 Right Abdomen 10 Other: Voiding Method Toilet - Exam In general patient is alert and oriented 3 in no apparent distress HEENT head normocephalic and atraumatic patient has clear jaundice Neck is supple no JVD no goiter no lymphadenopathy no carotid bruit Chest exam is clear to auscultation no crackles no wheezing Cardiac exam reveals irregular heart beat S1 and S2 no gallops no murmurs Abdomen is soft with tenderness in the epigastric and right upper quadrant area no organomegaly no palpable masses was normal bowel sounds Extremity exam reveals no edema no cyanosis or clubbing Neurological examination reveals no gross focal deficit - Labs CBC & Chem 7: 10/12/20 05:23 10/12/20 05:23 Labs: Abnormal Lab Results - Last 24 Hours (Table) 10/12/20 10/12/20 Range/Units 05:23 05:23 WBC 13.4 H (3.8-10.6) k/uL RBC 2.66 L (3.80-5.40) m/uL Hgb 8.3 L (11.4-16.0) gm/dL Hct 26.8 L (34.0-46.0) % MCV 100.7 H (80.0-100.0) fL MCHC 30.9 L (31.0-37.0) g/dL RDW 17.7 H (11.5-15.5) % Neutrophils # 11.3 H (1.3-7.7) k/uL Lymphocytes # 0.9 L (1.0-4.8) k/uL BUN 29 H (7-17) mg/dL Glucose 115 H (74-99) mg/dL Calcium 8.0 L (8.4-10.2) mg/dL Total Bilirubin 1.6 H (0.2-1.3) mg/dL AST 59 H (14-36) U/L ALT 41 H (4-34) U/L Total Protein 5.0 L (6.3-8.2) g/dL Albumin 2.4 L (3.5-5.0) g/dL Assessment and Plan Plan: Acute cholelithiasis, status post laparoscopic cholecystectomy Jaundice with dilated common bile duct rule out choledocholithiasis Evidence of dehydration with pre renal azotemia Underlying history of hypertension Underlying history of hyperlipidemia Underlying history of gout Underlying history of paroxysmal atrial fibrillation. cardiology services are allie Watkins currently on hold Underlying history of anemia Patient is improving will monitor labs closely to assess if patient still needs ERCP Gait disturbance patient requires wheelchair to complete ADL which is unable to be done with a walker or a cane because of weakness and unsteady gait patient is able to propel himself and has a caregiver at home that will be able to assist. Increased shortness of breath. Will order chest x-ray. Reconsulted pulmonary services Patient transferred to telemetry floor patient remains on Rocephin IV antibiotics Surgical, GI, cardiology and critical care services are following Repeat labs ordered for a.m.
--- NOTE | 2020-10-12 11:29 | XR ---
EXAMINATION TYPE: XR chest 1V portable DATE OF EXAM: 10/12/2020 Comparison: 10/10/2020 Clinical History: 85-year-old female CHF Findings: Rightward rotated exam. Heart mildly enlarged. There is some retrocardiac lucency suggesting underlyi ng hiatal hernia. Small to moderate left and trace right effusions slightly decreased from prior. Und erlying opacity. Episodic calcifications throughout the aorta. Impression: Rotated exam. Small to moderate left and trace right effusions with adjacent atelectasis or consolida tion show some improvement from prior. Moderate-sized hiatal hernia.
--- NOTE | 2020-10-12 11:31 | P.PN ---
Subjective Progress Note Date: 10/12/20 The pleasant 85-year-old female patient who was admitted with cholecystitis and underwent cholecystectomy. She is postop day #7. She has a history of chronic persistent atrial fibrillation. She did have evidence of coffee ground emesis postoperatively and underwent EGD which showed no evidence of bleeding. Biopsy of the gallbladder showed evidence of malignancy. She is currently on atenolol 1.5 mg by mouth twice a day which was decreased due to hypotension and her heart rate has elevated some. Laboratory values this morning showed white blood cell count 13,400, hemoglobin 8.3 which is stable. BUN 29, creatinine 0.62, total bili 0.6, AST 59, ALT 41. Objective - Vital Signs Vital signs: Vital Signs Temp 97.3 F L 10/12/20 07:46 Pulse 100 10/12/20 10:00 Resp 20 10/12/20 07:46 BP 110/73 10/12/20 07:46 Pulse Ox 95 10/12/20 10:00 Intake & Output 10/11/20 10/12/20 10/12/20 17:59 06:59 18:59 Output Total 50 Balance -50 Weight Output: Drainage 50 Right Abdomen 50 Other: Voiding Method Toilet - Exam PHYSICAL EXAMINATION: HEENT: Head is atraumatic, normocephalic. Pupils equal, round. Neck is supple. There is no elevated jugular venous pressure. HEART EXAMINATION: Heart sounds irregular irregular, S1 and S2 normal. Tachycardia noted. CHEST EXAMINATION: Lungs are clear to auscultation and precussion. No chest wall tenderness is noted on palpation or with deep breathing. ABDOMEN: Soft, tender. Bowel sounds are heard. No organomegaly noted. EXTREMITIES: 2+ peripheral pulses with no evidence of peripheral edema and no calf tenderness noted. NEUROLOGIC patient is awake, alert and oriented x3. . - Labs CBC & Chem 7: 10/12/20 05:23 10/12/20 05:23 Labs: Abnormal Lab Results - Last 24 Hours (Table) 10/12/20 10/12/20 Range/Units 05:23 05:23 WBC 13.4 H (3.8-10.6) k/uL RBC 2.66 L (3.80-5.40) m/uL Hgb 8.3 L (11.4-16.0) gm/dL Hct 26.8 L (34.0-46.0) % MCV 100.7 H (80.0-100.0) fL MCHC 30.9 L (31.0-37.0) g/dL RDW 17.7 H (11.5-15.5) % Neutrophils # 11.3 H (1.3-7.7) k/uL Lymphocytes # 0.9 L (1.0-4.8) k/uL BUN 29 H (7-17) mg/dL Glucose 115 H (74-99) mg/dL Calcium 8.0 L (8.4-10.2) mg/dL Total Bilirubin 1.6 H (0.2-1.3) mg/dL AST 59 H (14-36) U/L ALT 41 H (4-34) U/L Total Protein 5.0 L (6.3-8.2) g/dL Albumin 2.4 L (3.5-5.0) g/dL Assessment and Plan Assessment: #1 GI bleeding #2 acute cholelithiasis status post cholecystectomy on October 05 #3 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 We will increase atenolol due to poorly controlled ventricular rate and continue verapamil. We'll continue to follow the patient right further recommendations accordingly. SUPER[employer] note has been reviewed, I agree with a documented findings and plan of care. Patient was seen and examined.
--- NOTE | 2020-10-12 14:20 | P.PN ---
Progress Note - Text Progress Note Date: 10/12/20 Patient is feeling better. She had multiple bowel movements after receiving lactulose yesterday. Overall her condition is improved. On exam vitals are stable. Abdomen soft. Incisions are clean and intact. Gangrenous cholecystitis with gallbladder carcinoma. Patient will receive supportive care.
--- NOTE | 2020-10-12 15:59 | P.PN ---
Subjective Progress Note Date: 10/12/20 Principal diagnosis: Acute upper GI bleed, acute cholecystitis This is an 85-year-old female with history of multiple medical problems including hepatitis C, coronary artery disease, chronic atrial fibrillation, normally on eliquis, hypertension, hypercholesterolemia, patient presented to the hospital initially on 10/01/2020, and she was mostly complaining of abdominal pain, and jaundice. Patient has been noticing darker urine. She was also having intermittent postprandial abdominal pain. Her ultrasound of the abdomen showed dilated gallbladder with gallstone there was also evidence of large common bile duct, felt to be related to chronic gallbladder dysfunction. Jocelyne ent was noted to have mildly elevated liver function tests, and hyperbilirubinemia. Patient was seen by gastroenterology, and she underwent ERCP, however this was unsuccessful, and it was aborted, biopsies were taken from prominent ampulla and falls in the stomach. On 10/05, patient underwent laparoscopic cholecystectomy by Dr. Hess. Her postoperative course has been uneventful. However on 10/07, patient developed coffee-ground emesis and a drop in her hemoglobin requiring at least 1 unit of packed RBCs given. Patient was hypotensive, transferred to the ICU, given fluids and given a unit of blood. Patient responded well to blood transfusion, in the meantime she was placed on Protonix, and today she seems to be doing much better compared to yesterday. Her anticoagulation medicine/eliquis remains on hold. The patient is scheduled to have EGD by surgery tomorrow, in the meantime she is on Protonix. Patient is also on antibiotics. Considering the patient's episode of upper GI bleeding and hypotension, patient was transferred to the ICU yesterday, and I discussed her condition with Dr. Hess prior to transfer. Today's hemoglobin is 8.9. WBC count is 15.2. Electrolytes are normal except for slightly elevated potassium of 5.3, and she has a bicarb of 16. Liver enzymes remain elevated with AST of 266 ALT of 89 and total bilirubin is 3.3. Coming down nicely from 7.7 on admission. Patient was reevaluated today on 10/09/2020, patient is still in the ICU today, feeling much better, not in any distress, she is on 3 L nasal cannula. Chest x- ray continues to show mild congestive heart failure with small left pleural effusion, hence I recommended more Lasix to be given today. IV fluid is at KVO. Patient underwent EGD today, and she was found to have mild gastritis and esophagitis, no evidence of active GI bleeding. Patient is hemodynamically stable. And she denies any abdominal pain at present, denies any shortness of breath. Again chest x-ray is concerning but I believe the patient clearly has some component of pulmonary edema, and bilateral pleural effusions, she will improve with diuretics will not require thoracentesis. WBC count is 11.9 hemoglobin is 8.4. Electrolytes are normal renal profile is normal. And liver enzymes are improving steadily. On 10/10/2020 patient seen in follow-up. No acute bleeding overnight, she is breathing comfortably, she is sitting up in the chair, she remains on Lasix, she is in -1.7 L net fluid balance over the last 24 hours, her pulse ox on 1 L of oxygen is 94%, vital signs are stable, no hypotension, no complaints of shortness of breath or chest pain. Today's chest x-ray shows persistent cardiomegaly with small to moderate left greater than right pleural effusions, with no significant change. We'll continue diuretics. No lower extremity edema, this morning's labs have been reviewed, white blood cell count is 9.9, hemoglobin is 8.8, BUN is 21, creatinine 0.52, electrolytes are within normal limits. The patient is seen today 10/12/2020 in follow-up on the regular medical floor. She had been doing well from the pulmonary standpoint. We have signed off the case. Today however it was felt she was having more shortness of breath, cough and congestion. Presently she is resting flat in bed. Awake and alert in no acute distress. She does state she has dyspnea on minimal exertion. She is ma intaining O2 saturation in the low 90s on 4 L/m per nasal cannula. She's been afebrile. Follow-up chest x-ray reveals small to moderate left and trace right effusions adjacent atelectasis. Improved compared to prior. Moderate size hiatal hernia. She is status post 1 unit of packed red blood cells this admission. Current hemoglobin 8.3. Blood culture revealed no growth. White count 13.4. Sodium 139. Potassium 3.9. Creatinine 0.62. She remains on ceftriaxone. Diuretics. Objective - Vital Signs Vital signs: Vital Signs Temp 98.4 F 10/12/20 14:00 Pulse 54 L 10/12/20 15:15 Resp 16 10/12/20 14:00 BP 96/61 10/12/20 15:15 Pulse Ox 93 L 10/12/20 15:15 Intake & Output 10/11/20 10/12/20 10/12/20 17:59 06:59 18:59 Output Total 50 Balance -50 Weight Output: Drainage 50 Right Abdomen 50 Other: Voiding Method Toilet - Exam GENERAL EXAM: Alert, very pleasant 85-year-old female patient, on 4L of oxygen, with a pulse ox of 93% comfortable in no apparent distress. HEAD: Normocephalic/atraumatic. EYES: Normal reaction of pupils, equal size. Conjunctiva pink, sclera white. NOSE: Clear with pink turbinates. THROAT: No erythema or exudates. NECK: No masses, no JVD, no thyroid enlargement, no adenopathy. CHEST: No chest wall deformity. Symmetrical expansion. LUNGS: Equal air entry with crackles in the bilateral posterior bases. CVS: Regular rate and rhythm, normal S1 and S2, no gallops, no murmurs, no rubs ABDOMEN: Soft, nontender. No hepatosplenomegaly, normal bowel sounds, no guarding or rigidity. EXTREMITIES: No clubbing, no edema, no cyanosis, 2+ pulses and upper and lower extremities. MUSCULOSKELETAL: Muscle strength and tone normal. SPINE: No scoliosis or deformity SKIN: No rashes CENTRAL NERVOUS SYSTEM: Alert and oriented -3. No focal deficits, tone is normal in all 4 extremities. PSYCHIATRIC: Alert and oriented -3. Appropriate affect. Intact judgment and insight. - Labs CBC & Chem 7: 10/12/20 05:23 10/12/20 05:23 Labs: Abnormal Lab Results - Last 24 Hours (Table) 10/12/20 10/12/20 Range/Units 05:23 05:23 WBC 13.4 H (3.8-10.6) k/uL RBC 2.66 L (3.80-5.40) m/uL Hgb 8.3 L (11.4-16.0) gm/dL Hct 26.8 L (34.0-46.0) % MCV 100.7 H (80.0-100.0) fL MCHC 30.9 L (31.0-37.0) g/dL RDW 17.7 H (11.5-15.5) % Neutrophils # 11.3 H (1.3-7.7) k/uL Lymphocytes # 0.9 L (1.0-4.8) k/uL BUN 29 H (7-17) mg/dL Glucose 115 H (74-99) mg/dL Calcium 8.0 L (8.4-10.2) mg/dL Total Bilirubin 1.6 H (0.2-1.3) mg/dL AST 59 H (14-36) U/L ALT 41 H (4-34) U/L Total Protein 5.0 L (6.3-8.2) g/dL Albumin 2.4 L (3.5-5.0) g/dL Assessment and Plan Assessment: 1 Acute upper GI bleeding with coffee ground emesis requiring transfusion with 1 unit of PRBC, EGD showed mild esophagitis but no evidence of upper GI bleeding 2 Acute cholecystitis status post failed ERCP status post laparoscopic cho lecystectomy 3 Acute blood loss anemia status post 1 unit of packed red blood cells 4 Chronic A. fib 5 Choledocholithiasis 6 Obstructive jaundice 7 Acute hypoxic respiratory failure related to acute blood loss anemia, hypovolemic hypotension, and bilateral left greater than right pleural effusions Plan: The patient was seen and evaluated by Dr. Hogan Chest x-ray and labs reviewed Continue antibiotics, diuretics Add incentive spirometer and encourage cough and deep breathing exercises Increase her activity as tolerated, up in a chair Titrate down the FiO2 as tolerated We will continue to follow I, the cosigning physician, performed a history & physical examination of the patient. Lungs sounds with crackles in the bilateral posterior bases. Maintaining good O2 saturations in the 90s on 4 L/m per nasal cannula. I discussed the assessment and plan of care with my nurse practitioner, Eunice Castle. I attest to the above note as dictated by her.
[2020-10-12] MEDS ORDERED: FUROSEMIDE 20 MG TAB PO SCH (16:00)
[2020-10-12] MEDS: FUROSEMIDE 40 MG TAB PO SCH (17:14)
[2020-10-12] MEDS: SODIUM CHLORIDE 0.9% 1,000 ML IV SCH (20:39)
--- NOTE | 2020-10-13 06:04 | P.CONS ---
History of Present Illness - Chief Complaint Medical debility - History of Present Illness I had the opportunity to see patient for inpatient rehab consultation with regard to medical debility. Patient admitted to [facility] October 01 with abdominal pain, cholecystitis documented by CT. Seen by Dr. Duong who did perform cholecystectomy on October 05. Followed by pulmonary, Dr. Rivero for pulmonary effusions and need for thoracenteses. Chest CT and chest x-rays demonstrated effusions and atelectasis. Started therapies. PT reports minimal assistance transfers and gait 24 feet with roller walker. OT reports supervision for upper dressing and minimal assistance for lower dressing, bathing, toileting and transfers. Patient has refused PT last 4 days. Previous functional history as elicited patient: 85-year-old right-handed white female who is lives in second-floor apartment with daughter. Neither work. Patient does her own cooking. Daughter does the laundry and driving. Patient describes independent with sitdown shower and just received a walker for mobility. PMD Dr. eladio belcher. Denies tobacco or alcohol. Family history mother with [place]. Review of Systems Review of systems: ENT: Denies sneezes or discharge. Eyes: Denies discharge or photophobia. Cardiac: Denies chest pain or palpitation. Pulmonary: Denies cough or shortness of breath. Breast: Denies discharge or lumps. Gastrointestinal: Still with at least mild abdominal discomfort. Describes c onstipation of 10 days' duration. Genitourinary: Denies discharge or frequency. Musculoskeletal: Denies muscle or bone aches. Neurologic: Denies motor or sensory change. Endocrine: Denies shakes or sweats. Oncology: Denies cancers. Dermatologic: Denies rash, itching, pruritus. ALLERGY/immunology: Denies sneezes, rashes. Past Medical History Past Medical History: Coronary Artery Disease (CAD), Hypertension Additional Past Medical History / Comment(s): Hepatitis C, anemia, atrial fibrillation History of Any Multi-Drug Resistant Organisms: None Reported Past Surgical History: Section, Tonsillectomy Past Anesthesia/Blood Transfusion Reactions: No Reported Reaction Additional Past Anesthesia/Blood Transfusion Reaction / Comm: Blood transfusion 5-6 years ago (no reactions) Past Psychological History: No Psychological Hx Reported Smoking Status: Former smoker Past Alcohol Use History: None Reported Past Drug Use History: None Reported - Past Family History Father Family Medical History: Cancer Additional Family Medical History / Comment(s): prostate CA Mother Family Medical History: Diabetes Mellitus, Myocardial Infarction ([place]) Brother(s) Family Medical History: Cancer Additional Family Medical History / Comment(s): esophageal CA Sister(s) Family Medical History: Cancer Additional Family Medical History / Comment(s): ovarian CA Medications and Allergies Home Medications Medication Instructions Recorded Confirmed Type Ferrous Sulfate [Iron (65 MG 325 mg PO BID 07/04/17 10/01/20 History Elemental)] amLODIPine [Norvasc] 5 mg PO DAILY 07/04/17 10/01/20 History Apixaban [Eliquis] 5 mg PO BID tab 07/06/17 10/01/20 Rx Potassium Chloride ER [K-Dur 20] 20 meq PO DAILY tab.er.prt 07/06/17 10/01/20 Rx Nitroglycerin Sl Tabs [Nitrostat] 0.4 mg SUBLINGUAL Q5M PRN 09/30/19 10/01/20 History Verapamil HCl [Verapamil ER] 240 mg PO DAILY 09/30/19 10/01/20 History Allopurinol [Zyloprim] 300 mg PO DAILY 02/10/20 10/01/20 History Metoprolol Tartrate [Lopressor] 50 mg PO TID tab 02/12/20 10/01/20 Rx atenoloL [Atenolol] 25 mg PO DAILY 10/01/20 10/01/20 History Allergies Allergy/AdvReac Type Severity Reaction Status Date / Time No Known Allergies Allergy Verified 10/01/20 16:43 Physical Exam Vitals: Vital Signs Temp Pulse Pulse Resp BP Pulse Ox 10/13/20 00:43 98.2 F 70 14 103/63 92 L 10/12/20 19:34 97.9 F 66 14 113/68 92 L 10/12/20 17:12 62 106/65 93 L 10/12/20 15:15 54 L 96/61 93 L 10/12/20 14:00 98.4 F 52 L 16 96/52 90 L 10/12/20 10:00 100 95 10/12/20 07:56 89 L 10/12/20 07:46 97.3 F L 111 H 20 110/73 91 L Intake and Output 10/12/20 10/12/20 10/13/20 14:59 22:59 06:59 Output Total 50 60 180 Balance -50 -60 -180 Output: Drainage 50 60 180 Right Abdomen 50 60 180 Other: Voiding Method Toilet # Voids 1 Skin: Atrophic, intact. General: Thin build and comfortable appearance. Head: Normocephalic, atraumatic. Eyes: Symmetric. Pupils equal round. Ears: Symmetric. Hearing within normal limits. Mouth: Clear. Neck: Supple. Carotid without bruit. Cardiac: Regular rate and rhythm. Lungs: Clear anteriorly and posteriorly. Abdomen: Soft active nontender. Extremities: Normal tone. Neurological: Mental status: Alert, cooperative, pleasant. Cranial nerves: Symmetric facial tone and trapezius. Motor: Can actively elevate and move all 4 limbs. Sensation: Intact throughout. DTRs: Symmetric and equal throughout. Mobility: Patient reports physical assistance for mobility within room. Results CBC & Chem 7: 10/12/20 05:23 10/12/20 05:23 Labs: Abnormal Lab Results - Last 24 Hours (Table) 10/12/20 Range/Units 05:23 WBC 13.4 H (3.8-10.6) k/uL RBC 2.66 L (3.80-5.40) m/uL Hgb 8.3 L (11.4-16.0) gm/dL Hct 26.8 L (34.0-46.0) % MCV 100.7 H (80.0-100.0) fL MCHC 30.9 L (31.0-37.0) g/dL RDW 17.7 H (11.5-15.5) % Neutrophils # 11.3 H (1.3-7.7) k/uL Lymphocytes # 0.9 L (1.0-4.8) k/uL Assessment and Plan (1) Abdominal pain Current Visit: Yes Status: Acute Code(s): R10.9 - UNSPECIFIED ABDOMINAL PAIN SNOMED Code(s): 76640813 (2) Atrial fibrillation with rapid ventricular response Current Visit: Yes Status: Acute Code(s): I48.91 - UNSPECIFIED ATRIAL FIBRILLATION SNOMED Code(s): 104105540533815 Plan: Impression: 1. Medical debility. 2. Cholecystitis status post cholecystectomy. 3. Upper GI bleed coffee-ground emesis and anemia. 4. A. fib with RVR. 5. CAD. 6. Hypertension. Comments and plan: At this time PT and OT are ongoing. Patient demonstrated safety concerns with the ability to tolerate and benefit from therapies however she is declined PT the last 4 days. For this reason not a rehab candidate at this time. Would suggest a slower paced program which patient can more easily tolerated.
[2020-10-13] MEDS: FUROSEMIDE 40 MG TAB PO SCH ×2 (07:06→16:55)
[2020-10-13] MEDS: allopurinoL 300 MG TAB PO SCH (07:06)
[2020-10-13] MEDS: POTASSIUM CHLORIDE ER 10 MEQ TAB.ER.PRT PO SCH (07:06)
[2020-10-13] MEDS: VERAPAMIL SR 240 MG TABLET.ER PO SCH (07:07)
[2020-10-13] MEDS: PANTOPRAZOLE 40 MG/10 ML VIAL IVP SCH ×2 (07:08→21:01)
--- NOTE | 2020-10-13 08:11 | P.PN ---
Subjective HISTORY OF PRESENTING ILLNESS The pleasant 85-year-old female patient who was admitted with cholecystitis and underwent cholecystectomy. She is postop day #7. She has a history of chronic persistent atrial fibrillation. She did have evidence of coffee ground emesis postoperatively and underwent EGD which showed no evidence of bleeding. Biopsy of the gallbladder showed evidence of malignancy. 10/13 Patient seen and examined. Patient was placed on Lasix 40 mg by mouth twice a day yesterday. She still has some shortness breath, denies any orthopnea. Pulse ox of 92 on 4 L nasal cannula. Heart rates have been controlled in the 50s to 80s. Blood pressures borderline with systolics in the 100s. She admits to chronically being somewhat lightheaded when she stands up too quickly. She admits to still feeling constipated and states she received an enema yesterday. Denies any hematochezia or melena. Her anticoagulation has been stopped secondary to anemia. REVIEW OF SYSTEMS At the time of my exam: CONSTITUTIONAL: Denies fever or chills. CARDIOVASCULAR: Denies chest pain, +mild shortness of breath, no orthopnea, PND or palpitations. RESPIRATORY: Denies cough. GASTROINTESTINAL: +abdominal pain, no diarrhea, +constipation, no nausea or vomiting. HEMATOLOGIC: +history of anemia, no bleeding. PHYSICAL EXAMINATION Blood pressure 103/63 heart rate 70 afebrile and maintaining oxygen saturation on 4 L nasal cannula. CONSTITUTIONAL: No apparent distress, chronically ill-appearing. HEENT: Head is normocephalic. Pupils are equal, round. Sclerae anicteric. Mucous membranes of the mouth are moist. No JVD. No carotid bruit. CHEST EXAMINATION: Decreased breath sounds at bases. HEART EXAMINATION: Irregular rate and rhythm. S1, S2 heard. +2/6 systolic murmur, no gallops or rub. ABDOMEN: Soft, nontender. Positive bowel sounds. EXTREMITIES: 2+ peripheral pulses, no lower extremity edema and no calf tenderness. NEUROLOGIC EXAMINATION: Patient is awake, alert and oriented x3. ASSESSMENT 1 GI bleeding 2 acute cholelithiasis status post cholecystectomy on October 05 3 pathology positive for malignancy of the gallbladder 4 chronic persistent atrial fibrillation, anticoagulation held secondary to anemia 5 hypertension, currently borderline hypotension 6 anemia stable 7 Chronic orthostatic hypotension with lightheadedness with standing. Suspect component of deconditioning as well 8 Leukocytosis 9 PCM with albumin 2.4 10 Constipation 11 SOB, some degree of chronic SOB however on 4LNC with pulse ox 92. CTA showed concern of bilateral infiltrates and pleural effusions 10/10/20. PLAN Patient has been recieving diuretics with Lasix 40mg PO bid. Chest CTA and Xray reviewed with some bilateral effusions and also read out as possible bilateral infiltrates consistent with pneumonia. Patient also revieving IV Rocephin. HR's controlled on Atenolol 12.5mg TID. Borderline BP's. Check BNP. Echo 10/08 showed normal EF 55-60%, moderate TR, RVSP 48, mild to moderate MR. Continue supportive care. Eliquis being held for anemia. Restart when OK with GI. No reported hematochezia or melena per patient. Objective - Vital Signs Vital signs: Vital Signs Temp 98.2 F 10/13/20 00:43 Pulse 70 10/13/20 00:43 Resp 14 10/13/20 00:43 BP 103/63 10/13/20 00:43 Pulse Ox 92 L 10/13/20 00:43 Intake & Output 10/12/20 10/13/20 10/13/20 18:59 06:59 18:59 Output Total 80 210 Balance -80 -210 Output: Drainage 80 210 Right Abdomen 80 210 Other: Voiding Method Toilet # Voids 1 - Labs CBC & Chem 7: 10/12/20 05:23 10/12/20 05:23
[2020-10-13] MEDS: traMADol 50 MG TAB PO PRN ×2 (09:19→21:00)
[2020-10-13 09:35] LABS: African American GFR (CKD) 77.9 (60.0-200.0); Albumin 2.8 g/dL (3.80-4.90); Albumin/Globulin Ratio 1.47 (1.60-3.17); Anion Gap 9.9 mmol/L (4.00-12.00); Carbon Dioxide 27.1 mmol/L (21.6-31.8); Globulin 1.9 g/dL (1.6-3.3); Non-African American GFR(CKD) 67.2 (60.0-200.0); Potassium 3.7 mmol/L (3.5-5.5); Total Bilirubin 1.4 mg/dL (0.2-1.2); Total Protein 4.7 g/dL (6.2-8.2)
[2020-10-13 09:46] LABS: HCT 24.5 % (37.2-46.3); HGB 7.5 g/dL (12.0-15.0); MCH 31.4 pg (27.0-32.0); MCHC 30.6 g/dL (32.0-37.0); MCV 102.5 fL (80.0-97.0); Mean Platelet Volume 12.1 fL (9.5-12.2); Platelet Count 293 X 10*3/uL (140-440); RBC 2.39 X 10*6/uL (4.10-5.20); RDW 17.1 % (11.5-14.5); WBC 15.19 X 10*3/uL (4.50-10.00)
--- NOTE | 2020-10-13 10:32 | P.PN ---
Subjective Progress Note Date: 10/13/20 Dia Wood, is an 85-year-old female who presented to [facility] emergency room with a chief complaint of abdominal pain patient states that her pain started 2 days prior to admission patient also noted changes in the color of her urine in the color of her skin she had some nausea but no vomiting she had normal bowel movements. Patient was evaluated in the emergency room vital examination on presentation revealed a temperature of 98.4 pulse 105 respiration 19 and blood pressure 143/83 pulse ox 95% on room air her white blood count was 9.6 hemoglobin 13.6 platelet count 211 BUN was 28 creatinine 0.83 total bilirubin 7.7 AST 106 a LT 61 alkaline phosphatase 227 lipase was 267 , computed tomography scan of the abdomen and pelvis was done in the emergency room and revealed evidence of cholelithiasis and dilated common bile duct, liver ultrasound was done and revealed evidence of mildly dilated gallbladder with gallstone, large common bile duct and mild fatty infiltration of the liver. patient was admitted to medical floor gastroenterology consultation and surgical consultation were requested. Her past medical history is significant for history of hypertension, history of anemia, history of gout, hepatitis C, history of hyperlipidemia, history of paroxysmal atrial fibrillation, history of vitamin D deficiency. On review of systems there is no fever or chills no headache or dizziness no chest pain no shortness of breath no cough no palpitation she has some nausea but no vomiting she has abdominal pain mostly in the right upper quadrant no diarrhea no blood in the stools no burning with urination no frequency or urgency and no hematuria On 10/03/2020 patient's alert and oriented 3 resting comfortably in bed. Discussed case with surgical PA. Plans for ERCP today with possible lap osiris tomorrow. AST 88, ALT 49 in AP 179. Surgical and GI services are following. Patient reports improvement with symptoms. Patient remains on Levaquin. Patient denies chest pain or shortness breath. Patient denies nausea vomiting or diarrhea at this time. Patient denies any urinary burning or frequency On 10/04/2020 patient was seen and examined on the medical floor she is alert and oriented 3 in no apparent distress last night she had episodes of tachycardia medication were adjusted Norvasc was discontinued and atenolol was increased to 25 mg twice daily. Patient is complaining of right upper quadrant abdominal pain otherwise she denies any complaints there is no fever or chills no headache or dizziness no chest pain no shortness of breath no cough no nausea or vomiting no diarrhea no blood in the stools no burning with urination no frequency or urgency and no hematuria. Input from gastroenterology and surgery was review patient is scheduled for cholecystectomy in a.m. tomorrow. On 10/05/2020 patient was seen and examined on the medical floor she is alert and oriented 3 in no distress she just returned from surgery, there is no fever or chills no headache or dizziness no chest pain no shortness of breath no cough no nausea or vomiting no abdominal pain no diarrhea no blood in the stools no burning with urination no frequency or urgency no hematuria On 10/06/2020 patient was seen and examined on the medical floor she is alert and oriented 3 in no distress there is no fever or chills no headache or dizziness no chest pain no shortness of breath no cough she still has some tenderness in the abdomen especially in the right upper quadrant there is no nausea or vomiting no diarrhea no blood in the stools and no urinary symptoms. On 10/07/2020 patient was seen and examined on the medical floor this morning she was doing well she was alert and oriented 3 in no apparent distress, her vital exams were stable however this afternoon patient condition worsened her blood pressure was lower her hemoglobin today dropped to 7.7 she was given IV fluids and 1 unit of red blood cell transfusion was ordered due to hypotension patient was transferred to intensive care unit liver enzymes are improving total bilirubin today is down to 2.8 on 10/08/2020 patient currently resting in the intensive care unit. Patient is alert and oriented 3. plans to undergo EGD tomorrow. Total bili 3.3 AST aLT 89 alkaline phosphatase 99. Surgical, GI, cardiology and critical care services are following.blood pressure has improved. patient currently resting comfortably in bed reports improvement with pain. patient denies chest pain or shortness breath. Patient denies nausea vomiting or diarrhea. Patient denies any urinary burning or frequency On 10/09/2020 patient was seen and examined in the ICU she is alert and oriented 3 in no apparent distress she underwent an EGD this morning by Dr. Hess, which revealed evidence of antral gastritis, hiatal hernia, mild esophagitis, and no evidence of gastrointestinal bleeding, patient is clinically stable she is alert and oriented 3 she is still complaining of pain in the epigastric and right upper quadrant area otherwise she denies any complaints there is no fever or chills no headache or dizziness no chest pain no shortness of breath no cough no nausea or vomiting no diarrhea no blood in the stools no burning with urination no frequency or urgency and no hematuria . Bilirubin, AST ALT and alkaline phosphatase are declining today. On 10/10/2020 patient was seen and examined in the ICU she is alert and oriented 3 in no apparent distress she underwent an EGD this morning by Dr. Hess, which revealed evidence of antral gastritis, hiatal hernia, mild esophagitis, and no evidence of gastrointestinal bleeding, patient is clinically stable she is alert and oriented 3 she is still complaining of pain in the epigastric and right upper quadrant area otherwise she denies any complaints there is no fever or chills no headache or dizziness no chest pain no shortness of breath no cough no nausea or vomiting no diarrhea no blood in the stools no burning with urination no frequency or urgency and no hematuria . Bilirubin, AST ALT and alkaline phosphatase are declining today. Pathology report in the computer is still pending however, oral report from Dr. Hess, patient is positive for cancer, consultation for Dr. Mahmood is requested. on 10/11/2020 patient was seen and examined on the medical floor she is alert and oriented 3 in no distress she is complaining of constipation and tenderness in the right upper quadrant otherwise she denies any complaints, there is no fever or chills no headache or dizziness no chest pain no shortness of breath no cough no nausea or vomiting no abdominal pain no diarrhea no blood in the stools no burning with urination no frequency or urgency and no hematuria. patient is aware of cancer diagnosis. On 10/12/2020 patient's alert and oriented 3 resting in bed. Patient does appear more short of breath. Pulmonary services reconsulted. Heart rate also elevated patient has known chronic persistent atrial fibrillation discussed with cardiology team medications to be adjusted due to recent hypotension. At this time patient denies any acute complaints. Patient denies chest pain. Patient denies nausea vomiting or diarrhea. Patient denies any urinary burning or frequency On 10/13/2020 patient was seen and examined on the medical floor she is alert and oriented 3 in no distress , patient is complaining of constipation and disc omfort in the rectal area otherwise she denies any complaints there is no fever or chills no headache or dizziness no chest pain no shortness of breath no cough no nausea or vomiting no abdominal pain no diarrhea no blood in the stools no burning with urination no frequency or urgency and no hematuria hemoglobin is down to 7.5 today Will monitor closely Objective - Vital Signs Vital signs: Vital Signs Temp 98.3 F 10/13/20 08:05 Pulse 91 10/13/20 08:05 Resp 16 10/13/20 08:05 BP 124/71 10/13/20 08:05 Pulse Ox 95 10/13/20 08:05 Intake & Output 10/12/20 10/13/20 10/13/20 18:59 06:59 18:59 Output Total 80 210 40 Balance -80 -210 -40 Output: Drainage 80 210 40 Right Abdomen 80 210 40 Other: Voiding Method Toilet Toilet # Voids 1 - Exam In general patient is alert and oriented 3 in no apparent distress HEENT head normocephalic and atraumatic patient has clear jaundice Neck is supple no JVD no goiter no lymphadenopathy no carotid bruit Chest exam is clear to auscultation no crackles no wheezing Cardiac exam reveals irregular heart beat S1 and S2 no gallops no murmurs Abdomen is soft with tenderness in the epigastric and right upper quadrant area no organomegaly no palpable masses was normal bowel sounds Extremity exam reveals no edema no cyanosis or clubbing Neurological examination reveals no gross focal deficit - Labs CBC & Chem 7: 10/13/20 06:06 10/13/20 06:06 Labs: Abnormal Lab Results - Last 24 Hours (Table) 10/13/20 10/13/20 Range/Units 06:06 06:06 WBC 15.19 H (4.50-10.00) X 10*3/uL RBC 2.39 L (4.10-5.20) X 10*6/uL Hgb 7.5 L (12.0-15.0) g/dL Hct 24.5 L (37.2-46.3) % MCV 102.5 H (80.0-97.0) fL MCHC 30.6 L (32.0-37.0) g/dL RDW 17.1 H (11.5-14.5) % Absolute Nucleated RBC 0.04 H (0.00-0.00) X 10*3/uL NRBC/100 WBC Diff 0.3 H (0.0-0.0) /100 WBCS BUN 28.0 H (9.0-27.0) mg/dL BUN/Creatinine Ratio 35.00 H (12.00-20.00) Ratio Calcium 8.0 L (8.7-10.3) mg/dL Total Bilirubin 1.4 H (0.2-1.2) mg/dL AST 49 H (13-35) U/L Total Protein 4.7 L (6.2-8.2) g/dL Albumin 2.80 L (3.80-4.90) g/dL Albumin/Globulin Ratio 1.47 L (1.60-3.17) g/dL Assessment and Plan Plan: Acute cholelithiasis, status post laparoscopic cholecystectomy Jaundice with dilated common bile duct rule out choledocholithiasis Evidence of dehydration with pre renal azotemia Underlying history of hypertension Underlying history of hyperlipidemia Underlying history of gout Underlying history of paroxysmal atrial fibrillation. cardiology services are following. Roland currently on hold Underlying history of anemia Patient is improving will monitor labs closely to assess if patient still needs ERCP Gait disturbance patient requires wheelchair to complete ADL which is unable to be done with a walker or a cane because of weakness and unsteady gait patient is able to propel himself and has a caregiver at home that will be able to assist. Increased shortness of breath. Will order chest x-ray. Reconsulted pulmonary services Patient transferred to telemetry floor patient remains on Rocephin IV antibiotics Surgical, GI, cardiology and critical care services are following Repeat labs ordered for a.m.
[2020-10-13 10:51] LABS: Prothrombin Time 10.8 sec (9.0-12.0)
[2020-10-13] MEDS: LACTULOSE 20 GM/30 ML CUP PO SCH (11:01)
[2020-10-13 11:02] LABS: Basophils # (A) 0.02 X 10*3/uL (0.00-0.10); Basophils % (A) 0.1 %; Eosinophils # (A) 0.12 X 10*3/uL (0.04-0.35); Eosinophils % (A) 0.8 %; Lymphocytes # (A) 1.23 X 10*3/uL (0.90-5.00); Lymphocytes % (A) 8.1 %; Monocytes # (A) 1.76 X 10*3/uL (0.20-1.00); Monocytes % (A) 11.6 %; Neutrophils # (A) 11.96 X 10*3/uL (1.80-7.70); Neutrophils % (A) 78.7 %
[2020-10-13 11:03] LABS: Hypochromasia (M) 2+
--- NOTE | 2020-10-13 13:09 | P.PN ---
Subjective Progress Note Date: 10/13/20 CHIEF COMPLAINT: Abdominal pain HISTORY OF PRESENT ILLNESS: Patient is status post laparoscopic cholecystectomy for acute cholecystitis. She is postop day #8. Patient did report 1 episode of a small amount of emesis this morning after eating. She is passing gas. She did have small bowel movements yesterday after lactulose and enema. Medicine service has ordered daily lactulose. She reports her pain is controlled. She is on a regular diet. She is afebrile. WBC 15.19 Hgb 7.5. Patient's Eliquis currently on hold for left thoracentesis. She is status post EGD on 10/09/20 which had shown antral gastritis, mild hiatal hernia and mild esophagitis and no evidence of upper GI bleed. PHYSICAL EXAM: VITAL SIGNS: Reviewed. GENERAL: Well-developed in no acute distress. HEENT: No sclera icterus. Extraocular movements grossly intact. Moist buccal mucosa. Head is atraumatic, normocephalic. ABDOMEN: Soft. Nondistended. Incision sites clean dry and and intact. HERMAN drain sanguineous fluid. NEUROLOGIC: Alert and oriented. Cranial nerves II through XII grossly intact. ASSESSMENT: 1. Cholecystitis status post laparoscopic cholecystectomy 2. Symptomatic anemia requiring 1 unit of blood 3. Coffee-ground emesis possibly due to gastritis. Now resolved 4. Gallbladder adenocarcinoma PLAN: -Continue supportive care -Continue Protonix -Continue antibiotics -Continue regular diet -Continue pain medication as needed -Encouraged incentive spirometer -Encourage patient to ambulate Physician Concrete Curer note has been reviewed by physician. Signing provider agrees with the documented findings, assessment, and plan of care. Objective - Vital Signs Vital signs: Vital Signs Temp 98.3 F 10/13/20 08:05 Pulse 91 10/13/20 08:05 Resp 16 10/13/20 08:05 BP 124/71 10/13/20 08:05 Pulse Ox 95 10/13/20 08:05 Intake & Output 10/12/20 10/13/20 10/13/20 18:59 06:59 18:59 Output Total 80 210 40 Balance -80 -210 -40 Output: Drainage 80 210 40 Right Abdomen 80 210 40 Other: Voiding Method Toilet Toilet # Voids 1 - Labs CBC & Chem 7: 10/13/20 06:06 10/13/20 06:06 Labs: Abnormal Lab Results - Last 24 Hours (Table) 10/13/20 10/13/20 Range/Units 06:06 06:06 WBC 15.19 H (4.50-10.00) X 10*3/uL RBC 2.39 L (4.10-5.20) X 10*6/uL Hgb 7.5 L (12.0-15.0) g/dL Hct 24.5 L (37.2-46.3) % MCV 102.5 H (80.0-97.0) fL MCHC 30.6 L (32.0-37.0) g/dL RDW 17.1 H (11.5-14.5) % Absolute Nucleated RBC 0.04 H (0.00-0.00) X 10*3/uL Immature Gran # 0.10 H (0.00-0.04) X 10*3/uL Neutrophils # 11.96 H (1.80-7.70) X 10*3/uL Monocytes # 1.76 H (0.20-1.00) X 10*3/uL NRBC/100 WBC Diff 0.3 H (0.0-0.0) /100 WBCS BUN 28.0 H (9.0-27.0) mg/dL BUN/Creatinine Ratio 35.00 H (12.00-20.00) Ratio Calcium 8.0 L (8.7-10.3) mg/dL Total Bilirubin 1.4 H (0.2-1.2) mg/dL AST 49 H (13-35) U/L Total Protein 4.7 L (6.2-8.2) g/dL Albumin 2.80 L (3.80-4.90) g/dL Albumin/Globulin Ratio 1.47 L (1.60-3.17) g/dL
--- NOTE | 2020-10-13 16:43 | P.PN ---
Subjective Progress Note Date: 10/13/20 Principal diagnosis: Acute upper GI bleeding and acute cholecystitis This is an 85-year-old female with history of multiple medical problems including hepatitis C, coronary artery disease, chronic atrial fibrillation, normally on eliquis, hypertension, hypercholesterolemia, patient presented to the hospital initially on 10/01/2020, and she was mostly complaining of abdominal pain, and jaundice. Patient has been noticing darker urine. She was also having intermittent postprandial abdominal pain. Her ultrasound of the abdomen showed dilated gallbladder with gallstone there was also evidence of large common bile duct, felt to be related to chronic gallbladder dysfunction. Patient was noted to have mildly elevated liver function tests, and hyperbilirubinemia. Patient was seen by gastroenterology, and she underwent ERCP, however this was unsuccessful, and it was aborted, biopsies were taken from prominent ampulla and falls in the stomach. On 10/05, patient underwent l aparoscopic cholecystectomy by Dr. Hess. Her postoperative course has been uneventful. However on 10/07, patient developed coffee-ground emesis and a drop in her hemoglobin requiring at least 1 unit of packed RBCs given. Patient was hypotensive, transferred to the ICU, given fluids and given a unit of blood. Patient responded well to blood transfusion, in the meantime she was placed on Protonix, and today she seems to be doing much better compared to yesterday. Her anticoagulation medicine/eliquis remains on hold. The patient is scheduled to have EGD by surgery tomorrow, in the meantime she is on Protonix. Patient is also on antibiotics. Considering the patient's episode of upper GI bleeding and hypotension, patient was transferred to the ICU yesterday, and I discussed her condition with Dr. Hess prior to transfer. Today's hemoglobin is 8.9. WBC count is 15.2. Electrolytes are normal except for slightly elevated potassium of 5.3, and she has a bicarb of 16. Liver enzymes remain elevated with AST of 266 ALT of 89 and total bilirubin is 3.3. Coming down nicely from 7.7 on admission. Patient was reevaluated today on 10/09/2020, patient is still in the ICU today, feeling much better, not in any distress, she is on 3 L nasal cannula. Chest x- ray continues to show mild congestive heart failure with small left pleural effusion, hence I recommended more Lasix to be given today. IV fluid is at KVO. Patient underwent EGD today, and she was found to have mild gastritis and esophagitis, no evidence of active GI bleeding. Patient is hemodynamically stable. And she denies any abdominal pain at present, denies any shortness of breath. Again chest x-ray is concerning but I believe the patient clearly has some component of pulmonary edema, and bilateral pleural effusions, she will improve with diuretics will not require thoracentesis. WBC count is 11.9 hemogl obin is 8.4. Electrolytes are normal renal profile is normal. And liver enzymes are improving steadily. On 10/10/2020 patient seen in follow-up. No acute bleeding overnight, she is breathing comfortably, she is sitting up in the chair, she remains on Lasix, she is in -1.7 L net fluid balance over the last 24 hours, her pulse ox on 1 L of oxygen is 94%, vital signs are stable, no hypotension, no complaints of shortness of breath or chest pain. Today's chest x-ray shows persistent cardiomegaly with small to moderate left greater than right pleural effusions, with no significant change. We'll continue diuretics. No lower extremity edema, this morning's labs have been reviewed, white blood cell count is 9.9, hemoglobin is 8.8, BUN is 21, creatinine 0.52, electrolytes are within normal l imits. On 10/14/2011 patient seen in follow-up on medical surgical floor. She is awake and alert, in no acute distress, currently on 4 L of oxygen pulse ox is 91%, blood pressures, she has had no fever or chills. Last chest x-ray was done yesterday showing small to moderate left and trace right pleural effusion with adjacent atelectasis. Shows some improvement from prior exam. Her diuretics h ave been converted to oral diuretics 40 mg of Lasix twice daily. Patient continues to maintain negative net fluid loss, no complaints of chest pain, no worsening dyspnea, no worsening cough or hypoxia. Today's labs have been reviewed showing white blood cell count of 15.1, hemoglobin of 7.5, electrolytes are within normal limits, BUN of 28 creatinine 0.8 Objective - Vital Signs Vital signs: Vital Signs Temp 97.9 F 10/13/20 13:00 Pulse 62 10/13/20 13:00 Resp 16 10/13/20 13:00 BP 118/87 10/13/20 13:00 Pulse Ox 91 L 10/13/20 13:00 Intake & Output 10/12/20 10/13/20 10/13/20 18:59 06:59 18:59 Output Total 80 210 80 Balance -80 -210 -80 Output: Drainage 80 210 80 Right Abdomen 80 210 80 Other: Voiding Method Toilet Toilet # Voids 1 - Exam GENERAL EXAM: Alert, very pleasant 85-year-old white female, on 4 L of oxygen, with a pulse ox of 91% comfortable in no apparent distress. HEAD: Normocephalic/atraumatic. EYES: Normal reaction of pupils, equal size. Conjunctiva pink, sclera white. NOSE: Clear with pink turbinates. THROAT: No erythema or exudates. NECK: No masses, no JVD, no thyroid enlargement, no adenopathy. CHEST: No chest wall deformity. Symmetrical expansion. LUNGS: Equal air entry with no crackles, wheeze, rhonchi or dullness. CVS: Regular rate and rhythm, normal S1 and S2, no gallops, no murmurs, no rubs ABDOMEN: Soft, nontender. No hepatosplenomegaly, normal bowel sounds, no guarding or rigidity. EXTREMITIES: No clubbing, no edema, no cyanosis, 2+ pulses and upper and lower extremities. MUSCULOSKELETAL: Muscle strength and tone normal. SPINE: No scoliosis or deformity SKIN: No rashes CENTRAL NERVOUS SYSTEM: Alert and oriented -3. No focal deficits, tone is normal in all 4 extremities. PSYCHIATRIC: Alert and oriented -3. Appropriate affect. Intact judgment and insight. - Labs CBC & Chem 7: 10/13/20 06:06 10/13/20 06:06 Labs: Abnormal Lab Results - Last 24 Hours (Table) 10/13/20 10/13/20 Range/Units 06:06 06:06 WBC 15.19 H (4.50-10.00) X 10*3/uL RBC 2.39 L (4.10-5.20) X 10*6/uL Hgb 7.5 L (12.0-15.0) g/dL Hct 24.5 L (37.2-46.3) % MCV 102.5 H (80.0-97.0) fL MCHC 30.6 L (32.0-37.0) g/dL RDW 17.1 H (11.5-14.5) % Absolute Nucleated RBC 0.04 H (0.00-0.00) X 10*3/uL Immature Gran # 0.10 H (0.00-0.04) X 10*3/uL Neutrophils # 11.96 H (1.80-7.70) X 10*3/uL Monocytes # 1.76 H (0.20-1.00) X 10*3/uL NRBC/100 WBC Diff 0.3 H (0.0-0.0) /100 WBCS BUN 28.0 H (9.0-27.0) mg/dL BUN/Creatinine Ratio 35.00 H (12.00-20.00) Ratio Calcium 8.0 L (8.7-10.3) mg/dL Total Bilirubin 1.4 H (0.2-1.2) mg/dL AST 49 H (13-35) U/L Total Protein 4.7 L (6.2-8.2) g/dL Albumin 2.80 L (3.80-4.90) g/dL Albumin/Globulin Ratio 1.47 L (1.60-3.17) g/dL Assessment and Plan Plan: Assessment: #1. Acute upper GI bleeding with coffee ground emesis requiring transfusion with 1 unit of PRBC, EGD showed mild esophagitis but no evidence of upper GI bleeding #2. Acute cholecystitis status post failed ERCP status post laparoscopic cholecystectomy #3. Acute blood loss anemia status post 1 unit of packed red blood cells #4. Chronic A. fib #5. Choledocholithiasis #6. Obstructive jaundice #7. Acute hypoxic respiratory failure related to acute blood loss anemia, hypo volemic hypotension, and bilateral left greater than right pleural effusions Plan: Continue oral diuretics, continue weaning FiO2 to keep O2 sat at or greater than 90%, patient is breathing comfortably, no worsening dyspnea and hypoxia, she is maintaining negative fluid balance. Culture data remains negative, she's had no fever or chills, ear has been no further bleeding, hemoglobin today 7.5. Encourage deep breathing and coughing, increase activity as tolerated, patient is working on physical therapy, will await their recommendation in terms of ECF after discharge. From pulmonary perspective remains stable and can be considered for discharge when cleared by the consultants and medicine. I performed a history & physical examination of the patient and discussed their management with my nurse practitioner, Saranya Leavitt. I reviewed the nurse practitioner's note and agree with the documented findings and plan of care. Lung sounds are positive for diminished breath sounds. The findings and the impression was discussed with the patient. I attest to the documentation by the nurse practitioner. Time with Patient: Less than 30
[2020-10-14] MEDS: SODIUM CHLORIDE 0.9% 1,000 ML IV SCH (01:31)
[2020-10-14] MEDS: POTASSIUM CHLORIDE ER 10 MEQ TAB.ER.PRT PO SCH (07:30)
[2020-10-14] MEDS: allopurinoL 300 MG TAB PO SCH (07:30)
[2020-10-14] MEDS: FUROSEMIDE 40 MG TAB PO SCH ×2 (07:31→15:32)
[2020-10-14] MEDS: PANTOPRAZOLE 40 MG/10 ML VIAL IVP SCH (07:32)
[2020-10-14] MEDS: VERAPAMIL SR 240 MG TABLET.ER PO SCH (07:32)
[2020-10-14] MEDS: LACTULOSE 20 GM/30 ML CUP PO SCH (07:32)
[2020-10-14 09:12] LABS: Basophils # (A) 0.03 X 10*3/uL (0.00-0.10); Basophils % (A) 0.2 %; Eosinophils # (A) 0.17 X 10*3/uL (0.04-0.35); Eosinophils % (A) 1.2 %; HCT 25.9 % (37.2-46.3); HGB 7.9 g/dL (12.0-15.0); Lymphocytes # (A) 1.22 X 10*3/uL (0.90-5.00); Lymphocytes % (A) 8.5 %; MCH 31.2 pg (27.0-32.0); MCHC 30.5 g/dL (32.0-37.0); MCV 102.4 fL (80.0-97.0); Mean Platelet Volume 11.9 fL (9.5-12.2); Monocytes % (A) 11.8 %; Neutrophils # (A) 11.14 X 10*3/uL (1.80-7.70); Neutrophils % (A) 77.7 %; Platelet Count 304 X 10*3/uL (140-440); RBC 2.53 X 10*6/uL (4.10-5.20); RDW 16.9 % (11.5-14.5); WBC 14.35 X 10*3/uL (4.50-10.00)
--- NOTE | 2020-10-14 10:22 | P.PN ---
Subjective HISTORY OF PRESENTING ILLNESS The pleasant 85-year-old female patient who was admitted with cholecystitis and underwent cholecystectomy. She is postop day #7. She has a history of chronic persistent atrial fibrillation. She did have evidence of coffee ground emesis postoperatively and underwent EGD which showed no evidence of bleeding. Biopsy of the gallbladder showed evidence of malignancy. 10/13 Patient seen and examined. Patient was placed on Lasix 40 mg by mouth twice a day yesterday. She still has some shortness breath, denies any orthopnea. Pulse ox of 92 on 4 L nasal cannula. Heart rates have been controlled in the 50s to 80s. Blood pressures borderline with systolics in the 100s. She admits to chronically being somewhat lightheaded when she stands up too quickly. She admits to still feeling constipated and states she received an enema yesterday. Denies any hematochezia or melena. Her anticoagulation has been stopped secondary to anemia. 10/14 Patient seen and examined. Patient has been continued on Lasix 40 mg twice a day. She admits to good urine output with this. She denies feeling short of breath however at times has visual conversational dyspnea. She does admit to frequent gas and upset stomach. She denies any chest pain or pressure. She continues to be off of any anticoagulation and hemoglobin has been fairly stable, 8.3, 7.5 and 7.9 over the last 24 hours. ProBNP was noted to be elevated 2470 yesterday. Blood pressures in the 110s over 70s. Pulse ox 97% on 4 L nasal cannula. REVIEW OF SYSTEMS At the time of my exam: CONSTITUTIONAL: Denies fever or chills. CARDIOVASCULAR: Denies chest pain, +mild shortness of breath, no orthopnea, PND or palpitations. RESPIRATORY: Denies cough. GASTROINTESTINAL: +abdominal pain, no diarrhea, +constipation, no nausea or vomiting. HEMATOLOGIC: +history of anemia, no bleeding. PHYSICAL EXAMINATION Vital signs reviewed. CONSTITUTIONAL: No apparent distress, chronically ill-appearing. HEENT: Head is normocephalic. Pupils are equal, round. Sclerae anicteric. Mucous membranes of the mouth are moist. No JVD. No carotid bruit. CHEST EXAMINATION: Decreased breath sounds at bases. HEART EXAMINATION: Irregular rate and rhythm. S1, S2 heard. +2/6 systolic murmur, no gallops or rub. ABDOMEN: Soft, nontender. Positive bowel sounds. EXTREMITIES: 2+ peripheral pulses, no lower extremity edema and no calf tenderness. NEUROLOGIC EXAMINATION: Patient is awake, alert and oriented x3. ASSESSMENT 1 GI bleeding 2 acute cholelithiasis status post cholecystectomy on October 05 3 pathology positive for malignancy of the gallbladder 4 chronic persistent atrial fibrillation, anticoagulation held secondary to anemia 5 hypertension, currently borderline hypotension 6 anemia stable 7 Chronic orthostatic hypotension with lightheadedness with standing. Suspect component of deconditioning as well 8 Leukocytosis 9 PCM with albumin 2.4 10 Constipation 11 acute on chronic hypoxic respiratory failure. CTA showed concern of bilateral infiltrates and pleural effusions 10/10/20. Suspect component of heart failure plus or minus pneumonia 12 acute on chronic diastolic heart failure PLAN Continue with diuresis as kidney function has been stable and appears to have improvement of pleural effusions by most recent x-ray. ProBNP noted to be elevated and some component of heart failure plus or minus pneumonia. Pulmonary recommendations. She did. HR's controlled on Atenolol 12.5mg TID. Borderline BP's. Echo 10/08 showed normal EF 55-60%, moderate TR, RVSP 48, mild to moderate MR. Continue supportive care. Eliquis being held for anemia. Restart when OK with GI. No reported hematochezia or melena per patient. Objective - Vital Signs Vital signs: Vital Signs Temp 97.6 F 10/14/20 08:00 Pulse 100 10/14/20 08:00 Resp 18 10/14/20 08:00 BP 113/71 10/14/20 08:00 Pulse Ox 97 10/14/20 08:00 Intake & Output 10/13/20 10/14/20 10/14/20 18:59 06:59 18:59 Output Total 80 70 Balance -80 -70 Output: Drainage 80 70 Right Abdomen 80 70 Other: Voiding Method Toilet Toilet - Labs CBC & Chem 7: 10/14/20 06:00 10/13/20 06:06 Labs: Abnormal Lab Results - Last 24 Hours (Table) 10/13/20 10/14/20 Range/Units 06:06 06:00 WBC 14.35 H (4.50-10.00) X 10*3/uL RBC 2.53 L (4.10-5.20) X 10*6/uL Hgb 7.9 L (12.0-15.0) g/dL Hct 25.9 L (37.2-46.3) % MCV 102.4 H (80.0-97.0) fL MCHC 30.5 L (32.0-37.0) g/dL RDW 16.9 H (11.5-14.5) % Absolute Nucleated RBC 0.03 H (0.00-0.00) X 10*3/uL Immature Gran # 0.10 H 0.09 H (0.00-0.04) X 10*3/uL Neutrophils # 11.96 H 11.14 H (1.80-7.70) X 10*3/uL Monocytes # 1.76 H 1.70 H (0.20-1.00) X 10*3/uL NRBC/100 WBC Diff 0.2 H (0.0-0.0) /100 WBCS
[2020-10-14 10:42] LABS: African American GFR (CKD) 77.9 (60.0-200.0); Albumin/Globulin Ratio 1.58 (1.60-3.17); Anion Gap 8.2 mmol/L (4.00-12.00); BUN/Creat Ratio 32.5 Ratio (12.00-20.00); Carbon Dioxide 30.8 mmol/L (21.6-31.8); Globulin 1.9 g/dL (1.6-3.3); Non-African American GFR(CKD) 67.2 (60.0-200.0); Potassium 3.8 mmol/L (3.5-5.5); Total Bilirubin 1.4 mg/dL (0.3-1.2); Total Protein 4.9 g/dL (6.2-8.2)
[2020-10-14 12:20] LABS: Appearance,Urine Clear (Clear); Bilirubin,Urine Negative (Negative); Blood,Urine Negative (Negative); Color,Urine Yellow; Glucose,Urine (UA) Negative (Negative); Ketones,Urine Negative (Negative); Leukocyte Esterase,Urine Negative (Negative); Nitrite,Urine Negative (Negative); Protein,Urine Negative (Negative); Urobilinogen,Urine <2.0 mg/dL (<2.0)
--- NOTE | 2020-10-14 12:35 | P.PN ---
Subjective Progress Note Date: 10/14/20 CHIEF COMPLAINT: Abdominal pain HISTORY OF PRESENT ILLNESS: Patient is status post laparoscopic cholecystectomy for acute cholecystitis. She is postop day #9. Patient reported a small amount of vomiting this morning with breakfast. She has been having bowel movements and passing gas. She reports her pain is controlled. She is scheduled for thoracentesis today. Afebrile. WBC 14.35 Hgb 7.9 PHYSICAL EXAM: VITAL SIGNS: Reviewed. GENERAL: Well-developed in no acute distress. HEENT: No sclera icterus. Extraocular movements grossly intact. Moist buccal mucosa. Head is atraumatic, normocephalic. ABDOMEN: Soft. Nondistended. Incision sites clean dry and and intact. HERMAN drain sanguineous fluid. NEUROLOGIC: Alert and oriented. Cranial nerves II through XII grossly intact. ASSESSMENT: 1. Cholecystitis status post laparoscopic cholecystectomy 2. Symptomatic anemia requiring 1 unit of blood 3. Coffee-ground emesis possibly due to gastritis. Now resolved 4. Gallbladder adenocarcinoma 5. EGD on 10/09/2020 which had shown antral gastritis, mild hiatal hernia and mild esophagitis and no evidence of upper GI bleed. PLAN: -Continue supportive care -Continue Protonix -Continue antibiotics -Continue regular diet -Continue pain medication as needed -Encouraged incentive spirometer -Encourage patient to ambulate Physician Community Recreation Coordinator note has been reviewed by physician. Signing provider agrees with the documented findings, assessment, and plan of care. Objective - Vital Signs Vital signs: Vital Signs Temp 97.6 F 10/14/20 08:00 Pulse 100 10/14/20 08:00 Resp 18 10/14/20 08:00 BP 113/71 10/14/20 08:00 Pulse Ox 97 10/14/20 08:00 Intake & Output 10/13/20 10/14/20 10/14/20 18:59 06:59 18:59 Intake Total 120 Output Total 80 70 60 Balance -80 -70 60 Intake: Oral 120 Output: Drainage 80 70 60 Right Abdomen 80 70 60 Other: Voiding Method Toilet Toilet # Bowel Movements 1 - Labs CBC & Chem 7: 10/14/20 06:00 10/14/20 06:00 Labs: Abnormal Lab Results - Last 24 Hours (Table) 10/14/20 10/14/20 10/14/20 Range/Units 06:00 06:00 06:00 WBC 14.35 H (4.50-10.00) X 10*3/uL RBC 2.53 L (4.10-5.20) X 10*6/uL Hgb 7.9 L (12.0-15.0) g/dL Hct 25.9 L (37.2-46.3) % MCV 102.4 H (80.0-97.0) fL MCHC 30.5 L (32.0-37.0) g/dL RDW 16.9 H (11.5-14.5) % Absolute Nucleated RBC 0.03 H (0.00-0.00) X 10*3/uL Immature Gran # 0.09 H (0.00-0.04) X 10*3/uL Neutrophils # 11.14 H (1.80-7.70) X 10*3/uL Monocytes # 1.70 H (0.20-1.00) X 10*3/uL NRBC/100 WBC Diff 0.2 H (0.0-0.0) /100 WBCS BUN/Creatinine Ratio 32.50 H (12.00-20.00) Ratio Calcium 8.0 L (8.7-10.3) mg/dL Total Bilirubin 1.4 H (0.3-1.2) mg/dL AST 50 H (13-35) U/L C-Reactive Protein 12.4 H (<10.0) mg/L Total Protein 4.9 L (6.2-8.2) g/dL Albumin 3.00 L (3.80-4.90) g/dL Albumin/Globulin Ratio 1.58 L (1.60-3.17) g/dL
--- NOTE | 2020-10-14 14:06 | XR ---
EXAMINATION TYPE: XR chest 1V DATE OF EXAM: 10/14/2020 COMPARISON: 10/12/2020 HISTORY: 85-year-old female status post left thoracentesis TECHNIQUE: Single frontal view of the chest is obtained. FINDINGS: Heart mildly enlarged. Large retrocardiac density. Atherosclerotic arch calcifications. Hyperinflatio n. Trace left effusion and patchy left lower lung density. No appreciable pneumothorax. IMPRESSION: 1. Mild cardiomegaly and COPD. 2. Trace left effusion remains. No pneumothorax. 3. A new band of atelectasis at the left lower lung. 4. Known moderate-sized hiatal hernia.
--- NOTE | 2020-10-14 15:29 | P.PN ---
Subjective Progress Note Date: 10/14/20 Principal diagnosis: Acute upper GI bleeding and acute cholecystitis This is an 85-year-old female with history of multiple medical problems including hepatitis C, coronary artery disease, chronic atrial fibrillation, normally on eliquis, hypertension, hypercholesterolemia, patient presented to the hospital initially on 10/01/2020, and she was mostly complaining of abdominal pain, and jaundice. Patient has been noticing darker urine. She was also having intermittent postprandial abdominal pain. Her ultrasound of the abdomen showed dilated gallbladder with gallstone there was also evidence of large common bile duct, felt to be related to chronic gallbladder dysfunction. Patient was noted to have mildly elevated liver function tests, and hyperbilirubinemia. Patient was seen by gastroenterology, and she underwent ERCP, however this was unsuccessful, and it was aborted, biopsies were taken from prominent ampulla and falls in the stomach. On 10/05, patient underwent l aparoscopic cholecystectomy by Dr. Hess. Her postoperative course has been uneventful. However on 10/07, patient developed coffee-ground emesis and a drop in her hemoglobin requiring at least 1 unit of packed RBCs given. Patient was hypotensive, transferred to the ICU, given fluids and given a unit of blood. Patient responded well to blood transfusion, in the meantime she was placed on Protonix, and today she seems to be doing much better compared to yesterday. Her anticoagulation medicine/eliquis remains on hold. The patient is scheduled to have EGD by surgery tomorrow, in the meantime she is on Protonix. Patient is also on antibiotics. Considering the patient's episode of upper GI bleeding and hypotension, patient was transferred to the ICU yesterday, and I discussed her condition with Dr. Hess prior to transfer. Today's hemoglobin is 8.9. WBC count is 15.2. Electrolytes are normal except for slightly elevated potassium of 5.3, and she has a bicarb of 16. Liver enzymes remain elevated with AST of 266 ALT of 89 and total bilirubin is 3.3. Coming down nicely from 7.7 on admission. Patient was reevaluated today on 10/09/2020, patient is still in the ICU today, feeling much better, not in any distress, she is on 3 L nasal cannula. Chest x- ray continues to show mild congestive heart failure with small left pleural effusion, hence I recommended more Lasix to be given today. IV fluid is at KVO. Patient underwent EGD today, and she was found to have mild gastritis and esophagitis, no evidence of active GI bleeding. Patient is hemodynamically stable. And she denies any abdominal pain at present, denies any shortness of breath. Again chest x-ray is concerning but I believe the patient clearly has some component of pulmonary edema, and bilateral pleural effusions, she will improve with diuretics will not require thoracentesis. WBC count is 11.9 hemogl obin is 8.4. Electrolytes are normal renal profile is normal. And liver enzymes are improving steadily. On 10/10/2020 patient seen in follow-up. No acute bleeding overnight, she is breathing comfortably, she is sitting up in the chair, she remains on Lasix, she is in -1.7 L net fluid balance over the last 24 hours, her pulse ox on 1 L of oxygen is 94%, vital signs are stable, no hypotension, no complaints of shortness of breath or chest pain. Today's chest x-ray shows persistent cardiomegaly with small to moderate left greater than right pleural effusions, with no significant change. We'll continue diuretics. No lower extremity edema, this morning's labs have been reviewed, white blood cell count is 9.9, hemoglobin is 8.8, BUN is 21, creatinine 0.52, electrolytes are within normal l imits. On 10/14/2011 patient seen in follow-up on medical surgical floor. She is awake and alert, in no acute distress, currently on 4 L of oxygen pulse ox is 91%, blood pressures, she has had no fever or chills. Last chest x-ray was done yesterday showing small to moderate left and trace right pleural effusion with adjacent atelectasis. Shows some improvement from prior exam. Her diuretics h ave been converted to oral diuretics 40 mg of Lasix twice daily. Patient continues to maintain negative net fluid loss, no complaints of chest pain, no worsening dyspnea, no worsening cough or hypoxia. Today's labs have been reviewed showing white blood cell count of 15.1, hemoglobin of 7.5, electrolytes are within normal limits, BUN of 28 creatinine 0.8 On 10/14/2020 patient seen in follow-up on medical surgical floor. Patient is currently on 3 L of oxygen, with a pulse ox of 92%, she does get short of breath on exertion, however patient is generally deconditioned, she is generally weak, she is working with a walker and a physical therapist. Interventional radiology was consulted for drainage of left pleural effusion. Elirubén was held for the procedure, he can be restarted tonight, she's had no fever or chills, no recurrent bleeding, hemoglobin today 7.9, electrolytes and renal profile were within normal limits. DisCharge is pending for transfer to inpatient rehab at [facility] possibly today Objective - Vital Signs Vital signs: Vital Signs Temp 97.5 F L 10/14/20 12:36 Pulse 64 10/14/20 13:45 Resp 20 10/14/20 13:45 BP 100/57 10/14/20 14:47 Pulse Ox 92 L 10/14/20 13:45 Intake & Output 10/13/20 10/14/20 10/14/20 18:59 06:59 18:59 Intake Total 240 Output Total 80 70 60 Balance -80 -70 180 Intake: Oral 240 Output: Drainage 80 70 60 Right Abdomen 80 70 60 Other: Voiding Method Toilet Toilet # Bowel Movements 1 - Exam GENERAL EXAM: Alert, very pleasant 85-year-old white female, on 3 L of oxygen, with a pulse ox of 92% comfortable in no apparent distress. HEAD: Normocephalic/atraumatic. EYES: Normal reaction of pupils, equal size. Conjunctiva pink, sclera white. NOSE: Clear with pink turbinates. THROAT: No erythema or exudates. NECK: No masses, no JVD, no thyroid enlargement, no adenopathy. CHEST: No chest wall deformity. Symmetrical expansion. LUNGS: Equal air entry with no crackles, wheeze, rhonchi or dullness. CVS: Regular rate and rhythm, normal S1 and S2, no gallops, no murmurs, no rubs ABDOMEN: Soft, nontender. No hepatosplenomegaly, normal bowel sounds, no guarding or rigidity. EXTREMITIES: No clubbing, no edema, no cyanosis, 2+ pulses and upper and lower extremities. MUSCULOSKELETAL: Muscle strength and tone normal. SPINE: No scoliosis or deformity SKIN: No rashes CENTRAL NERVOUS SYSTEM: Alert and oriented -3. No focal deficits, tone is normal in all 4 extremities. PSYCHIATRIC: Alert and oriented -3. Appropriate affect. Intact judgment and insight. - Labs CBC & Chem 7: 10/14/20 06:00 10/14/20 06:00 Labs: Abnormal Lab Results - Last 24 Hours (Table) 10/14/20 10/14/20 10/14/20 Range/Units 06:00 06:00 06:00 WBC 14.35 H (4.50-10.00) X 10*3/uL RBC 2.53 L (4.10-5.20) X 10*6/uL Hgb 7.9 L (12.0-15.0) g/dL Hct 25.9 L (37.2-46.3) % MCV 102.4 H (80.0-97.0) fL MCHC 30.5 L (32.0-37.0) g/dL RDW 16.9 H (11.5-14.5) % Absolute Nucleated RBC 0.03 H (0.00-0.00) X 10*3/uL Immature Gran # 0.09 H (0.00-0.04) X 10*3/uL Neutrophils # 11.14 H (1.80-7.70) X 10*3/uL Monocytes # 1.70 H (0.20-1.00) X 10*3/uL NRBC/100 WBC Diff 0.2 H (0.0-0.0) /100 WBCS BUN/Creatinine Ratio 32.50 H (12.00-20.00) Ratio Calcium 8.0 L (8.7-10.3) mg/dL Total Bilirubin 1.4 H (0.3-1.2) mg/dL AST 50 H (13-35) U/L C-Reactive Protein 12.4 H (<10.0) mg/L Total Protein 4.9 L (6.2-8.2) g/dL Albumin 3.00 L (3.80-4.90) g/dL Albumin/Globulin Ratio 1.58 L (1.60-3.17) g/dL Assessment and Plan Plan: Assessment: #1. Acute upper GI bleeding with coffee ground emesis requiring transfusion with 1 unit of PRBC, EGD showed mild esophagitis but no evidence of upper GI bleeding #2. Acute cholecystitis status post failed ERCP status post laparoscopic cholecystectomy #3. Acute blood loss anemia status post 1 unit of packed red blood cells #4. Chronic A. fib #5. Choledocholithiasis #6. Obstructive jaundice #7. Acute hypoxic respiratory failure related to acute blood loss anemia, hypovolemic hypotension, and bilateral left greater than right pleural effusions Plan: Patient can be resumed on her Eliquis following her thoracentesis. Weaning FiO2, increase activity as tolerated, from pulmonary perspective she can be considered for transfer to inpatient rehab at [facility]. She can continue to be seen by pulmonary service at the [facility] if she should develop worsening dyspnea. I performed a history & physical examination of the patient and discussed their management with my nurse practitioner, Saranya Leavitt. I reviewed the nurse practitioner's note and agree with the documented findings and plan of care. Lung sounds are positive for diminished breath sounds. The findings and the impression was discussed with the patient. I attest to the documentation by the nurse practitioner. Time with Patient: Less than 30
[2020-10-14 15:44] LABS: Appearance,BF Clear; Nucleated Cells, Body Fluid 35 /uL; RBC, Body Fluid 180 /uL
--- NOTE | 2020-10-14 15:49 | US ---
Ultrasound-guided therapeutic and diagnostic thoracentesis DATE OF EXAM: 10/14/2020 CLINICAL HISTORY: Left pleural effusion The procedure was discussed with the patient. The risks, complications, benefits, and alternatives we re discussed and any questions were answered. Informed consent was obtained. The patient was placed supine on the ultrasound table and prepped and draped in the usual sterile fas hion. All elements of maximal barrier and sterile technique were utilized. Under ultrasound guidance, access into the pleural space was obtained, via the thoracentesis catheter system and direct ultrasound guidance. Ap proximately 0.7 liters of straw-colored fluid was removed. Sample sent to pathology for analysis. The patient was stable throughout the procedure and remained stable upon discharge from Department of Radiology. IMPRESSION: 1. Successful therapeutic and diagnostic thoracentesis under ultrasound guidance.
[2020-10-14 15:51] LABS: Mononuclear WBC,Body Fluid 44 %; Polynuclear WBC,Body Fluid 55 %; Total Cells Counted,Body Fluid 100
--- NOTE | 2020-10-14 16:38 | P.PN ---
Subjective Progress Note Date: 10/14/20 Dia Wood, is an 85-year-old female who presented to [facility] emergency room with a chief complaint of abdominal pain patient states that her pain started 2 days prior to admission patient also noted changes in the color of her urine in the color of her skin she had some nausea but no vomiting she had normal bowel movements. Patient was evaluated in the emergency room vital examination on presentation revealed a temperature of 98.4 pulse 105 respiration 19 and blood pressure 143/83 pulse ox 95% on room air her white blood count was 9.6 hemoglobin 13.6 platelet count 211 BUN was 28 creatinine 0.83 total bilirubin 7.7 AST 106 a LT 61 alkaline phosphatase 227 lipase was 267 , computed tomography scan of the abdomen and pelvis was done in the emergency room and revealed evidence of cholelithiasis and dilated common bile duct, liver ultrasound was done and revealed evidence of mildly dilated gallbladder with gallstone, large common bile duct and mild fatty infiltration of the liver. patient was admitted to medical floor gastroenterology consultation and surgical consultation were requested. Her past medical history is significant for history of hypertension, history of anemia, history of gout, hepatitis C, history of hyperlipidemia, history of paroxysmal atrial fibrillation, history of vitamin D deficiency. On review of systems there is no fever or chills no headache or dizziness no chest pain no shortness of breath no cough no palpitation she has some nausea but no vomiting she has abdominal pain mostly in the right upper quadrant no diarrhea no blood in the stools no burning with urination no frequency or urgency and no hematuria On 10/03/2020 patient's alert and oriented 3 resting comfortably in bed. Discussed case with surgical PA. Plans for ERCP today with possible lap osiris tomorrow. AST 88, ALT 49 in AP 179. Surgical and GI services are following. Patient reports improvement with symptoms. Patient remains on Levaquin. Patient denies chest pain or shortness breath. Patient denies nausea vomiting or diarrhea at this time. Patient denies any urinary burning or frequency On 10/04/2020 patient was seen and examined on the medical floor she is alert and oriented 3 in no apparent distress last night she had episodes of tachycardia medication were adjusted Norvasc was discontinued and atenolol was increased to 25 mg twice daily. Patient is complaining of right upper quadrant abdominal pain otherwise she denies any complaints there is no fever or chills no headache or dizziness no chest pain no shortness of breath no cough no nausea or vomiting no diarrhea no blood in the stools no burning with urination no frequency or urgency and no hematuria. Input from gastroenterology and surgery was review patient is scheduled for cholecystectomy in a.m. tomorrow. On 10/05/2020 patient was seen and examined on the medical floor she is alert and oriented 3 in no distress she just returned from surgery, there is no fever or chills no headache or dizziness no chest pain no shortness of breath no cough no nausea or vomiting no abdominal pain no diarrhea no blood in the stools no burning with urination no frequency or urgency no hematuria On 10/06/2020 patient was seen and examined on the medical floor she is alert and oriented 3 in no distress there is no fever or chills no headache or dizziness no chest pain no shortness of breath no cough she still has some tenderness in the abdomen especially in the right upper quadrant there is no nausea or vomiting no diarrhea no blood in the stools and no urinary symptoms. On 10/07/2020 patient was seen and examined on the medical floor this morning she was doing well she was alert and oriented 3 in no apparent distress, her vital exams were stable however this afternoon patient condition worsened her blood pressure was lower her hemoglobin today dropped to 7.7 she was given IV fluids and 1 unit of red blood cell transfusion was ordered due to hypotension patient was transferred to intensive care unit liver enzymes are improving total bilirubin today is down to 2.8 on 10/08/2020 patient currently resting in the intensive care unit. Patient is alert and oriented 3. plans to undergo EGD tomorrow. Total bili 3.3 AST aLT 89 alkaline phosphatase 99. Surgical, GI, cardiology and critical care services are following.blood pressure has improved. patient currently resting comfortably in bed reports improvement with pain. patient denies chest pain or shortness breath. Patient denies nausea vomiting or diarrhea. Patient denies any urinary burning or frequency On 10/09/2020 patient was seen and examined in the ICU she is alert and oriented 3 in no apparent distress she underwent an EGD this morning by Dr. Hess, which revealed evidence of antral gastritis, hiatal hernia, mild esophagitis, and no evidence of gastrointestinal bleeding, patient is clinically stable she is alert and oriented 3 she is still complaining of pain in the epigastric and right upper quadrant area otherwise she denies any complaints there is no fever or chills no headache or dizziness no chest pain no shortness of breath no cough no nausea or vomiting no diarrhea no blood in the stools no burning with urination no frequency or urgency and no hematuria . Bilirubin, AST ALT and alkaline phosphatase are declining today. On 10/10/2020 patient was seen and examined in the ICU she is alert and oriented 3 in no apparent distress she underwent an EGD this morning by Dr. Hess, which revealed evidence of antral gastritis, hiatal hernia, mild esophagitis, and no evidence of gastrointestinal bleeding, patient is clinically stable she is alert and oriented 3 she is still complaining of pain in the epigastric and right upper quadrant area otherwise she denies any complaints there is no fever or chills no headache or dizziness no chest pain no shortness of breath no cough no nausea or vomiting no diarrhea no blood in the stools no burning with urination no frequency or urgency and no hematuria . Bilirubin, AST ALT and alkaline phosphatase are declining today. Pathology report in the computer is still pending however, oral report from Dr. Hess, patient is positive for cancer, consultation for Dr. Mahmood is requested. on 10/11/2020 patient was seen and examined on the medical floor she is alert and oriented 3 in no distress she is complaining of constipation and tenderness in the right upper quadrant otherwise she denies any complaints, there is no fever or chills no headache or dizziness no chest pain no shortness of breath no cough no nausea or vomiting no abdominal pain no diarrhea no blood in the stools no burning with urination no frequency or urgency and no hematuria. patient is aware of cancer diagnosis. On 10/12/2020 patient's alert and oriented 3 resting in bed. Patient does appear more short of breath. Pulmonary services reconsulted. Heart rate also elevated patient has known chronic persistent atrial fibrillation discussed with cardiology team medications to be adjusted due to recent hypotension. At this time patient denies any acute complaints. Patient denies chest pain. Patient denies nausea vomiting or diarrhea. Patient denies any urinary burning or frequency On 10/13/2020 patient was seen and examined on the medical floor she is alert and oriented 3 in no distress , patient is complaining of constipation and disc omfort in the rectal area otherwise she denies any complaints there is no fever or chills no headache or dizziness no chest pain no shortness of breath no cough no nausea or vomiting no abdominal pain no diarrhea no blood in the stools no burning with urination no frequency or urgency and no hematuria hemoglobin is down to 7.5 today Will monitor closely. On 10/14/2020 patient was seen and examined on the medical floor she is alert and oriented 3 in no distress, she is complaining of generalized weakness otherwise she denies any complaints there is no fever or chills no headache or dizziness no chest pain no shortness of breath no cough no nausea or vomiting no abdominal pain no diarrhea and no urinary symptoms she is scheduled for thoracentesis today. Objective - Vital Signs Vital signs: Vital Signs Temp 97.6 F 10/14/20 08:00 Pulse 100 10/14/20 08:00 Resp 18 10/14/20 08:00 BP 113/71 10/14/20 08:00 Pulse Ox 97 10/14/20 08:00 Intake & Output 10/13/20 10/14/20 10/14/20 18:59 06:59 18:59 Output Total 80 70 60 Balance -80 -70 -60 Output: Drainage 80 70 60 Right Abdomen 80 70 60 Other: Voiding Method Toilet Toilet # Bowel Movements 1 - Exam In general patient is alert and oriented 3 in no apparent distress HEENT head normocephalic and atraumatic patient has clear jaundice Neck is supple no JVD no goiter no lymphadenopathy no carotid bruit Chest exam is clear to auscultation no crackles no wheezing Cardiac exam reveals irregular heart beat S1 and S2 no gallops no murmurs Abdomen is soft with tenderness in the epigastric and right upper quadrant area no organomegaly no palpable masses was normal bowel sounds Extremity exam reveals no edema no cyanosis or clubbing Neurological examination reveals no gross focal deficit - Labs CBC & Chem 7: 10/14/20 06:00 10/14/20 06:00 Labs: Abnormal Lab Results - Last 24 Hours (Table) 10/14/20 10/14/20 Range/Units 06:00 06:00 WBC 14.35 H (4.50-10.00) X 10*3/uL RBC 2.53 L (4.10-5.20) X 10*6/uL Hgb 7.9 L (12.0-15.0) g/dL Hct 25.9 L (37.2-46.3) % MCV 102.4 H (80.0-97.0) fL MCHC 30.5 L (32.0-37.0) g/dL RDW 16.9 H (11.5-14.5) % Absolute Nucleated RBC 0.03 H (0.00-0.00) X 10*3/uL Immature Gran # 0.09 H (0.00-0.04) X 10*3/uL Neutrophils # 11.14 H (1.80-7.70) X 10*3/uL Monocytes # 1.70 H (0.20-1.00) X 10*3/uL NRBC/100 WBC Diff 0.2 H (0.0-0.0) /100 WBCS BUN/Creatinine Ratio 32.50 H (12.00-20.00) Ratio Calcium 8.0 L (8.7-10.3) mg/dL Total Bilirubin 1.4 H (0.3-1.2) mg/dL AST 50 H (13-35) U/L Total Protein 4.9 L (6.2-8.2) g/dL Albumin 3.00 L (3.80-4.90) g/dL Albumin/Globulin Ratio 1.58 L (1.60-3.17) g/dL Assessment and Plan Plan: 1. Acute cholelithiasis, status post laparoscopic cholecystectomy 2. Jaundice with dilated common bile duct rule out choledocholithiasis 3. Evidence of dehydration with pre renal azotemia 4. Underlying history of hypertension 5. Underlying history of hyperlipidemia 6. Underlying history of gout 7. Underlying history of paroxysmal atrial fibrillation. cardiology services are following. Roland currently on hold 8. Underlying history of anemia 9. Pleural effusion patient is scheduled for thoracentesis today 10. Gait disturbance patient requires wheelchair to complete ADL which is unable to be done with a walker or a cane because of weakness and unsteady gait patient is able to propel himself and has a caregiver at home that will be able to assist. patient remains on Rocephin IV antibiotics, her white blood count is increasing Will consult infectious disease Surgical, GI, cardiology and critical care services are following Repeat labs ordered for a.m.
[2020-10-14] MEDS: PANTOPRAZOLE 40 MG TABLET PO SCH (22:55)
[2020-10-14] MEDS: APIXABAN 5 MG TAB PO SCH (22:55)
[2020-10-15] MEDS: SODIUM CHLORIDE 0.9% 1,000 ML IV SCH (00:08)
[2020-10-15 05:21] LABS: Total Protein, Body Fluid 770 mg/dL
[2020-10-15 05:36] LABS: Amylase, Fluid Source Pleural Fluid; LDH, Body Fluid Source Pleural Fluid
[2020-10-15] MEDS: traMADol 50 MG TAB PO PRN ×3 (06:27→19:08)
[2020-10-15 09:06] LABS: Basophils # (A) 0.02 X 10*3/uL (0.00-0.10); Basophils % (A) 0.2 %; Eosinophils # (A) 0.13 X 10*3/uL (0.04-0.35); HGB 7.8 g/dL (12.0-15.0); Lymphocytes # (A) 1.14 X 10*3/uL (0.90-5.00); Lymphocytes % (A) 8.9 %; MCH 30.7 pg (27.0-32.0); MCV 102.4 fL (80.0-97.0); Mean Platelet Volume 11.8 fL (9.5-12.2); Monocytes # (A) 1.48 X 10*3/uL (0.20-1.00); Monocytes % (A) 11.5 %; Neutrophils # (A) 9.98 X 10*3/uL (1.80-7.70); Neutrophils % (A) 77.5 %; Platelet Count 299 X 10*3/uL (140-440); RBC 2.54 X 10*6/uL (4.10-5.20); RDW 16.8 % (11.5-14.5); WBC 12.86 X 10*3/uL (4.50-10.00)
[2020-10-15 09:14] LABS: African American GFR (CKD) 91.6 (60.0-200.0); Albumin 2.8 g/dL (3.80-4.90); Albumin/Globulin Ratio 1.56 (1.60-3.17); Anion Gap 7.9 mmol/L (4.00-12.00); BUN/Creat Ratio 32.86 Ratio (12.00-20.00); Calcium 7.9 mg/dL (8.7-10.3); Carbon Dioxide 31.1 mmol/L (21.6-31.8); Globulin 1.8 g/dL (1.6-3.3); Potassium 3.6 mmol/L (3.5-5.5); Total Bilirubin 1.2 mg/dL (0.3-1.2); Total Protein 4.6 g/dL (6.2-8.2)
[2020-10-15] MEDS: FUROSEMIDE 40 MG TAB PO SCH ×2 (09:38→15:49)
[2020-10-15] MEDS: allopurinoL 300 MG TAB PO SCH (09:39)
[2020-10-15] MEDS: VERAPAMIL SR 240 MG TABLET.ER PO SCH (09:39)
[2020-10-15] MEDS: PANTOPRAZOLE 40 MG TABLET PO SCH ×2 (09:39→20:50)
[2020-10-15] MEDS: POTASSIUM CHLORIDE ER 10 MEQ TAB.ER.PRT PO SCH (09:39)
[2020-10-15] MEDS: APIXABAN 5 MG TAB PO SCH ×2 (09:40→20:50)
[2020-10-15] MEDS: LACTULOSE 20 GM/30 ML CUP PO SCH (09:54)
--- NOTE | 2020-10-15 10:40 | P.PN ---
Subjective Progress Note Date: 10/15/20 Dia Wood, is an 85-year-old female who presented to [facility] emergency room with a chief complaint of abdominal pain patient states that her pain started 2 days prior to admission patient also noted changes in the color of her urine in the color of her skin she had some nausea but no vomiting she had normal bowel movements. Patient was evaluated in the emergency room vital examination on presentation revealed a temperature of 98.4 pulse 105 respiration 19 and blood pressure 143/83 pulse ox 95% on room air her white blood count was 9.6 hemoglobin 13.6 platelet count 211 BUN was 28 creatinine 0.83 total bilirubin 7.7 AST 106 a LT 61 alkaline phosphatase 227 lipase was 267 , computed tomography scan of the abdomen and pelvis was done in the emergency room and revealed evidence of cholelithiasis and dilated common bile duct, liver ultrasound was done and revealed evidence of mildly dilated gallbladder with gallstone, large common bile duct and mild fatty infiltration of the liver. patient was admitted to medical floor gastroenterology consultation and surgical consultation were requested. Her past medical history is significant for history of hypertension, history of anemia, history of gout, hepatitis C, history of hyperlipidemia, history of paroxysmal atrial fibrillation, history of vitamin D deficiency. On review of systems there is no fever or chills no headache or dizziness no chest pain no shortness of breath no cough no palpitation she has some nausea but no vomiting she has abdominal pain mostly in the right upper quadrant no diarrhea no blood in the stools no burning with urination no frequency or urgency and no hematuria On 10/03/2020 patient's alert and oriented 3 resting comfortably in bed. Discussed case with surgical PA. Plans for ERCP today with possible lap osiris tomorrow. AST 88, ALT 49 in AP 179. Surgical and GI services are following. Patient reports improvement with symptoms. Patient remains on Levaquin. Patient denies chest pain or shortness breath. Patient denies nausea vomiting or diarrhea at this time. Patient denies any urinary burning or frequency On 10/04/2020 patient was seen and examined on the medical floor she is alert and oriented 3 in no apparent distress last night she had episodes of tachycardia medication were adjusted Norvasc was discontinued and atenolol was increased to 25 mg twice daily. Patient is complaining of right upper quadrant abdominal pain otherwise she denies any complaints there is no fever or chills no headache or dizziness no chest pain no shortness of breath no cough no nausea or vomiting no diarrhea no blood in the stools no burning with urination no frequency or urgency and no hematuria. Input from gastroenterology and surgery was review patient is scheduled for cholecystectomy in a.m. tomorrow. On 10/05/2020 patient was seen and examined on the medical floor she is alert and oriented 3 in no distress she just returned from surgery, there is no fever or chills no headache or dizziness no chest pain no shortness of breath no cough no nausea or vomiting no abdominal pain no diarrhea no blood in the stools no burning with urination no frequency or urgency no hematuria On 10/06/2020 patient was seen and examined on the medical floor she is alert and oriented 3 in no distress there is no fever or chills no headache or dizziness no chest pain no shortness of breath no cough she still has some tenderness in the abdomen especially in the right upper quadrant there is no nausea or vomiting no diarrhea no blood in the stools and no urinary symptoms. On 10/07/2020 patient was seen and examined on the medical floor this morning she was doing well she was alert and oriented 3 in no apparent distress, her vital exams were stable however this afternoon patient condition worsened her blood pressure was lower her hemoglobin today dropped to 7.7 she was given IV fluids and 1 unit of red blood cell transfusion was ordered due to hypotension patient was transferred to intensive care unit liver enzymes are improving total bilirubin today is down to 2.8 on 10/08/2020 patient currently resting in the intensive care unit. Patient is alert and oriented 3. plans to undergo EGD tomorrow. Total bili 3.3 AST aLT 89 alkaline phosphatase 99. Surgical, GI, cardiology and critical care services are following.blood pressure has improved. patient currently resting comfortably in bed reports improvement with pain. patient denies chest pain or shortness breath. Patient denies nausea vomiting or diarrhea. Patient denies any urinary burning or frequency On 10/09/2020 patient was seen and examined in the ICU she is alert and oriented 3 in no apparent distress she underwent an EGD this morning by Dr. Hess, which revealed evidence of antral gastritis, hiatal hernia, mild esophagitis, and no evidence of gastrointestinal bleeding, patient is clinically stable she is alert and oriented 3 she is still complaining of pain in the epigastric and right upper quadrant area otherwise she denies any complaints there is no fever or chills no headache or dizziness no chest pain no shortness of breath no cough no nausea or vomiting no diarrhea no blood in the stools no burning with urination no frequency or urgency and no hematuria . Bilirubin, AST ALT and alkaline phosphatase are declining today. On 10/10/2020 patient was seen and examined in the ICU she is alert and oriented 3 in no apparent distress she underwent an EGD this morning by Dr. Hess, which revealed evidence of antral gastritis, hiatal hernia, mild esophagitis, and no evidence of gastrointestinal bleeding, patient is clinically stable she is alert and oriented 3 she is still complaining of pain in the epigastric and right upper quadrant area otherwise she denies any complaints there is no fever or chills no headache or dizziness no chest pain no shortness of breath no cough no nausea or vomiting no diarrhea no blood in the stools no burning with urination no frequency or urgency and no hematuria . Bilirubin, AST ALT and alkaline phosphatase are declining today. Pathology report in the computer is still pending however, oral report from Dr. Hess, patient is positive for cancer, consultation for Dr. Mahmood is requested. on 10/11/2020 patient was seen and examined on the medical floor she is alert and oriented 3 in no distress she is complaining of constipation and tenderness in the right upper quadrant otherwise she denies any complaints, there is no fever or chills no headache or dizziness no chest pain no shortness of breath no cough no nausea or vomiting no abdominal pain no diarrhea no blood in the stools no burning with urination no frequency or urgency and no hematuria. patient is aware of cancer diagnosis. On 10/12/2020 patient's alert and oriented 3 resting in bed. Patient does appear more short of breath. Pulmonary services reconsulted. Heart rate also elevated patient has known chronic persistent atrial fibrillation discussed with cardiology team medications to be adjusted due to recent hypotension. At this time patient denies any acute complaints. Patient denies chest pain. Patient denies nausea vomiting or diarrhea. Patient denies any urinary burning or frequency On 10/13/2020 patient was seen and examined on the medical floor she is alert and oriented 3 in no distress , patient is complaining of constipation and disc omfort in the rectal area otherwise she denies any complaints there is no fever or chills no headache or dizziness no chest pain no shortness of breath no cough no nausea or vomiting no abdominal pain no diarrhea no blood in the stools no burning with urination no frequency or urgency and no hematuria hemoglobin is down to 7.5 today Will monitor closely. On 10/14/2020 patient was seen and examined on the medical floor she is alert and oriented 3 in no distress, she is complaining of generalized weakness otherwise she denies any complaints there is no fever or chills no headache or dizziness no chest pain no shortness of breath no cough no nausea or vomiting no abdominal pain no diarrhea and no urinary symptoms she is scheduled for thoracentesis today. On 10/15/2020 patient's alert and oriented 3. Patient is status post thoracentesis on 10/14/2020. Discussed discharge planning with case management. Patient appeared to not meet criteria for inpatient rehab. Per case management patient currently refusing subacute rehab. Patient denies any chest pain. Patient reports important improvement with shortness of breath. Patient reports having loose stools. Patient denies any urinary burning or frequency. Awaiting infectious disease input white blood cell is trending down Objective - Vital Signs Vital signs: Vital Signs Temp 97.7 F 10/15/20 07:02 Pulse 110 H 10/15/20 07:02 Resp 20 10/15/20 07:02 BP 121/69 10/15/20 07:02 Pulse Ox 96 10/15/20 08:00 Intake & Output 10/14/20 10/15/20 10/15/20 18:59 06:59 18:59 Intake Total 240 Output Total 100 40 Balance 140 -40 Intake: Oral 240 Output: Drainage 100 40 Right Abdomen 100 40 Other: Voiding Method Toilet Toilet # Voids 3 # Bowel Movements 3 1 - Exam In general patient is alert and oriented 3 in no apparent distress HEENT head normocephalic and atraumatic patient has clear jaundice Neck is supple no JVD no goiter no lymphadenopathy no carotid bruit Chest exam is clear to auscultation no crackles no wheezing Cardiac exam reveals irregular heart beat S1 and S2 no gallops no murmurs Abdomen is soft with tenderness in the epigastric and right upper quadrant area no organomegaly no palpable masses was normal bowel sounds Extremity exam reveals no edema no cyanosis or clubbing Neurological examination reveals no gross focal deficit - Labs CBC & Chem 7: 10/15/20 06:02 10/15/20 06:02 Labs: Abnormal Lab Results - Last 24 Hours (Table) 10/14/20 10/14/20 10/14/20 Range/Units 06:00 06:00 06:00 WBC (4.50-10.00) X 10*3/uL RBC (4.10-5.20) X 10*6/uL Hgb (12.0-15.0) g/dL Hct (37.2-46.3) % MCV (80.0-97.0) fL MCHC (32.0-37.0) g/dL RDW (11.5-14.5) % Absolute Nucleated RBC (0.00-0.00) X 10*3/uL Immature Gran # (0.00-0.04) X 10*3/uL Neutrophils # (1.80-7.70) X 10*3/uL Monocytes # (0.20-1.00) X 10*3/uL NRBC/100 WBC Diff (0.0-0.0) /100 WBCS BUN/Creatinine Ratio 32.50 H (12.00-20.00) Ratio Calcium 8.0 L (8.7-10.3) mg/dL Total Bilirubin 1.4 H (0.3-1.2) mg/dL AST 50 H (13-35) U/L C-Reactive Protein 12.4 H (<10.0) mg/L Total Protein 4.9 L (6.2-8.2) g/dL Albumin 3.00 L (3.80-4.90) g/dL Albumin/Globulin Ratio 1.58 L (1.60-3.17) g/dL Procalcitonin 0.11 H (0.02-0.09) ng/mL 10/15/20 10/15/20 Range/Units 06:02 06:02 WBC 12.86 H (4.50-10.00) X 10*3/uL RBC 2.54 L (4.10-5.20) X 10*6/uL Hgb 7.8 L (12.0-15.0) g/dL Hct 26.0 L (37.2-46.3) % MCV 102.4 H (80.0-97.0) fL MCHC 30.0 L (32.0-37.0) g/dL RDW 16.8 H (11.5-14.5) % Absolute Nucleated RBC 0.02 H (0.00-0.00) X 10*3/uL Immature Gran # 0.11 H (0.00-0.04) X 10*3/uL Neutrophils # 9.98 H (1.80-7.70) X 10*3/uL Monocytes # 1.48 H (0.20-1.00) X 10*3/uL NRBC/100 WBC Diff 0.2 H (0.0-0.0) /100 WBCS BUN/Creatinine Ratio 32.86 H (12.00-20.00) Ratio Calcium 7.9 L (8.7-10.3) mg/dL Total Bilirubin (0.3-1.2) mg/dL AST 45 H (13-35) U/L C-Reactive Protein (<10.0) mg/L Total Protein 4.6 L (6.2-8.2) g/dL Albumin 2.80 L (3.80-4.90) g/dL Albumin/Globulin Ratio 1.56 L (1.60-3.17) g/dL Procalcitonin (0.02-0.09) ng/mL Microbiology - Last 24 Hours (Table) 10/14/20 13:45 Gram Stain - Preliminary Pleural Fluid Body Fluid Culture - Preliminary 10/14/20 13:45 Anaerobic Culture - Preliminary Pleural Fluid Assessment and Plan Plan: 1. Acute cholelithiasis, status post laparoscopic cholecystectomy. Gallbladder positive for adenocarcinoma 2. Jaundice with dilated common bile duct rule out choledocholithiasis 3. Evidence of dehydration with pre renal azotemia 4. Underlying history of hypertension 5. Underlying history of hyperlipidemia 6. Underlying history of gout 7. Underlying history of paroxysmal atrial fibrillation. cardiology services are following. Kassandraquiesha currently on hold 8. Underlying history of anemia 9. Pleural effusion status post thoracentesis 10. Gait disturbance patient requires wheelchair to complete ADL which is unable to be done with a walker or a cane because of weakness and unsteady gait patient is able to propel himself and has a caregiver at home that will be able to assist. 10. Le[address]ocytosis[address] Dr[address] Vyas has been consulted patient remains on Rocephin IV antibiotics, her white blood count is increasing Will consult infectious disease Surgical, GI, cardiology and critical care services are following Repeat labs ordered for a.m. Case management following. Discharge planning in place patient denied for in patient rehab at this time
--- NOTE | 2020-10-15 11:53 | P.PN ---
Subjective Progress Note Date: 10/15/20 CHIEF COMPLAINT: Abdominal pain HISTORY OF PRESENT ILLNESS: Patient is status post laparoscopic cholecystectomy for acute cholecystitis. She is postop day #10. Patient denies any nausea or vomiting. She reports decrease in her pain and it is controlled. She is passing gas and having bowel movements. She is status post left thoracentesis with 0.7 L of straw-colored removed. She had 80 mL of serosanguineous drainage through her HERMAN. Afebrile. WBC 12.86 hemoglobin 7.8 PHYSICAL EXAM: VITAL SIGNS: Reviewed. GENERAL: Well-developed in no acute distress. HEENT: No sclera icterus. Extraocular movements grossly intact. Moist buccal mucosa. Head is atraumatic, normocephalic. ABDOMEN: Soft. Nondistended. Incision sites clean dry and and intact. HERMAN drain sanguineous fluid. NEUROLOGIC: Alert and oriented. Cranial nerves II through XII grossly intact. ASSESSMENT: 1. Cholecystitis status post laparoscopic cholecystectomy 2. Symptomatic anemia requiring 1 unit of blood 3. Coffee-ground emesis possibly due to gastritis. Now resolved 4. Gallbladder adenocarcinoma 5. EGD on 10/09/2020 which had shown antral gastritis, mild hiatal hernia and mild esophagitis and no evidence of upper GI bleed. PLAN: -Patient can be discharged from surgical standpoint when cleared by medicine service -Patient follow up with Dr. Hess in 1 week -We'll have nursing staff discontinue HERMAN drain -Continue supportive care -Continue Protonix -Continue antibiotics -Continue regular diet -Continue pain medication as needed -Encouraged incentive spirometer -Encourage patient to ambulate Physician Director Content Marketing note has been reviewed by physician. Signing provider agrees with the documented findings, assessment, and plan of care. Objective - Vital Signs Vital signs: Vital Signs Temp 97.7 F 10/15/20 07:02 Pulse 110 H 10/15/20 07:02 Resp 20 10/15/20 07:02 BP 121/69 10/15/20 07:02 Pulse Ox 96 10/15/20 08:00 Intake & Output 10/14/20 10/15/20 10/15/20 18:59 06:59 18:59 Intake Total 240 Output Total 100 40 Balance 140 -40 Intake: Oral 240 Output: Drainage 100 40 Right Abdomen 100 40 Other: Voiding Method Toilet Diaper # Voids 3 # Bowel Movements 3 1 - Labs CBC & Chem 7: 10/15/20 06:02 10/15/20 06:02 Labs: Abnormal Lab Results - Last 24 Hours (Table) 10/14/20 10/14/20 10/15/20 Range/Units 06:00 06:00 06:02 WBC 12.86 H (4.50-10.00) X 10*3/uL RBC 2.54 L (4.10-5.20) X 10*6/uL Hgb 7.8 L (12.0-15.0) g/dL Hct 26.0 L (37.2-46.3) % MCV 102.4 H (80.0-97.0) fL MCHC 30.0 L (32.0-37.0) g/dL RDW 16.8 H (11.5-14.5) % Absolute Nucleated RBC 0.02 H (0.00-0.00) X 10*3/uL Immature Gran # 0.11 H (0.00-0.04) X 10*3/uL Neutrophils # 9.98 H (1.80-7.70) X 10*3/uL Monocytes # 1.48 H (0.20-1.00) X 10*3/uL NRBC/100 WBC Diff 0.2 H (0.0-0.0) /100 WBCS BUN/Creatinine Ratio (12.00-20.00) Ratio Calcium (8.7-10.3) mg/dL AST (13-35) U/L C-Reactive Protein 12.4 H (<10.0) mg/L Total Protein (6.2-8.2) g/dL Albumin (3.80-4.90) g/dL Albumin/Globulin Ratio (1.60-3.17) g/dL Procalcitonin 0.11 H (0.02-0.09) ng/mL 10/15/20 Range/Units 06:02 WBC (4.50-10.00) X 10*3/uL RBC (4.10-5.20) X 10*6/uL Hgb (12.0-15.0) g/dL Hct (37.2-46.3) % MCV (80.0-97.0) fL MCHC (32.0-37.0) g/dL RDW (11.5-14.5) % Absolute Nucleated RBC (0.00-0.00) X 10*3/uL Immature Gran # (0.00-0.04) X 10*3/uL Neutrophils # (1.80-7.70) X 10*3/uL Monocytes # (0.20-1.00) X 10*3/uL NRBC/100 WBC Diff (0.0-0.0) /100 WBCS BUN/Creatinine Ratio 32.86 H (12.00-20.00) Ratio Calcium 7.9 L (8.7-10.3) mg/dL AST 45 H (13-35) U/L C-Reactive Protein (<10.0) mg/L Total Protein 4.6 L (6.2-8.2) g/dL Albumin 2.80 L (3.80-4.90) g/dL Albumin/Globulin Ratio 1.56 L (1.60-3.17) g/dL Procalcitonin (0.02-0.09) ng/mL Microbiology - Last 24 Hours (Table) 10/14/20 13:45 Gram Stain - Preliminary Pleural Fluid Body Fluid Culture - Preliminary 10/14/20 13:45 Anaerobic Culture - Preliminary Pleural Fluid
--- NOTE | 2020-10-15 13:21 | P.PN ---
Subjective HISTORY OF PRESENTING ILLNESS The pleasant 85-year-old female patient who was admitted with cholecystitis and underwent cholecystectomy. She is postop day #7. She has a history of chronic persistent atrial fibrillation. She did have evidence of coffee ground emesis postoperatively and underwent EGD which showed no evidence of bleeding. Biopsy of the gallbladder showed evidence of malignancy. 10/13 Patient seen and examined. Patient was placed on Lasix 40 mg by mouth twice a day yesterday. She still has some shortness breath, denies any orthopnea. Pulse ox of 92 on 4 L nasal cannula. Heart rates have been controlled in the 50s to 80s. Blood pressures borderline with systolics in the 100s. She admits to chronically being somewhat lightheaded when she stands up too quickly. She admits to still feeling constipated and states she received an enema yesterday. Denies any hematochezia or melena. Her anticoagulation has been stopped secondary to anemia. 10/14 Patient seen and examined. Patient has been continued on Lasix 40 mg twice a day. She admits to good urine output with this. She denies feeling short of breath however at times has visual conversational dyspnea. She does admit to frequent gas and upset stomach. She denies any chest pain or pressure. She continues to be off of any anticoagulation and hemoglobin has been fairly stable, 8.3, 7.5 and 7.9 over the last 24 hours. ProBNP was noted to be elevated 2470 yesterday. Blood pressures in the 110s over 70s. Pulse ox 97% on 4 L nasal cannula. 10/15 Patient seen and examined. Patient states she feels much better than yesterday. Shortness breath is improving. She has been having increased gas and some small bowel movements. She has still been receiving Lasix 40 mg twice a day. BUN is 23, creatinine 0.7. Blood pressures systolic 90s to 120s. Heart rates borderline elevated 80s up to the 110s at time. REVIEW OF SYSTEMS At the time of my exam: CONSTITUTIONAL: Denies fever or chills. CARDIOVASCULAR: Denies chest pain, +mild shortness of breath, no orthopnea, PND or palpitations. RESPIRATORY: Denies cough. GASTROINTESTINAL: +abdominal pain, no diarrhea, +constipation, no nausea or vomiting. HEMATOLOGIC: +history of anemia, no bleeding. PHYSICAL EXAMINATION Vital signs reviewed. CONSTITUTIONAL: No apparent distress, chronically ill-appearing. HEENT: Head is normocephalic. Pupils are equal, round. Sclerae anicteric. Mucous membranes of the mouth are moist. No JVD. No carotid bruit. CHEST EXAMINATION: Decreased breath sounds at bases. HEART EXAMINATION: Irregular rate and rhythm. S1, S2 heard. +2/6 systolic murmur, no gallops or rub. ABDOMEN: Soft, nontender. Positive bowel sounds. EXTREMITIES: 2+ peripheral pulses, no lower extremity edema and no calf tenderness. NEUROLOGIC EXAMINATION: Patient is awake, alert and oriented x3. ASSESSMENT 1 GI bleeding 2 acute cholelithiasis status post cholecystectomy on October 05 3 pathology positive for malignancy of the gallbladder 4 chronic persistent atrial fibrillation, anticoagulation held secondary to anemia 5 hypertension, she has been borderline hypotension 6 anemia stable 7 Chronic orthostatic hypotension with lightheadedness with standing. Suspect component of deconditioning as well 8 Leukocytosis 9 PCM with albumin 2.4 10 Constipation 11 acute on chronic hypoxic respiratory failure. CTA showed concern of bilateral infiltrates and pleural effusions 10/10/20. Suspect component of heart failure plus or minus pneumonia 12 acute on chronic diastolic heart failure PLAN Continue twice a day dosing of Lasix for one more day and likely transition to once a day tomorrow. HR's mildly elevated at times on Atenolol 12.5mg TID however borderline BP's. Continue with current regimen. Echo 10/08 showed normal EF 55-60%, moderate TR, RVSP 48, mild to moderate MR. Continue supportive care. Eliquis being held for anemia. Restart when OK with GI. Objective - Vital Signs Vital signs: Vital Signs Temp 97.1 F L 10/15/20 13:06 Pulse 83 10/15/20 13:06 Resp 20 10/15/20 13:06 BP 90/56 10/15/20 13:06 Pulse Ox 93 L 10/15/20 13:06 Intake & Output 10/14/20 10/15/20 10/15/20 18:59 06:59 18:59 Intake Total 240 Output Total 100 40 60 Balance 140 -40 -60 Intake: Oral 240 Output: Drainage 100 40 60 Right Abdomen 100 40 60 Other: Voiding Method Toilet Diaper # Voids 3 # Bowel Movements 3 1 - Labs CBC & Chem 7: 10/15/20 06:02 10/15/20 06:02 Labs: Abnormal Lab Results - Last 24 Hours (Table) 10/14/20 10/15/20 10/15/20 Range/Units 06:00 06:02 06:02 WBC 12.86 H (4.50-10.00) X 10*3/uL RBC 2.54 L (4.10-5.20) X 10*6/uL Hgb 7.8 L (12.0-15.0) g/dL Hct 26.0 L (37.2-46.3) % MCV 102.4 H (80.0-97.0) fL MCHC 30.0 L (32.0-37.0) g/dL RDW 16.8 H (11.5-14.5) % Absolute Nucleated RBC 0.02 H (0.00-0.00) X 10*3/uL Immature Gran # 0.11 H (0.00-0.04) X 10*3/uL Neutrophils # 9.98 H (1.80-7.70) X 10*3/uL Monocytes # 1.48 H (0.20-1.00) X 10*3/uL NRBC/100 WBC Diff 0.2 H (0.0-0.0) /100 WBCS BUN/Creatinine Ratio 32.86 H (12.00-20.00) Ratio Calcium 7.9 L (8.7-10.3) mg/dL AST 45 H (13-35) U/L Total Protein 4.6 L (6.2-8.2) g/dL Albumin 2.80 L (3.80-4.90) g/dL Albumin/Globulin Ratio 1.56 L (1.60-3.17) g/dL Procalcitonin 0.11 H (0.02-0.09) ng/mL Microbiology - Last 24 Hours (Table) 10/14/20 13:45 Gram Stain - Preliminary Pleural Fluid Body Fluid Culture - Preliminary 10/14/20 13:45 Anaerobic Culture - Preliminary Pleural Fluid
--- NOTE | 2020-10-15 15:14 | P.PN ---
Subjective Progress Note Date: 10/15/20 Principal diagnosis: Acute upper GI bleeding and acute cholecystitis This is an 85-year-old female with history of multiple medical problems including hepatitis C, coronary artery disease, chronic atrial fibrillation, normally on eliquis, hypertension, hypercholesterolemia, patient presented to the hospital initially on 10/01/2020, and she was mostly complaining of abdominal pain, and jaundice. Patient has been noticing darker urine. She was also having intermittent postprandial abdominal pain. Her ultrasound of the abdomen showed dilated gallbladder with gallstone there was also evidence of large common bile duct, felt to be related to chronic gallbladder dysfunction. Patient was noted to have mildly elevated liver function tests, and hyperbilirubinemia. Patient was seen by gastroenterology, and she underwent ERCP, however this was unsuccessful, and it was aborted, biopsies were taken from prominent ampulla and falls in the stomach. On 10/05, patient underwent l aparoscopic cholecystectomy by Dr. Hess. Her postoperative course has been uneventful. However on 10/07, patient developed coffee-ground emesis and a drop in her hemoglobin requiring at least 1 unit of packed RBCs given. Patient was hypotensive, transferred to the ICU, given fluids and given a unit of blood. Patient responded well to blood transfusion, in the meantime she was placed on Protonix, and today she seems to be doing much better compared to yesterday. Her anticoagulation medicine/eliquis remains on hold. The patient is scheduled to have EGD by surgery tomorrow, in the meantime she is on Protonix. Patient is also on antibiotics. Considering the patient's episode of upper GI bleeding and hypotension, patient was transferred to the ICU yesterday, and I discussed her condition with Dr. Hess prior to transfer. Today's hemoglobin is 8.9. WBC count is 15.2. Electrolytes are normal except for slightly elevated potassium of 5.3, and she has a bicarb of 16. Liver enzymes remain elevated with AST of 266 ALT of 89 and total bilirubin is 3.3. Coming down nicely from 7.7 on admission. Patient was reevaluated today on 10/09/2020, patient is still in the ICU today, feeling much better, not in any distress, she is on 3 L nasal cannula. Chest x- ray continues to show mild congestive heart failure with small left pleural effusion, hence I recommended more Lasix to be given today. IV fluid is at KVO. Patient underwent EGD today, and she was found to have mild gastritis and esophagitis, no evidence of active GI bleeding. Patient is hemodynamically stable. And she denies any abdominal pain at present, denies any shortness of breath. Again chest x-ray is concerning but I believe the patient clearly has some component of pulmonary edema, and bilateral pleural effusions, she will improve with diuretics will not require thoracentesis. WBC count is 11.9 hemogl obin is 8.4. Electrolytes are normal renal profile is normal. And liver enzymes are improving steadily. On 10/10/2020 patient seen in follow-up. No acute bleeding overnight, she is breathing comfortably, she is sitting up in the chair, she remains on Lasix, she is in -1.7 L net fluid balance over the last 24 hours, her pulse ox on 1 L of oxygen is 94%, vital signs are stable, no hypotension, no complaints of shortness of breath or chest pain. Today's chest x-ray shows persistent cardiomegaly with small to moderate left greater than right pleural effusions, with no significant change. We'll continue diuretics. No lower extremity edema, this morning's labs have been reviewed, white blood cell count is 9.9, hemoglobin is 8.8, BUN is 21, creatinine 0.52, electrolytes are within normal l imits. On 10/14/2011 patient seen in follow-up on medical surgical floor. She is awake and alert, in no acute distress, currently on 4 L of oxygen pulse ox is 91%, blood pressures, she has had no fever or chills. Last chest x-ray was done yesterday showing small to moderate left and trace right pleural effusion with adjacent atelectasis. Shows some improvement from prior exam. Her diuretics h ave been converted to oral diuretics 40 mg of Lasix twice daily. Patient continues to maintain negative net fluid loss, no complaints of chest pain, no worsening dyspnea, no worsening cough or hypoxia. Today's labs have been reviewed showing white blood cell count of 15.1, hemoglobin of 7.5, electrolytes are within normal limits, BUN of 28 creatinine 0.8 On 10/14/2020 patient seen in follow-up on medical surgical floor. Patient is currently on 3 L of oxygen, with a pulse ox of 92%, she does get short of breath on exertion, however patient is generally deconditioned, she is generally weak, she is working with a walker and a physical therapist. Interventional radiology was consulted for drainage of left pleural effusion. Eliquis was held for the procedure, he can be restarted tonight, she's had no fever or chills, no recurrent bleeding, hemoglobin today 7.9, electrolytes and renal profile were within normal limits. DisCharge is pending for transfer to inpatient rehab at [facility] possibly today On 10/15/2020 patient seen in follow-up on medical floor, she is talkative, in no acute distress, she is on 2 L of oxygen breathing comfortably, cooperative chest pain, no worsening dyspnea, pulse ox is 93%, no fever or chills. Overall she states her breathing has improved since admission. She underwent left-sided thoracentesis by interventional radiology yesterday would removal of 700 mL of straw-colored fluid which was sent to pathology for analysis. Pleural fluid analysis shows transudative fluid, cultures are pending Objective - Vital Signs Vital signs: Vital Signs Temp 97.1 F L 10/15/20 13:06 Pulse 83 10/15/20 13:06 Resp 20 10/15/20 13:06 BP 90/56 10/15/20 13:06 Pulse Ox 93 L 10/15/20 13:06 Intake & Output 10/14/20 10/15/20 10/15/20 18:59 06:59 18:59 Intake Total 240 Output Total 100 40 60 Balance 140 -40 -60 Intake: Oral 240 Output: Drainage 100 40 60 Right Abdomen 100 40 60 Other: Voiding Method Toilet Diaper # Voids 3 # Bowel Movements 3 1 - Exam GENERAL EXAM: Alert, very pleasant 85-year-old white female, on 3 L of oxygen, with a pulse ox of 92% comfortable in no apparent distress. HEAD: Normocephalic/atraumatic. EYES: Normal reaction of pupils, equal size. Conjunctiva pink, sclera white. NOSE: Clear with pink turbinates. THROAT: No erythema or exudates. NECK: No masses, no JVD, no thyroid enlargement, no adenopathy. CHEST: No chest wall deformity. Symmetrical expansion. LUNGS: Equal air entry with no crackles, wheeze, rhonchi or dullness. CVS: Regular rate and rhythm, normal S1 and S2, no gallops, no murmurs, no rubs ABDOMEN: Soft, nontender. No hepatosplenomegaly, normal bowel sounds, no guarding or rigidity. EXTREMITIES: No clubbing, no edema, no cyanosis, 2+ pulses and upper and lower extremities. MUSCULOSKELETAL: Muscle strength and tone normal. SPINE: No scoliosis or deformity SKIN: No rashes CENTRAL NERVOUS SYSTEM: Alert and oriented -3. No focal deficits, tone is normal in all 4 extremities. PSYCHIATRIC: Alert and oriented -3. Appropriate affect. Intact judgment and insight. - Labs CBC & Chem 7: 10/15/20 06:02 10/15/20 06:02 Labs: Abnormal Lab Results - Last 24 Hours (Table) 10/14/20 10/15/20 10/15/20 Range/Units 06:00 06:02 06:02 WBC 12.86 H (4.50-10.00) X 10*3/uL RBC 2.54 L (4.10-5.20) X 10*6/uL Hgb 7.8 L (12.0-15.0) g/dL Hct 26.0 L (37.2-46.3) % MCV 102.4 H (80.0-97.0) fL MCHC 30.0 L (32.0-37.0) g/dL RDW 16.8 H (11.5-14.5) % Absolute Nucleated RBC 0.02 H (0.00-0.00) X 10*3/uL Immature Gran # 0.11 H (0.00-0.04) X 10*3/uL Neutrophils # 9.98 H (1.80-7.70) X 10*3/uL Monocytes # 1.48 H (0.20-1.00) X 10*3/uL NRBC/100 WBC Diff 0.2 H (0.0-0.0) /100 WBCS BUN/Creatinine Ratio 32.86 H (12.00-20.00) Ratio Calcium 7.9 L (8.7-10.3) mg/dL AST 45 H (13-35) U/L Total Protein 4.6 L (6.2-8.2) g/dL Albumin 2.80 L (3.80-4.90) g/dL Albumin/Globulin Ratio 1.56 L (1.60-3.17) g/dL Procalcitonin 0.11 H (0.02-0.09) ng/mL Microbiology - Last 24 Hours (Table) 10/14/20 11:33 Blood Culture - Preliminary Blood No Growth after 24 hours 10/14/20 13:45 Gram Stain - Preliminary Pleural Fluid Body Fluid Culture - Preliminary 10/14/20 13:45 Anaerobic Culture - Preliminary Pleural Fluid Assessment and Plan Plan: Assessment: #1. Acute upper GI bleeding with coffee ground emesis requiring transfusion with 1 unit of PRBC, EGD showed mild esophagitis but no evidence of upper GI bleeding #2. Acute cholecystitis status post failed ERCP status post laparoscopic cholecystectomy #3. Acute blood loss anemia status post 1 unit of packed red blood cells #4. Chronic A. fib #5. Choledocholithiasis #6. Obstructive jaundice #7. Acute hypoxic respiratory failure related to acute blood loss anemia, hypovolemic hypotension, and bilateral left greater than right pleural effusions, status post left-sided thoracentesis on 10/14/2020 by interventional radiology would removal of 700 mL of a colored fluid which was transudative Plan: Patient has been stable, she is breathing easier, wean FiO2, pleural fluid analysis has been noted, cytology and cultures are pending. Unresponsive stable, no fever or chills, increase activity as tolerated, from pulmonary perspective she stable for discharge to rehab today. She'll need outpatient follow-up with Dr. Rivero in the office in 7-10 days I performed a history & physical examination of the patient and discussed their management with my nurse practitioner, Saranya Leavitt. I reviewed the nurse practitioner's note and agree with the documented findings and plan of care. Lung sounds are positive for diminished breath sounds. The findings and the impression was discussed with the patient. I attest to the documentation by the nurse practitioner. Time with Patient: Less than 30
[2020-10-15] MEDS ORDERED: FLUCONAZOLE 100 MG TAB PO ONE (22:36)
--- NOTE | 2020-10-15 23:22 | PN ---
PROGRESS NOTE DATE OF SERVICE: 10/15/2020 REASON FOR FOLLOWUP: Leukocytosis. INTERVAL HISTORY: The patient is currently afebrile. The patient is breathing comfortably. The patient denies having any chest pain or shortness of breath. Occasional cough. No abdominal pain. No diarrhea. Has been complaining of some gas. No urinary symptoms. PHYSICAL EXAMINATION: Her blood pressure is 112/69, pulse 103, temperature 97.8. She is 93% on 2 L nasal cannula. General description is an elderly female lying in bed in no distress. RESPIRATORY SYSTEM: Unlabored breathing with decreased breath sounds at the base. No wheeze. HEART: S1, S2. Regular rate and rhythm. ABDOMEN: Soft. No tenderness. LABS: UA repeat is negative. White count is down to 12.6, hemoglobin 7.8. Chest x-ray: Effusion in this patient status post thoracocentesis, and the fluid was clear. DIAGNOSTIC IMPRESSION AND PLAN: Patient with leukocytosis in this patient who is status post laparoscopic cholecystectomy. Currently not running any fever. Does not look toxic and no obvious focus of infection to continue while waiting for the culture to finalize. Continue with supportive care. MMODL / IJN: [id number] /
[2020-10-16] MEDS: SODIUM CHLORIDE 0.9% 1,000 ML IV SCH ×2 (01:19→23:53)
[2020-10-16] MEDS: FUROSEMIDE 40 MG TAB PO SCH (08:38)
[2020-10-16] MEDS: VERAPAMIL SR 240 MG TABLET.ER PO SCH (08:38)
[2020-10-16] MEDS: PANTOPRAZOLE 40 MG TABLET PO SCH ×2 (08:38→20:57)
[2020-10-16] MEDS: allopurinoL 300 MG TAB PO SCH (08:38)
[2020-10-16] MEDS: POTASSIUM CHLORIDE ER 10 MEQ TAB.ER.PRT PO SCH (08:38)
[2020-10-16] MEDS: APIXABAN 5 MG TAB PO SCH ×2 (08:38→20:57)
[2020-10-16] MEDS: LACTULOSE 20 GM/30 ML CUP PO SCH (08:38)
[2020-10-16] MEDS: traMADol 50 MG TAB PO PRN (08:46)
[2020-10-16 09:36] LABS: Basophils # (A) 0.03 X 10*3/uL (0.00-0.10); Basophils % (A) 0.2 %; Eosinophils # (A) 0.16 X 10*3/uL (0.04-0.35); Eosinophils % (A) 1.3 %; HCT 27.2 % (37.2-46.3); HGB 8.2 g/dL (12.0-15.0); Lymphocytes # (A) 1.29 X 10*3/uL (0.90-5.00); Lymphocytes % (A) 10.6 %; MCH 30.9 pg (27.0-32.0); MCHC 30.1 g/dL (32.0-37.0); MCV 102.6 fL (80.0-97.0); Mean Platelet Volume 11.9 fL (9.5-12.2); Monocytes # (A) 1.65 X 10*3/uL (0.20-1.00); Monocytes % (A) 13.6 %; Neutrophils # (A) 8.93 X 10*3/uL (1.80-7.70); Neutrophils % (A) 73.6 %; Platelet Count 334 X 10*3/uL (140-440); RBC 2.65 X 10*6/uL (4.10-5.20); RDW 16.3 % (11.5-14.5); WBC 12.14 X 10*3/uL (4.50-10.00)
[2020-10-16 09:51] LABS: African American GFR (CKD) 91.6 (60.0-200.0); Albumin 2.9 g/dL (3.80-4.90); Albumin/Globulin Ratio 1.45 (1.60-3.17); Anion Gap 9.9 mmol/L (4.00-12.00); BUN/Creat Ratio 31.43 Ratio (12.00-20.00); Calcium 7.9 mg/dL (8.7-10.3); Carbon Dioxide 31.1 mmol/L (21.6-31.8); Potassium 3.5 mmol/L (3.5-5.5); Total Bilirubin 1.1 mg/dL (0.2-1.2); Total Protein 4.9 g/dL (6.2-8.2)
--- NOTE | 2020-10-16 10:50 | P.PN ---
Subjective This is a pleasant 85-year-old female who was admitted with cholecystitis and underwent cholecystectomy, postoperative day #11. She is seen and examined in no acute distress. No chest pain, shortness of breath, dizziness or palpitations. Blood pressure 138/86 heart rate 115. Laboratory data reviewed, WBC 12.1, hemoglobin 8.2 up from 7.8 yesterday, platelets 234, sodium 140, potassium 3.5,creatinine 0.7. Currently maintained on Eliquis 5 mg twice a day, atenolol 12.5 mg 3 times a day, Lasix 40 mg twice a day and verapamil 240 mg daily. GENERAL: Well-appearing, well-nourished and in no acute distress. NECK: Supple without JVD or thyromegaly. LUNGS: Breath sounds clear to auscultation bilaterally. Respiration equal and unlabored. No wheezes, rales or rhonchi. Diminished bilaterally. HEART: Irregular rate and rhythm with systolic ejection murmur at the base, no rubs or gallops. S1 and S2 heard. EXTREMITIES: Normal range of motion, no edema. No clubbing or cyanosis. Peripheral pulses intact. ASSESSMENT GI bleeding Acute cholelithiasis s/p cholecystectomy POD#11 Chronic persistent atrial fibrillation, eliquis currently on hold Hypertension Anemia Acute on chronic diastolic heart failure, improved PLAN Decrease lasix to daily dosing. Clinically stable from a cardiac perspective. We will follow along as needed, please call with further questions or concerns. Nurse Practitioner note has been reviewed, I agree with a documented findings and plan of care. Patient was seen and examined. Objective - Vital Signs Vital signs: Vital Signs Temp 97.8 F 10/16/20 07:30 Pulse 115 H 10/16/20 07:30 Resp 18 10/16/20 09:20 BP 138/86 10/16/20 07:30 Pulse Ox 96 10/16/20 07:30 Intake & Output 10/15/20 10/16/20 10/16/20 18:59 06:59 18:59 Output Total 60 410 Balance -60 -410 Output: Drainage 60 60 Right Abdomen 60 60 Urine 350 Other: Voiding Method Diaper Diaper Diaper # Voids 1 1 - Labs CBC & Chem 7: 10/16/20 06:01 10/16/20 06:01 Labs: Abnormal Lab Results - Last 24 Hours (Table) 10/16/20 10/16/20 Range/Units 06:01 06:01 WBC 12.14 H (4.50-10.00) X 10*3/uL RBC 2.65 L (4.10-5.20) X 10*6/uL Hgb 8.2 L (12.0-15.0) g/dL Hct 27.2 L (37.2-46.3) % MCV 102.6 H (80.0-97.0) fL MCHC 30.1 L (32.0-37.0) g/dL RDW 16.3 H (11.5-14.5) % Immature Gran # 0.08 H (0.00-0.04) X 10*3/uL Neutrophils # 8.93 H (1.80-7.70) X 10*3/uL Monocytes # 1.65 H (0.20-1.00) X 10*3/uL BUN/Creatinine Ratio 31.43 H (12.00-20.00) Ratio Calcium 7.9 L (8.7-10.3) mg/dL AST 42 H (13-35) U/L Total Protein 4.9 L (6.2-8.2) g/dL Albumin 2.90 L (3.80-4.90) g/dL Albumin/Globulin Ratio 1.45 L (1.60-3.17) g/dL Microbiology - Last 24 Hours (Table) 10/14/20 13:45 Gram Stain - Preliminary Pleural Fluid Body Fluid Culture - Preliminary 10/14/20 11:33 Blood Culture - Preliminary Blood No Growth after 24 hours
[2020-10-16] MEDS: AMOXIC-POT CLAV 875-125MG 1 EACH TAB PO SCH ×2 (11:10→20:58)
--- NOTE | 2020-10-16 14:12 | P.PN ---
Subjective Progress Note Date: 10/16/20 CHIEF COMPLAINT: Abdominal pain HISTORY OF PRESENT ILLNESS: Patient is status post laparoscopic cholecystectomy for acute cholecystitis. Patient denies any nausea or vomiting. She is complaining of gas pains. Otherwise her abdominal pain is controlled. She is passing gas and having bowel movements. She is supposed to go to [facility] when discharged. Afebrile. WBC 12.14 hemoglobin 8.2 PHYSICAL EXAM: VITAL SIGNS: Reviewed. GENERAL: Well-developed in no acute distress. HEENT: No sclera icterus. Extraocular movements grossly intact. Moist buccal mucosa. Head is atraumatic, normocephalic. ABDOMEN: Soft. Nondistended. Incision sites clean dry and and intact. Patient has clear yellowish drainage from HERMAN drain site, likely ascites. No evidence of infection. NEUROLOGIC: Alert and oriented. Cranial nerves II through XII grossly intact. ASSESSMENT: 1. Cholecystitis status post laparoscopic cholecystectomy 2. Symptomatic anemia requiring 1 unit of blood 3. Coffee-ground emesis possibly due to gastritis. Now resolved 4. Gallbladder adenocarcinoma 5. EGD on 10/09/2020 which had shown antral gastritis, mild hiatal hernia and mild esophagitis and no evidence of upper GI bleed. PLAN: -Patient can be discharged from surgical standpoint when cleared by medicine service -Patient follow up with Dr. Hses in 1 week -Continue supportive care -Continue regular diet -Continue pain medication as needed -Encouraged incentive spirometer -Encourage patient to ambulate Physician [employer] note has been reviewed by physician. Signing provider agrees with the documented findings, assessment, and plan of care. Objective - Vital Signs Vital signs: Vital Signs Temp 97.8 F 10/16/20 07:30 Pulse 115 H 10/16/20 07:30 Resp 18 10/16/20 09:20 BP 138/86 10/16/20 07:30 Pulse Ox 96 10/16/20 07:30 Intake & Output 10/15/20 10/16/20 10/16/20 18:59 06:59 18:59 Output Total 60 410 Balance -60 -410 Output: Drainage 60 60 Right Abdomen 60 60 Urine 350 Other: Voiding Method Diaper Diaper Diaper # Voids 1 1 - Labs CBC & Chem 7: 10/16/20 06:01 10/16/20 06:01 Labs: Abnormal Lab Results - Last 24 Hours (Table) 10/16/20 10/16/20 Range/Units 06:01 06:01 WBC 12.14 H (4.50-10.00) X 10*3/uL RBC 2.65 L (4.10-5.20) X 10*6/uL Hgb 8.2 L (12.0-15.0) g/dL Hct 27.2 L (37.2-46.3) % MCV 102.6 H (80.0-97.0) fL MCHC 30.1 L (32.0-37.0) g/dL RDW 16.3 H (11.5-14.5) % Immature Gran # 0.08 H (0.00-0.04) X 10*3/uL Neutrophils # 8.93 H (1.80-7.70) X 10*3/uL Monocytes # 1.65 H (0.20-1.00) X 10*3/uL BUN/Creatinine Ratio 31.43 H (12.00-20.00) Ratio Calcium 7.9 L (8.7-10.3) mg/dL AST 42 H (13-35) U/L Total Protein 4.9 L (6.2-8.2) g/dL Albumin 2.90 L (3.80-4.90) g/dL Albumin/Globulin Ratio 1.45 L (1.60-3.17) g/dL Microbiology - Last 24 Hours (Table) 10/14/20 11:33 Blood Culture - Preliminary Blood No Growth after 48 hours 10/14/20 13:45 Gram Stain - Preliminary Pleural Fluid Body Fluid Culture - Preliminary
--- NOTE | 2020-10-16 15:58 | P.PN ---
Subjective Progress Note Date: 10/16/20 Principal diagnosis: Pleural effusion. On 10/14/2011 patient seen in follow-up on medical surgical floor. She is awake and alert, in no acute distress, currently on 4 L of oxygen pulse ox is 91%, blood pressures, she has had no fever or chills. Last chest x-ray was done yesterday showing small to moderate left and trace right pleural effusion with adjacent atelectasis. Shows some improvement from prior exam. Her diuretics have been converted to oral diuretics 40 mg of Lasix twice daily. Patient continues to maintain negative net fluid loss, no complaints of chest pain, no worsening dyspnea, no worsening cough or hypoxia. Today's labs have been reviewed showing white blood cell count of 15.1, hemoglobin of 7.5, electrolytes are within normal limits, BUN of 28 creatinine 0.8 On 10/14/2020 patient seen in follow-up on medical surgical floor. Patient is currently on 3 L of oxygen, with a pulse ox of 92%, she does get short of breath on exertion, however patient is generally deconditioned, she is generally weak, she is working with a walker and a physical therapist. Interventional radiology was consulted for drainage of left pleural effusion. Eliquis was held for the procedure, he can be restarted tonight, she's had no fever or chills, no recurrent bleeding, hemoglobin today 7.9, electrolytes and renal profile were within normal limits. DisCharge is pending for transfer to inpatient rehab at [facility] possibly today On 10/15/2020 patient seen in follow-up on medical floor, she is talkative, in no acute distress, she is on 2 L of oxygen breathing comfortably, cooperative chest pain, no worsening dyspnea, pulse ox is 93%, no fever or chills. Overall she states her breathing has improved since admission. She underwent left-sided thoracentesis by interventional radiology yesterday would removal of 700 mL of straw-colored fluid which was sent to pathology for analysis. Pleural fluid analysis shows transudative fluid, cultures are pending. Progress note dated 10/16/2020. Currently, the patient seems be doing relatively well. The fluid that was removed from her pleural space, on the left, with a transudate. The protein and LDH were both very low. 700 mL was removed by interventional radiology. Currently, she is on 2 L. She's not demonstrating any respiratory difficulty or distress. She denies any chest pain or pressure. She is not having any fever or chills. She is not coughing up any phlegm. White count is 12.14, hemoglobin 8.2, hematocrit 27.2, platelet count 334,000. Sodium, potassium, chloride, CO2, anion gap, BUN, and creatinine are all normal. Urinalysis negative. Objective - Vital Signs Vital signs: Vital Signs Temp 98.6 F 10/16/20 14:13 Pulse 103 H 10/16/20 14:13 Resp 18 10/16/20 14:13 BP 116/68 10/16/20 14:13 Pulse Ox 90 L 10/16/20 14:13 Intake & Output 10/15/20 10/16/20 10/16/20 18:59 06:59 18:59 Output Total 60 410 Balance -60 -410 Output: Drainage 60 60 Right Abdomen 60 60 Urine 350 Other: Voiding Method Diaper Diaper Diaper # Voids 1 1 - Exam GENERAL EXAM: Alert, very pleasant 85-year-old white female, on 2 L of oxygen, with a pulse ox of 92% comfortable in no apparent distress. HEAD: Normocephalic/atraumatic. EYES: Normal reaction of pupils, equal size. Conjunctiva pink, sclera white. NOSE: Clear with pink turbinates. THROAT: No erythema or exudates. NECK: No masses, no JVD, no thyroid enlargement, no adenopathy. CHEST: No chest wall deformity. Symmetrical expansion. LUNGS: Equal air entry with no crackles, wheeze, rhonchi or dullness. CVS: Regular rate and rhythm, normal S1 and S2, no gallops, no murmurs, no rubs. Heart rate is 90 bpm. ABDOMEN: Soft, nontender. No hepatosplenomegaly, normal bowel sounds, no guarding or rigidity. EXTREMITIES: No clubbing, no edema, no cyanosis, 2+ pulses and upper and lower extremities. MUSCULOSKELETAL: Muscle strength and tone normal. SPINE: No scoliosis or deformity SKIN: No rashes CENTRAL NERVOUS SYSTEM: Alert and oriented -3. No focal deficits, tone is normal in all 4 extremities. PSYCHIATRIC: Alert and oriented -3. Appropriate affect. Intact judgment and insight. - Labs CBC & Chem 7: 10/16/20 06:01 10/16/20 06:01 Labs: Abnormal Lab Results - Last 24 Hours (Table) 10/16/20 10/16/20 Range/Units 06:01 06:01 WBC 12.14 H (4.50-10.00) X 10*3/uL RBC 2.65 L (4.10-5.20) X 10*6/uL Hgb 8.2 L (12.0-15.0) g/dL Hct 27.2 L (37.2-46.3) % MCV 102.6 H (80.0-97.0) fL MCHC 30.1 L (32.0-37.0) g/dL RDW 16.3 H (11.5-14.5) % Immature Gran # 0.08 H (0.00-0.04) X 10*3/uL Neutrophils # 8.93 H (1.80-7.70) X 10*3/uL Monocytes # 1.65 H (0.20-1.00) X 10*3/uL BUN/Creatinine Ratio 31.43 H (12.00-20.00) Ratio Calcium 7.9 L (8.7-10.3) mg/dL AST 42 H (13-35) U/L Total Protein 4.9 L (6.2-8.2) g/dL Albumin 2.90 L (3.80-4.90) g/dL Albumin/Globulin Ratio 1.45 L (1.60-3.17) g/dL Microbiology - Last 24 Hours (Table) 10/14/20 11:33 Blood Culture - Preliminary Blood No Growth after 48 hours 10/14/20 13:45 Gram Stain - Preliminary Pleural Fluid Body Fluid Culture - Preliminary Assessment and Plan Assessment: #1. Acute upper GI bleeding with coffee ground emesis requiring transfusion wi th 1 unit of PRBC, EGD showed mild esophagitis but no evidence of upper GI bleeding #2. Acute cholecystitis status post failed ERCP status post laparoscopic cholecystectomy #3. Acute blood loss anemia status post 1 unit of packed red blood cells #4. Chronic A. fib #5. Choledocholithiasis #6. Obstructive jaundice #7. Acute hypoxic respiratory failure related to acute blood loss anemia, hypovolemic hypotension, and bilateral left greater than right pleural effusions, status post left-sided thoracentesis on 10/14/2020 by interventional radiology would removal of 700 mL of a colored fluid which was transudative Plan: Plan dated 10/16/2020. Currently, the patient's only on 2 L nasal cannula. We will. She denies any pain or discomfort. The fluid that was removed from her left pleural space, with 700 mL, and a transudate. LDH and protein were both low. Cytology and microbiology are currently pending. To follow. Prognosis is guarded. No additional recommendations are made. Time with Patient: Less than 30
--- NOTE | 2020-10-16 16:37 | PN ---
PROGRESS NOTE DATE OF SERVICE: 10/16/2020 REASON FOR FOLLOWUP: Leukocytosis. INTERVAL HISTORY: The patient is currently afebrile. The patient is breathing comfortably. Denies having any chest pain, shortness of breath or cough. Complaining of some abdominal gas, but no vomiting and no diarrhea. PHYSICAL EXAMINATION: Blood pressure 116/68 with a pulse of 103, temperature 98.6. She is 90% on 2 L nasal cannula. General description is an elderly female up in the chair in no distress. RESPIRATORY SYSTEM: Unlabored breathing with decreased breath sounds at the base. No wheeze. HEART: S1, S2. Regular rate and rhythm. ABDOMEN: Soft. Mildly distended. No guarding or rigidity. EXTREMITIES: No edema of the feet. LABS: Hemoglobin 8.9, white count 12.14, creatinine 0.7. DIAGNOSTIC IMPRESSION AND PLAN: Patient with leukocytosis, multifactorial, in this patient who did have cholecystitis, status post cholecystectomy with this pleural effusion, status post thoracocentesis. Cultures have been negative. Will switch her over to Augmentin and monitor clinical course closely. MMODL / IJN: [id number] /
--- NOTE | 2020-10-16 17:52 | P.PN ---
Subjective Progress Note Date: 10/16/20 Dia Wood, is an 85-year-old female who presented to [facility] emergency room with a chief complaint of abdominal pain patient states that her pain started 2 days prior to admission patient also noted changes in the color of her urine in the color of her skin she had some nausea but no vomiting she had normal bowel movements. Patient was evaluated in the emergency room vital examination on presentation revealed a temperature of 98.4 pulse 105 respiration 19 and blood pressure 143/83 pulse ox 95% on room air her white blood count was 9.6 hemoglobin 13.6 platelet count 211 BUN was 28 creatinine 0.83 total bilirubin 7.7 AST 106 a LT 61 alkaline phosphatase 227 lipase was 267 , computed tomography scan of the abdomen and pelvis was done in the emergency room and revealed evidence of cholelithiasis and dilated common bile duct, liver ultrasound was done and revealed evidence of mildly dilated gallbladder with gallstone, large common bile duct and mild fatty infiltration of the liver. patient was admitted to medical floor gastroenterology consultation and surgical consultation were requested. Her past medical history is significant for history of hypertension, history of anemia, history of gout, hepatitis C, history of hyperlipidemia, history of paroxysmal atrial fibrillation, history of vitamin D deficiency. On review of systems there is no fever or chills no headache or dizziness no chest pain no shortness of breath no cough no palpitation she has some nausea but no vomiting she has abdominal pain mostly in the right upper quadrant no diarrhea no blood in the stools no burning with urination no frequency or urgency and no hematuria On 10/03/2020 patient's alert and oriented 3 resting comfortably in bed. Discussed case with surgical PA. Plans for ERCP today with possible lap osiris tomorrow. AST 88, ALT 49 in AP 179. Surgical and GI services are following. Patient reports improvement with symptoms. Patient remains on Levaquin. Patient denies chest pain or shortness breath. Patient denies nausea vomiting or diarrhea at this time. Patient denies any urinary burning or frequency On 10/04/2020 patient was seen and examined on the medical floor she is alert and oriented 3 in no apparent distress last night she had episodes of tachycardia medication were adjusted Norvasc was discontinued and atenolol was increased to 25 mg twice daily. Patient is complaining of right upper quadrant abdominal pain otherwise she denies any complaints there is no fever or chills no headache or dizziness no chest pain no shortness of breath no cough no nausea or vomiting no diarrhea no blood in the stools no burning with urination no frequency or urgency and no hematuria. Input from gastroenterology and surgery was review patient is scheduled for cholecystectomy in a.m. tomorrow. On 10/05/2020 patient was seen and examined on the medical floor she is alert and oriented 3 in no distress she just returned from surgery, there is no fever or chills no headache or dizziness no chest pain no shortness of breath no cough no nausea or vomiting no abdominal pain no diarrhea no blood in the stools no burning with urination no frequency or urgency no hematuria On 10/06/2020 patient was seen and examined on the medical floor she is alert and oriented 3 in no distress there is no fever or chills no headache or dizziness no chest pain no shortness of breath no cough she still has some tenderness in the abdomen especially in the right upper quadrant there is no nausea or vomiting no diarrhea no blood in the stools and no urinary symptoms. On 10/07/2020 patient was seen and examined on the medical floor this morning she was doing well she was alert and oriented 3 in no apparent distress, her vital exams were stable however this afternoon patient condition worsened her blood pressure was lower her hemoglobin today dropped to 7.7 she was given IV fluids and 1 unit of red blood cell transfusion was ordered due to hypotension patient was transferred to intensive care unit liver enzymes are improving total bilirubin today is down to 2.8 on 10/08/2020 patient currently resting in the intensive care unit. Patient is alert and oriented 3. plans to undergo EGD tomorrow. Total bili 3.3 AST aLT 89 alkaline phosphatase 99. Surgical, GI, cardiology and critical care services are following.blood pressure has improved. patient currently resting comfortably in bed reports improvement with pain. patient denies chest pain or shortness breath. Patient denies nausea vomiting or diarrhea. Patient denies any urinary burning or frequency On 10/09/2020 patient was seen and examined in the ICU she is alert and oriented 3 in no apparent distress she underwent an EGD this morning by Dr. Hess, which revealed evidence of antral gastritis, hiatal hernia, mild esophagitis, and no evidence of gastrointestinal bleeding, patient is clinically stable she is alert and oriented 3 she is still complaining of pain in the epigastric and right upper quadrant area otherwise she denies any complaints there is no fever or chills no headache or dizziness no chest pain no shortness of breath no cough no nausea or vomiting no diarrhea no blood in the stools no burning with urination no frequency or urgency and no hematuria . Bilirubin, AST ALT and alkaline phosphatase are declining today. On 10/10/2020 patient was seen and examined in the ICU she is alert and oriented 3 in no apparent distress she underwent an EGD this morning by Dr. Hess, which revealed evidence of antral gastritis, hiatal hernia, mild esophagitis, and no evidence of gastrointestinal bleeding, patient is clinically stable she is alert and oriented 3 she is still complaining of pain in the epigastric and right upper quadrant area otherwise she denies any complaints there is no fever or chills no headache or dizziness no chest pain no shortness of breath no cough no nausea or vomiting no diarrhea no blood in the stools no burning with urination no frequency or urgency and no hematuria . Bilirubin, AST ALT and alkaline phosphatase are declining today. Pathology report in the computer is still pending however, oral report from Dr. Hess, patient is positive for cancer, consultation for Dr. Mahmood is requested. on 10/11/2020 patient was seen and examined on the medical floor she is alert and oriented 3 in no distress she is complaining of constipation and tenderness in the right upper quadrant otherwise she denies any complaints, there is no fever or chills no headache or dizziness no chest pain no shortness of breath no cough no nausea or vomiting no abdominal pain no diarrhea no blood in the stools no burning with urination no frequency or urgency and no hematuria. patient is aware of cancer diagnosis. On 10/12/2020 patient's alert and oriented 3 resting in bed. Patient does appear more short of breath. Pulmonary services reconsulted. Heart rate also elevated patient has known chronic persistent atrial fibrillation discussed with cardiology team medications to be adjusted due to recent hypotension. At this time patient denies any acute complaints. Patient denies chest pain. Patient denies nausea vomiting or diarrhea. Patient denies any urinary burning or frequency On 10/13/2020 patient was seen and examined on the medical floor she is alert and oriented 3 in no distress , patient is complaining of constipation and disc omfort in the rectal area otherwise she denies any complaints there is no fever or chills no headache or dizziness no chest pain no shortness of breath no cough no nausea or vomiting no abdominal pain no diarrhea no blood in the stools no burning with urination no frequency or urgency and no hematuria hemoglobin is down to 7.5 today Will monitor closely. On 10/14/2020 patient was seen and examined on the medical floor she is alert and oriented 3 in no distress, she is complaining of generalized weakness otherwise she denies any complaints there is no fever or chills no headache or dizziness no chest pain no shortness of breath no cough no nausea or vomiting no abdominal pain no diarrhea and no urinary symptoms she is scheduled for thoracentesis today. On 10/15/2020 patient's alert and oriented 3. Patient is status post thoracentesis on 10/14/2020. Discussed discharge planning with case management. Patient appeared to not meet criteria for inpatient rehab. Per case management patient currently refusing subacute rehab. Patient denies any chest pain. Patient reports important improvement with shortness of breath. Patient reports having loose stools. Patient denies any urinary burning or frequency. Awaiting infectious disease input white blood cell is trending down On 10/16/2020 patient was seen and examined on the medical floor she is alert and oriented 3 in no distress she is complaining of generalized weakness otherwise she denies any complaints there is no fever or chills no headache or dizziness no chest pain no shortness of breath no cough no nausea or vomiting no abdominal pain no diarrhea no blood in the stools no burning with urination no frequency or urgency and no hematuria white blood count is still elevated we are still awaiting culture results Objective - Vital Signs Vital signs: Vital Signs Temp 98.6 F 10/16/20 14:13 Pulse 103 H 10/16/20 14:13 Resp 18 10/16/20 14:13 BP 98/61 10/16/20 16:09 Pulse Ox 90 L 10/16/20 14:13 Intake & Output 10/15/20 10/16/20 10/16/20 18:59 06:59 18:59 Output Total 60 410 Balance -60 -410 Output: Drainage 60 60 Right Abdomen 60 60 Urine 350 Other: Voiding Method Diaper Diaper Diaper # Voids 1 1 - Exam In general patient is alert and oriented 3 in no apparent distress HEENT head normocephalic and atraumatic patient has clear jaundice Neck is supple no JVD no goiter no lymphadenopathy no carotid bruit Chest exam is clear to auscultation no crackles no wheezing Cardiac exam reveals irregular heart beat S1 and S2 no gallops no murmurs Abdomen is soft with tenderness in the epigastric and right upper quadrant area no organomegaly no palpable masses was normal bowel sounds Extremity exam reveals no edema no cyanosis or clubbing Neurological examination reveals no gross focal deficit - Labs CBC & Chem 7: 10/16/20 06:01 10/16/20 06:01 Labs: Abnormal Lab Results - Last 24 Hours (Table) 10/16/20 10/16/20 Range/Units 06:01 06:01 WBC 12.14 H (4.50-10.00) X 10*3/uL RBC 2.65 L (4.10-5.20) X 10*6/uL Hgb 8.2 L (12.0-15.0) g/dL Hct 27.2 L (37.2-46.3) % MCV 102.6 H (80.0-97.0) fL MCHC 30.1 L (32.0-37.0) g/dL RDW 16.3 H (11.5-14.5) % Immature Gran # 0.08 H (0.00-0.04) X 10*3/uL Neutrophils # 8.93 H (1.80-7.70) X 10*3/uL Monocytes # 1.65 H (0.20-1.00) X 10*3/uL BUN/Creatinine Ratio 31.43 H (12.00-20.00) Ratio Calcium 7.9 L (8.7-10.3) mg/dL AST 42 H (13-35) U/L Total Protein 4.9 L (6.2-8.2) g/dL Albumin 2.90 L (3.80-4.90) g/dL Albumin/Globulin Ratio 1.45 L (1.60-3.17) g/dL Microbiology - Last 24 Hours (Table) 10/14/20 11:33 Blood Culture - Preliminary Blood No Growth after 48 hours 10/14/20 13:45 Gram Stain - Preliminary Pleural Fluid Body Fluid Culture - Preliminary Assessment and Plan Plan: 1. Acute cholelithiasis, status post laparoscopic cholecystectomy. Gallbladder positive for adenocarcinoma 2. Jaundice with dilated common bile duct rule out choledocholithiasis 3. Evidence of dehydration with pre renal azotemia 4. Underlying history of hypertension 5. Underlying history of hyperlipidemia 6. Underlying history of gout 7. Underlying history of paroxysmal atrial fibrillation. cardiology services are following. Ankushis currently on hold 8. Underlying history of anemia 9. Pleural effusion status post thoracentesis 10. Gait disturbance patient requires wheelchair to complete ADL which is unable to be done with a walker or a cane because of weakness and unsteady gait patient is able to propel himself and has a caregiver at home that will be able to assist. 10. Le[address] Vyas has been consulted patient remains on Rocephin IV antibiotics, her white blood count is increasing Will consult infectious disease Surgical, GI, cardiology and critical care services are following Repeat labs ordered for a.m. Case management following. Discharge planning in place patient denied for inpatient rehab at this time
[2020-10-17 07:30] VITALS: BP 147/93; PULSE 111; TEMP 98
[2020-10-17] MEDS: PANTOPRAZOLE 40 MG TABLET PO SCH (08:24)
[2020-10-17] MEDS: APIXABAN 5 MG TAB PO SCH (08:24)
[2020-10-17] MEDS: allopurinoL 300 MG TAB PO SCH (08:24)
[2020-10-17] MEDS: AMOXIC-POT CLAV 875-125MG 1 EACH TAB PO SCH (08:24)
[2020-10-17] MEDS: VERAPAMIL SR 240 MG TABLET.ER PO SCH (08:25)
[2020-10-17] MEDS: POTASSIUM CHLORIDE ER 10 MEQ TAB.ER.PRT PO SCH (08:35)
[2020-10-17] MEDS: LACTULOSE 20 GM/30 ML CUP PO SCH (08:35)
[2020-10-17] MEDS ORDERED: FUROSEMIDE 40 MG TAB PO SCH (09:00)
[2020-10-17 09:34] LABS: Anisocytosis Slight; Basophils % (A) 0 %; Eosinophils # (A) 0.2 k/uL (0-0.7); Eosinophils % (A) 1 %; HGB 8.8 gm/dL (11.4-16.0); Hypochromasia Marked; Lymphocytes # (A) 0.8 k/uL (1.0-4.8); Lymphocytes % (A) 7 %; MCH 30.4 pg (25.0-35.0); MCHC 30.4 g/dL (31.0-37.0); Macrocytosis Slight; Mean Platelet Volume 8.3; Monocytes # (A) 1.3 k/uL (0-1.0); Monocytes % (A) 10 %; Neutrophils # (A) 9.8 k/uL (1.3-7.7); Neutrophils % (A) 80 %; Platelet Count 302 k/uL (150-450); Poikilocytosis Slight; RDW 16.2 % (11.5-15.5); WBC 12.2 k/uL (3.8-10.6)
[2020-10-17 09:35] VITALS: RESP 18
--- NOTE | 2020-10-17 10:37 | P.DS ---
Providers Date of admission: 10/01/20 18:42 Expected date of discharge: 10/17/20 Attending physician: Patti Razo Consults: 10/03/20 11:20 Consult Physician Routine Consulting Provider: Daniel Hess Consult Reason/Comments: Acute cholelithiasis Do you want consulting provider notified?: Already Contacted 10/07/20 18:10 Consult Physician Routine Consulting Provider: Anali Hogan Consult Reason/Comments: intensiveist Do you want consulting provider notified?: Already Contacted 10/08/20 09:17 Consult Physician Routine Consulting Provider: Hang Sam Consult Reason/Comments: history of a-fib Do you want consulting provider notified?: Yes 10/10/20 10:45 Consult Physician Routine Consulting Provider: Damoin Mahmood Consult Reason/Comments: Adenocarcinoma of the gallbladder Do you want consulting provider notified?: Yes 10/10/20 10:56 Consult Physician Routine Consulting Provider: Damion Mahmood Consult Reason/Comments: new cancer diagnosis, gallblader Do you want consulting provider notified?: Yes 10/11/20 06:53 Consult Physician Routine Consulting Provider: Nabor Casey Consult Reason/Comments: gait disturbance Do you want consulting provider notified?: Yes 10/12/20 10:48 Consult Physician Routine Consulting Provider: Anali Hogan Consult Reason/Comments: Increased shortness of breath and computed tomography scan results Do you want consulting provider notified?: Yes 10/14/20 11:11 Consult Physician Routine Consulting Provider: Saravanan Vyas Consult Reason/Comments: leukocytosis Do you want consulting provider notified?: Yes Primary care physician: Patti Razo Hospital Course: Discharge diagnosis 1. Acute cholelithiasis, status post laparoscopic cholecystectomy. Gallbladder positive for adenocarcinoma 2. Jaundice with dilated common bile duct rule out choledocholithiasis 3. Evidence of dehydration with pre renal azotemia 4. Underlying history of hypertension 5. Underlying history of hyperlipidemia 6. Underlying history of gout 7. Underlying history of paroxysmal atrial fibrillation. cardiology services are following. Roland currently on hold 8. Underlying history of anemia 9. Pleural effusion status post thoracentesis 10. Gait disturbance patient requires wheelchair to complete ADL which is unable to be done with a walker or a cane because of weakness and unsteady gait patient is able to propel himself and has a caregiver at home that will be able to assist. 10. Leukocytosis. Dr. Vyas has been consulted. Per infectious disease patient to be discharged on Augmentin for 7 days Hospital course Dia Wood, is an 85-year-old female who presented to [facility] emergency room with a chief complaint of abdominal pain patient states that her pain started 2 days prior to admission patient also noted changes in the color of her urine in the color of her skin she had some nausea but no vomiting she had normal bowel movements. Patient was evaluated in the emergency room vital examination on presentation revealed a temperature of 98.4 pulse 105 respiration 19 and blood pressure 143/83 pulse ox 95% on room air her white blo od count was 9.6 hemoglobin 13.6 platelet count 211 BUN was 28 creatinine 0.83 total bilirubin 7.7 AST 106 a LT 61 alkaline phosphatase 227 lipase was 267 , computed tomography scan of the abdomen and pelvis was done in the emergency room and revealed evidence of cholelithiasis and dilated common bile duct, liver ultrasound was done and revealed evidence of mildly dilated gallbladder with gallstone, large common bile duct and mild fatty infiltration of the liver. patient was admitted to medical floor gastroenterology consultation and surgical consultation were requested. Her past medical history is significant for history of hypertension, history of anemia, history of gout, hepatitis C, history of hyperlipidemia, history of paroxysmal atrial fibrillation, history of vitamin D deficiency. On review of systems there is no fever or chills no headache or dizziness no chest pain no shortness of breath no cough no palpitation she has some nausea but no vomiting she has abdominal pain mostly in the right upper quadrant no diarrhea no blood in the stools no burning with urination no frequency or urgency and no hematuria On 10/03/2020 patient's alert and oriented 3 resting comfortably in bed. Discussed case with surgical PA. Plans for ERCP today with possible lap osiris tomorrow. AST 88, ALT 49 in AP 179. Surgical and GI services are following. Patient reports improvement with symptoms. Patient remains on Levaquin. Patient denies chest pain or shortness breath. Patient denies nausea vomiting or diarrhea at this time. Patient denies any urinary burning or frequency On 10/04/2020 patient was seen and examined on the medical floor she is alert and oriented 3 in no apparent distress last night she had episodes of tachycardia medication were adjusted Norvasc was discontinued and atenolol was increased to 25 mg twice daily. Patient is complaining of right upper quadrant abdominal pain otherwise she denies any complaints there is no fever or chills no headache or dizziness no chest pain no shortness of breath no cough no nausea or vomiting no diarrhea no blood in the stools no burning with urination no frequency or urgency and no hematuria. Input from gastroenterology and surgery was review patient is scheduled for cholecystectomy in a.m. tomorrow. On 10/05/2020 patient was seen and examined on the medical floor she is alert and oriented 3 in no distress she just returned from surgery, there is no fever or chills no headache or dizziness no chest pain no shortness of breath no cough no nausea or vomiting no abdominal pain no diarrhea no blood in the stools no burning with urination no frequency or urgency no hematuria On 10/06/2020 patient was seen and examined on the medical floor she is alert and oriented 3 in no distress there is no fever or chills no headache or dizziness no chest pain no shortness of breath no cough she still has some tenderness in the abdomen especially in the right upper quadrant there is no nausea or vomiting no diarrhea no blood in the stools and no urinary symptoms. On 10/07/2020 patient was seen and examined on the medical floor this morning she was doing well she was alert and oriented 3 in no apparent distress, her vital exams were stable however this afternoon patient condition worsened her blood pressure was lower her hemoglobin today dropped to 7.7 she was given IV fluids and 1 unit of red blood cell transfusion was ordered due to hypotension patient was transferred to intensive care unit liver enzymes are improving total bilirubin today is down to 2.8 on 10/08/2020 patient currently resting in the intensive care unit. Patient is alert and oriented 3. plans to undergo EGD tomorrow. Total bili 3.3 AST aLT 89 alkaline phosphatase 99. Surgical, GI, cardiology and critical care services are following.blood pressure has improved. patient currently resting comfortably in bed reports improvement with pain. patient denies chest pain or shortness breath. Patient denies nausea vomiting or diarrhea. Patient denies any urinary burning or frequency On 10/09/2020 patient was seen and examined in the ICU she is alert and oriented 3 in no apparent distress she underwent an EGD this morning by Dr. Hess, which revealed evidence of antral gastritis, hiatal hernia, mild esophagitis, and no evidence of gastrointestinal bleeding, patient is clinically stable she is alert and oriented 3 she is still complaining of pain in the epigastric and right upper quadrant area otherwise she denies any complaints there is no fever or chills no headache or dizziness no chest pain no shortness of breath no cough no nausea or vomiting no diarrhea no blood in the stools no burning with urination no frequency or urgency and no hematuria . Bilirubin, AST ALT and alkaline phosphatase are declining today. On 10/10/2020 patient was seen and examined in the ICU she is alert and oriented 3 in no apparent distress she underwent an EGD this morning by Dr. Hess, which revealed evidence of antral gastritis, hiatal hernia, mild esophagitis, and no evidence of gastrointestinal bleeding, patient is clinically stable she is alert and oriented 3 she is still complaining of pain in the epigastric and right upper quadrant area otherwise she denies any complaints there is no fever or chills no headache or dizziness no chest pain no shortness of breath no cough no nausea or vomiting no diarrhea no blood in the stools no burning with urination no frequency or urgency and no hematuria . Bilirubin, AST ALT and alkaline phosphatase are declining today. Pathology report in the computer is still pending however, oral report from Dr. Hess, patient is positive for cancer, consultation for Dr. Mahmood is requested. on 10/11/2020 patient was seen and examined on the medical floor she is alert and oriented 3 in no distress she is complaining of constipation and tenderness in the right upper quadrant otherwise she denies any complaints, there is no fever or chills no headache or dizziness no chest pain no shortness of breath no cough no nausea or vomiting no abdominal pain no diarrhea no blood in the stools no burning with urination no frequency or urgency and no hematuria. patient is aware of cancer diagnosis. On 10/12/2020 patient's alert and oriented 3 resting in bed. Patient does appear more short of breath. Pulmonary services reconsulted. Heart rate also elevated patient has known chronic persistent atrial fibrillation discussed with cardiology team medications to be adjusted due to recent hypotension. At this time patient denies any acute complaints. Patient denies chest pain. Patient denies nausea vomiting or diarrhea. Patient denies any urinary burning or frequency On 10/13/2020 patient was seen and examined on the medical floor she is alert and oriented 3 in no distress , patient is complaining of constipation and discomfort in the rectal area otherwise she denies any complaints there is no fever or chills no headache or dizziness no chest pain no shortness of breath no cough no nausea or vomiting no abdominal pain no diarrhea no blood in the stools no burning with urination no frequency or urgency and no hematuria hemoglobin is down to 7.5 today Will monitor closely. On 10/14/2020 patient was seen and examined on the medical floor she is alert and oriented 3 in no distress, she is complaining of generalized weakness otherwise she denies any complaints there is no fever or chills no headache or dizziness no chest pain no shortness of breath no cough no nausea or vomiting no abdominal pain no diarrhea and no urinary symptoms she is scheduled for thoracentesis today. On 10/15/2020 patient's alert and oriented 3. Patient is status post thoracentesis on 10/14/2020. Discussed discharge planning with case management. Patient appeared to not meet criteria for inpatient rehab. Per case management patient currently refusing subacute rehab. Patient denies any chest pain. Patient reports important improvement with shortness of breath. Patient reports having loose stools. Patient denies any urinary burning or frequency. Awaiting infectious disease input white blood cell is trending down On 10/16/2020 patient was seen and examined on the medical floor she is alert and oriented 3 in no distress she is complaining of generalized weakness otherwise she denies any complaints there is no fever or chills no headache or dizziness no chest pain no shortness of breath no cough no nausea or vomiting no abdominal pain no diarrhea no blood in the stools no burning with urination no frequency or urgency and no hematuria white blood count is still elevated we are still awaiting culture results On 10/17/2020 patient's alert and oriented 3. White blood cell count 12.2. Discussed case with infectious disease okay with discharge recommend patient be discharged on Augmentin for 7 days. Plan for patient to be DC'd [facility] for rehab. This time patient denies chest pain or shortness of breath. Patient denies nausea vomiting or diarrhea. Patient denies any urinary burning or frequency Patient Condition at Discharge: Stable Plan - Discharge Summary Discharge Rx Participant: No New Discharge Prescriptions: New traMADol HCL [Ultram] 50 mg PO Q8HR PRN 3 Days #9 tab PRN Reason: Pain Amoxic-Pot Clav 875-125Mg [Augmentin 875-125] 1 each PO Q12HR 7 Days #14 tab Lactulose [Cephulac] 10 gm PO DAILY ml Potassium Chloride ER [K-Dur 10] 10 meq PO DAILY tab.er.prt Furosemide [Lasix] 40 mg PO DAILY tab Pantoprazole [Protonix] 40 mg PO BID tablet. atenoloL [Tenormin] 12.5 mg PO TID dose Continue Ferrous Sulfate [Iron (65 MG Elemental)] 325 mg PO BID Apixaban [Eliquis] 5 mg PO BID tab Nitroglycerin Sl Tabs [Nitrostat] 0.4 mg SUBLINGUAL Q5M PRN PRN Reason: Chest Pain Verapamil HCl [Verapamil ER] 240 mg PO DAILY Allopurinol [Zyloprim] 300 mg PO DAILY Discontinued amLODIPine [Norvasc] 5 mg PO DAILY Potassium Chloride ER [K-Dur 20] 20 meq PO DAILY tab.er.prt Metoprolol Tartrate [Lopressor] 50 mg PO TID tab atenoloL [Atenolol] 25 mg PO DAILY Discharge Medication List Ferrous Sulfate [Iron (65 MG Elemental)] 325 mg PO BID 07/04/17 [History] Apixaban [Eliquis] 5 mg PO BID tab 07/06/17 [Rx] Nitroglycerin Sl Tabs [Nitrostat] 0.4 mg SUBLINGUAL Q5M PRN 09/30/19 [History] Verapamil HCl [Verapamil ER] 240 mg PO DAILY 09/30/19 [History] Allopurinol [Zyloprim] 300 mg PO DAILY 02/10/20 [History] traMADol HCL [Ultram] 50 mg PO Q8HR PRN 3 Days #9 tab 10/15/20 [Rx] Amoxic-Pot Clav 875-125Mg [Augmentin 875-125] 1 each PO Q12HR 7 Days #14 tab 10/17/20 [Rx] Furosemide [Lasix] 40 mg PO DAILY tab 10/17/20 [Rx] Lactulose [Cephulac] 10 gm PO DAILY ml 10/17/20 [Rx] Pantoprazole [Protonix] 40 mg PO BID tablet. 10/17/20 [Rx] Potassium Chloride ER [K-Dur 10] 10 meq PO DAILY tab.er.prt 10/17/20 [Rx] atenoloL [Tenormin] 12.5 mg PO TID dose 10/17/20 [Rx] Follow up Appointment(s)/Referral(s): Anali Hogan MD [STAFF PHYSICIAN] - 1 Week Clinton Hughes MD [STAFF PHYSICIAN] - 2 Weeks Patti Razo MD [Primary Care Provider] - 1-2 days Martin Degroot MD [STAFF PHYSICIAN] - 1 Week Daniel Hess MD [STAFF PHYSICIAN] - 1 Week Patient Instructions/Handouts: Laparoscopic Cholecystectomy (DC)
--- NOTE | 2020-10-17 12:55 | P.PN ---
Subjective Progress Note Date: 10/17/20 CHIEF COMPLAINT: Abdominal pain HISTORY OF PRESENT ILLNESS: Patient is status post laparoscopic cholecystectomy for acute cholecystitis. Patient denies any nausea or vomiting. She is passing gas and having bowel movements. She is supposed to go to [facility] when discharged. Afebrile. WBC 12.2 hemoglobin 8.8 PHYSICAL EXAM: VITAL SIGNS: Reviewed. GENERAL: Well-developed in no acute distress. HEENT: No sclera icterus. Extraocular movements grossly intact. Moist buccal mucosa. Head is atraumatic, normocephalic. ABDOMEN: Soft. Nondistended. Incision sites clean dry and and intact. Patient has clear yellowish drainage from HERMAN drain site, likely fluid from volume overload. No evidence of infection. NEUROLOGIC: Alert and oriented. Cranial nerves II through XII grossly intact. ASSESSMENT: 1. Cholecystitis status post laparoscopic cholecystectomy 2. Symptomatic anemia requiring 1 unit of blood 3. Coffee-ground emesis possibly due to gastritis. Now resolved 4. Gallbladder adenocarcinoma 5. EGD on 10/09/2020 which had shown antral gastritis, mild hiatal hernia and mild esophagitis and no evidence of upper GI bleed. PLAN: -Patient can be discharged from surgical standpoint when cleared by medicine service -Patient follow up with Dr. Hess in 1 week -Continue supportive care -Continue regular diet -Continue pain medication as needed -Encouraged incentive spirometer -Encourage patient to ambulate Physician Traveling Clerk note has been reviewed by physician. Signing provider agrees with the documented findings, assessment, and plan of care. Objective - Vital Signs Vital signs: Vital Signs Temp 98.0 F 10/17/20 07:29 Pulse 111 H 10/17/20 07:29 Resp 18 10/17/20 08:00 BP 147/93 10/17/20 07:29 Pulse Ox 94 L 10/17/20 07:29 Intake & Output 10/16/20 10/17/20 10/17/20 18:59 06:59 18:59 Output Total 410 Balance -410 Output: Drainage 60 Right Abdomen 60 Urine 350 Other: Voiding Method Diaper Toilet Toilet # Voids 1 1 - Labs CBC & Chem 7: 10/17/20 09:19 10/16/20 06:01 Labs: Abnormal Lab Results - Last 24 Hours (Table) 10/17/20 Range/Units 09:19 WBC 12.2 H (3.8-10.6) k/uL RBC 2.90 L (3.80-5.40) m/uL Hgb 8.8 L (11.4-16.0) gm/dL Hct 29.0 L (34.0-46.0) % MCHC 30.4 L (31.0-37.0) g/dL RDW 16.2 H (11.5-15.5) % Neutrophils # 9.8 H (1.3-7.7) k/uL Lymphocytes # 0.8 L (1.0-4.8) k/uL Monocytes # 1.3 H (0-1.0) k/uL Microbiology - Last 24 Hours (Table) 10/14/20 13:45 Anaerobic Culture - Preliminary Pleural Fluid 10/14/20 13:45 Gram Stain - Preliminary Pleural Fluid Body Fluid Culture - Preliminary 10/14/20 11:33 Blood Culture - Preliminary Blood No Growth after 48 hours
--- NOTE | 2020-10-17 15:42 | PN ---
PROGRESS NOTE DATE OF SERVICE: 10/17/2020 REASON FOR FOLLOWUP: Leukocytosis. INTERVAL HISTORY: The patient is currently afebrile. Patient is breathing comfortably. The patient denies having any chest pain, no shortness of breath or cough. No abdominal pain. The patient was complaining of some gas, but no diarrhea. PHYSICAL EXAMINATION: Her blood pressure is 147/93 with a pulse of 111, temperature 98. She is 94% on 2 L nasal cannula. General description is an elderly female up in the chair in no distress. RESPIRATORY SYSTEM: Unlabored breathing, decreased breath sounds at the base. No wheeze. HEART: S1, S2. Regular rate and rhythm. ABDOMEN: Soft, no tenderness. LAB: Hemoglobin 8.8, white count 12.2. Pleural fluid culture negative. Blood culture negative. DIAGNOSTIC IMPRESSION AND PLAN: Patient with elevated white count in this patient admitted to the hospital with cholecystitis status post cholecystectomy. Did have pleural effusion, status post thoracentesis. Pleural culture negative. Blood culture negative. Urine is negative. Currently on Augmentin with the white count showing a downward trend. To continue with oral Augmentin for about a week and close outpatient followup. Discussed with the nurse practitioner for admitting team. MMODL / IJN: [id number] /
--- NOTE | 2020-10-17 16:45 | P.PN ---
Subjective Progress Note Date: 10/17/20 Principal diagnosis: Acute upper GI bleed, acute cholecystitis This is an 85-year-old female with history of multiple medical problems including hepatitis C, coronary artery disease, chronic atrial fibrillation, normally on eliquis, hypertension, hypercholesterolemia, patient presented to the hospital initially on 10/01/2020, and she was mostly complaining of abdominal pain, and jaundice. Patient has been noticing darker urine. She was also having intermittent postprandial abdominal pain. Her ultrasound of the abdomen showed dilated gallbladder with gallstone there was also evidence of large common bile duct, felt to be related to chronic gallbladder dysfunction. Jocelyne ent was noted to have mildly elevated liver function tests, and hyperbilirubinemia. Patient was seen by gastroenterology, and she underwent ERCP, however this was unsuccessful, and it was aborted, biopsies were taken from prominent ampulla and falls in the stomach. On 10/05, patient underwent laparoscopic cholecystectomy by Dr. Hess. Her postoperative course has been uneventful. However on 10/07, patient developed coffee-ground emesis and a drop in her hemoglobin requiring at least 1 unit of packed RBCs given. Patient was hypotensive, transferred to the ICU, given fluids and given a unit of blood. Patient responded well to blood transfusion, in the meantime she was placed on Protonix, and today she seems to be doing much better compared to yesterday. Her anticoagulation medicine/eliquis remains on hold. The patient is scheduled to have EGD by surgery tomorrow, in the meantime she is on Protonix. Patient is also on antibiotics. Considering the patient's episode of upper GI bleeding and hypotension, patient was transferred to the ICU yesterday, and I discussed her condition with Dr. Hess prior to transfer. Today's hemoglobin is 8.9. WBC count is 15.2. Electrolytes are normal except for slightly elevated potassium of 5.3, and she has a bicarb of 16. Liver enzymes remain elevated with AST of 266 ALT of 89 and total bilirubin is 3.3. Coming down nicely from 7.7 on admission. Patient was reevaluated today on 10/09/2020, patient is still in the ICU today, feeling much better, not in any distress, she is on 3 L nasal cannula. Chest x- ray continues to show mild congestive heart failure with small left pleural effusion, hence I recommended more Lasix to be given today. IV fluid is at KVO. Patient underwent EGD today, and she was found to have mild gastritis and esophagitis, no evidence of active GI bleeding. Patient is hemodynamically stable. And she denies any abdominal pain at present, denies any shortness of breath. Again chest x-ray is concerning but I believe the patient clearly has some component of pulmonary edema, and bilateral pleural effusions, she will improve with diuretics will not require thoracentesis. WBC count is 11.9 hemoglobin is 8.4. Electrolytes are normal renal profile is normal. And liver enzymes are improving steadily. On 10/10/2020 patient seen in follow-up. No acute bleeding overnight, she is breathing comfortably, she is sitting up in the chair, she remains on Lasix, she is in -1.7 L net fluid balance over the last 24 hours, her pulse ox on 1 L of oxygen is 94%, vital signs are stable, no hypotension, no complaints of shortness of breath or chest pain. Today's chest x-ray shows persistent cardiomegaly with small to moderate left greater than right pleural effusions, with no significant change. We'll continue diuretics. No lower extremity edema, this morning's labs have been reviewed, white blood cell count is 9.9, hemoglobin is 8.8, BUN is 21, creatinine 0.52, electrolytes are within normal limits. The patient is seen today 10/12/2020 in follow-up on the regular medical floor. She had been doing well from the pulmonary standpoint. We have signed off the case. Today however it was felt she was having more shortness of breath, cough and congestion. Presently she is resting flat in bed. Awake and alert in no acute distress. She does state she has dyspnea on minimal exertion. She is ma intaining O2 saturation in the low 90s on 4 L/m per nasal cannula. She's been afebrile. Follow-up chest x-ray reveals small to moderate left and trace right effusions adjacent atelectasis. Improved compared to prior. Moderate size hiatal hernia. She is status post 1 unit of packed red blood cells this admission. Current hemoglobin 8.3. Blood culture revealed no growth. White count 13.4. Sodium 139. Potassium 3.9. Creatinine 0.62. She remains on ceftriaxone. Diuretics. The patient is seen today 10/17/2020 in follow-up on the regular medical floor. She is currently resting comfortably in bed. Awake and alert in no acute distress. Maintaining O2 saturations in the 90s on 2 L/m per nasal cannula. She is status post 1 unit of packed red blood cells this admission. Current he moglobin 8.8. Blood and pleural fluid cultures revealed no growth. White count 12.2. She is currently on Augmentin. Anticoagulated with Eliquis. Objective - Vital Signs Vital signs: Vital Signs Temp 98.0 F 10/17/20 07:29 Pulse 111 H 10/17/20 07:29 Resp 18 10/17/20 08:00 BP 147/93 10/17/20 07:29 Pulse Ox 94 L 10/17/20 07:29 Intake & Output 10/16/20 10/17/20 10/17/20 18:59 06:59 18:59 Output Total 410 Balance -410 Output: Drainage 60 Right Abdomen 60 Urine 350 Other: Voiding Method Diaper Toilet Toilet # Voids 1 1 - Exam GENERAL EXAM: Alert, very pleasant 85-year-old female patient, on 2 L of oxygen, comfortable in no apparent distress. HEAD: Normocephalic/atraumatic. EYES: Normal reaction of pupils, equal size. Conjunctiva pink, sclera white. NOSE: Clear with pink turbinates. THROAT: No erythema or exudates. NECK: No masses, no JVD, no thyroid enlargement, no adenopathy. CHEST: No chest wall deformity. Symmetrical expansion. LUNGS: Equal air entry with crackles in the bilateral posterior bases. CVS: Regular rate and rhythm, normal S1 and S2, no gallops, no murmurs, no rubs ABDOMEN: Soft, nontender. No hepatosplenomegaly, normal bowel sounds, no guarding or rigidity. EXTREMITIES: No clubbing, no edema, no cyanosis, 2+ pulses and upper and lower extremities. MUSCULOSKELETAL: Muscle strength and tone normal. SPINE: No scoliosis or deformity SKIN: No rashes CENTRAL NERVOUS SYSTEM: Alert and oriented -3. No focal deficits, tone is normal in all 4 extremities. PSYCHIATRIC: Alert and oriented -3. Appropriate affect. Intact judgment and insight. - Labs CBC & Chem 7: 10/17/20 09:19 10/16/20 06:01 Labs: Abnormal Lab Results - Last 24 Hours (Table) 10/17/20 Range/Units 09:19 WBC 12.2 H (3.8-10.6) k/uL RBC 2.90 L (3.80-5.40) m/uL Hgb 8.8 L (11.4-16.0) gm/dL Hct 29.0 L (34.0-46.0) % MCHC 30.4 L (31.0-37.0) g/dL RDW 16.2 H (11.5-15.5) % Neutrophils # 9.8 H (1.3-7.7) k/uL Lymphocytes # 0.8 L (1.0-4.8) k/uL Monocytes # 1.3 H (0-1.0) k/uL Microbiology - Last 24 Hours (Table) 10/14/20 11:33 Blood Culture - Preliminary Blood No Growth after 72 hours 10/14/20 13:45 Anaerobic Culture - Preliminary Pleural Fluid 10/14/20 13:45 Gram Stain - Preliminary Pleural Fluid Body Fluid Culture - Preliminary Assessment and Plan Assessment: 1 Acute upper GI bleeding with coffee ground emesis requiring transfusion with 1 unit of PRBC, EGD showed mild esophagitis but no evidence of upper GI bleeding 2 Acute cholecystitis status post failed ERCP status post laparoscopic cholecystectomy 3 Acute blood loss anemia status post 1 unit of packed red blood cells. Current hemoglobin 8.8 4 Chronic A. fib 5 Choledocholithiasis 6 Obstructive jaundice 7 Acute hypoxic respiratory failure related to acute blood loss anemia, hypovolemic hypotension, and bilateral left greater than right pleural effusions Plan: The patient was seen and evaluated by Dr. Shelby Piedra from the pulmonary standpoint Continue incentive spirometer and encourage cough and deep breathing exercises Plan is for subacute rehabilitation at [facility], the cosigning physician, performed a history & physical examination of the patient. Lungs sounds with crackles in the bilateral posterior bases. Maintaining good O2 saturations in the 90s on 2 L/m per nasal cannula. I discussed the assessment and plan of care with my nurse practitioner, Eunice Castle. I attest to the above note as dictated by her.
== END 2020-10-17 15:58 | DRG 417 ==
LOC: EC 15:30 → 4SSUR 18:42 → 3SCARD 10-07 17:02 → 2SICU 10-07 18:38 → 3SCARD 10-10 00:52 → 4SSUR 10-12 00:08
PROVIDERS: ADMIT Internal Medicine; ATTEND Internal Medicine
PROC: 0FJ Hepatobiliary System and Pancreas, Inspection (ICD-10-PCS; 2020-10-03)
PROC: 30233N1 Transfusion of Nonautologous Red Blood Cells into Peripheral Vein, Percutaneous Approach (ICD-10-PCS; 2020-10-03)
PROC: 0FT44ZZ Resection of Gallbladder, Percutaneous Endoscopic Approach (ICD-10-PCS; principal; 2020-10-05 09:00)
PROC: 0DB68ZX Excision of Stomach, Via Natural or Artificial Opening Endoscopic, Diagnostic (ICD-10-PCS; 2020-10-09)
PROC: 0FBC8ZX Excision of Ampulla of Vater, Via Natural or Artificial Opening Endoscopic, Diagnostic (ICD-10-PCS; 2020-10-09)
DX: K80.42 Calculus of bile duct with acute cholecystitis without obstruction (principal); I50.31 Acute diastolic (congestive) heart failure; J96.01 Acute respiratory failure with hypoxia; K29.71 Gastritis, unspecified, with bleeding; K20.91 Esophagitis, unspecified with bleeding; D62 Acute posthemorrhagic anemia; C23 Malignant neoplasm of gallbladder; K82.A1 Gangrene of gallbladder in cholecystitis; I11.0 Hypertensive heart disease with heart failure; M10.9 Gout, unspecified; B18.2 Chronic viral hepatitis C; E78.00 Pure hypercholesterolemia, unspecified; I48.0 Paroxysmal atrial fibrillation; Z79.01 Long term (current) use of anticoagulants; E55.9 Vitamin D deficiency, unspecified; E86.0 Dehydration; R79.89 Other specified abnormal findings of blood chemistry; I95.9 Hypotension, unspecified; R26.9 Unspecified abnormalities of gait and mobility; D72.829 Elevated white blood cell count, unspecified; K44.9 Diaphragmatic hernia without obstruction or gangrene; Z79.899 Other long term (current) drug therapy; Z80.0 Family history of malignant neoplasm of digestive organs; Z80.41 Family history of malignant neoplasm of ovary; Z80.42 Family history of malignant neoplasm of prostate; Z82.49 Family history of ischemic heart disease and other diseases of the circulatory system; Z83.3 Family history of diabetes mellitus; Z85.09 Personal history of malignant neoplasm of other digestive organs; Z87.891 Personal history of nicotine dependence
CPT/HCPCS: 32555; 36415; 36600; 43239; 43260; 71045; 71260; 74177; 74330; 76604; 76705; 80048; 80053; 81001; 81003; 82150; 82247; 82248; 82550; 82607; 82728; 82746; 82805; 83540; 83550; 83605; 83615; 83690; 83880; 83921; 84075; 84145; 84157; 84443; 84450; 84460; 85025; 85027; 85610; 85730; 86140; 86850; 86900; 86901; 86920; 87040; 87070; 87075; 87205; 87635; 88304; 88305; 88342; 89050; 93005; 93306; 94760

== ENCOUNTER 2020-11-10 12:48 | Inpatient (IN) | payer MEDICARE ==
[2020-11-10] MEDS ORDERED: ALBUTEROL HFA INHALER INHALATION STA (13:22)
--- NOTE | 2020-11-10 13:31 | ED ---
General Adult HPI - General Chief complaint: Shortness of Breath Stated complaint: sob Time Seen by Provider: 11/10/20 12:53 Source: patient, old records reviewed Mode of arrival: EMS Limitations: no limitations - History of Present Illness Initial comments: Patient is a pleasant 85-year-old female presenting to the emergency Department with complaints of difficulty in breathing. Onset of symptoms was around a week ago and have progressed be worsened. Symptoms do worsen with lying down. Patient does not exert herself. 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 Patient is on Eliquis and has been taking this. No leg pain or leg swelling. No cough or fever. Patient denies chest pain. Patient is somewhat a poor historian. Old chart reviewed. - Related Data Home Medications Medication Instructions Recorded Confirmed Nitroglycerin Sl Tabs [Nitrostat] 0.4 mg SUBLINGUAL Q5M PRN 09/30/19 11/10/20 Verapamil HCl [Verapamil ER] 240 mg PO DAILY 09/30/19 11/10/20 Allopurinol [Zyloprim] 300 mg PO DAILY 02/10/20 11/10/20 Amoxicillin 500 mg PO Q12H 11/10/20 11/10/20 Multivitamins, Thera [Multivitamin 1 tab PO DAILY 11/10/20 11/10/20 (formulary)] Previous Rx's Medication Instructions Recorded Apixaban [Eliquis] 5 mg PO BID tab 07/06/17 traMADol HCL [Ultram] 50 mg PO Q8HR PRN 3 Days #9 tab 10/15/20 Furosemide [Lasix] 40 mg PO DAILY tab 10/17/20 Pantoprazole [Protonix] 40 mg PO BID tablet. 10/17/20 Potassium Chloride ER [K-Dur 10] 10 meq PO DAILY tab.er.prt 10/17/20 atenoloL [Tenormin] 12.5 mg PO TID dose 10/17/20 Allergies Allergy/AdvReac Type Severity Reaction Status Date / Time No Known Allergies Allergy Verified 11/10/20 13:40 Review of Systems ROS Statement: Those systems with pertinent positive or pertinent negative responses have been documented in the HPI. ROS Other: All systems not noted in ROS Statement are negative. Constitutional: Denies: fever Eyes: Denies: eye pain ENT: Denies: ear pain Respiratory: Reports: as per HPI, dyspnea. Denies: cough Cardiovascular: Denies: chest pain Endocrine: Reports: fatigue Gastrointestinal: Denies: abdominal pain Genitourinary: Denies: urgency Musculoskeletal: Denies: back pain Skin: Denies: rash Neurological: Denies: weakness Past Medical History Past Medical History: Coronary Artery Disease (CAD), Hypertension Additional Past Medical History / Comment(s): Hepatitis C, anemia, atrial fibrillation History of Any Multi-Drug Resistant Organisms: None Reported Past Surgical History: Section, Cholecystectomy, Tonsillectomy Past Anesthesia/Blood Transfusion Reactions: No Reported Reaction Additional Past Anesthesia/Blood Transfusion Reaction / Comment(s): Blood transfusion 5-6 years ago (no reactions) Past Psychological History: No Psychological Hx Reported Smoking Status: Former smoker Past Alcohol Use History: None Reported Past Drug Use History: None Reported - Past Family History Father Family Medical History: Cancer Additional Family Medical History / Comment(s): prostate CA Mother Family Medical History: Diabetes Mellitus, Myocardial Infarction ([place]) Brother(s) Family Medical History: Cancer Additional Family Medical History / Comment(s): esophageal CA Sister(s) Family Medical History: Cancer Additional Family Medical History / Comment(s): ovarian CA General Exam Limitations: no limitations General appearance: alert, in no apparent distress Head exam: Present: normocephalic Eye exam: Present: normal appearance Neck exam: Present: normal inspection Respiratory exam: Present: normal lung sounds bilaterally Cardiovascular Exam: Present: bradycardia GI/Abdominal exam: Present: soft. Absent: tenderness Extremities exam: Present: normal inspection. Absent: pedal edema, calf tenderness Neurological exam: Present: alert Psychiatric exam: Present: normal affect, normal mood Skin exam: Present: normal color, other (Skin incisions are clean and dry and intact) Course Vital Signs 11/10/20 11/10/20 11/10/20 12:53 14:01 14:35 Temperature 98.4 F Pulse Rate 56 L 48 L Respiratory 22 16 Rate Blood Pressure 96/60 100/55 O2 Sat by Pulse 89 L 98 Oximetry EKG Findings - EKG Comments: EKG Findings:: Atrial flutter with 41 conduction rate 57. QRS 82. QT 456. QTc 443. Normal axis. Low QRS voltage. Nonspecific ST-T. Medical Decision Making - Medical Decision Making Patient reevaluated and updated. Case discussed with Dr. sheet, covering for Dr. Razo, who will admit. He is aware that d-dimer was held secondary to patient being on Eliquis. Consult will be placed for cardiology for mild CHF and bradycardia. - Lab Data Result diagrams: 11/10/20 13:25 11/10/20 13:25 Lab Results 11/10/20 11/10/20 11/10/20 Range/Units 13:24 13:25 13:25 WBC 17.0 H (3.8-10.6) k/uL RBC 3.28 L (3.80-5.40) m/uL Hgb 9.8 L (11.4-16.0) gm/dL Hct 32.2 L (34.0-46.0) % MCV 98.2 (80.0-100.0) fL MCH 29.9 (25.0-35.0) pg MCHC 30.4 L (31.0-37.0) g/dL RDW 16.8 H (11.5-15.5) % Plt Count 348 (150-450) k/uL MPV 8.6 Neutrophils % 80 % Lymphocytes % 10 % Monocytes % 7 % Eosinophils % 1 % Basophils % 0 % Neutrophils # 13.6 H (1.3-7.7) k/uL Lymphocytes # 1.6 (1.0-4.8) k/uL Monocytes # 1.3 H (0-1.0) k/uL Eosinophils # 0.2 (0-0.7) k/uL Basophils # 0.0 (0-0.2) k/uL Hypochromasia Marked Anisocytosis Slight Macrocytosis Slight PT 11.3 (9.0-12.0) sec INR 1.1 (<1.2) APTT 27.6 (22.0-30.0) sec Sodium (137-145) mmol/L Potassium (3.5-5.1) mmol/L Chloride (98-107) mmol/L Carbon Dioxide (22-30) mmol/L Anion Gap mmol/L BUN (7-17) mg/dL Creatinine (0.52-1.04) mg/dL Est GFR (CKD-EPI)AfAm (>60 ml/min/1.73 sqM) Est GFR (CKD-EPI)NonAf (>60 ml/min/1.73 sqM) Glucose (74-99) mg/dL Plasma Lactic Acid Lamonte (0.7-2.0) mmol/L Calcium (8.4-10.2) mg/dL Magnesium (1.6-2.3) mg/dL Total Bilirubin (0.2-1.3) mg/dL AST (14-36) U/L ALT (4-34) U/L Alkaline Phosphatase (38-126) U/L Lactate Dehydrogenase (313-618) U/L Troponin I <0.012 (0.000-0.034) ng/mL C-Reactive Protein (<10.0) mg/L NT-Pro-B Natriuret Pep pg/mL Total Protein (6.3-8.2) g/dL Albumin (3.5-5.0) g/dL Coronavirus (PCR) (Not Detectd) 11/10/20 11/10/20 11/10/20 Range/Units 13:25 13:25 13:25 WBC (3.8-10.6) k/uL RBC (3.80-5.40) m/uL Hgb (11.4-16.0) gm/dL Hct (34.0-46.0) % MCV (80.0-100.0) fL MCH (25.0-35.0) pg MCHC (31.0-37.0) g/dL RDW (11.5-15.5) % Plt Count (150-450) k/uL MPV Neutrophils % % Lymphocytes % % Monocytes % % Eosinophils % % Basophils % % Neutrophils # (1.3-7.7) k/uL Lymphocytes # (1.0-4.8) k/uL Monocytes # (0-1.0) k/uL Eosinophils # (0-0.7) k/uL Basophils # (0-0.2) k/uL Hypochromasia Anisocytosis Macrocytosis PT (9.0-12.0) sec INR (<1.2) APTT (22.0-30.0) sec Sodium 137 (137-145) mmol/L Potassium 4.1 (3.5-5.1) mmol/L Chloride 96 L (98-107) mmol/L Carbon Dioxide 33 H (22-30) mmol/L Anion Gap 8 mmol/L BUN 23 H (7-17) mg/dL Creatinine 0.98 (0.52-1.04) mg/dL Est GFR (CKD-EPI)AfAm 61 (>60 ml/min/1.73 sqM) Est GFR (CKD-EPI)NonAf 53 (>60 ml/min/1.73 sqM) Glucose 125 H (74-99) mg/dL Plasma Lactic Acid Lamonte 2.4 H* (0.7-2.0) mmol/L Calcium 8.0 L (8.4-10.2) mg/dL Magnesium 1.5 L (1.6-2.3) mg/dL Total Bilirubin 0.6 (0.2-1.3) mg/dL AST 39 H (14-36) U/L ALT 17 (4-34) U/L Alkaline Phosphatase 75 (38-126) U/L Lactate Dehydrogenase 456 (313-618) U/L Troponin I (0.000-0.034) ng/mL C-Reactive Protein 13.6 H (<10.0) mg/L NT-Pro-B Natriuret Pep 1330 pg/mL Total Protein 5.6 L (6.3-8.2) g/dL Albumin 2.9 L (3.5-5.0) g/dL Coronavirus (PCR) (Not Detectd) 11/10/20 Range/Units 13:46 WBC (3.8-10.6) k/uL RBC (3.80-5.40) m/uL Hgb (11.4-16.0) gm/dL Hct (34.0-46.0) % MCV (80.0-100.0) fL MCH (25.0-35.0) pg MCHC (31.0-37.0) g/dL RDW (11.5-15.5) % Plt Count (150-450) k/uL MPV Neutrophils % % Lymphocytes % % Monocytes % % Eosinophils % % Basophils % % Neutrophils # (1.3-7.7) k/uL Lymphocytes # (1.0-4.8) k/uL Monocytes # (0-1.0) k/uL Eosinophils # (0-0.7) k/uL Basophils # (0-0.2) k/uL Hypochromasia Anisocytosis Macrocytosis PT (9.0-12.0) sec INR (<1.2) APTT (22.0-30.0) sec Sodium (137-145) mmol/L Potassium (3.5-5.1) mmol/L Chloride (98-107) mmol/L Carbon Dioxide (22-30) mmol/L Anion Gap mmol/L BUN (7-17) mg/dL Creatinine (0.52-1.04) mg/dL Est GFR (CKD-EPI)AfAm (>60 ml/min/1.73 sqM) Est GFR (CKD-EPI)NonAf (>60 ml/min/1.73 sqM) Glucose (74-99) mg/dL Plasma Lactic Acid Lamonte (0.7-2.0) mmol/L Calcium (8.4-10.2) mg/dL Magnesium (1.6-2.3) mg/dL Total Bilirubin (0.2-1.3) mg/dL AST (14-36) U/L ALT (4-34) U/L Alkaline Phosphatase (38-126) U/L Lactate Dehydrogenase (313-618) U/L Troponin I (0.000-0.034) ng/mL C-Reactive Protein (<10.0) mg/L NT-Pro-B Natriuret Pep pg/mL Total Protein (6.3-8.2) g/dL Albumin (3.5-5.0) g/dL Coronavirus (PCR) Not Detected (Not Detectd) - Radiology Data Radiology results: image reviewed (Chest x-ray concerning for mild CHF) Disposition Clinical Impression: Congestive heart failure, Bradycardia Disposition: ADMITTED IP TO THIS HOSP Is patient prescribed a controlled substance at d/c from ED?: No Referrals: Patti Razo MD [Primary Care Provider] - 1-2 days Decision Time: 14:59
[2020-11-10 14:20] LABS: Anisocytosis Slight; Basophils % (A) 0 %; Eosinophils # (A) 0.2 k/uL (0-0.7); Eosinophils % (A) 1 %; HCT 32.2 % (34.0-46.0); HGB 9.8 gm/dL (11.4-16.0); Hypochromasia Marked; Lymphocytes # (A) 1.6 k/uL (1.0-4.8); Lymphocytes % (A) 10 %; MCH 29.9 pg (25.0-35.0); MCHC 30.4 g/dL (31.0-37.0); MCV 98.2 fL (80.0-100.0); Macrocytosis Slight; Mean Platelet Volume 8.6; Monocytes # (A) 1.3 k/uL (0-1.0); Monocytes % (A) 7 %; Neutrophils # (A) 13.6 k/uL (1.3-7.7); Neutrophils % (A) 80 %; Platelet Count 348 k/uL (150-450); RBC 3.28 m/uL (3.80-5.40); RDW 16.8 % (11.5-15.5)
--- NOTE | 2020-11-10 14:24 | XR ---
EXAMINATION TYPE: XR chest 1V portable DATE OF EXAM: 11/10/2020 COMPARISON: Chest x-ray October 14, 2020. CT chest October 10, 2020. HISTORY: Shortness of breath and hypoxia. TECHNIQUE: Single AP portable frontal upright view of the chest is obtained. FINDINGS: There is chronic parenchymal change with small to tiny bilateral pleural effusions. There is associated left basilar compressive atelectasis. The cardiac silhouette size is stable and mildly enlarged with atherosclerotic aorta. Retrocardiac opacity consistent with hiatal hernia. The osseous structures are demineralized. IMPRESSION: Cardiomegaly and chronic parenchymal changes with small to tiny bilateral pleural effusio ns. Correlate for CHF exacerbation.
[2020-11-10 14:26] LABS: Albumin 2.9 g/dL (3.5-5.0); C Reactive Protein 13.6 mg/L (<10.0); INR 1.1 (<1.2); Magnesium 1.5 mg/dL (1.6-2.3); Partial Thromboplastin Time 27.6 sec (22.0-30.0); Potassium 4.1 mmol/L (3.5-5.1); Prothrombin Time 11.3 sec (9.0-12.0); Total Bilirubin 0.6 mg/dL (0.2-1.3); Total Protein 5.6 g/dL (6.3-8.2)
[2020-11-10] MEDS ORDERED: traMADol 50 MG TAB PO PRN (15:06)
[2020-11-10] MEDS ORDERED: NITROGLYCERIN SL TABS 0.4 MG TAB SUBLINGUAL PRN (15:06)
[2020-11-10] MEDS: FUROSEMIDE 10 MG/ML 4 ML VIAL IV SCH ×2 (15:36→22:54)
[2020-11-10] MEDS: PANTOPRAZOLE 40 MG TABLET PO SCH (20:26)
[2020-11-10] MEDS: APIXABAN 5 MG TAB PO SCH (22:54)
[2020-11-11 04:00] LABS: Ferritin 42.8 ng/mL (10.0-291.0)
[2020-11-11] MEDS: PANTOPRAZOLE 40 MG TABLET PO SCH ×2 (06:34→16:54)
--- NOTE | 2020-11-11 07:43 | P.HPIM ---
History of Present Illness This is an 85-year-old female with history of multiple medical problems including hepatitis C, coronary artery disease, chronic atrial fibrillation, on eliquis, hypertension, hypercholesterolemia, history of adenocarcinoma, gallblad abisai recently removed. She is a patient of Dr. Razo. She was recently discharged from the hospital 10/01/20-10/17/20-for upper GI bleed with EGD showing mild esophagitis with no evidence of bleed and acute cholecystitis status post laparoscopic cholecystectomy. 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 She follows up with Dr. Stringer but no chemotherapy or radiotherapy started. Per patient Patient presents with progressive dyspnea over 1-2 weeks associated with the top of orthopnea and paroxysmal nocturnal dyspnea with no cough. No chest pain. She complains from constipation with no bowel movement for 3-4 days. No urinary symptoms like dysuria or urgency. No abdominal pain. No nausea vomiting Denies smoking or alcohol. Patient feels generally weak and she could not walk because her legs give away when she stands up however while lying in bed no weakness was noticed in her legs. Vital showing bradycardia 48-56. Blood pressure 100/55, oxygen saturation was 89 on room air, improve to 98% on 4 L oxygen via nasal cannula Labs showing leukocytosis at 17 K, on discharge his leukocytosis were around 12 K. INR is normal. Hemoglobin is 9.8, platelets are normal. Electrolytes with sodium and potassium are normal, creatinine 0.9, lactic acid is elevated at 2.4, magnesium is 1.5, been replaced. Liver enzymes are not significantly elevated, bilirubin is normal. Normal Lactate dehydrogenase 456, troponin is negative less than 0.012. C-reactive protein is slightly elevated at 13.6. ProBNP is elevated at 1330. Tabares virus not detected. EKG: Atrial flutter with 4:1 A-V conduction area QTC 443. Chest x-ray showed cardiomegaly with small tiny bilateral pleural effusion correlate for CHF, [id number] mitral regurgitation, moderate tricuspid regurgitation, [id number] pulmonary hypertension Echocardiogram from 10/08/20 showing ejection fraction of 55-60% In the emergency room patient was started on Lasix 40 mg twice a day Review of Systems CONSTITUTIONAL: No fever, no malaise, no fatigue. HEENT: No recent visual problems or hearing problems. Denied any sore throat. CARDIOVASCULAR: no palpitations, no syncope. PULMONARY: No chest wall tenderness, no hemoptysis. GASTROINTESTINAL: No diarrhea, no nausea, no vomiting, no abdominal pain. No rmoactive bowel sounds. NEUROLOGICAL: No headaches, no weakness, no numbness. HEMATOLOGICAL: Denies any bleeding or petechiae. GENITOURINARY: Denies any burning micturition, frequency, or urgency. MUSCULOSKELETAL/RHEUMATOLOGICAL: Denies any joint pain, swelling, or any muscle pain. ENDOCRINE: Denies any polyuria or polydipsia. Past Medical History Past Medical History: Coronary Artery Disease (CAD), Hypertension Additional Past Medical History / Comment(s): Hepatitis C, anemia, atrial fibrillation History of Any Multi-Drug Resistant Organisms: None Reported Past Surgical History: Section, Cholecystectomy, Tonsillectomy Past Anesthesia/Blood Transfusion Reactions: No Reported Reaction Additional Past Anesthesia/Blood Transfusion Reaction / Comment(s): Blood transfusion 5-6 years ago (no reactions) Past Psychological History: No Psychological Hx Reported Smoking Status: Former smoker Past Alcohol Use History: None Reported Past Drug Use History: None Reported - Past Family History Father Family Medical History: Cancer Additional Family Medical History / Comment(s): prostate CA Mother Family Medical History: Diabetes Mellitus, Myocardial Infarction (ID) Brother(s) Family Medical History: Cancer Additional Family Medical History / Comment(s): esophageal CA Sister(s) Family Medical History: Cancer Additional Family Medical History / Comment(s): ovarian CA Medications and Allergies Home Medications Medication Instructions Recorded Confirmed Type Apixaban [Eliquis] 5 mg PO BID tab 07/06/17 11/10/20 Rx Nitroglycerin Sl Tabs [Nitrostat] 0.4 mg SUBLINGUAL Q5M PRN 09/30/19 11/10/20 History Verapamil HCl [Verapamil ER] 240 mg PO DAILY 09/30/19 11/10/20 History Allopurinol [Zyloprim] 300 mg PO DAILY 02/10/20 11/10/20 History traMADol HCL [Ultram] 50 mg PO Q8HR PRN 3 Days #9 tab 10/15/20 11/10/20 Rx Furosemide [Lasix] 40 mg PO DAILY tab 10/17/20 11/10/20 Rx Pantoprazole [Protonix] 40 mg PO BID tablet. 10/17/20 11/10/20 Rx Potassium Chloride ER [K-Dur 10] 10 meq PO DAILY tab.er.prt 10/17/20 11/10/20 Rx atenoloL [Tenormin] 12.5 mg PO TID dose 10/17/20 11/10/20 Rx Amoxicillin 500 mg PO Q12H 11/10/20 11/10/20 History Multivitamins, Thera [Multivitamin 1 tab PO DAILY 11/10/20 11/10/20 History (formulary)] Allergies Allergy/AdvReac Type Severity Reaction Status Date / Time No Known Allergies Allergy Verified 11/10/20 13:40 Physical Exam Vitals: Vital Signs Temp Pulse Resp BP Pulse Ox 11/10/20 14:35 48 L 16 100/55 98 11/10/20 14:01 98.4 F 11/10/20 12:53 56 L 22 96/60 89 L Intake and Output 11/09/20 11/10/20 11/10/20 22:59 06:59 14:59 Other: Weight 58.06 kg GENERAL: The patient is alert and oriented x3, not in any acute distress. Well developed, well nourished. HEENT: Pupils are round and equally reacting to light. EOMI. No scleral icterus. No conjunctival pallor. Normocephalic, atraumatic. No pharyngeal erythema. No thyromegaly. CARDIOVASCULAR: S1 and S2 present. No murmurs, rubs, or gallops. -PULMONARY: Chest is clear to auscultation, no wheezing. Bilateral basal crepitation ABDOMEN: Soft, nontender, nondistended, normoactive bowel sounds. No palpable organomegaly. MUSCULOSKELETAL: No joint swelling or deformity. EXTREMITIES: No cyanosis, clubbing, or pedal edema. NEUROLOGICAL: Gross neurological examination did not reveal any focal deficits. SKIN: No rashes. No petechiae Results CBC & Chem 7: 11/10/20 13:25 11/10/20 13:25 Labs: Abnormal Lab Results - Last 24 Hours (Table) 11/10/20 11/10/20 11/10/20 Range/Units 13:25 13:25 13:25 WBC 17.0 H (3.8-10.6) k/uL RBC 3.28 L (3.80-5.40) m/uL Hgb 9.8 L (11.4-16.0) gm/dL Hct 32.2 L (34.0-46.0) % MCHC 30.4 L (31.0-37.0) g/dL RDW 16.8 H (11.5-15.5) % Neutrophils # 13.6 H (1.3-7.7) k/uL Monocytes # 1.3 H (0-1.0) k/uL Chloride 96 L (98-107) mmol/L Carbon Dioxide 33 H (22-30) mmol/L BUN 23 H (7-17) mg/dL Glucose 125 H (74-99) mg/dL Plasma Lactic Acid Lamonte 2.4 H* (0.7-2.0) mmol/L Calcium 8.0 L (8.4-10.2) mg/dL Magnesium 1.5 L (1.6-2.3) mg/dL AST 39 H (14-36) U/L C-Reactive Protein 13.6 H (<10.0) mg/L Total Protein 5.6 L (6.3-8.2) g/dL Albumin 2.9 L (3.5-5.0) g/dL Assessment and Plan Assessment: Acute diastolic heart failure, ejection fraction 55-60% Acute hypoxic respiratory failure secondary to above Status post recent cholecystectomy for acute cholecystitis with pathology report showing invasive moderate to poorly differentiated adenocarcinoma Valvular heart disease with [id number] mitral regurgitation, moderate tricuspid regurgitation, btzj-pp-meopcawl pulmonary hypertension Chronic atrial fibrillation on Eliquis Hypertension Hypercholesterolemia Plan: This is a pleasant 85 years old female who presents with acute CHF, with recent history of adenocarcinoma of gallbladder removed. Continue with Lasix, monitor electrolytes and creatinine. Cardiology consult. Monitor weight as well. Consult hematology/oncology team for recent diagnosis of cancer PT/OT for generalized weakness Labs and medication were reviewed.. Continue same treatment. Continue with symptomatic treatment. Resume home medication. Monitor lytes and vitals. DVT and GI prophylaxis. Further recommendations as per clinical course of the patient DVT prophylaxis: Eliquis GI Prophylaxis: Pepcid PT/OT: Pending Prognosis is guarded
[2020-11-11] MEDS: VERAPAMIL SR 240 MG TABLET.ER PO SCH (08:45)
[2020-11-11] MEDS: allopurinoL 300 MG TAB PO SCH (08:45)
[2020-11-11] MEDS: APIXABAN 5 MG TAB PO SCH ×2 (08:45→20:14)
[2020-11-11] MEDS: FUROSEMIDE 10 MG/ML 4 ML VIAL IV SCH ×2 (08:45→20:14)
--- NOTE | 2020-11-11 09:00 | P.CRDCN ---
History of Present Illness History of present illness: HISTORY OF PRESENTING ILLNESS This is a pleasant 85-year-old female past medical history significant for Hypertension, chronic persistent atrial fibrillation (on eliquis), COPD, leisa or nicotine dependence, adenocarcinoma of gallbladder with recent cholecystectomy in 09/2020. She used to follow in the office with Dr. Hughes, last seen in 2017. We have been asked to see in consultation for congestive heart failure and bradycardia. Patient is seen and examined in the emergency de partment. Patient presents to the hospital with complaints of shortness of breath that started 1 week ago. She states she had a nurse/therapist at the house and they noticed her shortness of breath and hypoxia. She states the shortness of breath is worse when she is flat. Also having increased white mucus sputum. She denies smoking. Denies history of AR, stroke, diabetes. She states she is compliant with her medication, lives with her daughter who helps her out at home. She states she does not ambulate at home. She his currently sleeping on the couch with 2-3 pillows under her head, but she states she is getting a hospital bed soon. On admission, patient hypoxic 89% on room air, started on 2L nasal cannula. She states she used to use oxygen at home however she was told she didnt need it anymore. Laboratory data reviewed, Troponin negative x 3, COVID-19 negative, WBC 17, Hgb 9.8, Plt 348, Sodium 137, K 4.1, sCr 0.98, CRP elevated, BNP 1330. Vital signs BP 92/68, HR 98, afebrile, 99% on 2L nasal cannula. DIAGNOSTICS Most recent Echo 09/2020- EF 55-60%, LA is severely dilated, moderate AV sclerosis, mild to moderate MR, moderate TR, mild moderate pulmonary hypertenesion, IVC is mildly dilated EKG reveals atrial flutter HR 57, poor R wave progression Telemetry tracings indicate atrial fibrillation with HR 90s-100s. Chest xray mild cardiomegaly, small to tiny bilateral pleural effusions, left basilar compressive atelectasis, hiatal hernia. Current home cardiac medications include Lasix 40mg daily, Eliquis 5mg BID, Verapamil 240mgm dialy, atenolol 12.5mg TID. REVIEW OF SYSTEMS At the time of my exam: CONSTITUTIONAL: Denies fever or chills. CARDIOVASCULAR: +shortness of breath, +orthopnea Denies chest pain, PND or palpitations. RESPIRATORY: + cough. +sputum GASTROINTESTINAL: Denies abdominal pain, diarrhea, constipation, nausea or vomiting. MUSCULOSKELETAL: Denies myalgias. NEUROLOGIC: Denies numbness, tingling, headache or weakness. ENDOCRINE: Denies fatigue, weight change, polydipsia or polyurina. GENITOURINARY: Denies burning, hematuria or urgency with micturation. HEMATOLOGIC: Denies history of anemia or bleeding. PHYSICAL EXAMINATION CONSTITUTIONAL: No apparent distress. HEENT: Head is normocephalic. Pupils are equal, round. Sclerae anicteric. Mucous membranes of the mouth are moist. + mild JVD. No carotid bruit. CHEST EXAMINATION: Lungs are clear to auscultation. No chest wall tenderness is noted on palpation or with deep breathing. HEART EXAMINATION: Irregular rate and rhythm. S1, S2 heard. Systolic murmur best heard at the base, no gallops or rub. ABDOMEN: Soft, nontender. Positive bowel sounds. EXTREMITIES: 2+ peripheral pulses, no lower extremity edema and no calf tenderness. SKIN: Abdomen with healing incisions, open to air NEUROLOGIC EXAMINATION: Patient is awake, alert and oriented x3. ASSESSMENT Shortness of breath - possibly multifactorial COPD, congestive heart failure, anemia Chronic persistent atrial fibrillation, eliquis currently on hold Hypertension Anemia Acute on chronic diastolic heart failure -EF 55-60% COPD Prior nicotine dependence Adenocarcinoma of gallbladder with recent cholecystectomy in 09/2020. PLAN -Will continue IV Lasix 40mg BID for 24 hours -Continue home medications Eliquis 5mg BID, Verapamil 240mgm dialy, atenolol 12.5mg TID. -Oncology has been consulted -Heart Healthy Diet, I/Os, Daily Weights -Close follow up in clinic Nurse Practitioner note has been reviewed, I agree with a documented findings and plan of care. Patient was seen and examined. Past Medical History Past Medical History: Coronary Artery Disease (CAD), Hypertension Additional Past Medical History / Comment(s): Hepatitis C, anemia, atrial fibr illation History of Any Multi-Drug Resistant Organisms: None Reported Past Surgical History: Section, Cholecystectomy, Tonsillectomy Past Anesthesia/Blood Transfusion Reactions: No Reported Reaction Additional Past Anesthesia/Blood Transfusion Reaction / Comment(s): Blood transfusion 5-6 years ago (no reactions) Past Psychological History: No Psychological Hx Reported Smoking Status: Former smoker Past Alcohol Use History: None Reported Past Drug Use History: None Reported - Past Family History Father Family Medical History: Cancer Additional Family Medical History / Comment(s): prostate CA Mother Family Medical History: Diabetes Mellitus, Myocardial Infarction (AR) Brother(s) Family Medical History: Cancer Additional Family Medical History / Comment(s): esophageal CA Sister(s) Family Medical History: Cancer Additional Family Medical History / Comment(s): ovarian CA Medications and Allergies Home Medications Medication Instructions Recorded Confirmed Type Apixaban [Eliquis] 5 mg PO BID tab 07/06/17 11/10/20 Rx Nitroglycerin Sl Tabs [Nitrostat] 0.4 mg SUBLINGUAL Q5M PRN 09/30/19 11/10/20 History Verapamil HCl [Verapamil ER] 240 mg PO DAILY 09/30/19 11/10/20 History Allopurinol [Zyloprim] 300 mg PO DAILY 02/10/20 11/10/20 History traMADol HCL [Ultram] 50 mg PO Q8HR PRN 3 Days #9 tab 10/15/20 11/10/20 Rx Furosemide [Lasix] 40 mg PO DAILY tab 10/17/20 11/10/20 Rx Pantoprazole [Protonix] 40 mg PO BID tablet. 10/17/20 11/10/20 Rx Potassium Chloride ER [K-Dur 10] 10 meq PO DAILY tab.er.prt 10/17/20 11/10/20 Rx atenoloL [Tenormin] 12.5 mg PO TID dose 10/17/20 11/10/20 Rx Amoxicillin 500 mg PO Q12H 11/10/20 11/10/20 History Multivitamins, Thera [Multivitamin 1 tab PO DAILY 11/10/20 11/10/20 History (formulary)] Allergies Allergy/AdvReac Type Severity Reaction Status Date / Time No Known Allergies Allergy Verified 11/10/20 13:40 Physical Exam Vitals: Vital Signs Temp Pulse Pulse Resp BP BP Pulse Ox 11/11/20 04:12 97.9 F 98 19 92/68 99 11/10/20 22:53 66 16 110/53 100 11/10/20 20:34 98.9 F 108 H 18 111/74 100 11/10/20 18:00 97.6 F 90 16 114/66 99 11/10/20 17:00 98.3 F 75 16 118/62 100 11/10/20 16:31 90 L 11/10/20 16:00 60 16 104/58 99 11/10/20 15:00 56 L 15 100/55 99 11/10/20 14:35 49 L 15 100/55 99 11/10/20 14:01 98.4 F 11/10/20 12:53 56 L 22 96/60 89 L Intake and Output 11/10/20 11/10/20 11/11/20 14:59 22:59 06:59 Other: Voiding Method Bedpan # Voids 1 Weight 58.06 kg 58.06 kg Results 11/10/20 13:25 11/10/20 13:25 Cardiac Enzymes 11/10/20 11/10/20 11/10/20 Range/Units 13:24 13:25 16:30 AST 39 H (14-36) U/L Lactate Dehydrogenase 456 (313-618) U/L Troponin I <0.012 <0.012 (0.000-0.034) ng/mL 11/10/20 Range/Units 19:50 AST (14-36) U/L Lactate Dehydrogenase (313-618) U/L Troponin I <0.012 (0.000-0.034) ng/mL Coagulation 11/10/20 Range/Units 13:25 PT 11.3 (9.0-12.0) sec APTT 27.6 (22.0-30.0) sec CBC 11/10/20 Range/Units 13:25 WBC 17.0 H (3.8-10.6) k/uL RBC 3.28 L (3.80-5.40) m/uL Hgb 9.8 L (11.4-16.0) gm/dL Hct 32.2 L (34.0-46.0) % Plt Count 348 (150-450) k/uL Comprehensive Metabolic Panel 11/10/20 Range/Units 13:25 Sodium 137 (137-145) mmol/L Potassium 4.1 (3.5-5.1) mmol/L Chloride 96 L (98-107) mmol/L Carbon Dioxide 33 H (22-30) mmol/L BUN 23 H (7-17) mg/dL Creatinine 0.98 (0.52-1.04) mg/dL Glucose 125 H (74-99) mg/dL Calcium 8.0 L (8.4-10.2) mg/dL AST 39 H (14-36) U/L ALT 17 (4-34) U/L Alkaline Phosphatase 75 (38-126) U/L Total Protein 5.6 L (6.3-8.2) g/dL Albumin 2.9 L (3.5-5.0) g/dL Current Medications Generic Name Dose Route Start Last Admin Trade Name Freq PRN Reason Stop Dose Admin Allopurinol 300 mg 11/11/20 09:00 Allopurinol 300 Mg Tab PO DAILY JOANNE Apixaban 5 mg 11/10/20 21:00 11/10/20 22:54 Apixaban 5 Mg Tab PO 5 mg BID JOANNE Administration Atenolol 12.5 mg 11/10/20 16:00 11/10/20 22:47 Atenolol 12.5 Mg Tab PO Not Given TID JOANNE Furosemide 40 mg 11/10/20 15:00 11/10/20 22:54 Furosemide 10 Mg/Ml 4 Ml Vial IV 40 mg Q12HR JOANNE Administration Nitroglycerin 0.4 mg 11/10/20 15:06 Nitroglycerin Sl Tabs 0.4 Mg Tab SUBLINGUAL Q5M PRN Chest Pain Pantoprazole Sodium 40 mg 11/10/20 17:30 11/11/20 06:34 Pantoprazole 40 Mg Tablet PO 40 mg AC-BID JOANNE Administration Sodium Chloride 10 ml 11/10/20 21:00 11/10/20 22:54 Sodium Chloride 0.9% Flush 10 Ml Syringe IV 10 ml BID JOANNE Administration Tramadol HCl 50 mg 11/10/20 15:06 Tramadol 50 Mg Tab PO Q8HR PRN Pain Verapamil HCl 240 mg 11/11/20 09:00 Verapamil Sr 240 Mg Tablet.Er PO DAILY JOANNE Intake and Output 11/10/20 11/10/20 11/11/20 14:59 22:59 06:59 Other: Voiding Method Bedpan # Voids 1 Weight 58.06 kg 58.06 kg Patient Weight 11/11/20 06:59 Weight 58.06 kg 11/10/20 13:25 11/10/20 13:25
[2020-11-11] MEDS ORDERED: Magnesium Replacement Protocol 1 EACH MISC MISCELLANE PRN (10:17)
[2020-11-11] MEDS: MAGNESIUM SULFATE-D5W PMX 1 GM in DEXTROSE/WATER 1 100ML.BAG IVPB SCH ×4 (12:41→18:47)
[2020-11-11 14:39] VITALS: BMI 25.0
--- NOTE | 2020-11-11 15:46 | P.CONS ---
History of Present Illness - Reason for Consult Consult date: 11/11/20 cholangiocarcinoma Requesting physician: Dl Pastrana - Chief Complaint SOB, orthopnea - History of Present Illness Mrs. Wood is a very pleasant 85-year-old female who is currently admitted with signs and symptoms and workup most consistent with congestive heart failure. She's been short of breath for about 1 week, progressive, heart rate is been elevated, her energy levels were declining. She denied any headaches, chest pain, purulent sputum production, fevers, nausea or vomiting, abdominal pain or cramping, acute changes in bowel or bladder habits, no pain to report, mild swelling in the legs. 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 Cystic duct margin negative for dysplasia or invasive malignancy. Tumor involves serosal surface. Positive for lymphovascular invasion. Notes SURGICAL PATHOLOGY CANCER CASE SUMMARY - GALLBLADDER PROCEDURE: Simple laparoscopic cholecystectomy. TUMOR SITE: Fundus and body. TUMOR SIZE: Greatest dimension: 5.3 cm, nodular mucosal area grossly. HISTOLOGIC TYPE: Adenocarcinoma, biliary type. HISTOLOGIC GRADE: G2-G3: moderately to poorly differentiated. MICROSCOPIC TUMOR EXTENSION: Tumor perforates serosa (visceral peritoneum). MARGINS: Cystic duct margin uninvolved by invasive carcinoma and high grade intraepithelial neoplasia. DISTANCE OF INVASIVE CARCINOMA FROM MARGIN: Greater than 1 cm. LIVER PARENCHYMAL MARGIN: Cannot be assessed. LYMPHOVASCULAR INVASION: Present. PERINEURAL INVASION: Not identified. REGIONAL LYMPH NODES: No lymph nodes submitted or found. PATHOLOGIC STAGE CLASSIFICATION (pTNM, AJCC 8TH EDITION): PRIMARY TUMOR: pT3. REGIONAL LYMPH NODES: pNX. DISTANT METASTASIS: Not applicable. ADDITIONAL PATHOLOGIC FINDINGS: Acute and chronic cholecystitis with ch olelithiasis. Plan is for pt to be sent to Dr. Phillip for curative surgery, she has not been contacted for appt yet. Review of Systems 10 point ROS is neg except as stated in HPI Past Medical History Past Medical History: Coronary Artery Disease (CAD), Hypertension Additional Past Medical History / Comment(s): Hepatitis C, anemia, atrial fibrillation History of Any Multi-Drug Resistant Organisms: None Reported Past Surgical History: Section, Cholecystectomy, Tonsillectomy Past Anesthesia/Blood Transfusion Reactions: No Reported Reaction Additional Past Anesthesia/Blood Transfusion Reaction / Comm: Blood transfusion 5-6 years ago (no reactions) Past Psychological History: No Psychological Hx Reported Smoking Status: Former smoker Past Alcohol Use History: None Reported Past Drug Use History: None Reported - Past Family History Father Family Medical History: Cancer Additional Family Medical History / Comment(s): prostate CA Mother Family Medical History: Diabetes Mellitus, Myocardial Infarction (ID) Brother(s) Family Medical History: Cancer Additional Family Medical History / Comment(s): esophageal CA Sister(s) Family Medical History: Cancer Additional Family Medical History / Comment(s): ovarian CA Medications and Allergies Home Medications Medication Instructions Recorded Confirmed Type Apixaban [Eliquis] 5 mg PO BID tab 07/06/17 11/10/20 Rx Nitroglycerin Sl Tabs [Nitrostat] 0.4 mg SUBLINGUAL Q5M PRN 09/30/19 11/10/20 History Verapamil HCl [Verapamil ER] 240 mg PO DAILY 09/30/19 11/10/20 History Allopurinol [Zyloprim] 300 mg PO DAILY 02/10/20 11/10/20 History traMADol HCL [Ultram] 50 mg PO Q8HR PRN 3 Days #9 tab 10/15/20 11/10/20 Rx Furosemide [Lasix] 40 mg PO DAILY tab 10/17/20 11/10/20 Rx Pantoprazole [Protonix] 40 mg PO BID tablet. 10/17/20 11/10/20 Rx Potassium Chloride ER [K-Dur 10] 10 meq PO DAILY tab.er.prt 10/17/20 11/10/20 Rx atenoloL [Tenormin] 12.5 mg PO TID dose 10/17/20 11/10/20 Rx Amoxicillin 500 mg PO Q12H 11/10/20 11/10/20 History Multivitamins, Thera [Multivitamin 1 tab PO DAILY 11/10/20 11/10/20 History (formulary)] Allergies Allergy/AdvReac Type Severity Reaction Status Date / Time No Known Allergies Allergy Verified 11/10/20 13:40 Physical Exam Vitals: Vital Signs Temp Pulse Pulse Resp BP BP Pulse Ox 11/11/20 07:53 115 H 18 114/81 99 11/11/20 04:12 97.9 F 98 19 92/68 99 11/10/20 22:53 66 16 110/53 100 11/10/20 20:34 98.9 F 108 H 18 111/74 100 11/10/20 18:00 97.6 F 90 16 114/66 99 11/10/20 17:00 98.3 F 75 16 118/62 100 11/10/20 16:31 90 L 11/10/20 16:00 60 16 104/58 99 11/10/20 15:00 56 L 15 100/55 99 11/10/20 14:35 49 L 15 100/55 99 11/10/20 14:01 98.4 F 11/10/20 12:53 56 L 22 96/60 89 L Intake and Output 11/10/20 11/11/20 11/11/20 22:59 06:59 14:59 Other: Voiding Method Bedpan # Voids 1 Weight 58.06 kg - Constitutional General appearance: average body habitus, cooperative, no acute distress - EENT Eyes: anicteric sclerae, EOMI ENT: hearing grossly normal, normal oropharynx - Neck Neck: no lymphadenopathy - Respiratory Respiratory: bilateral: rales - Cardiovascular Rhythm: regular Heart sounds: normal: S1, S2 Abnormal Heart Sounds: systolic murmur leg Peripheral Edema: bilateral: Trace - Gastrointestinal General gastrointestinal: no absent bowel sounds, no decreased bowel sounds, no distended, no hepatomegaly, no hyperactive bowel sounds, normal bowel sounds, no organomegaly, no rigid, no scaphoid, soft, no splenomegaly, no tenderness, no umbilical hernia, no ventral hernia - Neurologic Neurologic: CNII-XII intact - Musculoskeletal Musculoskeletal: strength equal bilaterally - Psychiatric Psychiatric: A&O x's 3, appropriate affect, intact judgment & insight Results CBC & Chem 7: 11/10/20 13:25 11/11/20 10:28 Labs: Abnormal Lab Results - Last 24 Hours (Table) 11/10/20 11/10/20 11/10/20 Range/Units 13:25 13:25 13:25 WBC 17.0 H (3.8-10.6) k/uL RBC 3.28 L (3.80-5.40) m/uL Hgb 9.8 L (11.4-16.0) gm/dL Hct 32.2 L (34.0-46.0) % MCHC 30.4 L (31.0-37.0) g/dL RDW 16.8 H (11.5-15.5) % Neutrophils # 13.6 H (1.3-7.7) k/uL Monocytes # 1.3 H (0-1.0) k/uL Chloride 96 L (98-107) mmol/L Carbon Dioxide 33 H (22-30) mmol/L BUN 23 H (7-17) mg/dL Glucose 125 H (74-99) mg/dL Plasma Lactic Acid Lamonte 2.4 H* (0.7-2.0) mmol/L Calcium 8.0 L (8.4-10.2) mg/dL Magnesium 1.5 L (1.6-2.3) mg/dL AST 39 H (14-36) U/L C-Reactive Protein 13.6 H (<10.0) mg/L Total Protein 5.6 L (6.3-8.2) g/dL Albumin 2.9 L (3.5-5.0) g/dL Assessment and Plan (1) Cholangiocarcinoma Narrative/Plan: Diagnosis comes after routine cholecystectomy with incidental finding of carcinoma on pathology. There are plans for curative surgery. Patient is being referred to Dr. Welch at [facility] for the same. 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 Discussed with dictator. Agree with documentation, documented as a scribe.
--- NOTE | 2020-11-11 23:36 | P.PN ---
Subjective Progress Note Date: 11/11/20 Principal diagnosis: Acute on chronic diastolic heart failure, ejection fraction 55-60% This is an 85-year-old female with history of multiple medical problems including hepatitis C, coronary artery disease, chronic atrial fibrillation, on eliquis, hypertension, hypercholesterolemia, history of adenocarcinoma, gallbladder recently removed. She is a patient of Dr. Razo. She was recently discharged from the hospital 10/01/20-10/17/20-for upper GI bleed with EGD showing mild esophagitis with no evidence of bleed and acute cholecystitis status post laparoscopic cholecystectomy. 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 She follows up with Dr. Stringer but no chemotherapy or radiotherapy started. Per patient Patient presents with progressive dyspnea over 1-2 weeks associated with the top of orthopnea and paroxysmal nocturnal dyspnea with no cough. No chest pain. She complains from constipation with no bowel movement for 3-4 days. No urinary symptoms like dysuria or urgency. No abdominal pain. No nausea vomiting Denies smoking or alcohol. Patient feels generally weak and she could not walk because her legs give away when she stands up however while lying in bed no weakness was noticed in her legs. Vital showing bradycardia 48-56. Blood pressure 100/55, oxygen saturation was 89 on room air, improve to 98% on 4 L oxygen via nasal cannula Labs showing leukocytosis at 17 K, on discharge his leukocytosis were around 12 K. INR is normal. Hemoglobin is 9.8, platelets are normal. Electrolytes with sodium and potassium are normal, creatinine 0.9, lactic acid is elevated at 2.4, magnesium is 1.5, been replaced. Liver enzymes are not significantly elevated, bilirubin is normal. Normal Lactate dehydrogenase 456, troponin is negative less than 0.012. C-reactive protein is slightly elevated at 13.6. ProBNP is elevated at 1330. Tabares virus not detected. EKG: Atrial flutter with 4:1 A-V conduction area QTC 443. Chest x-ray showed cardiomegaly with small tiny bilateral pleural effusion correlate for CHF, [id number] mitral regurgitation, moderate tricuspid regurgitation, [id number] pulmonary hypertension Echocardiogram from 10/08/20 showing ejection fraction of 55-60% In the emergency room patient was started on Lasix 40 mg twice a day 11/11/2020 Patient currently lying in the bed comfortably. Breathing status is better. Currently being continued on Lasix 40 mg twice daily for another 24 hours as per cardiology recommendations. Denied any complaints of chest pain. No nausea vomiting or abdominal pain. No diarrhea or dysuria. Patient has been afebrile. Laboratory data showed BUN 25 and creatinine 0.94 and bicarb is 38 Troponin x3 - and lactic acid level is improved. 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 Patient has outpatient follow-up with her oncologist at [facility]. Denied any complaints of abdominal pain currently. Cardiology is on board. Active Medications Generic Name Dose Route Start Last Admin Trade Name Freq PRN Reason Stop Dose Admin Allopurinol 300 mg 11/11/20 09:00 11/11/20 08:45 Allopurinol 300 Mg Tab PO 300 mg DAILY JOANNE Administration Apixaban 5 mg 11/10/20 21:00 11/11/20 20:14 Apixaban 5 Mg Tab PO 5 mg BID JOANNE Administration Atenolol 12.5 mg 11/10/20 16:00 11/11/20 20:22 Atenolol 12.5 Mg Tab PO 12.5 mg TID JOANNE Administration Furosemide 40 mg 11/10/20 15:00 11/11/20 20:14 Furosemide 10 Mg/Ml 4 Ml Vial IV 40 mg Q12HR JOANNE Administration Miscellaneous Information 1 each 11/11/20 10:17 Magnesium Replacement Protocol 1 Each Misc MISCELLANE DAILY PRN Per Protocol Protocol Nitroglycerin 0.4 mg 11/10/20 15:06 Nitroglycerin Sl Tabs 0.4 Mg Tab SUBLINGUAL Q5M PRN Chest Pain Pantoprazole Sodium 40 mg 11/10/20 17:30 11/11/20 16:54 Pantoprazole 40 Mg Tablet PO 40 mg AC-BID JOANNE Administration Sodium Chloride 10 ml 11/10/20 21:00 11/11/20 21:21 Sodium Chloride 0.9% Flush 10 Ml Syringe IV Not Given BID JOANNE Tramadol HCl 50 mg 11/10/20 15:06 Tramadol 50 Mg Tab PO Q8HR PRN Pain Verapamil HCl 240 mg 11/11/20 09:00 11/11/20 08:45 Verapamil Sr 240 Mg Tablet.Er PO 240 mg DAILY JOANNE Administration Objective - Vital Signs Vital signs: Vital Signs Temp 97.9 F 11/11/20 04:12 Pulse 115 H 11/11/20 07:53 Resp 18 11/11/20 07:53 BP 114/81 11/11/20 07:53 Pulse Ox 99 11/11/20 07:53 Intake & Output 11/10/20 11/11/20 11/11/20 18:59 06:59 18:59 Weight 58.06 kg 58.06 kg Other: Voiding Method Bedpan # Voids 1 - Exam GENERAL: The patient is alert and oriented x3, not in any acute distress. Well developed, well nourished. HEENT: Pupils are round and equally reacting to light. EOMI. No scleral icterus. No conjunctival pallor. Normocephalic, atraumatic. No pharyngeal erythema. No thyromegaly. CARDIOVASCULAR: S1 and S2 present. No murmurs, rubs, or gallops. -PULMONARY: Chest is clear to auscultation, no wheezing. Bilateral basal crepitation ABDOMEN: Soft, nontender, nondistended, normoactive bowel sounds. No palpable o rganomegaly. MUSCULOSKELETAL: No joint swelling or deformity. EXTREMITIES: No cyanosis, clubbing, or pedal edema. NEUROLOGICAL: Gross neurological examination did not reveal any focal deficits. SKIN: No rashes. No petechiae - Labs CBC & Chem 7: 11/10/20 13:25 11/11/20 10:28 Labs: Abnormal Lab Results - Last 24 Hours (Table) 11/10/20 11/10/20 11/10/20 Range/Units 13:25 13:25 13:25 WBC 17.0 H (3.8-10.6) k/uL RBC 3.28 L (3.80-5.40) m/uL Hgb 9.8 L (11.4-16.0) gm/dL Hct 32.2 L (34.0-46.0) % MCHC 30.4 L (31.0-37.0) g/dL RDW 16.8 H (11.5-15.5) % Neutrophils # 13.6 H (1.3-7.7) k/uL Monocytes # 1.3 H (0-1.0) k/uL Chloride 96 L (98-107) mmol/L Carbon Dioxide 33 H (22-30) mmol/L BUN 23 H (7-17) mg/dL Glucose 125 H (74-99) mg/dL Plasma Lactic Acid Lamonte 2.4 H* (0.7-2.0) mmol/L Calcium 8.0 L (8.4-10.2) mg/dL Magnesium 1.5 L (1.6-2.3) mg/dL AST 39 H (14-36) U/L C-Reactive Protein 13.6 H (<10.0) mg/L Total Protein 5.6 L (6.3-8.2) g/dL Albumin 2.9 L (3.5-5.0) g/dL Assessment and Plan Assessment: Acute on chronic diastolic heart failure, ejection fraction 55-60% Acute hypoxic respiratory failure secondary to above Chronic atrial fibrillation on Eliquis Normocytic anemia Status post recent cholecystectomy for acute cholecystitis with pathology report showing invasive moderate to poorly differentiated adenocarcinoma. Out pt. followup with her oncologist at [facility] Valvular heart disease with [id number] mitral regurgitation, moderate tricuspid regurgitation, [id number] pulmonary hypertension Hypertension Hypercholesterolemia Hepatitis C. Previous history of smoking DVT prophylaxis patient is already on Eliquis Plan: This is a pleasant 85 years old female who presents with acute CHF, with recent history of adenocarcinoma of gallbladder showed in pathology after removal. Continue with IV Lasix, monitor electrolytes and creatinine. Monitor weight as well. Consulted hematology/oncology team for recent diagnosis of cancer, Cardiology is on board. PT/OT for generalized weakness Labs and medication were reviewed.. Continue with symptomatic treatment. Resume home medication. Monitor lytes and vitals. DVT and GI prophylaxis. Further recommendations as per clinical course of the patient DVT prophylaxis: Eliquis GI Prophylaxis: Pepcid PT/OT: Pending Prognosis is guarded Time with Patient: Greater than 30
[2020-11-12 01:38] LABS: Appearance,Urine Clear (Clear); Bilirubin,Urine Negative (Negative); Blood,Urine Negative (Negative); Color,Urine Light Yellow; Glucose,Urine (UA) Negative (Negative); Ketones,Urine Negative (Negative); Leukocyte Esterase,Urine Negative (Negative); Nitrite,Urine Negative (Negative); Protein,Urine Negative (Negative); Specific Gravity,Urine 1.004 (1.001-1.035); Urobilinogen,Urine <2.0 mg/dL (<2.0)
[2020-11-12] MEDS: PANTOPRAZOLE 40 MG TABLET PO SCH ×2 (06:13→17:45)
--- NOTE | 2020-11-12 07:55 | XR ---
EXAMINATION TYPE: XR chest 1V DATE OF EXAM: 11/12/2020 CLINICAL HISTORY: Difficulty breathing CHF progress study. TECHNIQUE: Single AP portable upright view of the chest is obtained. COMPARISON: Chest x-ray from 2 days earlier and older studies. FINDINGS: There is chronic parenchymal change with small to tiny left pleural effusion remaining pre sent. The cardiac silhouette size is stable and mildly enlarged with atherosclerotic aorta. Retrocar diac opacity consistent with hiatal hernia redemonstrated. The osseous structures remain demineralize d. Developing right upper lung opacity silhouetting portion of fissure is noted. IMPRESSION: Cardiomegaly and chronic parenchymal changes with small to tiny left-sided pleural effusi on redemonstrated. Suspect mild interstitial edema bilaterally. Developing right upper lung infiltrat e and/or edema noted.
[2020-11-12] MEDS: allopurinoL 300 MG TAB PO SCH (08:25)
[2020-11-12] MEDS: VERAPAMIL SR 240 MG TABLET.ER PO SCH (08:26)
[2020-11-12] MEDS: APIXABAN 5 MG TAB PO SCH ×2 (08:26→20:33)
[2020-11-12] MEDS: FUROSEMIDE 10 MG/ML 4 ML VIAL IV SCH (08:26)
[2020-11-12 09:04] LABS: Calcium 8.3 mg/dL (8.4-10.2); Magnesium 2.3 mg/dL (1.6-2.3); Potassium 3.7 mmol/L (3.5-5.1)
--- NOTE | 2020-11-12 10:44 | P.PN ---
Subjective Progress Note Date: 11/12/20 I am assuming care of this patient as of 11/12/2020 at 8 AM. I was out of town and Dr. Hernandez was covering for me. H&P done by Dr. Pastrana on 11/10/2020 This is an 85-year-old female patient who presented to the hospital on 11/10/2020 with increased shortness of breath over the past few weeks and generalized weakness. Patient has past medical history of hepatitis C coronary artery disease chronic A. fib maintained on eliquis, hypertension, hyperlipidemia and recent hospitalization with gallbladder removal positive for adenocarcinoma. That time patient was tested for COVID-19 which was negative. Patient started on IV Lasix and cardiology services consulted. On 11/12/2020 patient is alert and oriented 3. Patient reports improvement with shortness of breath according to records patient has follow-up appointment outpatient with oncologist at [facility]. Our oncology team is following. Elevated WBC noted from 11/11/2019 repeat CBC has been ordered. Pat ient has known atrial fibrillation heart rate low 100. Cardiology services are following. At this time patient denies chest pain or shortness of breath. Patient denies nausea vomiting or diarrhea. Patient denies any urinary burning or frequency Objective - Vital Signs Vital signs: Vital Signs Temp 97.7 F 11/12/20 08:16 Pulse 114 H 11/12/20 08:16 Resp 16 11/12/20 07:47 BP 102/67 11/12/20 08:16 Pulse Ox 98 11/12/20 08:16 Intake & Output 11/11/20 11/12/20 11/12/20 18:59 06:59 18:59 Intake Total 240 0 Output Total 400 Balance 240 -400 0 Weight 58.06 kg 60.5 kg Intake: Oral 240 0 Output: Urine 400 Other: Voiding Method Bedpan Bedpan # Voids 1 1 - Exam Head normocephalic Neck supple Lungs clear to auscultation bilaterally no wheezing or crackles Heart irregular rate, known atrial fibrillation Abdomen is soft nontender nondistended positive bowel sounds no hepatosplenomegaly Extremities no edema Neuro alert and orientated to 3 - Labs CBC & Chem 7: 11/10/20 13:25 11/12/20 08:30 Labs: Abnormal Lab Results - Last 24 Hours (Table) 11/11/20 11/11/20 Range/Units 10:28 10:28 Chloride 94 L (98-107) mmol/L Carbon Dioxide 38 H (22-30) mmol/L BUN 25 H (7-17) mg/dL Glucose 101 H (74-99) mg/dL Calcium 8.0 L (8.4-10.2) mg/dL Procalcitonin 0.10 H (0.02-0.09) ng/mL Microbiology - Last 24 Hours (Table) 11/10/20 13:25 Blood Culture - Preliminary Blood No Growth after 24 hours 11/10/20 13:33 Blood Culture - Preliminary Blood No Growth after 24 hours Assessment and Plan Assessment: 1. Acute hypoxic respiratory failure secondary to acute on chronic diastolic heart failure. 2-D echo showing EF of 55-60%. Currently on Lasix. Cardiology services are following 2. Chronic atrial fibrillation. Maintained on eliquis 3. Recent diagnosis of poorly differentiated adenocarcinoma of the gallbladder. Oncology services are following. Patient has follow-up with her oncologist at [facility] 4. History of valvular heart disease with mild to moderate mitral regurg, moderate tricuspid regurg and mild to moderate pulmonary hypertension 5. History of essential hypertension 6. History of hyperlipidemia 7. History of hepatitis C 8. History of previous nicotine dependence 9. Elevated WBC. Repeat labs ordered. UA was negative DVT prophylaxis eliquis. DVT prophylaxis Protonix Oncology and cardiology service following Patient has been transitioned to by mouth Lasix Repeat CBC has been ordered due to elevated WBC Plans for outpatient follow-up with oncologist at [facility] Discharge planning to home when medically stable
--- NOTE | 2020-11-12 10:47 | P.PN ---
Subjective This is a pleasant 85-year-old female past medical history significant for Hypertension, chronic persistent atrial fibrillation (on eliquis), COPD, prior nicotine dependence, adenocarcinoma of gallbladder with recent cholecystectomy in 09/2020. She used to follow in the office with Dr. Hughes, last seen in 2017. We have been asked to see in consultation for congestive heart failure and bradycardia. Chest xray mild cardiomegaly, small to tiny bilateral pleural effusions, left basilar compressive atelectasis, hiatal hernia. Troponin negative x 3, BNP 1330, which is lower than previous admission on 10/13/2020 when it was 2470. Echo 09/2020- EF 55-60%, LA is severely dilated, moderate AV sclerosis, mild to moderate MR, moderate TR, mild moderate pulmonary hypertension, IVC is mildly dilated. Patient seen and examined at bedside alert oriented x 3. She complains of some dizziness when ambulating. Per Nursing patient able to ambulate with standby assistance with the walker. She continues to have a productive cough with thick white sputum. Laboratory data reviewed, UA negative, Sodium 136, K 3.7, sCr 0.97. Vital signs BP 100/66, HR 100, afebrile, 98% on 2L nasal cannula. Currently being maintained on IV Lasix 40mg BID, Eliquis 5mg BID, Verapamil 240mg daily, atenolol 12.5mg TID. Orthostatic vital signs taken Lyin/67 HR 114, Sittin/59 HR 100, Standing 101/58 Hr 107 PHYSICAL EXAMINATION CONSTITUTIONAL: No apparent distress. HEENT: Head is normocephalic. CHEST EXAMINATION: Lungs are clear to auscultation. No chest wall tenderness is noted on palpation or with deep breathing. HEART EXAMINATION: Irregular rate and rhythm. S1, S2 heard. Systolic murmur best heard at the base, no gallops or rub. ABDOMEN: Soft, nontender. Positive bowel sounds. EXTREMITIES: 2+ peripheral pulses, no lower extremity edema and no calf tenderness. SKIN: Abdomen with healing incisions, open to air NEUROLOGIC EXAMINATION: Patient is awake, alert and oriented x3. ASSESSMENT Dizziness- unclear etiology, orthostatic vital signs are not significant Shortness of breath - possibly multifactorial COPD, congestive heart failure, anemia Chronic persistent atrial fibrillation, on eliquis Hypertension Anemia Acute on chronic diastolic heart failure -EF 55-60% COPD Prior nicotine dependence Adenocarcinoma of gallbladder with recent cholecystectomy in 09/2020. PLAN -Will transition to PO Lasix 40mg daily -Continue home medications Eliquis 5mg BID, Verapamil 240mg daily, atenolol 12.5mg TID. -Oncology is following patient - Plan is for patient to be referred to Dr. Welch at [facility] for curative surgery plans -Further recommendations based on clinical course Nurse Practitioner note has been reviewed, I agree with a documented findings and plan of care. Patient was seen and examined. Objective - Vital Signs Vital signs: Vital Signs Temp 97.7 F 11/12/20 08:16 Pulse 114 H 11/12/20 08:16 Resp 16 11/12/20 07:47 BP 102/67 11/12/20 08:16 Pulse Ox 98 11/12/20 08:16 Intake & Output 11/11/20 11/12/20 11/12/20 18:59 06:59 18:59 Intake Total 240 0 Output Total 400 Balance 240 -400 0 Weight 58.06 kg 60.5 kg Intake: Oral 240 0 Output: Urine 400 Other: Voiding Method Bedpan Bedpan # Voids 1 1 - Labs CBC & Chem 7: 11/10/20 13:25 11/12/20 08:30 Labs: Abnormal Lab Results - Last 24 Hours (Table) 11/11/20 11/11/20 11/12/20 Range/Units 10:28 10:28 08:30 Sodium 136 L (137-145) mmol/L Chloride 94 L 93 L (98-107) mmol/L Carbon Dioxide 38 H 37 H (22-30) mmol/L BUN 25 H 29 H (7-17) mg/dL Glucose 101 H 130 H (74-99) mg/dL Calcium 8.0 L 8.3 L (8.4-10.2) mg/dL Procalcitonin 0.10 H (0.02-0.09) ng/mL Microbiology - Last 24 Hours (Table) 11/10/20 13:25 Blood Culture - Preliminary Blood No Growth after 24 hours 11/10/20 13:33 Blood Culture - Preliminary Blood No Growth after 24 hours
--- NOTE | 2020-11-12 10:53 | CDI ---
Documentation Clarification Form Date: 11/12/2020 10:42:38 AM From: Dia ValenzuelaADAMS, CCDS Admit Date: 11/10/2020 02:59:00 PM Patient Name: Dia Wood Visit Number: [id number] Discharge Date: ATTENTION: The Clinical Documentation Specialists (CDI) and [facility] Coding Staff appreciate your assistance in clarifying documentation. Please respond to the clarification below the line at the bottom and electronically sign. The CDI & [facility] Coding staff will review the response and follow-up if needed. Please note: Queries are made part of the Legal Health Record. If you have any questions, please contact the author of this message via ITS. Dr. Treasure Rangel: Atrial Flutter is documented in the Cardiology Consult on 11/11: EKG reveals atrial flutter HR 57, poor R wave progression. Telemetry tracings indicate atrial fibrillation with HR 57, poor R wave progression Telemetry tracings indicate atrial fibrillation with HR 90s-100s. Additional clarification regarding the type of Atrial Flutter is requested. History/Risk factors per the 11/10 History & Physical: Hepatitis C, CAD, Chronic Atrial Fibrillation on Eliquis, Anemia, Hypertension, Hypercholesterolemia, recently removed gallbladder with incidental finding of adenocarcinoma. Admit & discharge (10/01 - 10/17/2020) for upper GI bleed with mild esophagitis & acute cholecystectomy status post Laparoscopic Cholecystectomy. Clinical Indicators: Presented to the ED on 11/10 via EMS with SOB, worse with exertion. 11/10 VS: T 98.4, P 56, R 22 (SOB), BP 96/60, PO 89 RA - 98 4L nc. 11/10 LAB: PT 11.3, INR 1.1, APTT 27.6, Troponin <0.012, <0.012; BNP 1330. 11/10 EKG: Rate 57, Atrial flutter with 4:1 AV conduction, Low voltage QRS, Nonspecific ST & T wave abnormality. Treatment 11/10: INH Ventolin, IV Lasix, Nitro sl, po Tenormin, po Eliquis 11/11 Cardiology Consult: Continue IV Lasix, Continue home meds: Eliquis, Verapamil, Atenolol. Please clarify the type of Atrial Flutter, if known: [ xx] Typical/Type I [ ] Atypical/Type II [ ] Other, please specify [ ] Unable to determine (Template Last Revised: September 2020) MTDD
[2020-11-12 12:00] LABS: Anisocytosis Slight; Basophils % (A) 0 %; Eosinophils # (A) 0.2 k/uL (0-0.7); Eosinophils % (A) 1 %; HCT 34.8 % (34.0-46.0); HGB 10.4 gm/dL (11.4-16.0); Hypochromasia Marked; Lymphocytes # (A) 0.8 k/uL (1.0-4.8); Lymphocytes % (A) 6 %; MCH 29.3 pg (25.0-35.0); MCV 97.6 fL (80.0-100.0); Macrocytosis Slight; Mean Platelet Volume 8.3; Monocytes # (A) 0.7 k/uL (0-1.0); Monocytes % (A) 5 %; Neutrophils # (A) 12.4 k/uL (1.3-7.7); Neutrophils % (A) 87 %; Platelet Count 244 k/uL (150-450); RBC 3.56 m/uL (3.80-5.40); RDW 16.6 % (11.5-15.5); WBC 14.3 k/uL (3.8-10.6)
[2020-11-12] MEDS: AZITHROMYCIN 500 MG in SODIUM CHLORIDE 0.9% 250 ML IVPB SCH (15:26)
[2020-11-13] MEDS: PANTOPRAZOLE 40 MG TABLET PO SCH ×2 (06:32→16:59)
--- NOTE | 2020-11-13 08:08 | XR ---
EXAMINATION TYPE: XR chest 2V DATE OF EXAM: 11/13/2020 COMPARISON: Chest x-ray from yesterday and older studies HISTORY: Pneumonia. TECHNIQUE: Frontal and lateral views of the chest are obtained. FINDINGS: There is chronic parenchymal change with small right greater than left bilateral pleural e ffusions confirmed seen best on lateral view. The cardiac silhouette size is stable and mildly enlarg ed with atherosclerotic aorta. Retrocardiac opacity consistent with hiatal hernia redemonstrated. Th e osseous structures remain demineralized. Some improved aeration right upper lung. IMPRESSION: Cardiomegaly and chronic parenchymal changes with small right greater than left bilateral pleural effusions confirmed. Improved interstitial edema and resolving right upper lung edema and/or infiltrates noted.
[2020-11-13] MEDS: VERAPAMIL SR 240 MG TABLET.ER PO SCH (09:59)
[2020-11-13] MEDS: allopurinoL 300 MG TAB PO SCH (09:59)
[2020-11-13] MEDS: APIXABAN 5 MG TAB PO SCH ×2 (09:59→21:25)
--- NOTE | 2020-11-13 10:34 | P.PN ---
Subjective Progress Note Date: 11/13/20 I am assuming care of this patient as of 11/12/2020 at 8 AM. I was out of town and Dr. Hernandez was covering for me. H&P done by Dr. Pastrana on 11/10/2020 This is an 85-year-old female patient who presented to the hospital on 11/10/2020 with increased shortness of breath over the past few weeks and generalized weakness. Patient has past medical history of hepatitis C coronary artery disease chronic A. fib maintained on eliquis, hypertension, hyperlipidemia and recent hospitalization with gallbladder removal positive for adenocarcinoma. That time patient was tested for COVID-19 which was negative. Patient started on IV Lasix and cardiology services consulted. On 11/12/2020 patient is alert and oriented 3. Patient reports improvement with shortness of breath according to records patient has follow-up appointment outpatient with oncologist at [facility]. Our oncology team is following. Elevated WBC noted from 11/11/2019 repeat CBC has been ordered. Pat ient has known atrial fibrillation heart rate low 100. Cardiology services are following. At this time patient denies chest pain or shortness of breath. Patient denies nausea vomiting or diarrhea. Patient denies any urinary burning or frequency. On 11/13/2020 patient was seen and examined on the medical floor she is alert and oriented 3 in no apparent distress she is complaining of generalized weakness otherwise no complaints at this time there is no fever or chills no headache or dizziness no chest pain no shortness of breath no cough no nausea or vomiting no abdominal pain no diarrhea no blood in the stools no burning with urination no frequency or urgency and no hematuria. At this time cardiology are switching Lasix to oral, will continue to monitor if patient is stable possible discharge to home in the next 1-2 days Objective - Vital Signs Vital signs: Vital Signs Temp 98.0 F 11/13/20 08:00 Pulse 73 11/13/20 08:00 Resp 16 11/13/20 08:00 BP 91/63 11/13/20 08:00 Pulse Ox 96 11/13/20 04:00 Intake & Output 11/12/20 11/13/20 11/13/20 18:59 06:59 18:59 Intake Total 480 120 Output Total 300 700 Balance 180 -700 120 Weight 60.1 kg Intake: Oral 480 120 Output: Urine 300 700 Stool 0 0 Other: Voiding Method Bedpan Toilet Bedpan # Voids 0 # Bowel Movements 0 - Exam Head normocephalic Neck supple Lungs clear to auscultation bilaterally no wheezing or crackles Heart irregular rate, known atrial fibrillation Abdomen is soft nontender nondistended positive bowel sounds no hepatospleno megaly Extremities no edema Neuro alert and orientated to 3 - Labs CBC & Chem 7: 11/12/20 08:30 11/12/20 08:30 Labs: Abnormal Lab Results - Last 24 Hours (Table) 11/12/20 11/12/20 Range/Units 08:30 08:30 WBC 14.3 H (3.8-10.6) k/uL RBC 3.56 L (3.80-5.40) m/uL Hgb 10.4 L (11.4-16.0) gm/dL MCHC 30.0 L (31.0-37.0) g/dL RDW 16.6 H (11.5-15.5) % Neutrophils # 12.4 H (1.3-7.7) k/uL Lymphocytes # 0.8 L (1.0-4.8) k/uL Sodium 136 L (137-145) mmol/L Chloride 93 L (98-107) mmol/L Carbon Dioxide 37 H (22-30) mmol/L BUN 29 H (7-17) mg/dL Glucose 130 H (74-99) mg/dL Calcium 8.3 L (8.4-10.2) mg/dL Microbiology - Last 24 Hours (Table) 11/10/20 13:25 Blood Culture - Preliminary Blood No Growth after 48 hours 11/10/20 13:33 Blood Culture - Preliminary Blood No Growth after 48 hours Assessment and Plan Assessment: 1. Acute hypoxic respiratory failure secondary to acute on chronic diastolic heart failure. 2-D echo showing EF of 55-60%. Currently on Lasix. Cardiology services are following 2. Chronic atrial fibrillation. Maintained on eliquis 3. Recent diagnosis of poorly differentiated adenocarcinoma of the gallbladder. Oncology services are following. Patient has follow-up with her oncologist at [facility] 4. History of valvular heart disease with mild to moderate mitral regurg, moderate tricuspid regurg and mild to moderate pulmonary hypertension 5. History of essential hypertension 6. History of hyperlipidemia 7. History of hepatitis C 8. History of previous nicotine dependence 9. Elevated WBC. Repeat labs ordered. UA was negative DVT prophylaxis eliquis. DVT prophylaxis Protonix Oncology and cardiology service following Patient has been transitioned to by mouth Lasix Repeat CBC has been ordered due to elevated WBC Plans for outpatient follow-up with oncologist at [facility] Discharge planning to home when medically stable
--- NOTE | 2020-11-13 10:38 | P.PN ---
Subjective This is a pleasant 85-year-old female past medical history significant for Hypertension, chronic persistent atrial fibrillation (on eliquis), COPD, prior nicotine dependence, adenocarcinoma of gallbladder with recent cholecystectomy in 09/2020. She used to follow in the office with Dr. Hughes, last seen in 2017. We have been asked to see in consultation for congestive heart failure and bradycardia. Chest xray mild cardiomegaly, small to tiny bilateral pleural effusions, left basilar compressive atelectasis, hiatal hernia. Troponin negative x 3, BNP 1330, which is lower than previous admission on 10/13/2020 when it was 2470. Echo 09/2020- EF 55-60%, LA is severely dilated, moderate AV sclerosis, mild to moderate MR, moderate TR, mild moderate pulmonary hypertension, IVC is mildly dilated. Patient seen and examined at bedside alert oriented x 3. She currently has no complaints. Does have occasional dizziness with ambulation. Telemetry reviewed patient in atrial fibrillation HR trend 80s-90s Vital signs BP 96/56, HR 73, afebrile, 98% on 2L nasal cannula. Currently being maintained on PO Lasix 40mg once per day, Eliquis 5mg BID, Verapamil 240mg daily, atenolol 12.5mg TID. PHYSICAL EXAMINATION CONSTITUTIONAL: No apparent distress. HEENT: Head is normocephalic. CHEST EXAMINATION: Lungs are clear to auscultation. No chest wall tenderness is noted on palpation or with deep breathing. HEART EXAMINATION: Irregular rate and rhythm. S1, S2 heard. Systolic murmur best heard at the base, no gallops or rub. ABDOMEN: Soft, nontender. Positive bowel sounds. EXTREMITIES: 2+ peripheral pulses, no lower extremity edema and no calf tenderness. SKIN: Abdomen with healing incisions, open to air NEUROLOGIC EXAMINATION: Patient is awake, alert and oriented x3. ASSESSMENT Dizziness- unclear etiology, orthostatic vital signs are not significant Shortness of breath - possibly multifactorial COPD, congestive heart failure, anemia Chronic persistent atrial fibrillation, on eliquis Hypertension Anemia Acute on chronic diastolic heart failure -EF 55-60% COPD Prior nicotine dependence Adenocarcinoma of gallbladder with recent cholecystectomy in 09/2020. PLAN Patient's heart rate continues to be controlled, will decrease atenolol 12.5mg daily Continue PO Lasix 40mg daily Continue home medications Eliquis 5mg BID and Verapamil 240mg daily Oncology is following patient - Plan is for patient to be referred to Dr. Welch at [facility] for curative surgery plans Continue cardiac telemetry to monitor if patient's HR remains controlled after change in atenolol Further recommendations based on clinical course Nurse Practitioner note has been reviewed, I agree with a documented findings and plan of care. Patient was seen and examined. Objective - Vital Signs Vital signs: Vital Signs Temp 98.0 F 11/13/20 08:00 Pulse 73 11/13/20 08:00 Resp 16 11/13/20 08:00 BP 91/63 11/13/20 08:00 Pulse Ox 96 11/13/20 04:00 Intake & Output 11/12/20 11/13/20 11/13/20 18:59 06:59 18:59 Intake Total 480 120 Output Total 300 700 Balance 180 -700 120 Weight 60.1 kg Intake: Oral 480 120 Output: Urine 300 700 Stool 0 0 Other: Voiding Method Bedpan Toilet Bedpan # Voids 0 # Bowel Movements 0 - Labs CBC & Chem 7: 11/12/20 08:30 11/12/20 08:30 Labs: Abnormal Lab Results - Last 24 Hours (Table) 11/12/20 Range/Units 08:30 WBC 14.3 H (3.8-10.6) k/uL RBC 3.56 L (3.80-5.40) m/uL Hgb 10.4 L (11.4-16.0) gm/dL MCHC 30.0 L (31.0-37.0) g/dL RDW 16.6 H (11.5-15.5) % Neutrophils # 12.4 H (1.3-7.7) k/uL Lymphocytes # 0.8 L (1.0-4.8) k/uL Microbiology - Last 24 Hours (Table) 11/10/20 13:25 Blood Culture - Preliminary Blood No Growth after 48 hours 11/10/20 13:33 Blood Culture - Preliminary Blood No Growth after 48 hours
[2020-11-13 11:07] LABS: Albumin 2.7 g/dL (3.5-5.0); Calcium 8.2 mg/dL (8.4-10.2); Potassium 3.7 mmol/L (3.5-5.1); Total Bilirubin 0.4 mg/dL (0.2-1.3); Total Protein 5.4 g/dL (6.3-8.2)
[2020-11-13 11:56] LABS: Anisocytosis Slight; Basophils % (A) 0 %; Eosinophils # (A) 0.1 k/uL (0-0.7); Eosinophils % (A) 1 %; HGB 9.6 gm/dL (11.4-16.0); Hypochromasia Marked; Lymphocytes # (A) 0.5 k/uL (1.0-4.8); Lymphocytes % (A) 5 %; MCH 29.1 pg (25.0-35.0); Macrocytosis Slight; Mean Platelet Volume 7.8; Monocytes # (A) 0.7 k/uL (0-1.0); Monocytes % (A) 7 %; Neutrophils # (A) 9.1 k/uL (1.3-7.7); Neutrophils % (A) 86 %; Platelet Count 196 k/uL (150-450); RDW 16.4 % (11.5-15.5); WBC 10.5 k/uL (3.8-10.6)
[2020-11-13] MEDS: FUROSEMIDE 40 MG TAB PO SCH (12:27)
[2020-11-13] MEDS: AZITHROMYCIN 500 MG in SODIUM CHLORIDE 0.9% 250 ML IVPB SCH (12:27)
[2020-11-13] MEDS ORDERED: ALPRAZolam 0.25 MG TAB PO PRN (15:58)
[2020-11-14] MEDS: PANTOPRAZOLE 40 MG TABLET PO SCH (06:25)
[2020-11-14 08:36] VITALS: RESP 16
[2020-11-14] MEDS: allopurinoL 300 MG TAB PO SCH (08:36)
[2020-11-14] MEDS: APIXABAN 5 MG TAB PO SCH (08:37)
[2020-11-14] MEDS: AZITHROMYCIN 500 MG in SODIUM CHLORIDE 0.9% 250 ML IVPB SCH (08:37)
[2020-11-14] MEDS: FUROSEMIDE 40 MG TAB PO SCH (08:37)
[2020-11-14] MEDS: VERAPAMIL SR 240 MG TABLET.ER PO SCH (08:37)
[2020-11-14 09:32] LABS: Anisocytosis Slight; Basophils % (A) 0 %; Eosinophils # (A) 0.1 k/uL (0-0.7); Eosinophils % (A) 1 %; HCT 29.4 % (34.0-46.0); HGB 9.3 gm/dL (11.4-16.0); Hypochromasia Marked; Lymphocytes # (A) 0.4 k/uL (1.0-4.8); Lymphocytes % (A) 5 %; MCH 30.1 pg (25.0-35.0); MCHC 31.6 g/dL (31.0-37.0); MCV 95.2 fL (80.0-100.0); Monocytes # (A) 0.6 k/uL (0-1.0); Monocytes % (A) 8 %; Neutrophils # (A) 7.2 k/uL (1.3-7.7); Neutrophils % (A) 86 %; Platelet Count 165 k/uL (150-450); RBC 3.09 m/uL (3.80-5.40); RDW 16.2 % (11.5-15.5); WBC 8.4 k/uL (3.8-10.6)
[2020-11-14 10:01] LABS: Albumin 2.6 g/dL (3.5-5.0); Calcium 8.1 mg/dL (8.4-10.2); Potassium 3.5 mmol/L (3.5-5.1); Total Bilirubin 0.4 mg/dL (0.2-1.3); Total Protein 5.2 g/dL (6.3-8.2)
--- NOTE | 2020-11-14 11:01 | P.DS ---
Providers Date of admission: 11/10/20 14:59 Expected date of discharge: 11/14/20 Attending physician: Patti Razo Consults: 11/10/20 14:59 Consult Physician Routine Consulting Provider: Treasure Rangel Consult Reason/Comments: Bradycardia, mild CHF Do you want consulting provider notified?: Yes 11/10/20 15:07 Consult Physician Routine Consulting Provider: Damion Mahmood Consult Reason/Comments: Recent adenocarcinoma of the gallbladder Do you want consulting provider notified?: Yes Primary care physician: [facility] Course: Discharge diagnosis 1. Acute hypoxic respiratory failure secondary to acute on chronic diastolic heart failure. 2-D echo showing EF of 55-60%. Currently on Lasix. Cardiology services are following. Patient has been placed back on home Lasix dose 2. Chronic atrial fibrillation. Maintained on eliquis. Atenolol decreased. 3. Recent diagnosis of poorly differentiated adenocarcinoma of the gallbladder. Oncology services are following. Patient has follow-up with her oncologist at [facility] 4. History of valvular heart disease with mild to moderate mitral regurg, moderate tricuspid regurg and mild to moderate pulmonary hypertension 5. History of essential hypertension 6. History of hyperlipidemia 7. History of hepatitis C 8. History of previous nicotine dependence 9. Pneumonia. Patient started Zithromax and Rocephin. White blood cell improving. Repeat chest x-ray showing cardiomegaly and chronic parenchymal changes a small right greater than left bilateral pleural effusions confirmed. Improved interstitial edema and resolving right upper lung edema and/or infiltrates noted. Will DC patient on Ceftin for one week Hospital course I am assuming care of this patient as of 11/12/2020 at 8 AM. I was out of town and Dr. Hernandez was covering for me. H&P done by Dr. Pastrana on 11/10/2020 This is an 85-year-old female patient who presented to the hospital on 11/10/2020 with increased shortness of breath over the past few weeks and generalized weakness. Patient has past medical history of hepatitis C coronary artery disease chronic A. fib maintained on eliquis, hypertension, hyperlipidemia and recent hospitalization with gallbladder removal positive for adenocarcinoma. That time patient was tested for COVID-19 which was negative. Patient started on IV Lasix and cardiology services consulted. On 11/12/2020 patient is alert and oriented 3. Patient reports improvement with shortness of breath according to records patient has follow-up appointment outpatient with oncologist at [facility]. Our oncology team is following. Elevated WBC noted from 11/11/2019 repeat CBC has been ordered. Patient has known atrial fibrillation heart rate low 100. Cardiology services are following. At this time patient denies chest pain or shortness of breath. Patient denies nausea vomiting or diarrhea. Patient denies any urinary burning or frequency. On 11/13/2020 patient was seen and examined on the medical floor she is alert and oriented 3 in no apparent distress she is complaining of generalized weakness otherwise no complaints at this time there is no fever or chills no headache or dizziness no chest pain no shortness of breath no cough no nausea or vomiting no abdominal pain no diarrhea no blood in the stools no burning with urination no frequency or urgency and no hematuria. At this time cardiology are switching Lasix to oral, will continue to monitor if patient is stable possible discharge to home in the next 1-2 days On 11/14/2020 patient is alert and oriented 3 patient expresses that she is very eager to go home. Chest x-ray from 11/13/2020 show improvement. Discussed case with cardiology services patient will likely be cleared by cardiology for DC home today. Atenolol decreased. Lasix at home dose. Patient will also be DC'd on Ceftin for one week for pneumonia. Patient advised followed closely with PCP consulting providers and oncologist at [facility]. At this time patient denies chest pain or shortness of breath. Patient denies nausea vomiting or diarrhea. Patient denies any urinary burning or frequency. Patient does need home O2 for CHF. Patient Condition at Discharge: Stable Plan - Discharge Summary New Discharge Prescriptions: New Cefuroxime Axetil [Ceftin] 500 mg PO BID 7 Days #14 tab atenoloL [Tenormin] 12.5 mg PO DAILY 30 Days #30 dose Continue Apixaban [Eliquis] 5 mg PO BID tab Nitroglycerin Sl Tabs [Nitrostat] 0.4 mg SUBLINGUAL Q5M PRN PRN Reason: Chest Pain Verapamil HCl [Verapamil ER] 240 mg PO DAILY Allopurinol [Zyloprim] 300 mg PO DAILY traMADol HCL [Ultram] 50 mg PO Q8HR PRN 3 Days #9 tab PRN Reason: Pain Potassium Chloride ER [K-Dur 10] 10 meq PO DAILY tab.er.prt Furosemide [Lasix] 40 mg PO DAILY tab Pantoprazole [Protonix] 40 mg PO BID tablet. Multivitamins, Thera [Multivitamin (formulary)] 1 tab PO DAILY Discontinued atenoloL [Tenormin] 12.5 mg PO TID dose Amoxicillin 500 mg PO Q12H Discharge Medication List Apixaban [Eliquis] 5 mg PO BID tab 07/06/17 [Rx] Nitroglycerin Sl Tabs [Nitrostat] 0.4 mg SUBLINGUAL Q5M PRN 09/30/19 [History] Verapamil HCl [Verapamil ER] 240 mg PO DAILY 09/30/19 [History] Allopurinol [Zyloprim] 300 mg PO DAILY 02/10/20 [History] traMADol HCL [Ultram] 50 mg PO Q8HR PRN 3 Days #9 tab 10/15/20 [Rx] Furosemide [Lasix] 40 mg PO DAILY tab 10/17/20 [Rx] Pantoprazole [Protonix] 40 mg PO BID tablet. 10/17/20 [Rx] Potassium Chloride ER [K-Dur 10] 10 meq PO DAILY tab.er.prt 10/17/20 [Rx] Multivitamins, Thera [Multivitamin (formulary)] 1 tab PO DAILY 11/10/20 [History] Cefuroxime Axetil [Ceftin] 500 mg PO BID 7 Days #14 tab 11/14/20 [Rx] atenoloL [Tenormin] 12.5 mg PO DAILY 30 Days #30 dose 11/14/20 [Rx] Follow up Appointment(s)/Referral(s): Treasure Rangel MD [STAFF PHYSICIAN] - 2 Weeks [facility], [NON-STAFF] - Patti Razo MD [Primary Care Provider] - 1-2 days Activity/Diet/Wound Care/Special Instructions: Patient will require a hospital bed at discharge secondary to needing head of bed to be elevated more than 30 degrees most of the time to alleviate dyspnea caused by CHF Discharge Disposition: HOME WITH HOME HEALTH SERVICES
--- NOTE | 2020-11-14 12:05 | P.PN ---
Subjective This is a pleasant 85-year-old female past medical history significant for Hypertension, chronic persistent atrial fibrillation (on eliquis), COPD, prior nicotine dependence, adenocarcinoma of gallbladder with recent cholecystectomy in 09/2020. She used to follow in the office with Dr. Hughes, last seen in 2017. We have been asked to see in consultation for congestive heart failure and bradycardia. Chest xray mild cardiomegaly, small to tiny bilateral pleural effusions, left basilar compressive atelectasis, hiatal hernia. Troponin negative x 3, BNP 1330, which is lower than previous admission on 10/13/2020 when it was 2470. Echo 09/2020- EF 55-60%, LA is severely dilated, moderate AV sclerosis, mild to moderate MR, moderate TR, mild moderate pulmonary hypertension, IVC is mildly dilated. Patient seen and examined at bedside alert oriented x 3. She currently has no complaints. Yesterday we decreased her beta moy. She states her dizziness has improved and she is eager to be discharged home. Telemetry reviewed patient in atrial fibrillation HR trend 90-115, appeared to be in sinus mechanism HR 50s yesterday night. This morning she is in atrial fibrillation HR 90s. Vital signs BP 104/69, HR 105 afebrile, 98% on 2L nasal cannula. Currently being maintained on PO Lasix 40mg once per day, Eliquis 5mg BID, Verapamil 240mg daily, atenolol 12.5mg Daily. PHYSICAL EXAMINATION CONSTITUTIONAL: No apparent distress. HEENT: Head is normocephalic. CHEST EXAMINATION: Lungs are clear to auscultation. No chest wall tenderness is noted on palpation or with deep breathing. HEART EXAMINATION: Irregular rate and rhythm. S1, S2 heard. Systolic murmur best heard at the base, no gallops or rub. ABDOMEN: Soft, nontender. Positive bowel sounds. EXTREMITIES: 2+ peripheral pulses, no lower extremity edema and no calf tenderness. SKIN: Abdomen with healing incisions, open to air NEUROLOGIC EXAMINATION: Patient is awake, alert and oriented x3. ASSESSMENT Dizziness- unclear etiology, orthostatic vital signs are not significant Shortness of breath - possibly multifactorial COPD, congestive heart failure, anemia Chronic persistent atrial fibrillation, on eliquis Hypertension Anemia Acute on chronic diastolic heart failure -EF 55-60% COPD Prior nicotine dependence Adenocarcinoma of gallbladder with recent cholecystectomy in 09/2020. PLAN From cardiology perspective, patient is stable for discharge home. Atenolol 12.5mg daily Continue PO Lasix 40mg daily Continue home medications Eliquis 5mg BID and Verapamil 240mg daily Oncology is following patient - Plan is for patient to be referred to Dr. Welch at [facility] for curative surgery plans Follow up with Dr. Rangel outpatient. Nurse Practitioner note has been reviewed, I agree with a documented findings and plan of care. Patient was seen and examined. Objective - Vital Signs Vital signs: Vital Signs Temp 97.9 F 11/14/20 08:34 Pulse 105 H 11/14/20 08:34 Resp 16 11/14/20 08:34 BP 104/69 11/14/20 08:34 Pulse Ox 98 11/14/20 08:34 Intake & Output 11/13/20 11/14/20 11/14/20 18:59 06:59 18:59 Intake Total 540 240 Output Total 600 400 Balance -60 -400 240 Weight 59.8 kg Intake: Oral 540 240 Output: Urine 600 400 Stool 0 Other: Voiding Method Bedside Commode Bedside Commode Bedside Commode Diaper Diaper Diaper - Labs CBC & Chem 7: 11/14/20 08:45 11/14/20 08:45 Labs: Abnormal Lab Results - Last 24 Hours (Table) 11/13/20 11/13/20 11/14/20 Range/Units 10:04 10:04 08:45 RBC 3.30 L 3.09 L (3.80-5.40) m/uL Hgb 9.6 L 9.3 L (11.4-16.0) gm/dL Hct 32.0 L 29.4 L (34.0-46.0) % MCHC 30.0 L (31.0-37.0) g/dL RDW 16.4 H 16.2 H (11.5-15.5) % Neutrophils # 9.1 H (1.3-7.7) k/uL Lymphocytes # 0.5 L 0.4 L (1.0-4.8) k/uL Sodium 136 L (137-145) mmol/L Chloride 93 L (98-107) mmol/L Carbon Dioxide 40 H (22-30) mmol/L BUN 25 H (7-17) mg/dL Glucose 105 H (74-99) mg/dL Calcium 8.2 L (8.4-10.2) mg/dL Total Protein 5.4 L (6.3-8.2) g/dL Albumin 2.7 L (3.5-5.0) g/dL 11/14/20 Range/Units 08:45 RBC (3.80-5.40) m/uL Hgb (11.4-16.0) gm/dL Hct (34.0-46.0) % MCHC (31.0-37.0) g/dL RDW (11.5-15.5) % Neutrophils # (1.3-7.7) k/uL Lymphocytes # (1.0-4.8) k/uL Sodium 136 L (137-145) mmol/L Chloride 95 L (98-107) mmol/L Carbon Dioxide 39 H (22-30) mmol/L BUN 23 H (7-17) mg/dL Glucose (74-99) mg/dL Calcium 8.1 L (8.4-10.2) mg/dL Total Protein 5.2 L (6.3-8.2) g/dL Albumin 2.6 L (3.5-5.0) g/dL Microbiology - Last 24 Hours (Table) 11/10/20 13:25 Blood Culture - Preliminary Blood No Growth after 72 hours 11/10/20 13:33 Blood Culture - Preliminary Blood No Growth after 72 hours
[2020-11-14 12:10] VITALS: BP 114/73; PULSE 88; TEMP 97.8
== END 2020-11-14 14:24 | disposition home health service (06) | DRG 291 ==
LOC: EC 12:48 → 3SCARD 14:59
PROVIDERS: ADMIT Internal Medicine; ATTEND Internal Medicine
DX: I11.0 Hypertensive heart disease with heart failure (principal); J18.9 Pneumonia, unspecified organism; J96.01 Acute respiratory failure with hypoxia; I48.3 Typical atrial flutter; J44.0 Chronic obstructive pulmonary disease with (acute) lower respiratory infection; C22.1 Intrahepatic bile duct carcinoma; C23 Malignant neoplasm of gallbladder; I48.19 Other persistent atrial fibrillation; I50.33 Acute on chronic diastolic (congestive) heart failure; Z79.01 Long term (current) use of anticoagulants; I27.20 Pulmonary hypertension, unspecified; Z20.822 Contact with and (suspected) exposure to COVID-19; Z86.19 Personal history of other infectious and parasitic diseases; D64.9 Anemia, unspecified; E78.00 Pure hypercholesterolemia, unspecified; E78.5 Hyperlipidemia, unspecified; I08.1 Rheumatic disorders of both mitral and tricuspid valves; I25.10 Atherosclerotic heart disease of native coronary artery without angina pectoris; K59.00 Constipation, unspecified; Z79.899 Other long term (current) drug therapy; Z80.0 Family history of malignant neoplasm of digestive organs; Z80.41 Family history of malignant neoplasm of ovary; Z82.49 Family history of ischemic heart disease and other diseases of the circulatory system; Z83.3 Family history of diabetes mellitus; Z85.09 Personal history of malignant neoplasm of other digestive organs; Z87.891 Personal history of nicotine dependence; Z90.49 Acquired absence of other specified parts of digestive tract
CPT/HCPCS: 36415; 71045; 71046; 80048; 80053; 81003; 82728; 83605; 83615; 83735; 83880; 84145; 84484; 85025; 85610; 85730; 86140; 87040; 87635; 93005; 94640; 94760; 99285

== ENCOUNTER 2020-11-18 09:41 | Inpatient (IN) | payer MEDICARE ==
[2020-11-18 09:53] VITALS: TEMP 97.9
[2020-11-18] MEDS ORDERED: SODIUM CHLORIDE 0.9% 1,000 ML IV STA ×2 (09:56)
--- NOTE | 2020-11-18 10:11 | ED ---
Weakness HPI - General Chief complaint: Weakness Stated complaint: lethargy Time Seen by Provider: 11/18/20 09:41 Source: EMS, RN notes reviewed, old records reviewed Mode of arrival: EMS Limitations: altered mental status - History of Present Illness Initial comments: This is a 85-year-old female with a history of A. fib history of recent diagnosis of stomach cancer who is brought in by EMS today because of decreased level of consciousness she's had decreased oral intake for at least last 2 days. Less conversant inability to do her ADLs. No nausea vomiting diarrhea fevers chills or sweats reported. Patient herself is a poor historian MD Complaint: generalized weakness - Related Data Home Medications Medication Instructions Recorded Confirmed Nitroglycerin Sl Tabs [Nitrostat] 0.4 mg SL Q5M PRN 09/30/19 11/18/20 Verapamil HCl [Verapamil ER] 240 mg PO DAILY 09/30/19 11/18/20 Allopurinol [Zyloprim] 300 mg PO DAILY 02/10/20 11/18/20 Multivitamins, Thera [Multivitamin 1 tab PO DAILY 11/10/20 11/18/20 (formulary)] atenoloL [Atenolol] 12.5 mg PO DAILY 11/18/20 11/18/20 Previous Rx's Medication Instructions Recorded Apixaban [Eliquis] 5 mg PO BID tab 07/06/17 traMADol HCL [Ultram] 50 mg PO Q8HR PRN 3 Days #9 tab 10/15/20 Furosemide [Lasix] 40 mg PO DAILY tab 10/17/20 Pantoprazole [Protonix] 40 mg PO BID tablet. 10/17/20 Potassium Chloride ER [K-Dur 10] 10 meq PO DAILY tab.er.prt 10/17/20 Cefuroxime Axetil [Ceftin] 500 mg PO BID 7 Days #14 tab 11/14/20 Allergies Allergy/AdvReac Type Severity Reaction Status Date / Time No Known Allergies Allergy Verified 11/18/20 10:45 Review of Systems ROS Statement: Those systems with pertinent positive or pertinent negative responses have been documented in the HPI. ROS Other: All systems not noted in ROS Statement are negative. Past Medical History Past Medical History: Coronary Artery Disease (CAD), Hypertension Additional Past Medical History / Comment(s): Hepatitis C, anemia, atrial fibrillation History of Any Multi-Drug Resistant Organisms: None Reported Past Surgical History: Section, Cholecystectomy, Tonsillectomy Past Anesthesia/Blood Transfusion Reactions: No Reported Reaction Additional Past Anesthesia/Blood Transfusion Reaction / Comment(s): Blood transfusion 5-6 years ago (no reactions) Past Psychological History: No Psychological Hx Reported Smoking Status: Former smoker Past Alcohol Use History: None Reported Past Drug Use History: None Reported - Past Family History Father Family Medical History: Cancer Additional Family Medical History / Comment(s): prostate CA Mother Family Medical History: Diabetes Mellitus, Myocardial Infarction (MS) Brother(s) Family Medical History: Cancer Additional Family Medical History / Comment(s): esophageal CA Sister(s) Family Medical History: Cancer Additional Family Medical History / Comment(s): ovarian CA General Exam - General Exam Comments Initial Comments: This is a well-developed sec appearing female who is awake alert though very lethargic Limitations: altered mental status, physical limitation General appearance: alert, in no apparent distress Head exam: Present: atraumatic, normocephalic, normal inspection Eye exam: Present: normal appearance, PERRL, EOMI. Absent: scleral icterus, conjunctival injection, periorbital swelling ENT exam: Present: mucous membranes dry Neck exam: Present: normal inspection. Absent: tenderness, meningismus, lymphadenopathy Respiratory exam: Present: decreased breath sounds. Absent: respiratory distress, wheezes, rales, rhonchi, stridor Cardiovascular Exam: Present: normal rhythm, tachycardia, normal heart sounds. Absent: systolic murmur, diastolic murmur, rubs, gallop, clicks GI/Abdominal exam: Present: soft, normal bowel sounds. Absent: distended, tenderness, guarding, rebound, rigid Extremities exam: Present: normal inspection, full ROM, normal capillary refill. Absent: tenderness, pedal edema, joint swelling, calf tenderness Back exam: Present: normal inspection Neurological exam: Present: alert, oriented X3, CN II-XII intact Psychiatric exam: Present: normal affect, normal mood Skin exam: Present: warm, dry, intact, normal color. Absent: rash Course Vital Signs 11/18/20 09:44 Temperature 97.9 F Pulse Rate 111 H Respiratory 16 Rate Blood Pressure 113/82 O2 Sat by Pulse 93 L Oximetry Medical Decision Making - Medical Decision Making I did discuss findings with the patient's family patient is a no code and comfort care only. I did discuss the case with Dr. Razo. Patient be admitted for inpatient evaluation and treatment and discharge planning she has no one can take care of her home at this time - Lab Data Result diagrams: 11/18/20 09:59 11/18/20 09:59 Lab Results 11/18/20 11/18/20 Range/Units 09:59 09:59 WBC 13.9 H (3.8-10.6) k/uL RBC 3.08 L (3.80-5.40) m/uL Hgb 9.2 L (11.4-16.0) gm/dL Hct 29.2 L (34.0-46.0) % MCV 95.0 (80.0-100.0) fL MCH 30.0 (25.0-35.0) pg MCHC 31.5 (31.0-37.0) g/dL RDW 16.2 H (11.5-15.5) % Plt Count 264 (150-450) k/uL MPV 8.0 Neutrophils % 85 % Lymphocytes % 6 % Monocytes % 6 % Eosinophils % 1 % Basophils % 0 % Neutrophils # 11.9 H (1.3-7.7) k/uL Lymphocytes # 0.8 L (1.0-4.8) k/uL Monocytes # 0.9 (0-1.0) k/uL Eosinophils # 0.1 (0-0.7) k/uL Basophils # 0.1 (0-0.2) k/uL Hypochromasia Marked Anisocytosis Slight Sodium 133 L (137-145) mmol/L Potassium 4.5 (3.5-5.1) mmol/L Chloride 93 L (98-107) mmol/L Carbon Dioxide 32 H (22-30) mmol/L Anion Gap 8 mmol/L BUN 52 H (7-17) mg/dL Creatinine 1.39 H (0.52-1.04) mg/dL Est GFR (CKD-EPI)AfAm 40 (>60 ml/min/1.73 sqM) Est GFR (CKD-EPI)NonAf 35 (>60 ml/min/1.73 sqM) Glucose 100 H (74-99) mg/dL Calcium 8.7 (8.4-10.2) mg/dL Magnesium 2.1 (1.6-2.3) mg/dL Total Bilirubin 0.7 (0.2-1.3) mg/dL AST 41 H (14-36) U/L ALT 14 (4-34) U/L Alkaline Phosphatase 62 (38-126) U/L Creatine Kinase <20 L (30-135) U/L Total Protein 6.2 L (6.3-8.2) g/dL Albumin 3.2 L (3.5-5.0) g/dL - Radiology Data Radiology results: report reviewed (X-ray shows evidence of any vascular markings in the pleural effusion.), image reviewed Disposition Clinical Impression: Failure to thrive in adult, Dehydration, Acute kidney injury, Anemia, Stomach cancer Disposition: ADMITTED IP TO THIS HOSP Condition: Fair Referrals: Patti Razo MD [Primary Care Provider] - 1-2 days
[2020-11-18 10:17] LABS: Anisocytosis Slight; Basophils # (A) 0.1 k/uL (0-0.2); Basophils % (A) 0 %; Eosinophils # (A) 0.1 k/uL (0-0.7); Eosinophils % (A) 1 %; HCT 29.2 % (34.0-46.0); HGB 9.2 gm/dL (11.4-16.0); Hypochromasia Marked; Lymphocytes # (A) 0.8 k/uL (1.0-4.8); Lymphocytes % (A) 6 %; MCHC 31.5 g/dL (31.0-37.0); Monocytes # (A) 0.9 k/uL (0-1.0); Monocytes % (A) 6 %; Neutrophils # (A) 11.9 k/uL (1.3-7.7); Neutrophils % (A) 85 %; Platelet Count 264 k/uL (150-450); RBC 3.08 m/uL (3.80-5.40); RDW 16.2 % (11.5-15.5); WBC 13.9 k/uL (3.8-10.6)
--- NOTE | 2020-11-18 10:37 | XR ---
EXAMINATION TYPE: XR chest 2V DATE OF EXAM: 11/18/2020 COMPARISON: Chest x-ray 5 days ago. HISTORY: Increased weakness and lethargy. Known intra-abdominal cancer. TECHNIQUE: Frontal and lateral views of the chest are obtained. FINDINGS: There is stable cardiomegaly with atherosclerotic aorta. There are small to moderate-sized bilateral pleural effusions increased in size from prior study. Associated compressive atelectasis in the bases and along the fissure is present. The osseous structures remain demineralized. New Centr al vascular congestion noted. IMPRESSION: Cardiomegaly with new central vascular congestion and [id number] bilateral pleura l effusions increased in size from most recent x-ray consistent with CHF exacerbation and/or worsenin g fluid overload state.
[2020-11-18 10:58] LABS: ALT 14 U/L (4-34); AST 41 U/L (14-36); African American GFR (CKD) 40 (>60 ml/min/1.73 sqM); Albumin 3.2 g/dL (3.5-5.0); Alkaline Phosphatase 62 U/L (38-126); Anion Gap 8 mmol/L; Blood Urea Nitrogen 52 mg/dL (7-17); Calcium 8.7 mg/dL (8.4-10.2); Carbon Dioxide 32 mmol/L (22-30); Chloride 93 mmol/L (98-107); Creatine Kinase <20 U/L (30-135); Glucose 100 mg/dL (74-99); Magnesium 2.1 mg/dL (1.6-2.3); Non-African American GFR(CKD) 35 (>60 ml/min/1.73 sqM); Potassium 4.5 mmol/L (3.5-5.1); Sodium 133 mmol/L (137-145); Total Bilirubin 0.7 mg/dL (0.2-1.3); Total Protein 6.2 g/dL (6.3-8.2)
[2020-11-18] MEDS ORDERED: NALOXONE 0.4 MG/ML 1 ML VIAL IV PRN (12:37)
[2020-11-18 15:58] LABS: Appearance,Urine Cloudy (Clear); Bacteria,Urine Rare /hpf; Bilirubin,Urine Negative (Negative); Blood,Urine Moderate (Negative); Color,Urine Yellow; Glucose,Urine (UA) Negative (Negative); Hyaline Casts,Urine 33 /lpf (0-2); Ketones,Urine Negative (Negative); Leukocyte Esterase,Urine Negative (Negative); Mucus,Urine Rare /hpf; Nitrite,Urine Negative (Negative); Protein,Urine 1+ (Negative); RBC,Urine 14 /hpf (0-5); Specific Gravity,Urine 1.014 (1.001-1.035); Squamous Epithelial Cell,Urine 2 /hpf (0-4); Urobilinogen,Urine <2.0 mg/dL (<2.0); WBC,Urine 5 /hpf (0-5)
[2020-11-18] MEDS ORDERED: LORazepam 2 MG/ML INJ IV PRN (19:26)
[2020-11-19 03:24] VITALS: BP 106/75; PULSE 93
[2020-11-19] MEDS ORDERED: MORPHINE SULFATE 2 MG/ML SYRINGE IVP PRN (12:51)
--- NOTE | 2020-11-19 12:55 | P.HPIM ---
History of Present Illness H&P Date: 11/19/20 Chief Complaint: dehydration failure to thrive, gallbladder cancer Is is an 85-year-old female patient presented to the emergency room with family with complaints of decreased level consciousness and poor oral intake. Patient has a recent diagnosis of gallbladder cancer. Patient also recently admitted for CHF exacerbation. Patient was DC'd home to family but per patient's son at bedside they were unable to care for her declining status. Additional medical history includes coronary artery disease, hypertension, hepatitis C and atrial fibrillation. Patient's son is at bedside patient currently unresponsive shallow breathing. Patient's son requesting comfort care measures and hospice consult. Review of Systems Please refer to HPI Past Medical History Past Medical History: Coronary Artery Disease (CAD), Hypertension Additional Past Medical History / Comment(s): Hepatitis C, anemia, atrial fibrillation History of Any Multi-Drug Resistant Organisms: None Reported Past Surgical History: Section, Cholecystectomy, Tonsillectomy Past Anesthesia/Blood Transfusion Reactions: No Reported Reaction Additional Past Anesthesia/Blood Transfusion Reaction / Comment(s): Blood transfusion 5-6 years ago (no reactions) Past Psychological History: No Psychological Hx Reported Smoking Status: Former smoker Past Alcohol Use History: None Reported Past Drug Use History: None Reported - Past Family History Father Family Medical History: Cancer Additional Family Medical History / Comment(s): prostate CA Mother Family Medical History: Diabetes Mellitus, Myocardial Infarction ([place]) Brother(s) Family Medical History: Cancer Additional Family Medical History / Comment(s): esophageal CA Sister(s) Family Medical History: Cancer Additional Family Medical History / Comment(s): ovarian CA Medications and Allergies Home Medications Medication Instructions Recorded Confirmed Type RX: Apixaban [Eliquis] 5 mg PO BID tab 07/06/17 11/18/20 Rx RX: Nitroglycerin Sl Tabs 0.4 mg SL Q5M PRN 09/30/19 11/18/20 History [Nitrostat] RX: Verapamil HCl [Verapamil ER] 240 mg PO DAILY 09/30/19 11/18/20 History RX: Allopurinol [Zyloprim] 300 mg PO DAILY 02/10/20 11/18/20 History RX: traMADol HCL [Ultram] 50 mg PO Q8HR PRN 3 Days #9 tab 10/15/20 11/18/20 Rx RX: Furosemide [Lasix] 40 mg PO DAILY tab 10/17/20 11/18/20 Rx RX: Pantoprazole [Protonix] 40 mg PO BID tablet. 10/17/20 11/18/20 Rx RX: Potassium Chloride ER [K-Dur 10 meq PO DAILY tab.er.prt 10/17/20 11/18/20 Rx 10] RX: Multivitamins, Thera 1 tab PO DAILY 11/10/20 11/18/20 History [Multivitamin (formulary)] Cefuroxime Axetil [Ceftin] 500 mg PO BID 7 Days #14 tab 11/14/20 11/18/20 Rx RX: atenoloL [Atenolol] 12.5 mg PO DAILY 11/18/20 11/18/20 History Allergies Allergy/AdvReac Type Severity Reaction Status Date / Time No Known Allergies Allergy Verified 11/18/20 10:45 Physical Exam Vitals: Vital Signs Pulse Resp BP Pulse Ox 11/19/20 08:00 109 H 94 L 11/19/20 06:00 36 H 84 L 11/19/20 04:00 38 H 85 L 11/19/20 03:00 93 40 H 106/75 84 L 11/18/20 23:44 112 H 38 H 110/76 82 L 11/18/20 20:00 83 L 11/18/20 13:39 108 H 18 112/63 93 L Head normocephalic Neck supple Lungs clear to auscultation bilaterally no wheezing or crackles Heart regular rate and rhythm S1-S2, no rub or gallop Abdomen is soft nontender nondistended positive bowel sounds no hepatosplenomegaly Extremities no edema Neuro unresponsive. Results CBC & Chem 7: 11/18/20 09:59 11/18/20 09:59 Labs: Abnormal Lab Results - Last 24 Hours (Table) 11/18/20 Range/Units 15:48 Urine Appearance Cloudy H (Clear) Urine Protein 1+ H (Negative) Urine Blood Moderate H (Negative) Urine RBC 14 H (0-5) /hpf Urine Bacteria Rare H (None) /hpf Hyaline Casts 33 H (0-2) /lpf Urine Mucus Rare H (None) /hpf Assessment and Plan Assessment: 1. Altered mental status secondary to dehydration and gallbladder cancer 2. Poorly differentiate adenocarcinoma of gallbladder 3. Chronic atrial fibrillation. Patient is maintained on eliquis 4. History of valvular heart disease with mild to moderate mitral regurg, moderate tricuspid regurg mild to moderate pulmonary hypertension 5. History of essential hypertension 6. History of hyperlipidemia 7. History of hepatitis C At this time patient gonzález Boss is Requesting Hospice Consult and Comfort Care Measures Only Time with Patient: Greater than 30
--- NOTE | 2020-11-19 13:56 | CDI ---
Documentation Clarification Form Date: 11/19/2020 01:39:34 PM From: Ariana Wilde RN, CCDS Admit Date: 11/18/2020 12:37:00 PM Patient Name: Dia Wood Visit Number: [id number] Discharge Date: ATTENTION: The Clinical Documentation Specialists (CDI) and [facility] Coding Staff appreciate your assistance in clarifying documentation. Please respond to the clarification below the line at the bottom and electronically sign. The CDI & [facility] Coding staff will review the response and follow-up if needed. Please note: Queries are made part of the Legal Health Record. If you have any questions, please contact the author of this message via ITS. Dr. Patti Razo Your patient has the documented symptom of Altered Mental Status secondary to dehydration in the H&P. Additional clarification regarding the etiology of this symptom is requested. History/Risk Factors: Coronary Artery Disease, Hypertension, Atrial Fibrillation, Hepatitis C, Poorly differentiate adenoca of gallbladder Clinical Indicators: 85-year-old female who present to ED on 11/18/20 with weakness lethargy, altered mental status per ED assessment. 11/18 Vital signs: 113/82 111 16 97.9 93 % 2/L NC 11/18 Labs: WBC 13.9, HGB 9.2, HCT 29.2, Na+ 133, Cl 93, CO2, 32, BUN 52 CR 1.39 11/18 CXR: Cardiomegaly with new central vascular congestion and kexsh-[id number]-nkojqaxp bilateral pleural effusion increased in size from most recent x-ray consistent with CHF exacerbation and/or worsening fluid overload. Treatment: Neurological assessment per protocol Please clarify the etiology of the symptom of Altered Mental Status: [ ] [Metabolic encephalopathy (due to [insert cause of encephalopathy] [ ] Other condition (please specify) [ ] Unable to determine (Template Last Revised: September 2020) Metabolic encephalopathy secondary to adenocarcinoma of the gallbladder and failure to thrive MTDD
--- NOTE | 2020-11-19 14:14 | CDI ---
Documentation Clarification Form Date: 11/19/2020 01:57:14 PM From: Ariana Wilde RN, CCDS Admit Date: 11/18/2020 12:37:00 PM Patient Name: Dia Wood Visit Number: [id number] Discharge Date: ATTENTION: The Clinical Documentation Specialists (CDI) and [facility] Coding Staff appreciate your assistance in clarifying documentation. Please respond to the clarification below the line at the bottom and electronically sign. The CDI & [facility] Coding staff will review the response and follow-up if needed. Please note: Queries are made part of the Legal Health Record. If you have any questions, please contact the author of this message via ITS. Dr. Patti Razo Your patient has an abnormal lab value: 11/18/20 BUN 52, Creatinine 1.39. Please clarify if there is an additional diagnosis and/or clinical significance related to this value. History/Risk Factors: Coronary Artery Disease, Hypertension, Atrial Fibrillation, Hepatitis C, Poorly differentiate adenoca of gallbladder Clinical indicators: 85-year-old female who present to ED on 11/18/20 with weakness lethargy, altered mental status per ED assessment. 11/18 H&P: altered mental status secondary to dehydration and gallbladder cancer. 11/18 Vital signs: 113/82 111 16 97.9 93 % 2/L NC 11/18 Labs: WBC 13.9, HGB 9.2, HCT 29.2, Na+ 133, Cl 93, CO2, 32, BUN 52 CR 1.39 Treatment: Neurological assessment per protocol .9% NS 1,000 ML Bolus (11/18) Is there an additional diagnosis and/or clinical significance related to the above lab result/information? [ ] Acute Kidney Injury due to dehydration [ ] Other, please specify [ ] Unable to determine (Template Last Revised: September 2020) Acute kidney injury secondary to dehydration MTDD
[2020-11-19 15:26] VITALS: RESP 100
--- NOTE | 2020-11-26 10:15 | P.DS ---
Providers Date of admission: 11/18/20 12:37 Expected date of discharge: 11/19/20 Attending physician: Patti Razo Primary care physician: Patti Razo [facility] Course: Discharge diagnosis Terminal diagnosis adenocarcinoma of the gallbladder Patient being admitted to hospice care 1. Altered mental status secondary to dehydration and gallbladder cancer 2. Poorly differentiate adenocarcinoma of gallbladder 3. Chronic atrial fibrillation. Patient is maintained on eliquis 4. History of valvular heart disease with mild to moderate mitral regurg, moderate tricuspid regurg mild to moderate pulmonary hypertension 5. History of essential hypertension 6. History of hyperlipidemia 7. History of hepatitis C Hospital course Is is an 85-year-old female patient presented to the emergency room with family with complaints of decreased level consciousness and poor oral intake. Patient has a recent diagnosis of gallbladder cancer. Patient also recently admitted for CHF exacerbation. Patient was DC'd home to family but per patient's son at bedside they were unable to care for her declining status. Additional medical history includes coronary artery disease, hypertension, hepatitis C and atrial fibrillation. Patient's son is at bedside patient currently unresponsive shallow breathing. Patient's son requesting comfort care measures and hospice consult. Plan - Discharge Summary New Discharge Prescriptions: No Action Apixaban [Eliquis] 5 mg PO BID tab Nitroglycerin Sl Tabs [Nitrostat] 0.4 mg SL Q5M PRN PRN Reason: Chest Pain Verapamil HCl [Verapamil ER] 240 mg PO DAILY Allopurinol [Zyloprim] 300 mg PO DAILY traMADol HCL [Ultram] 50 mg PO Q8HR PRN 3 Days #9 tab PRN Reason: Pain Potassium Chloride ER [K-Dur 10] 10 meq PO DAILY tab.er.prt Furosemide [Lasix] 40 mg PO DAILY tab Pantoprazole [Protonix] 40 mg PO BID tablet. Multivbrady [place] [Multivitamin (formulary)] 1 tab PO DAILY Cefuroxime Axetil [Ceftin] 500 mg PO BID 7 Days #14 tab atenoloL [Atenolol] 12.5 mg PO DAILY Discharge Medication List Apixaban [Eliquis] 5 mg PO BID tab 07/06/17 [Rx] Nitroglycerin Sl Tabs [Nitrostat] 0.4 mg SL Q5M PRN 09/30/19 [History] Verapamil HCl [Verapamil ER] 240 mg PO DAILY 09/30/19 [History] Allopurinol [Zyloprim] 300 mg PO DAILY 02/10/20 [History] traMADol HCL [Ultram] 50 mg PO Q8HR PRN 3 Days #9 tab 10/15/20 [Rx] Furosemide [Lasix] 40 mg PO DAILY tab 10/17/20 [Rx] Pantoprazole [Protonix] 40 mg PO BID tablet.dr 10/17/20 [Rx] Potassium Chloride ER [K-Dur 10] 10 meq PO DAILY tab.er.prt 10/17/20 [Rx] Multivitamins, Thera [Multivitamin (formulary)] 1 tab PO DAILY 11/10/20 [History] Cefuroxime Axetil [Ceftin] 500 mg PO BID 7 Days #14 tab 11/14/20 [Rx] atenoloL [Atenolol] 12.5 mg PO DAILY 11/18/20 [History] Follow up Appointment(s)/Referral(s): Patti Razo MD [Primary Care Provider] - 1-2 days Discharge Disposition: DISCH TO [facility]
== END 2020-11-19 17:11 | disposition hospice, inpatient (51) | DRG 435 ==
LOC: EC 09:41 → 4SSUR 12:37 → 5NMEDONC 11-19 01:04
PROVIDERS: ADMIT Internal Medicine; ATTEND Internal Medicine
DX: C23 Malignant neoplasm of gallbladder (principal); G93.41 Metabolic encephalopathy; C16.9 Malignant neoplasm of stomach, unspecified; I48.20 Chronic atrial fibrillation, unspecified; N17.9 Acute kidney failure, unspecified; D64.9 Anemia, unspecified; E78.5 Hyperlipidemia, unspecified; E86.0 Dehydration; I08.1 Rheumatic disorders of both mitral and tricuspid valves; I11.0 Hypertensive heart disease with heart failure; I25.10 Atherosclerotic heart disease of native coronary artery without angina pectoris; I27.20 Pulmonary hypertension, unspecified; I50.9 Heart failure, unspecified; R62.7 Adult failure to thrive; Z51.5 Encounter for palliative care; Z66 Do not resuscitate; Z20.822 Contact with and (suspected) exposure to COVID-19; Z79.01 Long term (current) use of anticoagulants; Z79.899 Other long term (current) drug therapy; Z80.0 Family history of malignant neoplasm of digestive organs; Z80.41 Family history of malignant neoplasm of ovary; Z82.49 Family history of ischemic heart disease and other diseases of the circulatory system; Z83.3 Family history of diabetes mellitus; Z87.891 Personal history of nicotine dependence; Z80.42 Family history of malignant neoplasm of prostate; Z98.890 Other specified postprocedural states; Z90.89 Acquired absence of other organs; Z90.49 Acquired absence of other specified parts of digestive tract
CPT/HCPCS: 36415; 71046; 80053; 81001; 82550; 83735; 85025; 87635; 96360; 96361; 99285

== ENCOUNTER 2020-11-19 17:11 | Inpatient (IN) | payer MEDICAID ==
[2020-11-19] MEDS ORDERED: ACETAMINOPHEN SUPPOSITORY 650 MG SUPP RECTAL PRN (17:15)
[2020-11-19] MEDS ORDERED: HALOPERIDOL LACTATE 5 MG/ML 1 ML VIAL IM PRN (17:15)
[2020-11-19] MEDS ORDERED: MORPHINE SULFATE 2 MG/ML SYRINGE IV PRN (17:15)
[2020-11-19] MEDS ORDERED: LORazepam 2 MG/ML INJ IV PRN (17:15)
[2020-11-19] MEDS ORDERED: ATROPINE OPHTH SOLN 1% 5ML BTL SUBLINGUAL PRN (17:30)
[2020-11-19] MEDS ORDERED: SCOPOLAMINE 1.5MG/72HR PATCH TRANSDERM SCH (18:00)
[2020-11-19] MEDS ORDERED: MORPHINE SULFATE (100 MG/2 ML) 100 MG in SODIUM CHLORIDE 0.9% 100 ML IV SCH (18:00)
--- NOTE | 2020-11-19 18:36 | P.HPIM ---
History of Present Illness H&P Date: 11/19/20 This is an 85-year-old female with history of multiple medical problems including hepatitis C, coronary artery disease, chronic atrial fibrillation, on eliquis, hypertension, hypercholesterolemia, history of adenocarcinoma, gallbladder recently removed. She is a patient of Dr. Razo. She was recently discharged from the hospital 10/01/20-10/17/20-for upper GI bleed with EGD showing mild esophagitis with no evidence of bleed and acute cholecystitis status post laparoscopic cholecystectomy. 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 She follows up with Dr. Mahmood but no chemotherapy or radiotherapy started. Patient was readmitted to [facility] on 11/10/2020 to 11/14/2020 with acute diastolic congestive heart failure exacerbation and acute hypoxic respiratory failure she was stabilized and discharged home, however her condition continued to worsen she was having poor oral intake and worsening overall condition she was brought back to the hospital by her family and at this time they were requesting comfort care only and possible hospice care. Past Medical History Past Medical History: Coronary Artery Disease (CAD), Hypertension Additional Past Medical History / Comment(s): Hepatitis C, anemia, atrial fibrillation History of Any Multi-Drug Resistant Organisms: None Reported Past Surgical History: Section, Cholecystectomy, Tonsillectomy Past Anesthesia/Blood Transfusion Reactions: No Reported Reaction Additional Past Anesthesia/Blood Transfusion Reaction / Comment(s): Blood transfusion 5-6 years ago (no reactions) Past Psychological History: No Psychological Hx Reported Smoking Status: Former smoker Past Alcohol Use History: None Reported Past Drug Use History: None Reported - Past Family History Father Family Medical History: Cancer Additional Family Medical History / Comment(s): prostate CA Mother Family Medical History: Diabetes Mellitus, Myocardial Infarction ([place]) Brother(s) Family Medical History: Cancer Additional Family Medical History / Comment(s): esophageal CA Sister(s) Family Medical History: Cancer Additional Family Medical History / Comment(s): ovarian CA Medications and Allergies Home Medications Medication Instructions Recorded Confirmed Type Apixaban [Eliquis] 5 mg PO BID tab 07/06/17 11/19/20 Rx Nitroglycerin Sl Tabs [Nitrostat] 0.4 mg SL Q5M PRN 09/30/19 11/19/20 History Verapamil HCl [Verapamil ER] 240 mg PO DAILY 09/30/19 11/19/20 History Allopurinol [Zyloprim] 300 mg PO DAILY 02/10/20 11/19/20 History traMADol HCL [Ultram] 50 mg PO Q8HR PRN 3 Days #9 tab 10/15/20 11/19/20 Rx Furosemide [Lasix] 40 mg PO DAILY tab 10/17/20 11/19/20 Rx Pantoprazole [Protonix] 40 mg PO BID tablet. 10/17/20 11/19/20 Rx Potassium Chloride ER [K-Dur 10] 10 meq PO DAILY tab.er.prt 10/17/20 11/19/20 Rx Multivitamins, Thera [Multivitamin 1 tab PO DAILY 11/10/20 11/19/20 History (formulary)] Cefuroxime Axetil [Ceftin] 500 mg PO BID 7 Days #14 tab 11/14/20 11/19/20 Rx atenoloL [Atenolol] 12.5 mg PO DAILY 11/18/20 11/19/20 History Allergies Allergy/AdvReac Type Severity Reaction Status Date / Time No Known Allergies Allergy Verified 11/19/20 18:16 Physical Exam Vitals: Intake and Output 11/19/20 11/19/20 11/19/20 06:59 14:59 22:59 Other: Weight 68.3 kg In general patient is somnolent responsive to repeated stimuli only HEENT head normocephalic and atraumatic Neck is supple no JVD no goiter no lymphadenopathy Chest exam reveals a few scattered rhonchi no wheezing Cardiac exam reveals regular heart sounds S1 and S2 no murmurs Abdomen is soft nontender no guarding or rigidity no rebound Extremity exam reveals no edema no cyanosis or clubbing Assessment and Plan Plan: 85-year-old female presenting with poor oral intake and fast decline of generalized condition family is requesting comfort care and hospice consultation Patient will be admitted to medical floor, she is having some agitation and she will be given Ativan 1 mg IV every 3 hours when necessary Will start with comfort measures and consult hospice Diagnosis for hospice is invasive poorly differentiated adenocarcinoma of the gallbladder
[2020-11-20 06:31] VITALS: PULSE 128; RESP 24
--- NOTE | 2020-11-26 10:19 | P.DS ---
Providers Date of admission: 11/19/20 17:11 Expected date of discharge: 11/20/20 Attending physician: Patti Razo Primary care physician: Patti Razo [facility] Course: Discharge diagnosis Terminal diagnosis adenocarcinoma of gallbladder She was admitted under hospice care 1. Altered mental status secondary to dehydration and gallbladder cancer 2. Poorly differentiate adenocarcinoma of gallbladder 3. Chronic atrial fibrillation. Patient is maintained on eliquis 4. History of valvular heart disease with mild to moderate mitral regurg, moderate tricuspid regurg mild to moderate pulmonary hypertension 5. History of essential hypertension 6. History of hyperlipidemia 7. History of hepatitis C Hospital course This is an 85-year-old female with history of multiple medical problems including hepatitis C, coronary artery disease, chronic atrial fibrillation, on eliquis, hypertension, hypercholesterolemia, history of adenocarcinoma, gallbladder recently removed. She is a patient of Dr. Razo. She was recently discharged from the hospital 10/01/20-10/17/20-for upper GI bleed with EGD showing mild esophagitis with no evidence of bleed and acute cholecystitis status post laparoscopic cholecystectomy. 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 She follows up with Dr. Mahmood but no chemotherapy or radiotherapy started. Patient was readmitted to [facility] on 11/10/2020 to 11/14/2020 with acute diastolic congestive heart failure exacerbation and acute hypoxic respiratory failure she was stabilized and discharged home, however her condition continued to worsen she was having poor oral intake and worsening overall condition she was brought back to the hospital by her family and at this time they were requesting comfort care only and possible hospice care. On 11/20/2020 patient admitted under hospice care. Patient at 0 804 20 09/20/2020 son at bedside Plan - Discharge Summary New Discharge Prescriptions: No Action Apixaban [Eliquis] 5 mg PO BID tab Nitroglycerin Sl Tabs [Nitrostat] 0.4 mg SL Q5M PRN PRN Reason: Chest Pain Verapamil HCl [Verapamil ER] 240 mg PO DAILY Allopurinol [Zyloprim] 300 mg PO DAILY traMADol HCL [Ultram] 50 mg PO Q8HR PRN 3 Days #9 tab PRN Reason: Pain Potassium Chloride ER [K-Dur 10] 10 meq PO DAILY tab.er.prt Furosemide [Lasix] 40 mg PO DAILY tab Pantoprazole [Protonix] 40 mg PO BID tablet. Multivitamins Thera [Multivitamin (formulary)] 1 tab PO DAILY Cefuroxime Axetil [Ceftin] 500 mg PO BID 7 Days #14 tab atenoloL [Atenolol] 12.5 mg PO DAILY Discharge Medication List Apixaban [Eliquis] 5 mg PO BID tab 07/06/17 [Rx] Nitroglycerin Sl Tabs [Nitrostat] 0.4 mg SL Q5M PRN 09/30/19 [History] Verapamil HCl [Verapamil ER] 240 mg PO DAILY 09/30/19 [History] Allopurinol [Zyloprim] 300 mg PO DAILY 02/10/20 [History] traMADol HCL [Ultram] 50 mg PO Q8HR PRN 3 Days #9 tab 10/15/20 [Rx] Furosemide [Lasix] 40 mg PO DAILY tab 10/17/20 [Rx] Pantoprazole [Protonix] 40 mg PO BID tablet. 10/17/20 [Rx] Potassium Chloride ER [K-Dur 10] 10 meq PO DAILY tab.er.prt 10/17/20 [Rx] Multivitaminjacqueline, Thera [Multivitamin (formulary)] 1 tab PO DAILY 11/10/20 [History] Cefuroxime Axetil [Ceftin] 500 mg PO BID 7 Days #14 tab 11/14/20 [Rx] atenoloL [Atenolol] 12.5 mg PO DAILY 11/18/20 [History] Discharge Disposition: - Preliminary Cause of Preliminary Cause of : Adenocarcinoma
== END 2020-11-20 09:42 | disposition expired | DRG 951 ==
LOC: 5NMEDONC 17:11
PROVIDERS: ADMIT Internal Medicine; ATTEND Internal Medicine
DX: Z51.5 Encounter for palliative care (principal); I50.32 Chronic diastolic (congestive) heart failure; C23 Malignant neoplasm of gallbladder; I48.20 Chronic atrial fibrillation, unspecified; Z66 Do not resuscitate; I27.20 Pulmonary hypertension, unspecified; I11.0 Hypertensive heart disease with heart failure; D64.9 Anemia, unspecified; B19.20 Unspecified viral hepatitis C without hepatic coma; E86.0 Dehydration; E78.00 Pure hypercholesterolemia, unspecified; I25.10 Atherosclerotic heart disease of native coronary artery without angina pectoris; K20.90 Esophagitis, unspecified without bleeding; R41.82 Altered mental status, unspecified; I08.1 Rheumatic disorders of both mitral and tricuspid valves; E78.5 Hyperlipidemia, unspecified; Z90.49 Acquired absence of other specified parts of digestive tract; Z87.19 Personal history of other diseases of the digestive system; Z98.890 Other specified postprocedural states; Z79.01 Long term (current) use of anticoagulants; Z79.899 Other long term (current) drug therapy; Z87.891 Personal history of nicotine dependence; Z83.3 Family history of diabetes mellitus; Z82.49 Family history of ischemic heart disease and other diseases of the circulatory system; Z80.41 Family history of malignant neoplasm of ovary; Z80.0 Family history of malignant neoplasm of digestive organs